=== PATIENT | female | born 1955 | race Caucasian/White ===

== ENCOUNTER → 2019-09-22 15:39 | Outpatient (BNVA) | payer BC, SELFPAY | PROVIDERS: Family Provider Family Medicine; PCP Family Medicine; Visit Provider Nurse Practitioner | DX: R50.9 Fever, unspecified (principal); R05 Cough | CPT/HCPCS: 71046; 81003; 85025; 87804 ==

== ENCOUNTER 2020-01-01 23:24 | Inpatient (IN) | payer BC, SELFPAY ==
--- NOTE | 2020-01-01 23:37 | XRR_ITS ---
PROCEDURE INFORMATION: Exam: XR Chest, 1 View Exam date and time: 01/02/2020 12:07 AM Age: 64 years old Clinical indication: Dyspnea; Prior surgery; Surgery date: 6+ months; Surgery type: Stents, gb; Additional info: Weakness TECHNIQUE: Imaging protocol: XR of the chest Views: 1 view. COMPARISON: CR XR chest 2V* [id number] 09/22/2019 3:39 PM FINDINGS: Lungs: Patchy bilateral airspace opacities may reflect evolving bronchopneumonia. Pleural space: Unremarkable. No pleural effusion. No pneumothorax. Heart/Mediastinum: Irregularity to the right heart border and mediastinum somewhat concerning for underlying adenopathy, consider further evaluation with CT scan. Bones/joints: Unremarkable. XR/XR chest 1V portable [id number] IMPRESSION: 1. Patchy bilateral airspace opacities may reflect evolving bronchopneumonia. 2. Irregularity to the right heart border and mediastinum somewhat concerning for underlying adenopathy, consider further evaluation with CT scan.
--- NOTE | 2020-01-01 23:38 | ECG_ITS ---
Measurements Intervals Mcdonald Rate: 67 P: 58 MN: 200 QRS: 64 QRSD: 99 T: 7 QT: 451 QTc: 479 SINUS RHYTHM NONSPECIFIC T-WAVE ABNORMALITY Compared to ECG 11/19/2018 16:22:41 First degree AV block no longer present Possible ischemia no longer present T-wave abnormality still present Electronically Signed On 01-02-2020 7:47:58 CDT by Herb Gaitan M.D. [email or web address]
[2020-01-01 23:44] VITALS: BP 68/35; PULSE 70; RESP 10; TEMP 36.7; O2SAT 75; BMI 19.3
[2020-01-02] VITALS (36 sets, daily range): BP systolic 72–158; BP diastolic 38–76; PULSE 62–72; RESP 9–22; TEMP 35.8–36.7; O2SAT 5–97
[2020-01-02 00:10] LABS: Basophils # 0.1 10^3/uL (0.0-0.1); Basophils % 0.3 %; Eosinophils # 0.2 10^3/uL (0.0-0.8); Eosinophils % 1.1 %; Hematocrit 35.7 % (37.0-47.0); Hemoglobin 11.9 g/dL (11.5-15.3); Lymphocytes # 1.2 10^3/uL (0.8-4.8); Lymphocytes % 8.2 %; Mean Corpuscular HGB Conc 33.3 g/dL (30.0-36.0); Mean Corpuscular Hemoglobin 31.3 pg (28.0-34.0); Mean Corpuscular Volume 93.9 fL (81-99); Monocytes # 0.3 10^3/uL (0.2-0.9); Monocytes % 2.4 %; Neutrophils # 12.5 10^3/uL (1.8-7.7); Neutrophils % 87.1 %; Nucleated Red Blood Cells % 0 %; Platelet Count 225 10^3/cmm (130-400); Red Cell Distribution Width 13.4 % (12.1-15.1); White Blood Count 14.4 10^3/uL (4.0-10.0)
[2020-01-02] MEDS: lactated ringers 1,000 ML 999 ML IV ×2 (00:15→01:05)
--- NOTE | 2020-01-02 00:18 | ED_ITS ---
HPI - Altered Mental Status General: Chief Complaint: Psychiatric Symptoms Stated Complaint: weakness/confused Time Seen by Provider: 01/01/20 23:37 History of Present Illness: HPI narrative: History is somewhat limited to the patient's lethargy and slurred speech. Family is with her to does provide additional history. Apparently the patient has been at home in bed primarily secondary to a lupus flareup. They state at times she will get fatigued and in so much pain she just lays in bed for several days. This is what had been going on but then over the past 24 to 48 hours the patient is developed a fever, cough, she is been talking out of her head and was too weak to get up out of bed. Because of this she was brought here. Family states that she has had frequent UTIs in the past as well. Here the patient complains of primarily low back pain which she states is chronic. Other than that she says she does not feel sick, short of breath nor does she have any complaints other than weakness. Review of Systems General: Reports: ROS unobtainable due to medical condition (Pertinent positive review of systems that could be obtained were noted in HPI) PFSH ED PFSH: Medical History Anxiety disorder Arteriosclerotic cardiovascular disease Essential (primary) hypertension GERD (gastroesophageal reflux disease) Hypothyroidism Intervertebral disc disorder with radiculopathy of lumbosacral region Lumbar stenosis with neurogenic claudication Mixed hyperlipidemia Systemic lupus erythematosus, unspecified Vitamin D deficiency Surgical History H/O: hysterectomy with BSO History of cholecystectomy History of heart artery stent 5 stents Family History Sister Cancer Brain Hypertension Family/Other Hypertension Several members Social History Smoking and tobacco status: current every day smoker Second hand smoke exposure: No Smoking risk assessment/counseling performed?: No Alcohol intake: never Desire information about alcohol rehabilitation?: No Counseling given: No Desire information about substance/drug rehabilitation?: No Counseling given: No Caregiver/support person: No Lives independently: Yes Household members: spouse Current occupational status: unemployed History of recent travel: No Current gender identity: Female Physical Exam Const: GENERAL APPEARANCE: cooperative, lethargic and frail appearing NUTRITIONAL APPEARANCE: thin ORIENTATION/CONSCIOUSNESS: Yes awake and Yes lethargic HENMT: COMMON NORMALS: normocephalic, atraumatic, hearing grossly normal bilaterally, external ears normal, EAC's normal, Normal external nose present and moist oral mucous membranes HEAD & SCALP: normocephalic and atraumatic NOSE: Normal external nose present and Normal nares present EXTERNAL EAR: Yes external ears normal EXTERNAL AUDITORY CANAL: EAC's normal MOUTH: Normal oral and palatal mucosa present, lip normal, tongue normal and moist mucous membranes abnormal Details: parched Eye: COMMON NORMALS: Equal, round and reactive pupils present, EOMs intact bilaterally, conjunctivae normal and no scleral icterus GENERAL EYE: appearance normal, both eyes and all related structures ALIGNMENT: Yes alignment normal PERIORBITAL: periorbital findings normal EYELID: eyelids normal CONJUNCTIVA: Yes conjunctivae normal SCLERA: sclerae normal PUPIL: Yes Equal, round and reactive pupils present Neck/C-Spine: COMMON NORMALS: full ROM, no lymphadenopathy, supple, no meningeal signs and no JVD GENERAL: Yes normal visual inspection and Yes trachea midline Chest: COMMONS NORMALS: normal inspection of the chest and normal palpation of entire chest wall Resp: COMMON NORMALS: normal respiratory effort, No retractions and No use of accessory muscles EFFORT & INSPECTION: Yes able to speak in complete sentences and Yes symmetric chest movement AUSCULTATION: rhonchi and diminished lung sounds Cardio: COMMON NORMALS: no JVD, regular rate, regular rhythm, S1 normal heart sound present, S2 normal heart sound present, No gallops present (Cardio), No clicks present (Cardio), No murmurs present (Cardio) and No rub (Cardio) RATE: regular rate RHYTHM: regular rhythm HEART SOUNDS: S1 normal heart sound present and S2 normal heart sound present GI: COMMON NORMALS: Soft to palpation and No hepatosplenomegaly present PALPATION: Yes Soft to palpation, No Tenderness to palpation present (GI), No Guarding due to palpation present (GI), No Rigid due to palpation, Yes No hepatosplenomegaly present, No Hernia present, No Palpable mass present and No Pulsatile mass present : COMMON NORMALS: Yes no CVA tenderness BLADDER/KIDNEY EXAM: Yes no CVA tenderness EXTERNAL FEMALE EXAM: No Hernia present Back/Pelvis: COMMON NORMALS: no CVA tenderness, thoracic and lumbar spine normal to inspection, no thoracic nor lumbar tenderness and thoraco-lumbar ROM normal Extremity: COMMON NORMALS: normal to inspection, full ROM, capillary refill normal, no joint enlargement, no clubbing, cyanosis or edema and no calf tenderness Neuro: COMMON NORMALS: CN's II-XII intact bilaterally, moves all extremities, no focal motor deficits and no sensory deficits noted SENSORIUM/ORIENTATION: Yes lethargic MENINGEAL SIGNS: Yes no meningeal signs Skin: COMMON NORMALS: no rashes or lesions noted, turgor normal, no jaundice, no petechiae and no mottling GENERAL SKIN EXAM: no rashes or lesions noted and turgor normal Course ED course: 0124 -Case turned over to Dr. Lara for ICU admission. He understands the patient's urinalysis is pending at this time. 0305 -patient was admitted to the ICU with a diagnosis of septic shock. She has UTI but she also has a concern for covert exposure and a chest x-ray with significant hypoxia. Vital Signs: Vital signs: Vital Signs Temperature 98.0 F 01/01/20 23:44 Pulse Rate 72 01/02/20 02:53 Respiratory Rate 20 H 01/02/20 02:53 Blood Pressure 112/72 01/02/20 02:53 Pulse Oximetry 91 01/02/20 02:53 MDM - Altered Mental Status Lab Data: Labs: Lab Results 01/01/20 01/01/20 01/01/20 Range/Units 00:00 23:59 23:59 WBC 14.4 H (4.0-10.0) 10^3/ uL RBC 3.80 L (4.1-5.3) 10^6/u L Hgb 11.9 (11.5-15.3) g/dL Hct 35.7 L (37.0-47.0) % MCV 93.9 (81-99) fL MCH 31.3 (28.0-34.0) pg MCHC 33.3 (30.0-36.0) g/dL RDW 13.4 (12.1-15.1) % Plt Count 225 (130-400) 10^3/c mm MPV 11.0 H (7.4-10.4) fL Neut % (Auto) 87.1 % Lymph % (Auto) 8.2 % Crosby % (Auto) 2.4 % Eos % (Auto) 1.1 % Baso % (Auto) 0.3 % Neut # (Auto) 12.5 H (1.8-7.7) 10^3/u L Lymph # (Auto) 1.2 (0.8-4.8) 10^3/u L Crosby # (Auto) 0.3 (0.2-0.9) 10^3/u L Eos # (Auto) 0.2 (0.0-0.8) 10^3/u L Baso # (Auto) 0.1 (0.0-0.1) 10^3/u L Nucleated RBC % (a uto) 0 % Nucleated RBCs # 0.0 /100WBC D-Dimer (0-0.59) ug/mIFE U Specimen Type Arterial Sample Site Brachial, right ABG pH 7.26 L (7.35-7.45) ABG pCO2 39.5 (35-45) mmHg ABG pO2 49.4 L (80.0-100.0) mmH g ABG HCO3 17.5 L (22-26) mmol/L ABG O2 Saturation 83.0 ABG Base Excess -9.0 L (-2.0-2.0) mmol/ L Amrit Test Pos A-a O2 Gradient 51.5 H (5-10) mmHg Hematocrit 36.5 L (37-47) % Hgb O2 Saturation 78.4 L (95-100) % Carboxyhemoglobin 4.4 (0.4-20.1) %THgb Methemoglobin 1.2 (0.4-1.5) % Total Hemoglobin 11.9 L (12-16) g/dL Sodium 126.0 L 126 L (131-143) mmol/L Potassium 4.9 5.5 H (3.5-5.0) mmol/L Glucose 72.0 76 (70-115) mg/dL Ionized Calcium 1.2 (1.1-1.4) mmol/L O2 Delivery Device Nc O2 Liters/Min 5.0 % Recruitment Coordinator ID [email or web address] Chloride 88 L (98-107) mmol/L Carbon Dioxide 18 L (22-29) mmol/L Anion Gap 25.5 H (5-19) BUN 29 H (8-23) mg/dL Creatinine 4.3 H (0.5-0.9) mg/dL GFR Calculation 10.4 L (90-130) mL/min Calculated Osmolal ity 258 L (285-295) mOsm/k g Lactic Acid (0.5-2.2) mmol/L Calcium 9.3 (8.5-10.5) mg/dL Magnesium 1.9 (1.7-2.3) mg/dL Ferritin (15-150) ng/mL Total Bilirubin 0.5 (0.15-1.2) mg/dL AST 80 H (0-32) U/L ALT 14 (0-33) U/L Alkaline Phosphata se 70 (35-105) IU/L Ammonia (11-51) umol/L Creatine Kinase 642 H* (26-192) U/L Troponin T Baselin e (0-10) ng/mL Total Protein 7.3 (6.6-8.7) g/dL Albumin 3.6 (3.5-5.2) g/dL Globulin 3.7 (1.3-4.6) g/dL Lipase 16 (13-60) U/L TSH 1.03 (0.27-4.20) uIU/ mL Urine Color (Yellow) Urine Appearance (CLEAR) Urine pH (5-7) Ur Specific Gravit y (1.005-1.030) Urine Protein (Negative) Urine Glucose (UA) (Normal) Urine Ketones (Negative) Urine Blood (Negative) Urine Nitrate (Negative) Urine Bilirubin (NEGATIVE) Urine Urobilinogen (Negative) mg/dL Ur Leukocyte Sabrina ase (Negative) Urine RBC (0-2) /hpf Urine WBC (0-5) /hpf Ur Squamous Epith Cells (0-5) Ur Transition Epit h Cell /hpf Urine Bacteria (NONE) Urine Opiates Scre en (Negative) ng/mL Ur Barbiturates Sc reen (Negative) ng/mL Ur Phencyclidine S crn (Negative) ng/mL Ur Amphetamines Sc reen (Negative) ng/mL U Benzodiazepines Scrn (Negative) ng/mL Urine Cocaine Scre en (Negative) ng/mL U Marijuana (THC) Screen (Negative) ng/mL Ethyl Alcohol < 10 (0-10) mg/dL 01/01/20 01/01/2020 Range/Units 23:59 23:59 23:59 WBC (4.0-10.0) 10^3/ uL RBC (4.1-5.3) 10^6/u L Hgb (11.5-15.3) g/dL Hct (37.0-47.0) % MCV (81-99) fL MCH (28.0-34.0) pg MCHC (30.0-36.0) g/dL RDW (12.1-15.1) % Plt Count (130-400) 10^3/c mm MPV (7.4-10.4) fL Neut % (Auto) % Lymph % (Auto) % Crosby % (Auto) % Eos % (Auto) % Baso % (Auto) % Neut # (Auto) (1.8-7.7) 10^3/u L Lymph # (Auto) (0.8-4.8) 10^3/u L Crosby # (Auto) (0.2-0.9) 10^3/u L Eos # (Auto) (0.0-0.8) 10^3/u L Baso # (Auto) (0.0-0.1) 10^3/u L Nucleated RBC % (a uto) % Nucleated RBCs # /100WBC D-Dimer 1.49 H (0-0.59) ug/mIFE U Specimen Type Sample Site ABG pH (7.35-7.45) ABG pCO2 (35-45) mmHg ABG pO2 (80.0-100.0) mmH g ABG HCO3 (22-26) mmol/L ABG O2 Saturation ABG Base Excess (-2.0-2.0) mmol/ L Amrit Test A-a O2 Gradient (5-10) mmHg Hematocrit (37-47) % Hgb O2 Saturation (95-100) % Carboxyhemoglobin (0.4-20.1) %THgb Methemoglobin (0.4-1.5) % Total Hemoglobin (12-16) g/dL Sodium (131-143) mmol/L Potassium (3.5-5.0) mmol/L Glucose (70-115) mg/dL Ionized Calcium (1.1-1.4) mmol/L O2 Delivery Device O2 Liters/Min % Recruitment Coordinator ID Chloride (98-107) mmol/L Carbon Dioxide (22-29) mmol/L Anion Gap (5-19) BUN (8-23) mg/dL Creatinine (0.5-0.9) mg/dL GFR Calculation (90-130) mL/min Calculated Osmolal ity (285-295) mOsm/k g Lactic Acid 2.8 H (0.5-2.2) mmol/L Calcium (8.5-10.5) mg/dL Magnesium (1.7-2.3) mg/dL Ferritin (15-150) ng/mL Total Bilirubin (0.15-1.2) mg/dL AST (0-32) U/L ALT (0-33) U/L Alkaline Phosphata se (35-105) IU/L Ammonia (11-51) umol/L Creatine Kinase (26-192) U/L Troponin T Baselin e 16 H (0-10) ng/mL Total Protein (6.6-8.7) g/dL Albumin (3.5-5.2) g/dL Globulin (1.3-4.6) g/dL Lipase (13-60) U/L TSH (0.27-4.20) uIU/ mL Urine Color (Yellow) Urine Appearance (CLEAR) Urine pH (5-7) Ur Specific Gravit y (1.005-1.030) Urine Protein (Negative) Urine Glucose (UA) (Normal) Urine Ketones (Negative) Urine Blood (Negative) Urine Nitrate (Negative) Urine Bilirubin (NEGATIVE) Urine Urobilinogen (Negative) mg/dL Ur Leukocyte Sabrina ase (Negative) Urine RBC (0-2) /hpf Urine WBC (0-5) /hpf Ur Squamous Epith Cells (0-5) Ur Transition Epit h Cell /hpf Urine Bacteria (NONE) Urine Opiates Scre en (Negative) ng/mL Ur Barbiturates Sc reen (Negative) ng/mL Ur Phencyclidine S crn (Negative) ng/mL Ur Amphetamines Sc reen (Negative) ng/mL U Benzodiazepines Scrn (Negative) ng/mL Urine Cocaine Scre en (Negative) ng/mL U Marijuana (THC) Screen (Negative) ng/mL Ethyl Alcohol (0-10) mg/dL 01/01/20 01/02/20 01/02/20 Range/Units 23:59 00:40 00:40 WBC (4.0-10.0) 10^3/ uL RBC (4.1-5.3) 10^6/u L Hgb (11.5-15.3) g/dL Hct (37.0-47.0) % MCV (81-99) fL MCH (28.0-34.0) pg MCHC (30.0-36.0) g/dL RDW (12.1-15.1) % Plt Count (130-400) 10^3/c mm MPV (7.4-10.4) fL Neut % (Auto) % Lymph % (Auto) % Crosby % (Auto) % Eos % (Auto) % Baso % (Auto) % Neut # (Auto) (1.8-7.7) 10^3/u L Lymph # (Auto) (0.8-4.8) 10^3/u L Crosby # (Auto) (0.2-0.9) 10^3/u L Eos # (Auto) (0.0-0.8) 10^3/u L Baso # (Auto) (0.0-0.1) 10^3/u L Nucleated RBC % (a uto) % Nucleated RBCs # /100WBC D-Dimer (0-0.59) ug/mIFE U Specimen Type Sample Site ABG pH (7.35-7.45) ABG pCO2 (35-45) mmHg ABG pO2 (80.0-100.0) mmH g ABG HCO3 (22-26) mmol/L ABG O2 Saturation ABG Base Excess (-2.0-2.0) mmol/ L Amrit Test A-a O2 Gradient (5-10) mmHg Hematocrit (37-47) % Hgb O2 Saturation (95-100) % Carboxyhemoglobin (0.4-20.1) %THgb Methemoglobin (0.4-1.5) % Total Hemoglobin (12-16) g/dL Sodium (131-143) mmol/L Potassium (3.5-5.0) mmol/L Glucose (70-115) mg/dL Ionized Calcium (1.1-1.4) mmol/L O2 Delivery Device O2 Liters/Min % Recruitment Coordinator ID Chloride (98-107) mmol/L Carbon Dioxide (22-29) mmol/L Anion Gap (5-19) BUN (8-23) mg/dL Creatinine (0.5-0.9) mg/dL GFR Calculation (90-130) mL/min Calculated Osmolal ity (285-295) mOsm/k g Lactic Acid (0.5-2.2) mmol/L Calcium (8.5-10.5) mg/dL Magnesium (1.7-2.3) mg/dL Ferritin 478 H (15-150) ng/mL Total Bilirubin (0.15-1.2) mg/dL AST (0-32) U/L ALT (0-33) U/L Alkaline Phosphata se (35-105) IU/L Ammonia 28 (11-51) umol/L Creatine Kinase (26-192) U/L Troponin T Baselin e (0-10) ng/mL Total Protein (6.6-8.7) g/dL Albumin (3.5-5.2) g/dL Globulin (1.3-4.6) g/dL Lipase (13-60) U/L TSH (0.27-4.20) uIU/ mL Urine Color Dark yellow (Yellow) Urine Appearance Hazy A (CLEAR) Urine pH 5 (5-7) Ur Specific Gravit y 1.015 (1.005-1.030) Urine Protein Trace (Negative) Urine Glucose (UA) Norm (Normal) Urine Ketones 1+ H (Negative) Urine Blood 2+ H (Negative) Urine Nitrate Positive H (Negative) Urine Bilirubin 1+ H (NEGATIVE) Urine Urobilinogen 1 H (Negative) mg/dL Ur Leukocyte Sabrina ase 1+ H (Negative) Urine RBC 0-4 H (0-2) /hpf Urine WBC 80-100 H (0-5) /hpf Ur Squamous Epith Cells 0-4 H (0-5) Ur Transition Epit h Cell 0-4 /hpf Urine Bacteria 1+ H (NONE) Urine Opiates Scre en (Negative) ng/mL Ur Barbiturates Sc reen (Negative) ng/mL Ur Phencyclidine S crn (Negative) ng/mL Ur Amphetamines Sc reen (Negative) ng/mL U Benzodiazepines Scrn (Negative) ng/mL Urine Cocaine Scre en (Negative) ng/mL U Marijuana (THC) Screen (Negative) ng/mL Ethyl Alcohol (0-10) mg/dL 01/02/20 Range/Units 00:40 WBC (4.0-10.0) 10^3/ uL RBC (4.1-5.3) 10^6/u L Hgb (11.5-15.3) g/dL Hct (37.0-47.0) % MCV (81-99) fL MCH (28.0-34.0) pg MCHC (30.0-36.0) g/dL RDW (12.1-15.1) % Plt Count (130-400) 10^3/c mm MPV (7.4-10.4) fL Neut % (Auto) % Lymph % (Auto) % Crosby % (Auto) % Eos % (Auto) % Baso % (Auto) % Neut # (Auto) (1.8-7.7) 10^3/u L Lymph # (Auto) (0.8-4.8) 10^3/u L Crosby # (Auto) (0.2-0.9) 10^3/u L Eos # (Auto) (0.0-0.8) 10^3/u L Baso # (Auto) (0.0-0.1) 10^3/u L Nucleated RBC % (a uto) % Nucleated RBCs # /100WBC D-Dimer (0-0.59) ug/mIFE U Specimen Type Sample Site ABG pH (7.35-7.45) ABG pCO2 (35-45) mmHg ABG pO2 (80.0-100.0) mmH g ABG HCO3 (22-26) mmol/L ABG O2 Saturation ABG Base Excess (-2.0-2.0) mmol/ L Amrit Test A-a O2 Gradient (5-10) mmHg Hematocrit (37-47) % Hgb O2 Saturation (95-100) % Carboxyhemoglobin (0.4-20.1) %THgb Methemoglobin (0.4-1.5) % Total Hemoglobin (12-16) g/dL Sodium (131-143) mmol/L Potassium (3.5-5.0) mmol/L Glucose (70-115) mg/dL Ionized Calcium (1.1-1.4) mmol/L O2 Delivery Device O2 Liters/Min % Recruitment Coordinator ID Chloride (98-107) mmol/L Carbon Dioxide (22-29) mmol/L Anion Gap (5-19) BUN (8-23) mg/dL Creatinine (0.5-0.9) mg/dL GFR Calculation (90-130) mL/min Calculated Osmolal ity (285-295) mOsm/k g Lactic Acid (0.5-2.2) mmol/L Calcium (8.5-10.5) mg/dL Magnesium (1.7-2.3) mg/dL Ferritin (15-150) ng/mL Total Bilirubin (0.15-1.2) mg/dL AST (0-32) U/L ALT (0-33) U/L Alkaline Phosphata se (35-105) IU/L Ammonia (11-51) umol/L Creatine Kinase (26-192) U/L Troponin T Baselin e (0-10) ng/mL Total Protein (6.6-8.7) g/dL Albumin (3.5-5.2) g/dL Globulin (1.3-4.6) g/dL Lipase (13-60) U/L TSH (0.27-4.20) uIU/ mL Urine Color (Yellow) Urine Appearance (CLEAR) Urine pH (5-7) Ur Specific Gravit y (1.005-1.030) Urine Protein (Negative) Urine Glucose (UA) (Normal) Urine Ketones (Negative) Urine Blood (Negative) Urine Nitrate (Negative) Urine Bilirubin (NEGATIVE) Urine Urobilinogen (Negative) mg/dL Ur Leukocyte Sabrina ase (Negative) Urine RBC (0-2) /hpf Urine WBC (0-5) /hpf Ur Squamous Epith Cells (0-5) Ur Transition Epit h Cell /hpf Urine Bacteria (NONE) Urine Opiates Scre en Positive H (Negative) ng/mL Ur Barbiturates Sc reen Negative (Negative) ng/mL Ur Phencyclidine S crn Positive H (Negative) ng/mL Ur Amphetamines Sc reen Negative (Negative) ng/mL U Benzodiazepines Scrn Positive H (Negative) ng/mL Urine Cocaine Scre en Negative (Negative) ng/mL U Marijuana (THC) Screen Positive H (Negative) ng/mL Ethyl Alcohol (0-10) mg/dL Critical Care Time Critical Care Time: Critical Care Time: Yes Total Critical Care Time: 30 Attestation: Patient presented very ill and demanded my undivided attention. Critical care time consisted of evaluating patient's perfusion, physical exam, managing her hypoxia as well as reviewing labs and radiological films. Critical care time consisted of antibiotic management and IV vasopressors. Discharge Plan Discharge Patient Disposition: Admitted As Inpatient Admit Provider: Adelaide Lara Clinical Impression: Septic shock, Acute UTI Pneumonia Qualifiers: Pneumonia type: due to unspecified organism Laterality: bilateral Lung location: unspecified part of lung Qualified Code(s): J18.9 - Pneumonia, unspecified organism Condition: Stable Interventions: ED Discharge Assessment Last Done: 01/02/20 02:53 ED Charges Last Done: 01/02/20 02:53 Discharge Date/Time: 01/02/20 02:55 Coding Level of Care Code ED Airport Operations Coordinator for Chg Fwd Exam Comprehensive
[2020-01-02 00:23] LABS: Lactic Sepsis W/Reflex 2.8 mmol/L (0.5-2.2)
[2020-01-02 00:25] LABS: ABG PCO2 39.5 mmHg (35-45); ABG PH Result 7.26 (7.35-7.45); Alveolar-Arterial Oxygen Gradi 51.5 mmHg (5-10); Arterial Blood Gas Hematocrit 36.5 % (37-47); Blood Gas Allen Test Pos; Blood Gas Sample Site Brachial, right; Blood Gas Sample Type Arterial; Carboxyhemoglobin 4.4 %THgb (0.4-20.1); HCO3 ABG 17.5 mmol/L (22-26); HGB O2 Sat 78.4 % (95-100); Ionized Calcium Level - ABG 1.2 mmol/L (1.1-1.4); Methemoglobin 1.2 % (0.4-1.5); Oxygen Device NC; PO2 ABG 49.4 mmHg (80.0-100.0); Potassium Level - ABG 4.9 mmol/L (3.5-5.0); Total Hemoglobin 11.9 g/dL (12-16)
[2020-01-02 00:25] LABS: Troponin(5th) Baseline 16 ng/mL (0-10)
[2020-01-02 00:35] LABS: Alanine Aminotransferase 14 U/L (0-33); Albumin Level 3.6 g/dL (3.5-5.2); Alkaline Phosphatase 70 IU/L (35-105); Anion Gap 25.5 (5-19); Aspartate Amino Transferase 80 U/L (0-32); Blood Urea Nitrogen 29 mg/dL (8-23); Calcium 9.3 mg/dL (8.5-10.5); Carbon Dioxide 18 mmol/L (22-29); Chloride 88 mmol/L (98-107); Globulin 3.7 g/dL (1.3-4.6); Glomerular Filtration Rate 10.4 mL/min (90-130); Glucose 76 mg/dL (65-115); Lipase 16 U/L (13-60); Magnesium 1.9 mg/dL (1.7-2.3); Osmolality Calculated 258 mOsm/kg (285-295); Potassium 5.5 mmol/L (3.5-5.1); Sodium 126 mmol/L (136-145); Thyroid Stimulating Hormone 1.03 uIU/mL (0.27-4.20); Total Bilirubin 0.5 mg/dL (0.15-1.2); Total Protein 7.3 g/dL (6.6-8.7)
[2020-01-02 00:40] LABS: Alcohol Level < 10 mg/dL (0-10); Creatine Phosphokinase 642 U/L (26-192)
[2020-01-02] MEDS: sodium chloride 0.9% 1,000 ML 100 ML IV (01:08)
[2020-01-02] MEDS: hydrocortisone 100 mg/2 mL SDV IVP (01:08)
[2020-01-02] MEDS: piperacillin-tazobactam 3.375 GM in sodium chloride 0.9% (plus) 50 ML IV ×3 (01:21→17:38)
--- NOTE | 2020-01-02 01:23 | PM.HP ---
Providers/Chief Complaint Primary Care Provider: Raheem Baron Chief Complaint: weakness/confused History of Present Illness Edyta Camp is a 64 year old female who has history of lupus, chronic steroid user, coming in with chief complaint of shortness of breath and myalgias. Patient is stating that she has been getting worse, in September she was treated with antibiotics for pneumonia, her appetite is poor, recently she has been exposed to her son who works at [employer] where some of the coworkers are COVID suspects. Patient has been experiencing fever, T-max 101 last night, she has been having shortness of breath on exertion, myalgias, she is endorsing pain in her legs, shoulders and back. She is denying orthopnea, PND or chest pain. Lately she has been experiencing dysuria with dark-colored urine. Her last bowel movement was today. When asked about the steroid dose she said she is using the lowest dose. Diagnostics in the ER revealed bilateral infiltrates, UTI, she was hypotensive, she was treated for septic shock with normal saline, vancomycin, Zosyn, Levophed was started which improved her blood pressure. Patient seems to keep following back to her sleep, I had to repeat my questions 2 or 3 times to get the answer. Review of Systems Const: Reports: fever(s), chills, body aches, fatigue and change in sleep pattern Eyes: Denies: change in vision ENMT: Denies: throat pain Card: Denies: chest pain Resp: Reports: dyspnea and non-productive cough GI: Reports: nausea; Denies: abdominal pain, vomiting, bloating, GI cramping or belching : Reports: difficulty voiding, dysuria and urinary urgency Musc: Reports: back pain and muscle weakness; Denies: neck pain or joint pain Skin/Breast: Denies: rash Neuro: Reports: headache(s) Psych: Reports: anxiety, depression and sleeping more Endo: Denies: polyuria Brett/Lymph: Denies: easy bruising All/Imm: Denies: urticaria Medications/Allergies Home Medications Medication Instructions Recorded Confirmed Last Taken Type albuterol sulfate 90 mcg/actuation 2 puff INHALATION QID 09/22/19 11/21/19 Unknown History aerosol inhaler alprazolam 0.5 mg tablet 0.5 mg PO TID 09/22/19 11/21/19 Unknown History aspirin 81 mg tablet,delayed 81 mg PO DAILY 09/22/19 11/21/19 Unknown History release atenolol 25 mg tablet 25 mg PO DAILY 09/22/19 11/21/19 Unknown History chlordiazepoxide-clidinium 5 1 cap PO BID PRN 09/22/19 11/21/19 Unknown History mg-2.5 mg capsule clobetasol 0.05 % topical ointment 1 applic TOPICAL DAILY PRN 09/22/19 11/21/19 Unknown History clopidogrel 75 mg tablet 75 mg PO DAILY 09/22/19 11/21/19 Unknown History cyanocobalamin (vitamin B-12) 1,000 mcg PO DAILY 09/22/19 11/21/19 Unknown History 1,000 mcg capsule doxycycline hyclate 100 mg capsule 100 mg PO BID #20 cap 09/22/19 09/22/19 Unknown Rx fenofibrate nanocrystallized 48 mg 48 mg PO DAILY 09/22/19 11/21/19 Unknown History tablet fluoxetine 40 mg capsule 40 mg PO DAILY 09/22/19 11/21/19 Unknown History hydroxyzine pamoate 25 mg capsule 25 mg PO Q6H PRN cap 09/22/19 11/21/19 Unknown History levothyroxine 112 mcg capsule 112 mcg PO DAILY 09/22/19 11/21/19 Unknown History lisinopril 10 mg tablet 10 mg PO DAILY 09/22/19 11/21/19 Unknown History magnesium oxide 400 mg PO DAILY 09/22/19 11/21/19 Unknown History nitroglycerin 0.4 mg sublingual 0.4 mg SUBLINGUAL Q5M PRN 09/22/19 11/21/19 Unknown History tablet pantoprazole 40 mg tablet,delayed 40 mg PO BID tab 09/22/19 11/21/19 Unknown History release potassium chloride 10 mEq 10 meq PO BID tab 09/22/19 11/21/19 Unknown History tablet,extended release(part/cryst) tramadol 50 mg tablet 50 mg PO TID PRN 09/22/19 11/21/19 Unknown History trazodone 100 mg tablet 100 mg PO BID 09/22/19 11/21/19 Unknown History triamcinolone acetonide 0.1 % 1 applic TOPICAL DAILY PRN 09/22/19 11/21/19 Unknown History topical cream Allergies Allergy/AdvReac Type Severity Reaction Status Date / Time codeine Allergy Unknown Verified 01/02/20 00:46 [id number]-Wox-Zdk Reductase AdvReac Severe Leg Verified 11/21/19 12:11 Inhibitor cramping PFSH Acute PFSH: Medical History Anxiety disorder Arteriosclerotic cardiovascular disease Essential (primary) hypertension GERD (gastroesophageal reflux disease) Hypothyroidism Intervertebral disc disorder with radiculopathy of lumbosacral region Lumbar stenosis with neurogenic claudication Mixed hyperlipidemia Systemic lupus erythematosus, unspecified Vitamin D deficiency Surgical History H/O: hysterectomy with BSO History of cholecystectomy History of heart artery stent 5 stents Family History Sister Cancer Brain Hypertension Family/Other Hypertension Several members Social History Smoking and tobacco status: current every day smoker Second hand smoke exposure: No Smoking risk assessment/counseling performed?: No Alcohol intake: never Desire information about alcohol rehabilitation?: No Counseling given: No Desire information about substance/drug rehabilitation?: No Counseling given: No Caregiver/support person: No Lives independently: Yes Household members: spouse Current occupational status: unemployed History of recent travel: No Current gender identity: Female Vitals/I&O/Wt Last Vital Signs Temp 98.0 F 01/01/20 23:44 Pulse 68 01/02/20 00:50 Resp 18 01/02/20 00:50 BP 118/42 01/02/20 00:50 Pulse Ox 92 01/02/20 00:50 01/01/20 01/01/20 01/02/20 14:59 22:59 06:59 Intake Total 1999 Balance 1999 Weight last 48 hrs Weight 72.575 kg Weight 54.431 kg Physical Exam Narrative: EXAM NARRATIVE: Head to toe examination Patient lying comfortable in her bed, seems drowsy, current systolic blood pressure 130 mmHg, currently on 6 L facemask saturating 93% Levophed at the bedside Vancomycin and Zosyn given No sign of heart failure, S1, S2 Abdomen soft nontender bowel sounds present Lungs have bilateral breath sounds with rhonchi at the bases no active respiratory distress She is verbally redirectable, drowsy, able to protect her airways, alert oriented x3 GCS 15 Skin does not show any skin ischemia or gangrene also EOMI, PERRLA Urinary Catheter Management^: Ball: Cath Placed During This Visit: yes Reason for Continuing Indwelling Catheter: Accurate Measurement of Urinary Output in Critically Ill Patients Urinary Catheter Date of Insertion: 01/02/20 Urinary Catheter Time of Insertion: 00:47 Data : 01/01/20 23:59 01/01/20 23:59 Micro: Microbiology 01/02/20 00:00 Blood Culture - Preliminary Blood SPECIMEN COLLECTED 01/02/20 00:00 Blood Culture - Preliminary Blood SPECIMEN COLLECTED A&P Assessment and plan (1) Septic shock: Status: Acute (2) UTI (urinary tract infection): Status: Acute (3) Hyponatremia: Status: Acute (4) ALICJA (acute kidney injury): Status: Acute (5) Respiratory failure with hypoxia: Status: Acute (6) Metabolic acidosis: Status: Acute (7) High serum lactic acid: Status: Acute (8) Hyperkalemia: Status: Acute Additional A&P Information Septic shock, with underlying immunocompromise state Likely source is urine tract infection and bilateral lung infiltrate with high suspicion for COVID COVID to be ruled out Vancomycin and Zosyn renally dose, if creatinine is worsening antibiotic need to be changed Normal saline with Levophed at this point currently her systolic blood pressure is under 30 mmHg, high risk for septic encephalopathy Urine analysis reveals positive nitrites, esterase Blood culture, urine culture, sputum culture Urine antigen sent Acute hyponatremia Previously her sodium level was within normal range, This seems to be secondary to dehydration High risk for septic encephalopathy Will monitor in ICU for now Clinically looks dehydrated, I will use normal saline, repeat BMP at 4 AM Check urine studies Metabolic acidosis due to sepsis Blood gases revealing metabolic acidosis with high anion gap, lactic acid is high Good respiratory compensation no active respiratory distress Acute on chronic kidney injury due to urinary tract infection We will place Ball catheter for accurate output, Because we are suspecting COVID I would be reluctant to send her to CT scan at this point Monitor BMP with fluid resuscitation Baseline creatinine seems to be around 1-1.2, Hyperkalemia due to ALICJA and supplementation Hold potassium supplementation, We will give her 1 dose of Kayexalate No EKG changes Chronic steroid user due to lupus Currently blood pressure responded well to fluids and steroids, I would give her dose of stress dose steroids Full code DVT prophylaxis: Heparin Cardiac diet Attestations Medical Necessity Statement*: Continued ICU because of septic shock, anticipating her stay to cross more than 2 midnights Time Spent in Patient Care: 60 Coding Level of Care Code 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
[2020-01-02 01:25] LABS: Amphetamines Screen Urine Negative (Negative); Barbiturates Screen Urine Negative (Negative); Benzodiazepines Screen Urine Positive (Negative); Cocaine Screen Urine Negative (Negative); Opiate Screen Urine Positive (Negative); PCP Screen Urine Positive (Negative); THC Screen Urine Positive (Negative)
[2020-01-02 01:29] LABS: Ammonia 28 umol/L (11-51)
[2020-01-02 01:35] LABS: Bilirubin Urine 1+ (NEGATIVE); Blood Urine 2+ (Negative); Glucose Urine UA Norm (Normal); Ketones Urine 1+ (Negative); Nitrate Urine Positive (Negative); Protein Urine Trace (Negative); Specific Gravity, Urine 1.015 (1.005-1.030); Urine Appearance Hazy (CLEAR); Urine Color Dark Yellow (Yellow); Urobilinogen Urine 1 mg/dL (Negative); pH Urine 5 (5-7)
[2020-01-02 01:36] LABS: Leukocyte Esterase Urine 1+ (Negative)
[2020-01-02 01:37] LABS: Bacteria Urine 1+; RBC Urine 0-4 /hpf (0-2); Squamous Epithelial Cell Urine 0-4 (0-5); Transitional Epi Cells Urine 0-4 /hpf; WBC Urine 80-100 /hpf (0-5)
[2020-01-02 01:38] LABS: Add Urine Culture? No
--- NOTE | 2020-01-02 01:38 | ECG_ITS ---
Measurements Intervals [place] Rate: 65 P: 41 MA: 198 QRS: 29 QRSD: 113 T: -15 QT: 441 QTc: 459 SINUS RHYTHM WITH SINUS ARRHYTHMIA MODERATE INTRAVENTRICULAR CONDUCTION DELAY [110+ ms QRS DURATION] NONSPECIFIC ST & T-WAVE ABNORMALITY INTERPRETATION BASED ON A DEFAULT AGE OF 40 YEARS Compared to ECG 11/19/2018 16:22:41 Intraventricular conduction delay now present First degree AV block no longer present Possible ischemia no longer present T-wave abnormality still present Electronically Signed On 01-02-2020 7:50:42 CDT by Herb Gaitan M.D. [email or web address]
[2020-01-02 01:52] LABS: Reflex Lactate Order REFLEX LACTIC ORDERD
[2020-01-02 01:55] LABS: D Dimer 1.49 ug/mIFEU (0-0.59)
[2020-01-02 02:49] LABS: Ferritin 478 ng/mL (15-150)
[2020-01-02 03:11] LABS: C Reactive Protein 366.4 mg/L (0.0-4.9); Lactate Dehydrogenase 1082 U/L (135-214)
[2020-01-02 03:54] LABS: D Dimer 1.41 ug/mIFEU (0-0.59)
[2020-01-02 03:58] LABS: Basophils % 0.3 %; Eosinophils # 0.1 10^3/uL (0.0-0.8); Eosinophils % 0.5 %; Hematocrit 27.4 % (37.0-47.0); Hemoglobin 8.9 g/dL (11.5-15.3); Lymphocytes # 0.8 10^3/uL (0.8-4.8); Lymphocytes % 6.1 %; Mean Corpuscular HGB Conc 32.5 g/dL (30.0-36.0); Mean Corpuscular Hemoglobin 30.6 pg (28.0-34.0); Mean Corpuscular Volume 94.2 fL (81-99); Mean Platelet Volume 11.2 fL (7.4-10.4); Monocytes # 0.2 10^3/uL (0.2-0.9); Monocytes % 1.9 %; Neutrophils # 11.4 10^3/uL (1.8-7.7); Neutrophils % 89.8 %; Nucleated Red Blood Cells % 0 %; Platelet Count 203 10^3/cmm (130-400); Red Blood Count 2.91 10^6/uL (4.1-5.3); Red Cell Distribution Width 13.2 % (12.1-15.1); White Blood Count 12.7 10^3/uL (4.0-10.0)
--- NOTE | 2020-01-02 03:58 | PC.PHAR ---
Creatinine clearance is 11.3. Vancomycin is dosed at 500mg IVPB every 48 hours to produce a predicted trough level of 13.35 (population based pharmacokinetic analysis). A trough level has been ordered fro the lab to be obtained before the third dose to confirm and adjust if needed. Zosyn is dosed at 3.375gm IVPB every 12 hours, each dose to be infused over 4 hours per extended infusion protocol.
[2020-01-02 04:06] LABS: Alanine Aminotransferase 11 U/L (0-33); Albumin Level 2.8 g/dL (3.5-5.2); Alkaline Phosphatase 63 IU/L (35-105); Anion Gap 21.9 (5-19); Aspartate Amino Transferase 74 U/L (0-32); Blood Urea Nitrogen 30 mg/dL (8-23); C Reactive Protein 317.7 mg/L (0.0-4.9); Calcium 9.1 mg/dL (8.5-10.5); Carbon Dioxide 20 mmol/L (22-29); Chloride 91 mmol/L (98-107); Globulin 3.7 g/dL (1.3-4.6); Glomerular Filtration Rate 9.8 mL/min (90-130); Glucose 91 mg/dL (65-115); Osmolality Calculated 263 mOsm/kg (285-295); Potassium 4.9 mmol/L (3.5-5.1); Sodium 128 mmol/L (136-145); Total Bilirubin 0.4 mg/dL (0.15-1.2); Total Protein 6.5 g/dL (6.6-8.7)
[2020-01-02 04:11] LABS: NT Pro B Type Natriuretic Pept 5564 pg/mL (0-125); Procalcitonin 3.39 ng/mL (0-0.5)
[2020-01-02] MEDS: vancomycin 500 MG in sodium chloride 0.9% (plus) 100 ML 100 MG IV (04:35)
[2020-01-02] MEDS: heparin 5,000 unit/mL INJ 1 mL 5000 UNIT SUBCUT ×3 (04:35→19:23)
--- NOTE | 2020-01-02 04:45 | PC.NURSE ---
Notified Dr. Lara that potassium is now WNL and he said not to give Kayexalate.
[2020-01-02] MEDS: FUROsemide 10 mg/mL SDV 2mL 20 MG IVP (04:56)
[2020-01-02] MEDS: linezolid premix 600 MG/300 ML PREMIX 300 MG IV ×2 (04:56→16:14)
[2020-01-02 05:50] LABS: Potassium, Radom Urine 49 mmol/L; Urine Random Chloride 22 mmol/L; Urine Random Sodium 38 mmol/L
[2020-01-02 05:55] LABS: Creatinine Urine, Random 181 mg/dL (28-217); Microalbumin Random Urine 14 ug/dL (0-20)
[2020-01-02] MEDS: hydrocortisone 100 mg/2 mL SDV 50 MG IVP ×3 (06:02→19:23)
[2020-01-02 06:12] LABS: Microalbum Creatinine Ratio Ur 77 mg/dL (0-20)
[2020-01-02 07:42] LABS: Lactic Acid level (Lactate) 1.6 mmol/L (0.5-2.2)
--- NOTE | 2020-01-02 08:12 | USR_ITS ---
PROCEDURE INFORMATION: Exam: US Retroperitoneal Limited, Kidneys Exam date and time: 01/02/2020 1:47 PM Age: 64 years old Clinical indication: Abnormal findings; Abnormal lab test; Abnormal kidney function lab tests; Additional info: Renal failure TECHNIQUE: Imaging protocol: Real-time ultrasound of the retroperitoneum with image documentation. Examination was focused on the kidneys. COMPARISON: US Renal Kidney Structu* [id number] 11/19/2018 12:28 PM FINDINGS: Right kidney: 10.5 cm in length. No stones. No hydronephrosis. Left kidney: 10.9 cm in length. No stones. No hydronephrosis. US/US renal BI* [id number] IMPRESSION: No acute sonographic findings.
--- NOTE | 2020-01-02 08:30 | USR_ITS ---
PROCEDURE INFORMATION: Exam: US Duplex Lower Extremity Veins, Bilateral Exam date and time: 01/02/2020 1:47 PM Age: 64 years old Clinical indication: Abnormal findings; Abnormal lab test; Elevated d-dimer; Additional info: Positive ddimer TECHNIQUE: Imaging protocol: Real-time duplex ultrasound of the extremities with 2-D calvo scale, color Doppler flow and spectral waveform analysis with image documentation. Complete exam focused on the bilateral lower extremity veins. COMPARISON: No relevant prior studies available. FINDINGS: Right deep veins: Unremarkable. The common femoral, femoral, proximal profunda femoral, popliteal and peroneal veins are patent without thrombus. Normal Doppler waveforms. Normal compressibility and/or augmentation response. Right superficial veins: Saphenofemoral junction is patent without thrombus. Left deep veins: Unremarkable. The common femoral, femoral, proximal profunda femoral, popliteal and peroneal veins are patent without thrombus. Normal Doppler waveforms. Normal compressibility and/or augmentation response. Left superficial veins: Saphenofemoral junction is patent without thrombus. Soft tissues: Unremarkable. US/CV venous duplex [facility] [id number] IMPRESSION: No sonographic evidence of deep vein thrombosis.
[2020-01-02] MEDS: albuterol 8 gm MDI 2 PUFF INHALATION ×4 (08:54→20:40)
[2020-01-02] MEDS: aspirin 81 mg EC Tablet PO (09:27)
[2020-01-02] MEDS: levothyroxine 112 mcg Tablet PO (09:27)
[2020-01-02] MEDS: pantoprazole DR 40 mg Tablet PO (09:27)
[2020-01-02] MEDS: ALPRAZolam 0.5 mg Tablet PO ×3 (09:27→21:01)
[2020-01-02] MEDS: clopidogrel 75 mg Tablet PO (09:27)
--- NOTE | 2020-01-02 12:47 | P.PN_ITS ---
Subjective Subjective: Interval history: History and physical reviewed. Patient reports she feels better than on admission. She admits to taking anti-inflammatory drugs, for her chronic pain. She states she is typically on about 1 mg of prednisone daily. She states lupus has affected her kidneys in the past. Medications: Reviewed: Yes Vitals/I&O/Wt Last Vital Signs Temp 96.5 F L 01/02/20 08:00 Pulse 65 01/02/20 08:59 Resp 22 H 01/02/20 08:51 BP 139/69 01/02/20 08:00 Pulse Ox 94 01/02/20 08:51 01/01/20 01/02/20 01/02/20 22:59 06:59 14:59 Intake Total 3368.436 / 3368.436 50 / 50 Output Total 100 / 100 600 / 600 Balance 3268.436 / 3268.436 -550 / -550 Weight last 48 hrs Weight 54.431 kg Physical Exam Narrative: EXAM NARRATIVE: General exam is no apparent distress Cardiovascular regular rate and rhythm without murmur Lungs coarse breath sounds at the bases Abdomen is soft, positive bowel sounds. No obvious organomegaly. Extremities no cyanosis clubbing or edema Urinary Catheter Management^: Ball: Cath Placed During This Visit: yes Reason for Continuing Indwelling Catheter: Accurate Measurement of Urinary Output in Critically Ill Patients Urinary Catheter Date of Insertion: 01/02/20 Urinary Catheter Time of Insertion: 00:47 Data : 01/02/20 03:25 01/02/20 03:25 Micro: Microbiology 01/02/20 04:35 Bacterial Antigens - Final Urine,Clean Catch 01/02/20 04:35 Legionella Urinary Antigen - Final Urine Catheterized 01/02/20 00:00 Blood Culture - Preliminary Blood SPECIMEN COLLECTED 01/02/20 00:00 Blood Culture - Preliminary Blood SPECIMEN COLLECTED A&P Assessment and plan (1) Septic shock: Currently on norepinephrine, On Zosyn, linezolid Etiology likely UTI Await urine and blood culture Fluids were placed on hold secondary to concern of fluid overload Placed on stress dose steroids as she uses prednisone daily for SLE Status: Acute (2) UTI (urinary tract infection): See above Status: Acute (3) Hyponatremia: Likely secondary to renal failure. Status: Acute (4) ALICJA (acute kidney injury): Likely ATN. Anti-inflammatory use may have contributed, along with sepsis/hypotension and UTI. Check renal ultrasound to rule out obstruction It appears fluids were held yesterday for concern of fluid overload with elevated BNP. On exam she has no evidence of heart failure. I will initiate 50 cc an hour of normal saline and monitor closely. Doubt acute lupus nephritis with only trace protein and 0-4 red blood cells Mild rhabdomyolysis was present. Status: Acute (5) Respiratory failure with hypoxia: Currently on 6 L per facemask. Continue to monitor closely. Covid [address] chest, was suggested for irregularity at right heart border. This would have to be considered after COVID testing has come back. Status: Acute (6) Metabolic acidosis: Secondary to renal failure. Status: Acute (7) High serum lactic acid: Status: Acute (8) Hyperkalemia: Corrected after dose of Kayexalate Status: Acute Additional A&P Information Leukocytosis, secondary to sepsis Elevated d-dimer. Check venous duplex lower extremities Elevated BNP. Check echocardiogram Chronic steroid use with history of SLE. She reports she uses 1 mg of prednisone daily. Secondary to hypotension placed on stress dose steroids Hypothyroidism History of coronary disease Hypertension GERD Full code DVT prophylaxis with heparin Attestations Medical Necessity Statement*: Needs continued hospital stay secondary to septic shock requiring pressors Critical Care Time: 31 minutes of critical care time spent secondary to sepsis requiring pressors which was reviewed and as well as multiorgan dysfunction with hypotension, renal failure, formulation of treatment plan, discussion with nurse and ancillary staff. 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
[2020-01-02] MEDS: sodium chloride 0.9% 1,000 ML 50 ML IV (13:40)
[2020-01-02 14:58] LABS: Anion Gap 21.9 (5-19); Blood Urea Nitrogen 35 mg/dL (8-23); Calcium 9.1 mg/dL (8.5-10.5); Carbon Dioxide 21 mmol/L (22-29); Chloride 91 mmol/L (98-107); Glomerular Filtration Rate 12.3 mL/min (90-130); Glucose 107 mg/dL (65-115); Osmolality Calculated 266 mOsm/kg (285-295); Potassium 4.9 mmol/L (3.5-5.1); Sodium 129 mmol/L (136-145)
[2020-01-03] VITALS (31 sets, daily range): BP systolic 109–164; BP diastolic 51–93; PULSE 66–93; RESP 16–36; TEMP 36.7–37.2; O2SAT 89–97
[2020-01-03] MEDS: hydrocortisone 100 mg/2 mL SDV 50 MG IVP ×2 (00:26→06:22)
[2020-01-03 01:30] LABS: Coronavirus Lab Test PTC SEE COMMENTS
--- NOTE | 2020-01-03 02:44 | PC.NURSE ---
Lab called to notify that the patient's Covid screen is negative. Dr. Lara notified and he discontinued isolation orders at this time.
[2020-01-03] MEDS: heparin 5,000 unit/mL INJ 1 mL 5000 UNIT SUBCUT ×3 (03:12→19:32)
[2020-01-03] MEDS: piperacillin-tazobactam 3.375 GM in sodium chloride 0.9% (plus) 50 ML IV ×2 (04:43→17:33)
[2020-01-03] MEDS: linezolid premix 600 MG/300 ML PREMIX 300 MG IV ×2 (04:43→16:47)
[2020-01-03 04:54] LABS: Basophils % 0.1 %; Hematocrit 29.3 % (37.0-47.0); Hemoglobin 9.8 g/dL (11.5-15.3); Lymphocytes # 0.4 10^3/uL (0.8-4.8); Lymphocytes % 3.6 %; Mean Corpuscular HGB Conc 33.4 g/dL (30.0-36.0); Mean Corpuscular Hemoglobin 30.5 pg (28.0-34.0); Mean Corpuscular Volume 91.3 fL (81-99); Mean Platelet Volume 11.2 fL (7.4-10.4); Monocytes # 0.2 10^3/uL (0.2-0.9); Monocytes % 1.7 %; Neutrophils % 93.4 %; Nucleated Red Blood Cells % 0 %; Platelet Count 182 10^3/cmm (130-400); Red Blood Count 3.21 10^6/uL (4.1-5.3); Red Cell Distribution Width 13.2 % (12.1-15.1); White Blood Count 9.6 10^3/uL (4.0-10.0)
--- NOTE | 2020-01-03 05:11 | PC.NURSE ---
0415 Patient is beginning to desat with movement. Respiratory has increased oxygen from 6L to 12L. Dr. Lara notified and he requested IV fluids be stopped and ordered Bipap. Will continue to monitor.
[2020-01-03 05:12] LABS: Creatine Phosphokinase 223 U/L (26-192)
[2020-01-03 05:16] LABS: Alanine Aminotransferase 11 U/L (0-33); Albumin Level 2.9 g/dL (3.5-5.2); Alkaline Phosphatase 65 IU/L (35-105); Anion Gap 19.8 (5-19); Aspartate Amino Transferase 64 U/L (0-32); Blood Urea Nitrogen 31 mg/dL (8-23); Calcium 8.9 mg/dL (8.5-10.5); Carbon Dioxide 20 mmol/L (22-29); Chloride 99 mmol/L (98-107); Glomerular Filtration Rate 20.3 mL/min (90-130); Glucose 108 mg/dL (65-115); Osmolality Calculated 276 mOsm/kg (285-295); Potassium 4.8 mmol/L (3.5-5.1); Sodium 134 mmol/L (136-145); Total Bilirubin 0.3 mg/dL (0.15-1.2); Total Protein 5.9 g/dL (6.6-8.7)
--- NOTE | 2020-01-03 08:12 | USCV_ITS ---
Edyta Camp Age: 64 Gender: F : 1955 Exam Date: 01/03/2020 06:36 Ordering Phys: Brant Wan MD Technologist: Licha Gardner Exam Location: [facility] [place] Indication: HYPOTENSION BP: 129 / 58 HR: 70 Rhythm: Sinus Technical Quality: Adequate MEASUREMENTS (Male / Female) Normal Values 2D ECHO LV Diastolic Diameter PLAX 5.3 cm 4.2 - 5.9 / 3.9 - 5.3 cm LV Systolic Diameter PLAX 3.8 cm LV Chamber Size 4.2 cm IVS Diastolic Thickness 1.2 cm 0.6 - 1.0 / 0.6 - 0.9 cm IVS Systolic Thickness 1.3 cm LVPW Diastolic Thickness 1.5 cm 0.6 - 1.0 / 0.6 - 0.9 cm LVPW Systolic Thickness 1.6 cm RV Chamber Size 2.8 cm LVOT Diameter 2.0 cm LV Ejection Fraction 2D Teich 53.7 % LV Ejection Fraction MOD 2C 59.4 % LV Ejection Fraction 2C AL 58.0 % LA Diameter 4.0 cm LA Width 4.2 cm LA Height 4.9 cm RA Width 2.4 cm RA Height 4.3 cm Aorta at Sinotubular Diameter 2.4 cm M-MODE LV Diastolic Diameter MM 4.1 cm 4.2 - 5.9 / 3.9 - 5.3 cm LV Systolic Diameter MM 2.6 cm LV Ejection Fraction MM Teich 67.2 % IVS Diastolic Thickness MM 0.8 cm 0.6 - 1.0 / 0.6 - 0.9 cm IVS Systolic Thickness MM 1.5 cm LVPW Diastolic Thickness MM 1.8 cm 0.6 - 1.0 / 0.6 - 0.9 cm LVPW Systolic Thickness MM 1.3 cm Aortic Annulus Diameter 2.8 cm LA Ao Ratio MM 1.4 MV E Point Septal Separation 1.7 cm DOPPLER AV Peak Velocity 188.0 cm/s LVOT Peak Velocity 136.0 cm/s AV Area Cont Eq vti 2.7 cm squared AV Area Cont Eq pk 2.3 cm squared MV Area PHT 4.3 cm squared Mitral E to A Ratio 1.0 MV E' Velocity 10.0 cm/s Mitral E to MV E' Ratio 9.0 Mitral E to LV E' Lateral Ratio 9.1 Mitral E to LV E' Septal Ratio 9.0 TR Peak Velocity 390.0 cm/s TR Peak Gradient 60.8 mmHg TR Mean Velocity 218.8 cm/s TR Mean Gradient 22.2 mmHg TR Velocity Time Integral 105.8 cm TV Peak E Velocity 145.0 cm/s Right Atrial Pressure 3.0 mmHg Pulmonary Artery Systolic Pressu 63.8 mmHg PV Peak Velocity 58.0 cm/s RV Acceleration Time 0.1 s RV Ejection Time 0.3 s RV AcT/ET 0.3 FINDINGS Left Ventricle Normal left ventricular cavity size. Normal left ventricular systolic function. No regional wall motion abnormalities. Left ventricular ejection fraction is estimated at 60 %. Grade I/IV diastolic dysfunction (abnormal relaxation filling pattern), normal to mildly elevated filling pressures. Right Ventricle The right ventricle is normal in size and function. Right Atrium The right atrium is normal in size. Left Atrium Moderately increased left atrial size. Mitral Valve Moderately thickened mitral valve. No mitral valve stenosis. Moderate-severe mitral valve regurgitation. Aortic Valve Moderate aortic valve calcification. No aortic valve stenosis. Mild aortic valve regurgitation. Tricuspid Valve Structurally normal tricuspid valve without significant stenosis or regurgitation. Pulmonary artery systolic pressure is normal. Pulmonic Valve Structurally normal pulmonic valve without significant stenosis. There is no pulmonic regurgitation. Pericardium Normal pericardium without effusion. Aorta Normal ascending aorta dimension. CONCLUSIONS 1-Normal left ventricular cavity size. Normal left ventricular systolic function. No regional wall motion abnormalities. Left ventricular ejection fraction is estimated at 60 %. Grade I/IV diastolic dysfunction (abnormal relaxation filling pattern), normal to mildly elevated filling pressures. 2-Moderate aortic valve calcification. No aortic valve stenosis. Mild aortic valve regurgitation. 3-Moderately thickened mitral valve. No mitral valve stenosis. Moderate-severe mitral valve regurgitation. 4-Moderately increased left atrial size. 5-There is no pericardial effusion. 6-Right atrial pressure is around 5 mm of mercury. 7-No significant change since the prior echocardiogram study of 08/24/2017. Adelaide Fernandes MD (Electronically Signed) Final Date: 03 January 2020 17:36 S
[2020-01-03] MEDS: albuterol 8 gm MDI 2 PUFF INHALATION (08:51)
--- NOTE | 2020-01-03 09:58 | P.PN_ITS ---
Subjective Subjective: Interval history: Overall she is feeling somewhat better subjectively. Does get intermittently short of breath. Intermittently with nonproductive cough. Vitals/I&O/Wt Last Vital Signs Temp 98.0 F 01/03/20 07:00 Pulse 76 01/03/20 08:53 Resp 18 01/03/20 08:53 BP 150/81 01/03/20 08:00 Pulse Ox 92 01/03/20 08:53 01/02/20 01/03/20 01/03/20 22:59 06:59 14:59 Intake Total 425.033 / 588.526 300 / 888.526 240 / 240 Output Total 1575 / 2175 Balance 425.033 / -11.474 -1275 / -1286.474 240 / 240 Weight last 48 hrs Weight 54.431 kg Physical Exam Const: COMMON NORMALS: no acute distress and patient oriented x3 HENMT: COMMON NORMALS: oropharynx normal Neck/C-Spine: COMMON NORMALS: no JVD Resp: COMMON NORMALS: normal respiratory effort EFFORT & INSPECTION: Yes able to speak in complete sentences AUSCULTATION: wheezes and bronchial breath sounds Cardio: COMMON NORMALS: no JVD, regular rhythm, S1 normal heart sound present, S2 normal heart sound present and No murmurs present (Cardio) RHYTHM: regular rhythm HEART SOUNDS: S1 normal heart sound present and S2 normal heart sound present GI: COMMON NORMALS: Normal to inspection, nondistended, normoactive bowel sounds present, Soft to palpation and non-tender PALPATION: Yes Soft to palpation Extremity: COMMON NORMALS: no joint enlargement and no pedal edema Neuro: COMMON NORMALS: patient oriented x3 and moves all extremities Skin: COMMON NORMALS: no rashes or lesions noted GENERAL SKIN EXAM: no rashes or lesions noted Urinary Catheter Management^: Ball: Cath Placed During This Visit: yes Reason for Continuing Indwelling Catheter: Accurate Measurement of Urinary Output in Critically Ill Patients Urinary Catheter Date of Insertion: 01/02/20 Urinary Catheter Time of Insertion: 00:47 Data : 01/03/20 04:16 01/03/20 04:16 Micro: Microbiology 01/02/20 00:00 Blood Culture - Preliminary Blood NEGATIVE TO DATE 01/02/20 00:00 Blood Culture - Preliminary Blood NEGATIVE TO DATE 01/02/20 04:35 Bacterial Antigens - Final Urine,Clean Catch 01/02/20 04:35 Legionella Urinary Antigen - Final Urine Catheterized A&P Assessment and plan (1) Pneumonia: Persistently requiring oxygen. Overnight had to be placed on BiPAP temporarily. Currently on 9 L oxygen mask. At rest she is doing all right, but does get short of breath with exertion. She states normally at home has not needed oxygen for a a while, although years ago did require it, and also needed CPAP for ROSETTE. Did subsequently lose weight, and appears to weaned off both. Currently some wheezing, coarse lung sounds. Patchy infiltrates on chest x-ray. COVID-19 results was negative. At this time continue antibiotics. We will add breathing treatments. Collect sputum culture. Hold off additional IV hydration. Wean oxygen as tolerating. BiPAP support as needed. For now given tenuous respiratory status continue monitoring in ICU. Status: Acute Qualifiers: Laterality: bilateral Lung location: unspecified part of lung Pneumon ia type: due to unspecified organism Qualified Code(s): J18.9 - Pneumonia, unspecified organism (2) Septic shock: This appears to be showing some improvement. She has been weaned off pressor. Will decrease hydrocortisone dosing. As above. UTI, PNA Uses prednisone daily for SLE Status: Acute (3) UTI (urinary tract infection): Cont antibiotic. No culture results yet. Status: Acute (4) Hyponatremia: Improving. Status: Acute (5) ALICJA (acute kidney injury): Improving. For now DC IVF. Likely ATN. Anti-inflammatory use, sepsis/hypotension. Renal ultrasound wo obstruction. Status: Acute (6) Respiratory failure with hypoxia: As above. CT chest, was suggested for irregularity at right heart border. This would have to be considered after COVID testing has come back. Status: Acute (7) Metabolic acidosis: Secondary to renal failure. Status: Acute (8) High serum lactic acid: Status: Acute (9) Hyperkalemia: Corrected after dose of Kayexalate Status: Acute Additional A&P Information Leukocytosis, secondary to sepsis: Resolved Elevated d-dimer. Venous duplex lower extremities negative Elevated BNP. Check echocardiogram Chronic steroid use with history of SLE. She reports she uses 1 mg of prednisone daily. Secondary to hypotension placed on stress dose steroids. Taper down his blood pressures have improved. Hypothyroidism History of coronary disease Hypertension GERD Attestations Medical Necessity Statement*: Continue admission for assessment and management of pneumonia, UTI, resolving sepsis, respiratory failure with hypoxia, in the setting of acute kidney injury. Coding Level of Care Code Acute Picker Tender Helper for Chg Fwd Exam Comprehensive Diagnoses Pneumonia J18.9 Laterality: bilateral Lung location: unspecified part of lung Pneumonia type: due to unspecified organism Septic shock A41.9; R65.21 UTI (urinary tract infection) N39.0 Hyponatremia E87.1 ALICJA (acute kidney injury) N17.9 Respiratory failure with hypoxia J96.91 Metabolic acidosis E87.2 High serum lactic acid R79.89 Hyperkalemia E87.5
[2020-01-03] MEDS: aspirin 81 mg EC Tablet PO (10:03)
[2020-01-03] MEDS: levothyroxine 112 mcg Tablet PO (10:03)
[2020-01-03] MEDS: ALPRAZolam 0.5 mg Tablet PO ×3 (10:04→19:31)
[2020-01-03] MEDS: pantoprazole DR 40 mg Tablet PO (10:04)
[2020-01-03] MEDS: clopidogrel 75 mg Tablet PO (10:04)
[2020-01-03] MEDS: hydrocortisone 100 mg/2 mL SDV 25 MG IVP ×2 (10:49→19:32)
[2020-01-03] MEDS: TRAMadol 50 mg Tablet PO (10:49)
[2020-01-03 13:41] LABS: Osmolality Urine 273 mOsm/kg (50-1200)
[2020-01-03] MEDS: ipratropium-albuterol 3 mL Neb INHALATION ×2 (14:09→20:16)
[2020-01-03] MEDS: lidocaine 5% Patch 1 PATCH TOPICAL (17:34)
[2020-01-03] MEDS: ondansetron 2 mg/ML SDV 2 mL 4 MG IVP (18:11)
[2020-01-03] MEDS: methocarbamol 750 mg Tablet PO (19:31)
[2020-01-04] VITALS (40 sets, daily range): BP systolic 125–178; BP diastolic 67–118; PULSE 77–115; RESP 16–42; TEMP 36.8–37.7; O2SAT 60–97
[2020-01-04] MEDS: TRAMadol 50 mg Tablet PO ×3 (00:48→20:32)
[2020-01-04] MEDS: ALPRAZolam 0.5 mg Tablet PO ×4 (00:48→19:31)
[2020-01-04] MEDS: ondansetron 2 mg/ML SDV 2 mL 4 MG IVP ×2 (01:37→08:54)
[2020-01-04] MEDS: morphine 4 mg/mL SDV 1 mL 2 MG IVP (01:37)
[2020-01-04] MEDS: ipratropium-albuterol 3 mL Neb INHALATION ×3 (03:13→20:53)
[2020-01-04] MEDS: hydrocortisone 100 mg/2 mL SDV 25 MG IVP (05:04)
[2020-01-04] MEDS: linezolid premix 600 MG/300 ML PREMIX 300 MG IV ×2 (05:04→15:10)
[2020-01-04] MEDS: piperacillin-tazobactam 3.375 GM in sodium chloride 0.9% (plus) 50 ML IV ×2 (05:05→12:16)
[2020-01-04] MEDS: heparin 5,000 unit/mL INJ 1 mL 5000 UNIT SUBCUT ×3 (05:05→19:31)
[2020-01-04 05:31] LABS: Basophils % 0.1 %; Eosinophils % 0.1 %; Hematocrit 28.6 % (37.0-47.0); Hemoglobin 9.6 g/dL (11.5-15.3); Lymphocytes # 0.5 10^3/uL (0.8-4.8); Lymphocytes % 5.3 %; Mean Corpuscular HGB Conc 33.6 g/dL (30.0-36.0); Mean Corpuscular Hemoglobin 30.5 pg (28.0-34.0); Mean Corpuscular Volume 90.8 fL (81-99); Mean Platelet Volume 10.6 fL (7.4-10.4); Monocytes # 0.2 10^3/uL (0.2-0.9); Monocytes % 1.9 %; Neutrophils # 7.9 10^3/uL (1.8-7.7); Neutrophils % 92.1 %; Nucleated Red Blood Cells % 0 %; Platelet Count 170 10^3/cmm (130-400); Red Blood Count 3.15 10^6/uL (4.1-5.3); Red Cell Distribution Width 13.2 % (12.1-15.1); White Blood Count 8.6 10^3/uL (4.0-10.0)
[2020-01-04 05:45] LABS: Alanine Aminotransferase 11 U/L (0-33); Alkaline Phosphatase 65 IU/L (35-105); Anion Gap 14.8 (5-19); Aspartate Amino Transferase 55 U/L (0-32); Blood Urea Nitrogen 18 mg/dL (8-23); Calcium 9.4 mg/dL (8.5-10.5); Carbon Dioxide 24 mmol/L (22-29); Chloride 101 mmol/L (98-107); Globulin 3.2 g/dL (1.3-4.6); Glucose 97 mg/dL (65-115); Osmolality Calculated 278 mOsm/kg (285-295); Potassium 3.8 mmol/L (3.5-5.1); Sodium 136 mmol/L (136-145); Total Bilirubin 0.3 mg/dL (0.15-1.2); Total Protein 6.2 g/dL (6.6-8.7)
[2020-01-04 05:49] LABS: Creatine Phosphokinase 153 U/L (26-192)
--- NOTE | 2020-01-04 06:00 | XR_ITS ---
WS: [id number] XR chest 1V portable [id number] REASON FOR EXAM: Hypoxia FINDINGS: Comparisons were made from January 01, 2020. Today's exam shows interstitial pulmonary edema in creased since that previous exam. The heart is enlarged. The hilum and apices normal. XR/XR chest 1V portable [id number] IMPRESSION: Mild cardiac decompensation. Better positioning of the chest shows no definite irregularity along the heart border and mediastinal border to suggest adenopathy.
[2020-01-04] MEDS: LORazepam 2 mg/mL INJ 1 mL IVP ×3 (06:20→16:54)
--- NOTE | 2020-01-04 08:30 | PM.PN ---
Subjective Subjective: Interval history: BiPAP on. She is somnolent. Not in distress. Says breathing is comfortable with BiPAP on. Denies any requests or questions. Vitals/I&O/Wt Last Vital Signs Temp 99.8 F H 01/04/20 05:00 Pulse 79 01/04/20 07:53 Resp 20 H 01/04/20 07:53 BP 156/91 01/04/20 05:00 Pulse Ox 91 01/04/20 07:53 01/03/20 01/04/20 01/04/20 22:59 06:59 14:59 Intake Total 350 / 880 Output Total 950 / 950 750 / 1700 Balance -950 / -420 -400 / -820 Physical Exam Const: COMMON NORMALS: no acute distress HENMT: COMMON NORMALS: oropharynx normal Neck/C-Spine: COMMON NORMALS: no JVD Resp: COMMON NORMALS: normal respiratory effort EFFORT & INSPECTION: Yes able to speak in complete sentences AUSCULTATION: wheezes (Better) and bronchial breath sounds (With improvement ) Cardio: COMMON NORMALS: no JVD, regular rhythm, S1 normal heart sound present, S2 normal heart sound present and No murmurs present (Cardio) RHYTHM: regular rhythm HEART SOUNDS: S1 normal heart sound present and S2 normal heart sound present GI: COMMON NORMALS: Normal to inspection, nondistended, normoactive bowel sounds present, Soft to palpation and non-tender PALPATION: Yes Soft to palpation Extremity: COMMON NORMALS: no joint enlargement and no pedal edema Neuro: COMMON NORMALS: moves all extremities Skin: COMMON NORMALS: no rashes or lesions noted GENERAL SKIN EXAM: no rashes or lesions noted Urinary Catheter Management^: Ball: Cath Placed During This Visit: yes Reason for Continuing Indwelling Catheter: Accurate Measurement of Urinary Output in Critically Ill Patients Urinary Catheter Date of Insertion: 01/02/20 Urinary Catheter Time of Insertion: 00:47 Data : 01/04/20 05:00 01/04/20 05:00 Micro: Microbiology 01/03/20 09:10 C.difficile Toxin B Gene (PCR) - Final Stool 01/02/20 00:40 Urine Culture - Preliminary Urine Catheterized Gram Negative Rods A&P Assessment and plan (1) Pneumonia: Acute hypoxic respiratory failure. Requiring on and off BiPAP overnight. This morning she reports breathing is comfortable. On lung exam she does sound somewhat better compared to yesterday morning. Definitely less wheezing, bronchial sounds. Has few scattered crackles. At this time will attempt to switch over to flow heated cannula. Assess with noncontrast CT chest to persistent hypoxia. She states normally at home has not needed oxygen for a a while, although years ago did require it, and also needed CPAP for ROSETTE. Did subsequently lose weight, and appears to weaned off both. COVID-19 results was negative. At this time continue antibiotics. We will add breathing treatments. Collect sputum culture. Wean oxygen as tolerating. BiPAP support as needed. For now given tenuous respiratory status continue monitoring in ICU. Status: Acute Qualifiers: Laterality: bilateral Lung location: unspecified part of lung Pneumonia type: due to unspecified organism Qualified Code(s): J18.9 - Pneumonia, unspecified organism (2) Septic shock: This appears to be showing some improvement. She has been weaned off pressor. Leukocytosis resolved. Wean down hydrocortisone dosing. As above. UTI, PNA Uses prednisone daily for SLE Status: Acute (3) UTI (urinary tract infection): Cont antibiotic. Gram-negative rods growing in urine. Follow-up final culture. Status: Acute (4) Hyponatremia: Improving. Status: Acute (5) ALICJA (acute kidney injury): Improving. Likely ATN. Anti-inflammatory use, sepsis/hypotension. Renal ultrasound wo obstruction. Status: Acute (6) Respiratory failure with hypoxia: As above. CT chest, was suggested for irregularity at right heart border. This would have to be considered after COVID testing has come back. Status: Acute (7) Metabolic acidosis: Improving. Secondary to renal failure. Status: Acute (8) High serum lactic acid: Status: Acute (9) Hyperkalemia: Corrected after dose of Kayexalate Status: Acute Additional A&P Information Leukocytosis, secondary to sepsis: Resolved Elevated d-dimer. Venous duplex lower extremities negative Elevated BNP. Check echocardiogram Chronic steroid use with history of SLE. She reports she uses 1 mg of prednisone daily. Secondary to hypotension placed on stress dose steroids. Taper down his blood pressures have improved. Hypothyroidism History of coronary disease Hypertension GERD Attestations Medical Necessity Statement*: Continue admission for assessment of management of respiratory failure with hypoxia, pneumonia, UTI, improving sepsis, improving adrenal insufficiency. Acute kidney injury. Coding Level of Care Code Acute Sap Senior Developer for Chg Fwd Diagnoses Pneumonia J18.9 Laterality: bilateral Lung location: unspecified part of lung Pneumonia type: due to unspecified organism Septic shock A41.9; R65.21 UTI (urinary tract infection) N39.0 Hyponatremia E87.1 ALICJA (acute kidney injury) N17.9 Respiratory failure with hypoxia J96.91 Metabolic acidosis E87.2 High serum lactic acid R79.89 Hyperkalemia E87.5
--- NOTE | 2020-01-04 08:33 | CT_ITS ---
WS: [id number] CT chest wo con [id number] REASON FOR EXAM: hypoxia IV CONTRAST ADMINISTERED: None. TOTAL EXAM DLP: 480.[address] scans at [facility] use at least one of these dose optimization techniques: automat ed exposure control; mA and/or kV adjustment per patient size (includes targeted exams where dose is matched to clinical indication); or iterative reconstruction. FINDINGS: Heavy arteriosclerotic changes of the coronary arteries are seen. Cardiomegaly is noted. No pericardial effusion is seen. Smooth interlobular septal are seen with septal thickening and groundglass attenuation changes throug hout both lungs. This is consistent with both pulmonary edema and interstitial pulmonary edema. Bilateral small amounts of pleural effusion are noted. The liver shows normal attenuation changes. The adrenal glands were normal. Both kidneys spleen stomach were normal. CT/CT chest wo con [id number] IMPRESSION: Fusion changes throughout both lung wallace consistent with combination of alveo lar and interstitial pulmonary edema. Heavy arteriosclerotic changes of the coronary arteries.
[2020-01-04] MEDS: pantoprazole DR 40 mg Tablet PO (08:54)
[2020-01-04] MEDS: levothyroxine 112 mcg Tablet PO (08:54)
[2020-01-04] MEDS: aspirin 81 mg EC Tablet PO (08:55)
[2020-01-04] MEDS: lidocaine 5% Patch 1 PATCH TOPICAL (08:55)
[2020-01-04] MEDS: clopidogrel 75 mg Tablet PO (08:55)
[2020-01-04] MEDS: methocarbamol 750 mg Tablet PO ×2 (08:56→15:10)
--- NOTE | 2020-01-04 10:11 | PC.RESP ---
SMOKING CESSATION INFORMATION SENT TO PATIENT.
--- NOTE | 2020-01-04 11:19 | PC.NURSE ---
O2 sats on Monitor 58%. Upon entering room noted pt had removed the hi-flow nasal cannula. Re-administered it and encouraged big deep breaths. It took several minutes to get O2 sats back above 90%.
[2020-01-04] MEDS: hydrocortisone 100 mg/2 mL SDV 12.5 MG IVP (11:30)
[2020-01-04] MEDS: folic acid 1 mg Tablet PO (12:14)
[2020-01-04] MEDS: FUROsemide 10 mg/mL SDV 4mL 40 MG IVP (12:14)
[2020-01-04] MEDS: multivitamin therapeutic Tablet 1 TAB PO (12:15)
[2020-01-04] MEDS: thiamine 100 mg Tablet PO (12:15)
[2020-01-04 14:09] LABS: ABG PCO2 35.4 mmHg (35-45); ABG PH Result 7.47 (7.35-7.45); Alveolar-Arterial Oxygen Gradi 251.2 mmHg (5-10); Arterial Blood Gas Hematocrit 30.3 % (37-47); Blood Gas Allen Test Pos; Blood Gas Sample Site Radial, left; Blood Gas Sample Type Arterial; Carboxyhemoglobin 0.8 %THgb (0.4-20.1); HCO3 ABG 25.7 mmol/L (22-26); HGB O2 Sat 96.6 % (95-100); Ionized Calcium Level - ABG 1.2 mmol/L (1.1-1.4); Methemoglobin 0.9 % (0.4-1.5); Oxygen Device BIPAP; Oxygen Saturation ABG 98.2; PO2 ABG 90.1 mmHg (80.0-100.0); Potassium Level - ABG 3.5 mmol/L (3.5-5.0); Total Hemoglobin 9.9 g/dL (12-16)
[2020-01-04] MEDS: levofloxacin-dextrose 5 % 750 MG/150 ML PREMIX 100 MG IV (14:12)
[2020-01-04] MEDS: LORazepam 2 mg/mL INJ 1 mL IM (14:13)
--- NOTE | 2020-01-04 17:37 | PC.NURSE ---
ON FIRST ASSESSMENT FOUNG PATIENT WITH BIPAP OFF AND SATS OF 62. UNABLE TO KEEP THE OXYGEN DELIVERY DEVICES ON HER WHETHER THEY ARE AN OXIMIZER OR HIGH FLOW OR THE NIV. MADE AWARE THAT FLAQUITA VALLADARES LAST NIGHT HEARD FROM THE PATIENT THAT SHE HAS TAKEN UP TO 2MG OF XANAX AT A TIME FOR HER ANXIETY. CIWA STARTED. AND A SITTER ORDERED. SHE HAS SINCE MAINTAINED A SAT OF 93 TO 98, BUT IF MASK OFF FOR MORE THAN 10 SECONDS SHE WILL DESAT QUICKLY TO 60 %. ABG DONE ON BIPAP AT 55% AND IN PLACE FOR 30 MIN. SHE HAD NOT BEEN ABLE TO CONSISTENTLY MAINTAIN SATS ABOVE 89 ON THE OXYMIZER. ABG SHOWED ALKALOSIS, HER RR WAS HIGH 52 , since having 6mg of ativan she is sating 97 consistently, her rate is 25 to 33.
--- NOTE | 2020-01-04 17:48 | PC.NURSE ---
HAS BEEN UPDATED X4. SON WELL ONCE. NOTED THAT SHE MAY HAVE GOTTEN LACED MARIJUANA ON THE DAY BEFORE ADMIT. HER IRITABLE BOWEL MEDS HAD NOT BEEN RENEWED SINCE 2018 AND THUS SHE COULD NOT HAVE OVER INDULGED IN THAT MED TO GET IN HER STATE OF [place] AT HOME. PATIENT HAS HAD 5 STOOLS ON DAY SHIFT TODAY.
[2020-01-04] MEDS: haloperidol inj 5 mg/mL INJ 1 mL IM (18:15)
--- NOTE | 2020-01-04 18:30 | PC.NURSE ---
PATIENT REMAINS RESTLESS AND TACHYPNEIC AFTER [address] POE ORDERED HALDOL AND THIS WAS GIVEN. URINE IS NOW LIGHT YELLOW. IV IS AT 15 OR KVO FOR PUSHES . SHE IS NEARLY UNABLE TO SIP A STRAW, JUST SIPS FROM A CUP AND ONLY IF YOU COAX HER THROUGH IT. GOOD ORAL CARE, DENTURES CLEANED, LIPS MOISTURIZED. SITTER AT BEDSIDE, FREQUENTY KEEPING PATIENT FROM REMOVING HER MASK. OR ANY OXYGEN DELIVERY DEVICE
--- NOTE | 2020-01-04 22:43 | PM.CONSULT ---
Providers/Reason For Consult Consulting Physican/Specialty*: Pulmonary and critical care medicine Reason for Consult*: Acute hypoxic respiratory failure requiring noninvasive positive pressure ventilation Attending Physician: Terrell Cho Primary Care Provider: Raheem Baron History of Present Illness History of Present Illness Edyta Camp is a 64 year old female with history of lupus chronic steroid therapy who presented to the hospital with altered mental status, cough and was found to be septic shock likely secondary to UTI or pneumonia. The patient also had acute kidney injury with hyponatremia and metabolic acidosis which has gotten better since she presented to the hospital. The patient is still altered and requiring noninvasive positive pressure ventilation to maintain adequate oxygen saturation.The history was obtained from her over the telephone today. It appears that in end of December the patient had suffered from kidney stone. She spontaneously passed the stone however developed back pain right after that. According to the , while she was suffering from back pain around the end of December she started developing altered mental status. At that time the patient did not eat or drink properly however the tried to feed him and on occasions the patient was coughing. Upon presentation to the hospital the patient was found to have bilateral infiltrate on the chest x-ray she was ruled out for COVID and treated with broad-spectrum antibiotics. Subsequently, her urine culture came back positive for Pseudomonas which is resistant to cefepime however appears to be sensitive to ciprofloxacin and levofloxacin. The patient was seen and examined in ICU today. She was arousable however not following commands. She has been receiving lorazepam for her episodes of agitation. The patient was on BiPAP with an IPAP of 16 and EPAP of 6 with FiO2 of 55%. Her saturation was 94%.Her urine tox screen on admission was positive for THC, feels like reading and benzodiazepine. The patient has anxiety disorder and takes Xanax the quantity of which is unclear. The told me that the patient was smoking THC since she was having difficulty with sleeping. The last time that the patient had smoked was 1 day before her hospital admission. When I asked him whether this was possible that she had been exposed to some other drugs he stated that there was always a possibility. The patient had an echocardiogram performed which showed normal ejection fraction of 60% with grade 1 diastolic dysfunction and mitral regurgitation. There is left atrial enlargement.CT scan of her chest revealed bilateral diffuse groundglass opacities with interlobular septal thickening consistent with a diagnosis of crazy paving.I had performed a bedside ultrasound which revealed bilateral B-lines. Good cardiac contractility normal-sized IVC with inspiratory collapse. There is no evidence of pleural effusion. Review of Systems Narrative: Unable to obtain because of the patient's clinical condition Meds/Allergies Home Medications and Allergies Home Medications Medication Instructions Recorded Confirmed Last Taken Type alprazolam 0.5 mg tablet 0.5 mg PO TID 09/22/19 01/02/20 Unknown History aspirin 81 mg tablet,delayed 81 mg PO DAILY 09/22/19 01/02/20 Unknown History release atenolol 25 mg tablet 25 mg PO DAILY 09/22/19 01/02/20 Unknown History chlordiazepoxide-clidinium 5 1 cap PO TID PRN 09/22/19 01/02/20 Unknown History mg-2.5 mg capsule clobetasol 0.05 % topical ointment 1 applic TOPICAL DAILY PRN 09/22/19 01/02/20 Unknown History clopidogrel 75 mg tablet 75 mg PO DAILY 09/22/19 01/02/20 Unknown History cyanocobalamin (vitamin B-12) 1,000 mcg PO DAILY 09/22/19 01/02/20 Unknown History 1,000 mcg capsule fenofibrate nanocrystallized 48 mg 48 mg PO DAILY 09/22/19 01/02/20 Unknown History tablet fluoxetine 40 mg capsule 40 mg PO DAILY 09/22/19 01/02/20 Unknown History hydroxyzine pamoate 25 mg capsule 25 mg PO Q6H PRN cap 09/22/19 01/02/20 Unknown History lisinopril 10 mg tablet 10 mg PO DAILY 09/22/19 01/02/20 Unknown History magnesium oxide 400 mg PO BID 09/22/19 01/02/20 Unknown History nitroglycerin 0.4 mg sublingual 0.4 mg SUBLINGUAL Q5M PRN 09/22/19 01/02/20 Unknown History tablet pantoprazole 40 mg tablet,delayed 40 mg PO BID tab 09/22/19 01/02/20 Unknown History release potassium chloride 10 mEq 10 meq PO BID tab 09/22/19 01/02/20 Unknown History tablet,extended release(part/cryst) tramadol 50 mg tablet 50 mg PO TID PRN 09/22/19 01/02/20 Unknown History triamcinolone acetonide 0.1 % 1 applic TOPICAL DAILY PRN 09/22/19 01/02/20 Unknown History topical cream cholecalciferol (vitamin D3) 125 mcg PO DAILY 01/02/20 01/02/20 Unknown History [Vitamin D3] cyclosporine [Restasis] 1 drp OPHTHALMIC (EYE) Q12H 01/02/20 01/02/20 Unknown History levothyroxine 100 mcg PO DAILY 01/02/20 01/02/20 Unknown History lidocaine [Lidoderm] 1 patch TOPICAL DAILY 01/02/20 01/02/20 Unknown History methocarbamol 750 mg PO TID 01/02/20 01/02/20 Unknown History nystatin 1 applic TOPICAL DAILY PRN 01/02/20 01/02/20 Unknown History prednisone 1 mg PO DAILY PRN 01/02/20 01/02/20 Unknown History Allergies Allergy/AdvReac Type Severity Reaction Status Date / Time codeine Allergy Unknown Verified 01/02/20 00:46 [id number]-[id number] Reductase AdvReac Severe Leg Verified 11/21/19 12:11 Inhibitor cramping Current Medications Current Medications Generic Name Dose Route Start Last Admin Trade Name Freq PRN Reason Stop Dose Admin Albuterol Sulfate 2 puff 01/02/20 09:00 01/04/20 20:52 Ventolin INHALATION Not Given QID.RESPIRATORY SARIKA Albuterol/Ipratropium 3 ml 01/03/20 15:00 01/04/20 20:53 Duoneb INHALATION 3 ml Q6H.RESPIRATORY SARIKA Administration Alprazolam 0.5 mg 01/03/20 20:00 01/04/20 19:31 Xanax PO 0.5 mg Q6H SARIKA Administration Aspirin 81 mg 01/02/20 09:00 01/04/20 08:55 Aspirin Ec PO 81 mg DAILY SARIKA Administration Clopidogrel Bisulfate 75 mg 01/02/20 09:00 01/04/20 08:55 Plavix PO 75 mg DAILY SARIKA Administration Folic Acid 1 mg 01/04/20 12:00 01/04/20 12:14 Folic Acid PO 1 mg DAILY SARIKA Administration Furosemide 40 mg 01/04/20 11:55 01/04/20 12:14 Lasix IVP 40 mg DAILY SARIKA Administration Haloperidol Lactate 5 mg 01/04/20 18:00 01/04/20 18:15 Haldol Inj IM 5 mg Q6H PRN Administration AGITATION Heparin Sodium (Beef Lung) 5,000 unit 01/02/20 03:03 01/04/20 19:31 Heparin SUBCUT 5,000 unit Q8H SARIKA Administration Levofloxacin/Dextrose 750 mg in 150 mls @ 100 mls/hr 01/04/20 14:00 01/04/20 16:54 Levaquin-D5w IV Infused Q24H SARIKA Infusion Protocol Levothyroxine Sodium 112 mcg 01/02/20 09:00 01/04/20 08:54 Synthroid PO 112 mcg DAILY SARIKA Administration Lidocaine 1 patch 01/03/20 17:20 01/04/20 21:22 Lidoderm 5% Patch TOPICAL Not Given [id number] SARIKA Lorazepam 2 mg 01/04/20 11:51 01/04/20 14:13 Ativan IM 2 mg Q4H PRN Administration ALCOWD Protocol Lorazepam 2 mg 01/04/20 11:51 01/04/20 16:54 Ativan IVP 2 mg PRN PRN Administration WITHDRAWAL Protocol Methocarbamol 750 mg 01/03/20 19:15 01/04/20 15:10 Robaxin PO 750 mg BID SARIKA Administration Methylprednisolone Sodium Succinate 40 mg 01/04/20 18:15 01/04/20 18:11 Solu-Medrol IVP 40 mg Q24H SARIKA Administration Multivitamins Therapeutic 1 tab 01/04/20 12:00 01/04/20 12:15 Multivitamin Tab PO 1 tab DAILY SARIKA Administration Ondansetron HCl 4 mg 01/03/20 17:58 01/04/20 08:54 Zofran IVP 4 mg Q6H PRN Administration NAUSEA AND VOMITING Pantoprazole Sodium 40 mg 01/02/20 09:00 01/04/20 08:54 Protonix PO 40 mg DAILY SARIKA Administration Thiamine Mononitrate 100 mg 01/04/20 12:00 01/04/20 12:15 Vitamin B-1 PO 100 mg DAILY SARIKA Administration Tramadol HCl 50 mg 01/02/20 03:03 01/04/20 20:32 Ultram PO 50 mg TID PRN Administration pain PFSH Acute PFSH: Medical History Anxiety disorder Arteriosclerotic cardiovascular disease Essential (primary) hypertension GERD (gastroesophageal reflux disease) Hypothyroidism Intervertebral disc disorder with radiculopathy of lumbosacral region Lumbar stenosis with neurogenic claudication Mixed hyperlipidemia Systemic lupus erythematosus, unspecified Vitamin D deficiency Surgical History H/O: hysterectomy with BSO History of cholecystectomy History of heart artery stent 5 stents Family History Sister Cancer Brain Hypertension Family/Other Hypertension Several members Social History Smoking and tobacco status: current every day smoker Second hand smoke exposure: No Smoking risk assessment/counseling performed?: No Alcohol intake: never Desire information about alcohol rehabilitation?: No Counseling given: No Desire information about substance/drug rehabilitation?: No Counseling given: No Caregiver/support person: No Lives independently: Yes Household members: spouse Current occupational status: unemployed History of recent travel: No Current gender identity: Female Vitals/I&O/Wt Last Vital Signs Temp 98.2 F 01/04/20 19:00 Pulse 92 01/04/20 22:00 Resp 20 H 01/04/20 22:00 BP 149/95 01/04/20 22:00 Pulse Ox 95 01/04/20 22:00 01/04/20 01/04/20 01/04/20 06:59 14:59 22:59 Intake Total 350 / 880 450 / 450 500 / 950 Output Total 750 / 1700 2100 / 2100 Balance -400 / -820 450 / 450 -1600 / -1150 Physical Exam Narrative: EXAM NARRATIVE: General: Patient is arousable, somewhat combative Neck: No JVD Respiratory: Auscultation: Minimal crackles at bilateral bases posteriorly, no wheezing or rhonchi Cardiovascular: Regular rate and rhythm, S1-S2 present, Pansystolic murmur at the cardiac apex, no right ventricular heave, no peripheral edema. Abdomen: Soft, nondistended, positive bowel sound Musculoskeletal: No obvious joint deformity Skin: No rash Neuro: Spontaneously moves all extremities, unable to follow any command Urinary Catheter Management^: Ball: Cath Placed During This Visit: yes Reason for Continuing Indwelling Catheter: Accurate Measurement of Urinary Output in Critically Ill Patients Urinary Catheter Date of Insertion: 01/02/20 Urinary Catheter Time of Insertion: 00:47 Data Micro: Micro: Microbiology 01/02/20 00:40 Urine Culture - Fi nal Urine Catheterize d Pseudomonas aer uginosa Other Data: Other data: Please see the HPI for detail description A&P Assessment and plan (1) Respiratory failure with hypoxia: I believe the following to be the course of events that are taken place before the patient presenting to the hospital. Patient developed a pseudomonal UTI in the setting of kidney stone. The patient developed sepsis at home which likely led to her altered mental status. The patient at the same time was also getting treated for her back pain and whether she received any opioid medication is unclear. The patient also takes multiple benzodiazepine for anxiety. With the patient not eating or drinking well she developed acute kidney injury which increased the half-life of benzodiazepines, other psychoactive medications as well as likely opioid leading to the patient's worsening mental status.At this point, the patient likely aspirated and developed chemical pneumonitis or had an episode of pneumonitis secondary to chemical present in the THC that She had inhaled. It is also possible that the patient had community-acquired pneumonia. Pulmonary hemorrhage can also not be ruled out. A contribution from cardiogenic pulmonary edema in the setting of mitral regurgitation or alveolar proteinosis given the crazy paving pattern although unlikely.Currently, the patient is well diuresed with no evidence of volume overload. She is requiring noninvasive positive pressure ventilation to maintain adequate oxygen saturation.Whether this represents PCP pneumonia is also unclear however the patient does not seem to have been on more than 20 mg of prednisone.The patient has received therapy with linezolid and Zosyn. Her urine culture is positive for Pseudomonas which is sensitive to levofloxacin. At this point I will only continue with the levofloxacin. I am starting the patient on 40 mg of IV Solu-Medrol. I am hoping that this will help with the pneumonitis. We can continue with the oral Xanax as the patient is still able to swallow. I would discontinue the Ativan as this is more likely to contribute to altered mental status. Instead, we can use the haloperidol. I am expecting for the patient to get better rapidly. The patient is likely to act as rapidly improving ARDS. The patient should be started on high flow nasal cannula instead of noninvasive positive pressure ventilation.If she does not experience expected improvement she might require a bronchoscopy evaluation. Status: Acute (2) ARDS (adult respiratory distress syndrome): The patient has ARDS likely secondary to aspiration pneumonia. The other differentials are diagnosed in the initial . Her PF ratio is less than 200. The patient is diuresed well. We will continue with the supportive therapy with antibiotic and low-dose Solu-Medrol. I do not believe the heart failure is responsible for the radiologic appearance. There is no pleural effusion, the mitral E/E prime ratio is less than 15. Status: Acute (3) UTI (urinary tract infection): We will continue with Levaquin. The septic shock is resolved. Status: Acute (4) Septic shock: Resolved. It will be wonderful to get more data about this kidney stone as well as back pain and the home medication list. Status: Acute Coding Level of Care Code [facility] Diagnoses Respiratory failure with hypoxia J96.91 ARDS (adult respiratory distress syndrome) J80 UTI (urinary tract infection) N39.0 Septic shock A41.9; R65.21
[2020-01-05] VITALS (32 sets, daily range): BP systolic 130–175; BP diastolic 75–121; PULSE 77–107; RESP 19–38; TEMP 35.5–36.5; O2SAT 92–98
[2020-01-05] MEDS: ALPRAZolam 0.5 mg Tablet PO ×5 (01:59→22:49)
[2020-01-05] MEDS: ondansetron 2 mg/ML SDV 2 mL 4 MG IVP ×2 (03:25→07:19)
[2020-01-05] MEDS: haloperidol inj 5 mg/mL INJ 1 mL IM ×4 (03:25→20:34)
[2020-01-05] MEDS: heparin 5,000 unit/mL INJ 1 mL 5000 UNIT SUBCUT ×3 (03:26→20:33)
[2020-01-05] MEDS: ipratropium-albuterol 3 mL Neb INHALATION ×4 (03:44→20:13)
[2020-01-05 05:34] LABS: Eosinophils % 0.2 %; Hemoglobin 9.5 g/dL (11.5-15.3); Lymphocytes # 0.7 10^3/uL (0.8-4.8); Mean Corpuscular HGB Conc 33.9 g/dL (30.0-36.0); Mean Corpuscular Hemoglobin 30.7 pg (28.0-34.0); Mean Corpuscular Volume 90.6 fL (81-99); Mean Platelet Volume 10.7 fL (7.4-10.4); Monocytes # 0.2 10^3/uL (0.2-0.9); Monocytes % 2.5 %; Neutrophils # 5.3 10^3/uL (1.8-7.7); Neutrophils % 84.9 %; Nucleated Red Blood Cells % 0 %; Platelet Count 164 10^3/cmm (130-400); Red Blood Count 3.09 10^6/uL (4.1-5.3); White Blood Count 6.3 10^3/uL (4.0-10.0)
[2020-01-05 05:55] LABS: Alanine Aminotransferase 13 U/L (0-33); Alkaline Phosphatase 76 IU/L (35-105); Anion Gap 19.1 (5-19); Aspartate Amino Transferase 52 U/L (0-32); Blood Urea Nitrogen 18 mg/dL (8-23); Calcium 9.5 mg/dL (8.5-10.5); Carbon Dioxide 27 mmol/L (22-29); Chloride 97 mmol/L (98-107); Globulin 3.7 g/dL (1.3-4.6); Glomerular Filtration Rate 55.8 mL/min (90-130); Glucose 86 mg/dL (65-115); Osmolality Calculated 286 mOsm/kg (285-295); Potassium 3.1 mmol/L (3.5-5.1); Sodium 140 mmol/L (136-145); Total Bilirubin 0.4 mg/dL (0.15-1.2); Total Protein 6.7 g/dL (6.6-8.7)
--- NOTE | 2020-01-05 06:00 | XR_ITS ---
WS: [id number] XR chest 1V portable [id number] REASON FOR EXAM: Hypoxia FINDINGS: There is now evidence of an alveolar infiltrate in the right lung base. There is cardiomegaly again seen. There is mild pulmonary edema persisting. There is no masses seen on the heart borders. The hilum and apices normal. XR/XR chest 1V portable [id number] IMPRESSION: Persistent low-grade congestive heart failure Alveolar infiltrate right lung base.
[2020-01-05] MEDS: lidocaine 5% Patch 1 PATCH TOPICAL ×2 (07:17→20:34)
[2020-01-05] MEDS: FUROsemide 10 mg/mL SDV 4mL 40 MG IVP (07:17)
[2020-01-05] MEDS: clopidogrel 75 mg Tablet PO (07:18)
[2020-01-05] MEDS: methocarbamol 750 mg Tablet PO ×2 (07:18→18:49)
[2020-01-05] MEDS: pantoprazole DR 40 mg Tablet PO (07:19)
[2020-01-05] MEDS: folic acid 1 mg Tablet PO (07:19)
[2020-01-05] MEDS: TRAMadol 50 mg Tablet PO ×2 (07:19→13:26)
[2020-01-05] MEDS: thiamine 100 mg Tablet PO (07:19)
[2020-01-05] MEDS: levothyroxine 112 mcg Tablet PO (07:19)
[2020-01-05] MEDS: multivitamin therapeutic Tablet 1 TAB PO (07:20)
[2020-01-05] MEDS: aspirin 81 mg EC Tablet PO (07:20)
--- NOTE | 2020-01-05 08:56 | PM.PN ---
Subjective Subjective: Interval history: She is feeling anxious. Asking for something for anxiety. Asking what we are giving her and states feels that Xarobertx is not working. Vitals/I&O/Wt Last Vital Signs Temp 98.2 F 01/04/20 19:00 Pulse 91 01/05/20 05:25 Resp 32 H 01/05/20 05:00 BP 167/98 01/05/20 05:00 Pulse Ox 94 01/05/20 05:25 01/04/20 01/05/20 01/05/20 22:59 06:59 14:59 Intake Total 500 / 950 Output Total 2099 / 2099 900 / 3000 Balance -1600 / -1150 -900 / -2049 Physical Exam Const: COMMON NORMALS: no acute distress HENMT: COMMON NORMALS: oropharynx normal Neck/C-Spine: COMMON NORMALS: no JVD Resp: COMMON NORMALS: normal respiratory effort EFFORT & INSPECTION: Yes able to speak in complete sentences AUSCULTATION: wheezes (Better) and bronchial breath sounds (With improvement ) Cardio: COMMON NORMALS: no JVD, regular rhythm, S1 normal heart sound present, S2 normal heart sound present and No murmurs present (Cardio) RHYTHM: regular rhythm HEART SOUNDS: S1 normal heart sound present and S2 normal heart sound present GI: COMMON NORMALS: Normal to inspection, nondistended, normoactive bowel sounds present, Soft to palpation and non-tender PALPATION: Yes Soft to palpation Extremity: COMMON NORMALS: no joint enlargement and no pedal edema Neuro: COMMON NORMALS: moves all extremities Skin: COMMON NORMALS: no rashes or lesions noted GENERAL SKIN EXAM: no rashes or lesions noted Urinary Catheter Management^: Ball: Cath Placed During This Visit: yes Reason for Continuing Indwelling Catheter: Accurate Measurement of Urinary Output in Critically Ill Patients Urinary Catheter Date of Insertion: 01/02/20 Urinary Catheter Time of Insertion: 00:47 Data : 01/05/20 04:55 01/05/20 04:55 Micro: Microbiology 01/02/20 00:40 Urine Culture - Final Urine Catheterized Pseudomonas aeruginosa A&P Assessment and plan (1) Pneumonia: Acute hypoxic respiratory failure. Possibly aspiration with chemical pneumonitis. Appreciate pulmonology assessment. Steroids are switched to PO. Continue Levaquin only at this time for UTI. Continue supportive care for pneumonitis. High flow cannula. She does get quite a bit of anxiety, and sometimes was pulling off oxygen, continue one-to-one sitter, Xanax as needed. She states normally at home has not needed oxygen for a a while, although years ago did require it, and also needed CPAP for ROSETTE. Did subsequently lose weight, and appears to weaned off both. COVID-19 results was negative. For now given tenuous respiratory status continue monitoring in ICU, 1:1 sitter. If respiratory status improving, if improving may be able to move out of ICU. PT assessment. OOB. Status: Acute Qualifiers: Laterality: bilateral Lung location: unspecified part of lung Pneumonia type: due to unspecified organism Qualified Code(s): J18.9 - Pneumonia, unspecified organism (2) Septic shock: Resolved. Taper steroids. As above. UTI, PNA Uses prednisone daily for SLE Status: Acute (3) UTI (urinary tract infection): Pseudomonas. Cont Levaquin. Status: Acute (4) Hyponatremia: Improving. Status: Acute (5) ALICJA (acute kidney injury): Improving. Likely ATN. Anti-inflammatory use, sepsis/hypotension. Renal ultrasound wo obstruction. Status: Acute (6) Respiratory failure with hypoxia: As above. Some pulmonary edema poss from mitral regurgitation as well. Status: Acute (7) Metabolic acidosis: Improving. Secondary to renal failure. Status: Acute (8) High serum lactic acid: Status: Acute (9) Hyperkalemia: Corrected after dose of Kayexalate Status: Acute (10) Mitral regurgitation: Moderate to severe. Received diuresis. Continue wean off O2. Follow up w cardiology in office. Status: Acute Additional A&P Information Leukocytosis, secondary to sepsis: Resolved Elevated d-dimer. Venous duplex lower extremities negative Elevated BNP. Due to MR Chronic steroid use with history of SLE. She reports she uses 1 mg of prednisone daily. Secondary to hypotension placed on stress dose steroids. Taper down his blood pressures have improved. Hypothyroidism History of coronary disease Hypertension GERD Attestations Medical Necessity Statement*: Continue admission for assessment and management of respiratory failure. 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
[2020-01-05] MEDS: potassium chloride oral liq 20 mEq/15 mL UDC PO (09:13)
--- NOTE | 2020-01-05 11:29 | PC.NURSE ---
PATIENT MORE VERBAL TODAY, REMAINS CONFUSED BUT ALERT. WHEN TOLD WE WERE GOING TO TRY AND LET HER EAT AND NOT REALIZING HER MASK WAS OFF SHE ASKED HOW CAN I EAT? I HAVE THIS MASK ON? VERY ANXIOUS, CONSTANTLY ASKING WHY SHE IS SHORT OF BREATH AND TOLD THAT SHE IS SATING 97 OR BETTER IF SHE JUST WOULD RELAX AND STOP MOANING. SHE COULD NOT TELL ME IF SHE WAS MOANING FROM PAIN OR WORRY .
--- NOTE | 2020-01-05 13:05 | P.PN_ITS ---
Subjective Subjective: Interval history: The patient seems to be doing significantly better. Currently the patient is on nasal cannula and maintaining good saturation. The patient is awake alert and oriented today and able to have a conversation. Vital signs are stable. Medications: Reviewed: Yes Vitals/I&O/Wt Last Vital Signs Temp 96 F L 01/05/20 08:00 Pulse 81 01/05/20 12:00 Resp 38 H 01/05/20 12:00 BP 130/75 01/05/20 12:00 Pulse Ox 93 01/05/20 12:00 01/04/20 01/05/20 01/05/20 22:59 06:59 14:59 Intake Total 500 / 950 200 / 200 Output Total 2100 / 2100 900 / 3000 1100 / 1100 Balance -1600 / -1150 -900 / -2050 -900 / -900 Physical Exam Narrative: EXAM NARRATIVE: General: Patient is awake alert and oriented today Neck: No JVD Respiratory: Auscultation: Minimal crackles at bilateral bases posteriorly, no wheezing or rhonchi Cardiovascular: Regular rate and rhythm, S1-S2 present, Pansystolic murmur at the cardiac apex, no right ventricular heave, no peripheral edema. Abdomen: Soft, nondistended, positive bowel sound Musculoskeletal: No obvious joint deformity Skin: No rash Neuro: No apparent neurologic deficit Urinary Catheter Management^: Ball: Cath Placed During This Visit: yes Reason for Continuing Indwelling Catheter: Accurate Measurement of Urinary Output in Critically Ill Patients Urinary Catheter Date of Insertion: 01/02/20 Urinary Catheter Time of Insertion: 00:47 Data : 01/05/20 04:55 01/05/20 04:55 Micro: Microbiology 01/02/20 00:40 Urine Culture - Final Urine Catheterized Pseudomonas aeruginosa Other data: I have reviewed the patient's laboratory, radiologic and microbiologic data. Her chest x-ray today continues to show bilateral infiltrate. It will likely take few weeks before it will resolve. A&P Assessment and plan (1) Respiratory failure with hypoxia: The patient seems to be significantly better. Currently she is on nasal cannula saturating well. We will continue with the Levaquin for the time being. I am switching the Solu- Medrol to prednisone 40 mg daily for the next 4 days. The patient has history of anxiety disorder and is on her home dose Xanax. The patient might require some oxygen to be discharged from the hospital I can follow-up with her in the office and titrate off the oxygen. The patient will benefit significantly getting out of bed sitting in a chair and with physical therapy. Status: Acute (2) ARDS (adult respiratory distress syndrome): As expected the patient is showing evidence of rapidly resolving ARDS. Status: Acute (3) UTI (urinary tract infection): The patient has pseudomonal urinary tract infection which was likely etiology of the septic shock. Patient is on Levaquin. Status: Acute (4) Septic shock: Resolved. 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
--- NOTE | 2020-01-05 13:13 | PC.NURSE ---
PATIENT WAS DRY MOUTHED, UNCOMFORTABLE AND AGGITATED WITH THE NIV IN PLACE. ORAL CARE AND HF NC PLACED. SHE CONTINUED TO MOAN AND MOVE AROUND BUT MAINTAINED HER SATS. SHE ASKED FOR ANXIETY MEDS AND XANAX ORDER WAS INCREASED AND GIVEN AND HALDOL WELL. SHE SLEPT MAYBE 45 MIN AROUND 11 AM . SHE AWOKE AND SAID I CANT DO THIS I CANT BREATH!! BUT SHE WAS BREATHING WELL AT 22 TO 25 RPM AND TAKING IN ICE CHIPS. SHE WONT EAT, SHE WANTS DR DIALLO. TEXT SENT TO AND SISTER . PATIENT TOLD THAT MOANING USES UP AIR. SHE HAS POOR ACTIVITY TOLERANCE.
[2020-01-05] MEDS: diphenoxylate/atropine Tablet 1 TAB PO (13:26)
[2020-01-05] MEDS: levofloxacin-dextrose 5 % 750 MG/150 ML PREMIX 150 MG IV (13:27)
[2020-01-05] MEDS: chlordiazePOXIDE 10 mg Capsule PO (17:59)
[2020-01-05] MEDS: predniSONE 20 mg Tablet 40 MG PO (18:00)
[2020-01-05] MEDS: magnesium oxide 400 mg tablet PO (18:01)
[2020-01-05] MEDS: metoprolol tartrate 25 mg Tablet PO (18:01)
[2020-01-05] MEDS: hyDROXYzine 25 mg Capsule PO (18:02)
[2020-01-05] MEDS: lanolin oint 7 gm 1 APPLIC TOPICAL (22:17)
--- NOTE | 2020-01-05 22:20 | PC.NURSE ---
patient is still very confused. patient placed on BIPAP by RT. patient did not tolerate BIPAP well. patient complained of teeth hurting, teeth were taken out and placed in container by bedside. patient still complained of mask bugging patient and stating i cant breath . patient saturation 99%. informed patient that best O2 is 100%. patient placed back on oxymask for comfort. patient able to keep saturation of 98% on oxymask. will continue to monitor.
[2020-01-06] VITALS (33 sets, daily range): BP systolic 124–181; BP diastolic 56–102; PULSE 72–103; RESP 14–36; TEMP 36.1–36.5; O2SAT 90–100
[2020-01-06] MEDS: hyDROXYzine 25 mg Capsule PO ×3 (00:53→15:50)
--- NOTE | 2020-01-06 02:15 | PC.NURSE ---
patient stating that there is phlegm in the back of her throat and that she could not cough it up. nurse got a yanker and hooked to suction so patient could suck up sputum. patient complaining of back pain at this time. nurse has repositioned patient throughout shift with no success at getting patient comfortable. nurse informed patient that pillows were under the sides of her back and bottom to get pressure off her butt. patient immediately rolls off of pillows and sits on her butt once patient is repositioned. patient is still confused and trying to pull oxymask off.
[2020-01-06] MEDS: ipratropium-albuterol 3 mL Neb INHALATION ×4 (02:51→20:04)
[2020-01-06] MEDS: ALPRAZolam 0.5 mg Tablet PO ×6 (02:55→22:25)
[2020-01-06] MEDS: haloperidol inj 5 mg/mL INJ 1 mL IM ×2 (04:22→16:20)
[2020-01-06] MEDS: heparin 5,000 unit/mL INJ 1 mL 5000 UNIT SUBCUT ×3 (04:22→20:45)
[2020-01-06 05:09] LABS: Hematocrit 33.2 % (37.0-47.0); Hemoglobin 10.9 g/dL (11.5-15.3); Lymphocytes # 0.7 10^3/uL (0.8-4.8); Lymphocytes % 13.7 %; Mean Corpuscular HGB Conc 32.8 g/dL (30.0-36.0); Mean Corpuscular Hemoglobin 30.7 pg (28.0-34.0); Mean Corpuscular Volume 93.5 fL (81-99); Mean Platelet Volume 10.7 fL (7.4-10.4); Monocytes # 0.1 10^3/uL (0.2-0.9); Monocytes % 2.3 %; Neutrophils % 83.4 %; Nucleated Red Blood Cells % 0 %; Platelet Count 176 10^3/cmm (130-400); Red Blood Count 3.55 10^6/uL (4.1-5.3); White Blood Count 4.7 10^3/uL (4.0-10.0)
[2020-01-06 06:34] LABS: Alanine Aminotransferase 14 U/L (0-33); Albumin Level 3.4 g/dL (3.5-5.2); Alkaline Phosphatase 86 IU/L (35-105); Anion Gap 18.5 (5-19); Aspartate Amino Transferase 44 U/L (0-32); Blood Urea Nitrogen 27 mg/dL (8-23); Calcium 9.7 mg/dL (8.5-10.5); Carbon Dioxide 29 mmol/L (22-29); Chloride 94 mmol/L (98-107); Globulin 3.4 g/dL (1.3-4.6); Glomerular Filtration Rate 55.8 mL/min (90-130); Glucose 72 mg/dL (65-115); Osmolality Calculated 282 mOsm/kg (285-295); Potassium 3.5 mmol/L (3.5-5.1); Sodium 138 mmol/L (136-145); Total Bilirubin 0.5 mg/dL (0.15-1.2); Total Protein 6.8 g/dL (6.6-8.7)
[2020-01-06] MEDS: TRAMadol 50 mg Tablet PO ×3 (08:07→20:45)
[2020-01-06] MEDS: magnesium oxide 400 mg tablet PO ×2 (08:33→17:24)
[2020-01-06] MEDS: thiamine 100 mg Tablet PO (08:33)
[2020-01-06] MEDS: predniSONE 20 mg Tablet 40 MG PO (08:34)
[2020-01-06] MEDS: clopidogrel 75 mg Tablet PO (08:34)
[2020-01-06] MEDS: folic acid 1 mg Tablet PO (08:34)
[2020-01-06] MEDS: metoprolol tartrate 25 mg Tablet PO ×2 (08:34→17:25)
[2020-01-06] MEDS: multivitamin therapeutic Tablet 1 TAB PO (08:34)
[2020-01-06] MEDS: levothyroxine 112 mcg Tablet PO (08:34)
[2020-01-06] MEDS: lisinopril 10 mg Tablet PO (08:34)
[2020-01-06] MEDS: FUROsemide 10 mg/mL SDV 4mL 40 MG IVP (08:35)
[2020-01-06] MEDS: pantoprazole DR 40 mg Tablet PO (08:48)
[2020-01-06] MEDS: fenofibrate 48 mg Tablet PO (08:48)
[2020-01-06] MEDS: methocarbamol 750 mg Tablet PO ×2 (08:48→18:38)
[2020-01-06] MEDS: aspirin 81 mg EC Tablet PO (08:48)
--- NOTE | 2020-01-06 10:01 | PC.NURSE ---
Patient complaining of sore mouth, has raised areas to roof of mouth.
--- NOTE | 2020-01-06 11:19 | PM.PN ---
Subjective Subjective: Interval history: She reports is still feeling very anxious. Otherwise states breathing is fairly comfortable on current nasal cannula. Vitals/I&O/Wt Last Vital Signs Temp 97.1 F L 01/06/20 08:55 Pulse 97 01/06/20 08:55 Resp 21 H 01/06/20 08:55 BP 147/82 01/06/20 08:55 Pulse Ox 99 01/06/20 08:55 01/05/20 01/06/20 01/06/20 22:59 06:59 14:59 Intake Total 350 / 550 200 / 750 Output Total 1150 / 2250 150 / 2400 Balance -800 / -1700 50 / -1650 Physical Exam Const: COMMON NORMALS: no acute distress and patient oriented x3 HENMT: COMMON NORMALS: oropharynx normal Neck/C-Spine: COMMON NORMALS: no JVD Resp: COMMON NORMALS: normal respiratory effort AUSCULTATION: diminished lung sounds (Slightly diminished entry but today sounds better) Cardio: COMMON NORMALS: no JVD, regular rhythm, S1 normal heart sound present, S2 normal heart sound present and No murmurs present (Cardio) RHYTHM: regular rhythm HEART SOUNDS: S1 normal heart sound present and S2 normal heart sound present GI: COMMON NORMALS: Normal to inspection, nondistended, normoactive bowel sounds present, Soft to palpation and non-tender PALPATION: Yes Soft to palpation Extremity: COMMON NORMALS: no joint enlargement and no pedal edema Neuro: COMMON NORMALS: patient oriented x3 and moves all extremities Skin: COMMON NORMALS: no rashes or lesions noted GENERAL SKIN EXAM: no rashes or lesions noted Urinary Catheter Management^: Ball: Cath Placed During This Visit: yes Reason for Continuing Indwelling Catheter: Accurate Measurement of Urinary Output in Critically Ill Patients Urinary Catheter Date of Insertion: 01/02/20 Urinary Catheter Time of Insertion: 00:47 Data : 01/06/20 04:50 01/06/20 06:03 A&P Assessment and plan (1) Pneumonia: Gradually improving, but still requiring oxygenation at 10 L high flow. She still feeling very anxious, but gradually is improving. Lungs are sounding better to me today. Librium added for anxiety. If continues to do well may do better on medical floor. Acute hypoxic respiratory failure. Possibly aspiration with chemical pneumonitis. Appreciate pulmonology input. Steroids are switched to PO. Continue Levaquin only at this time for UTI. Continue supportive care for pneumonitis. High flow cannula. She does get quite a bit of anxiety, and sometimes was pulling off oxygen, continue one-to-one sitter, Xanax as needed. She states normally at home has not needed oxygen for a a while, although years ago did require it, and also needed CPAP for ROSETTE. Did subsequently lose weight, and appears to weaned off both. COVID-19 results was negative. PT. OOB. Status: Acute Qualifiers: Laterality: bilateral Lung location: unspecified part of lung Pneumonia type: due to unspecified organism Qualified Code(s): J18.9 - Pneumonia, unspecified organism (2) UTI (urinary tract infection): Pseudomonas. Cont Levaquin. Status: Acute (3) Hyponatremia: Improving. Status: Acute (4) Respiratory failure with hypoxia: As above. Some pulmonary edema poss from mitral regurgitation as well. Status: Acute (5) Mitral regurgitation: Moderate to severe. Received diuresis. Continue wean off O2. Follow up w cardiology in office. Status: Acute (6) Metabolic acidosis: Improving. Secondary to renal failure. Status: Acute (7) High serum lactic acid: Status: Acute (8) Hyperkalemia: Corrected after dose of Kayexalate Status: Acute (9) ALICJA (acute kidney injury): Improving. Likely ATN. Anti-inflammatory use, sepsis/hypotension. Renal ultrasound wo obstruction. Status: Acute (10) Septic shock: Resolved. Taper steroids. As above. UTI, PNA Uses prednisone daily for SLE Status: Acute Additional A&P Information Leukocytosis, secondary to sepsis: Resolved Elevated d-dimer. Venous duplex lower extremities negative Elevated BNP. Due to MR Chronic steroid use with history of SLE. She reports she uses 1 mg of prednisone daily. Taper steroids as toelrating. Hypothyroidism History of coronary disease Hypertension GERD Attestations Medical Necessity Statement*: Continue admission for assessment and management of respiratory failure. Coding Level of Care Code Acute Flap Maker for Chg Fwd Diagnoses Pneumonia J18.9 Laterality: bilateral Lung location: unspecified part of lung Pneumonia type: due to unspecified organism UTI (urinary tract infection) N39.0 Hyponatremia E87.1 Respiratory failure with hypoxia J96.91 Mitral regurgitation I34.0 Metabolic acidosis E87.2 High serum lactic acid R79.89 Hyperkalemia E87.5 ALICJA (acute kidney injury) N17.9 Septic shock A41.9; R65.21
[2020-01-06] MEDS: levofloxacin-dextrose 5 % 750 MG/150 ML PREMIX 100 MG IV (14:48)
--- NOTE | 2020-01-06 17:25 | PC.NURSE ---
Patient refused to eat her lunch and dinner. Poor appetite. Drinking some water and Dr. Cedillo. Patient complained of not being able to breath and not being able to get air. Patient was reassured her O2 was on, her O2 sat was between 99-100%. Patient was restless most of the day, taking a few naps. Haldol was given and patient was able to relax and sleep 17-1800 today. Patient dangled feet off side of bed, set up in chair and rec partial bath and linen change. Patient's called twice to speak to patient, she declined the calls. Patient has some redness to bilateral elbows, placed elbows on pillows to decrease pressure. No slip socks applied to patients feet. Patient states her pain has been to back, and under her right shoulder blade, patient received massage and lotion to that area, repositioning, and pillows.
[2020-01-06] MEDS: nystatin 100,000 unit/mL UDC 5 mL 400000 UNIT PO (20:45)
[2020-01-06] MEDS: lidocaine 5% Patch 1 PATCH TOPICAL (20:55)
[2020-01-07] VITALS (22 sets, daily range): BP systolic 100–170; BP diastolic 72–100; PULSE 74–107; RESP 16–35; TEMP 36.4–36.9; O2SAT 91–100
[2020-01-07] MEDS: hyDROXYzine 25 mg Capsule PO ×3 (02:35→16:05)
[2020-01-07] MEDS: ALPRAZolam 0.5 mg Tablet PO ×6 (02:35→23:08)
[2020-01-07] MEDS: ipratropium-albuterol 3 mL Neb INHALATION ×3 (02:55→14:43)
[2020-01-07] MEDS: heparin 5,000 unit/mL INJ 1 mL 5000 UNIT SUBCUT ×3 (03:36→21:17)
[2020-01-07] MEDS: LORazepam 0.5 mg Tablet PO (03:50)
[2020-01-07 05:16] LABS: Eosinophils # 0.2 10^3/uL (0.0-0.8); Eosinophils % 2.6 %; Hematocrit 32.7 % (37.0-47.0); Hemoglobin 11.1 g/dL (11.5-15.3); Lymphocytes # 0.9 10^3/uL (0.8-4.8); Lymphocytes % 10.9 %; Mean Corpuscular HGB Conc 33.9 g/dL (30.0-36.0); Mean Corpuscular Hemoglobin 30.5 pg (28.0-34.0); Mean Corpuscular Volume 89.8 fL (81-99); Mean Platelet Volume 10.4 fL (7.4-10.4); Monocytes # 0.1 10^3/uL (0.2-0.9); Monocytes % 1.6 %; Neutrophils # 6.7 10^3/uL (1.8-7.7); Neutrophils % 84.4 %; Nucleated Red Blood Cells % 0 %; Platelet Count 181 10^3/cmm (130-400); Red Blood Count 3.64 10^6/uL (4.1-5.3); Red Cell Distribution Width 12.9 % (12.1-15.1)
[2020-01-07 05:31] LABS: Alanine Aminotransferase 20 U/L (0-33); Albumin Level 3.2 g/dL (3.5-5.2); Alkaline Phosphatase 94 IU/L (35-105); Anion Gap 19.9 (5-19); Aspartate Amino Transferase 52 U/L (0-32); Blood Urea Nitrogen 28 mg/dL (8-23); Calcium 9.3 mg/dL (8.5-10.5); Carbon Dioxide 26 mmol/L (22-29); Chloride 93 mmol/L (98-107); Globulin 3.3 g/dL (1.3-4.6); Glomerular Filtration Rate 55.8 mL/min (90-130); Glucose 70 mg/dL (65-115); Osmolality Calculated 277 mOsm/kg (285-295); Sodium 136 mmol/L (136-145); Total Bilirubin 0.5 mg/dL (0.15-1.2); Total Protein 6.5 g/dL (6.6-8.7)
[2020-01-07 05:53] LABS: Potassium 2.9 mmol/L (3.5-5.1)
[2020-01-07] MEDS: nystatin 100,000 unit/mL UDC 5 mL 400000 UNIT PO ×4 (08:30→21:14)
[2020-01-07] MEDS: lisinopril 10 mg Tablet PO (08:31)
[2020-01-07] MEDS: metoprolol tartrate 25 mg Tablet PO ×2 (08:31→18:30)
[2020-01-07] MEDS: pantoprazole DR 40 mg Tablet PO (08:31)
[2020-01-07] MEDS: aspirin 81 mg EC Tablet PO (08:31)
[2020-01-07] MEDS: magnesium oxide 400 mg tablet PO ×2 (08:31→18:30)
[2020-01-07] MEDS: clopidogrel 75 mg Tablet PO (08:31)
[2020-01-07] MEDS: predniSONE 20 mg Tablet 40 MG PO (08:32)
[2020-01-07] MEDS: fenofibrate 48 mg Tablet PO (08:32)
[2020-01-07] MEDS: FUROsemide 10 mg/mL SDV 4mL 40 MG IVP (08:32)
[2020-01-07] MEDS: folic acid 1 mg Tablet PO (08:32)
[2020-01-07] MEDS: multivitamin therapeutic Tablet 1 TAB PO (08:32)
[2020-01-07] MEDS: thiamine 100 mg Tablet PO (08:32)
[2020-01-07] MEDS: levothyroxine 112 mcg Tablet PO (08:32)
[2020-01-07] MEDS: methocarbamol 750 mg Tablet PO ×2 (10:43→18:32)
[2020-01-07] MEDS: TRAMadol 50 mg Tablet PO (13:52)
[2020-01-07] MEDS: levofloxacin-dextrose 5 % 750 MG/150 ML PREMIX 100 MG IV (13:52)
--- NOTE | 2020-01-07 16:10 | XRR_ITS ---
PROCEDURE INFORMATION: Exam: XR Chest, 1 View Exam date and time: 01/07/2020 5:10 PM Age: 64 years old Clinical indication: Shortness of breath; Prior surgery; Surgery type: Stents TECHNIQUE: Imaging protocol: XR of the chest Views: 1 view. COMPARISON: CR XR chest 1V portable [id number] 01/05/2020 5:16 AM FINDINGS: Lungs: Interstitial opacities in the central and lower lung zones are slightly improved from the prior study but not completely resolved. No focal consolidation. Pleural space: Unremarkable. No pleural effusion. No pneumothorax. Heart/Mediastinum: Stable mild cardiomegaly. Bones/joints: Unremarkable. XR/XR chest 1V portable [id number] IMPRESSION: Mild interstitial pulmonary edema, improved slightly from the prior study.
--- NOTE | 2020-01-07 19:44 | P.PN_ITS ---
Subjective Subjective: Interval history: Anxious. Feels still difficulty breathing, although saturation is in mid-90s on 3.5L Vitals/I&O/Wt Last Vital Signs Temp 97.6 F 01/07/20 19:00 Pulse 96 01/07/20 19:00 Resp 16 01/07/20 19:00 BP 100/72 01/07/20 19:00 Pulse Ox 94 01/07/20 19:00 01/07/20 01/07/20 01/07/20 06:59 14:59 22:59 Intake Total 100 / 500 450 / 450 300 / 750 Output Total 450 / 2450 1000 / 1000 520 / 1520 Balance -350 / -1950 -550 / -550 -220 / -770 Physical Exam Const: COMMON NORMALS: no acute distress and patient oriented x3 HENMT: COMMON NORMALS: oropharynx normal Neck/C-Spine: COMMON NORMALS: no JVD Resp: COMMON NORMALS: normal respiratory effort EFFORT & INSPECTION: Yes able to speak in complete sentences AUSCULTATION: rales (Few at bases) and wheezes (resolved) Cardio: COMMON NORMALS: no JVD, regular rhythm, S1 normal heart sound present, S2 normal heart sound present and No murmurs present (Cardio) RHYTHM: regular rhythm HEART SOUNDS: S1 normal heart sound present and S2 normal heart sound present GI: COMMON NORMALS: Normal to inspection, nondistended, normoactive bowel sounds present, Soft to palpation and non-tender PALPATION: Yes Soft to palpation Extremity: COMMON NORMALS: no joint enlargement and no pedal edema Neuro: COMMON NORMALS: patient oriented x3 and moves all extremities Psych: ATTITUDE: Yes Other attitude/behavior findings present (Psych) (Anxious) Skin: COMMON NORMALS: no rashes or lesions noted GENERAL SKIN EXAM: no rashes or lesions noted Urinary Catheter Management^: Ball: Cath Placed During This Visit: yes Reason for Continuing Indwelling Catheter: Accurate Measurement of Urinary Output in Critically Ill Patients Urinary Catheter Date of Insertion: 01/02/20 Urinary Catheter Time of Insertion: 00:47 Data : 01/07/20 04:28 01/07/20 04:28 Micro: Microbiology 01/07/20 10:05 Enteric Pathogens (PCR) - Final Stool - Stool Aspirate 01/02/20 00:00 Blood Culture - Final Blood NO GROWTH AFTER 5 DAYS 01/02/20 00:00 Blood Culture - Final Blood NO GROWTH AFTER 5 DAYS A&P Assessment and plan (1) Pneumonia: Things continue to slowly improve. She is currently still on high flow oxygen, but down to about 4 L. She gets extremely anxious, and complains of dyspnea of worsening Richar appears to play a large role with her air hunger as her saturations are steady in mid 90s with decreasing need for oxygen. We had a long discussion about that with her as well. She may be approaching time where she can have the oxygen that she is required set up at home, although we have discussed in case of demetria/prolonged improvement, consideration may be given to LTAC. Her anxiety definitely may be a barrier, although at this time discussed we will are going to transfer to the medical floor as ICU likely is contributing to them diarrhea, and overall the goal would be to try to get her back into a more usual routine. To new one-to-one if possible for tonight given intermittent panic, and may try to discontinue tomorrow. Continue Librium. Continue as needed Xanax. For now continue Lasix for mitral regurgitation. He is in negative balance. Continue Levaquin only at this time for UTI. Continue supportive care for pneumonitis. High flow cannula. She states normally at home has not needed oxygen for a a while, although years ago did require it, and also needed CPAP for ROSETTE. Did subsequently lose weight, and appears to weaned off both. COVID-19 results was negative. PT. OOB. Status: Acute Qualifiers: Laterality: bilateral Lung location: unspecified part of lung Pneumonia type: due to unspecified organism Qualified Code(s): J18.9 - Pneumonia, unspecified organism (2) UTI (urinary tract infection): Pseudomonas. Cont Levaquin. Status: Acute (3) Hyponatremia: Improving. Status: Acute (4) Respiratory failure with hypoxia: As above. Some pulmonary edema poss from mitral regurgitation as well. Status: Acute (5) Mitral regurgitation: Moderate to severe. Received diuresis. Continue wean off O2. Follow up w cardiology in office. Status: Acute (6) Metabolic acidosis: Improving. Secondary to renal failure. Status: Acute (7) High serum lactic acid: Status: Acute (8) Hyperkalemia: Corrected after dose of Kayexalate Status: Acute (9) ALICJA (acute kidney injury): Improving. Likely ATN. Anti-inflammatory use, sepsis/hypotension. Renal ultrasound wo obstruction. Status: Acute (10) Septic shock: Resolved. Taper steroids. As above. UTI, PNA Uses prednisone daily for SLE Status: Acute Additional A&P Information Hypokalemia: Replace. Vulvovaginal candidiasis: She gets recurrent yeast infections anytime she gets antibiotics, and is at risk also from steroids. One-time Diflucan dose. She also appears to have oral thrush, again similarly as above. Also ordered nystatin swish and swallow. Leukocytosis, secondary to sepsis: Resolved Elevated d-dimer. Venous duplex lower extremities negative Elevated BNP. Due to MR Chronic steroid use with history of SLE. She reports she uses 1 mg of prednisone daily. Taper steroids as toelrating. Hypothyroidism History of coronary disease Hypertension GERD Attestations Medical Necessity Statement*: Continue admission for assessment of management of respiratory failure, pneumonitis, complicated UTI, as well as severe anxiety, panic disorder. Coding Level of Care Code Acute Cook Seafood for [facility] Diagnoses Pneumonia J18.9 Laterality: bilateral Lung location: unspecified part of lung Pneumonia type: due to unspecified organism UTI (urinary tract infection) N39.0 Hyponatremia E87.1 Respiratory failure with hypoxia J96.91 Mitral regurgitation I34.0 Metabolic acidosis E87.2 High serum lactic acid R79.89 Hyperkalemia E87.5 ALICJA (acute kidney injury) N17.9 Septic shock A41.9; R65.21
[2020-01-07] MEDS: fluconazole 100 mg Tablet 150 MG PO (21:12)
[2020-01-07] MEDS: lidocaine 5% Patch 1 PATCH TOPICAL (21:21)
[2020-01-08] VITALS (10 sets, daily range): BP systolic 109–146; BP diastolic 70–93; PULSE 79–102; RESP 17–22; TEMP 36.1–36.9; O2SAT 74–100
[2020-01-08] MEDS: TRAMadol 50 mg Tablet PO (01:52)
[2020-01-08] MEDS: ipratropium-albuterol 3 mL Neb INHALATION ×4 (02:34→16:02)
[2020-01-08] MEDS: heparin 5,000 unit/mL INJ 1 mL 5000 UNIT SUBCUT ×2 (03:26→13:13)
[2020-01-08] MEDS: ALPRAZolam 0.5 mg Tablet PO ×5 (03:26→18:02)
[2020-01-08 05:45] LABS: Basophils % 0.1 %; Eosinophils # 0.2 10^3/uL (0.0-0.8); Eosinophils % 2.6 %; Hematocrit 35.5 % (37.0-47.0); Lymphocytes # 1.3 10^3/uL (0.8-4.8); Lymphocytes % 15.5 %; Mean Corpuscular HGB Conc 33.8 g/dL (30.0-36.0); Mean Corpuscular Hemoglobin 30.3 pg (28.0-34.0); Mean Corpuscular Volume 89.6 fL (81-99); Mean Platelet Volume 10.4 fL (7.4-10.4); Monocytes # 0.1 10^3/uL (0.2-0.9); Monocytes % 1.5 %; Neutrophils # 6.8 10^3/uL (1.8-7.7); Neutrophils % 79.8 %; Nucleated Red Blood Cells % 0 %; Platelet Count 193 10^3/cmm (130-400); Red Blood Count 3.96 10^6/uL (4.1-5.3); Red Cell Distribution Width 12.8 % (12.1-15.1); White Blood Count 8.5 10^3/uL (4.0-10.0)
[2020-01-08 06:04] LABS: Alanine Aminotransferase 20 U/L (0-33); Albumin Level 3.4 g/dL (3.5-5.2); Alkaline Phosphatase 86 IU/L (35-105); Anion Gap 19.2 (5-19); Aspartate Amino Transferase 41 U/L (0-32); Blood Urea Nitrogen 28 mg/dL (8-23); Calcium 9.1 mg/dL (8.5-10.5); Carbon Dioxide 26 mmol/L (22-29); Chloride 94 mmol/L (98-107); Globulin 3.4 g/dL (1.3-4.6); Glucose 84 mg/dL (65-115); Osmolality Calculated 278 mOsm/kg (285-295); Potassium 3.2 mmol/L (3.5-5.1); Sodium 136 mmol/L (136-145); Total Bilirubin 0.5 mg/dL (0.15-1.2); Total Protein 6.8 g/dL (6.6-8.7)
--- NOTE | 2020-01-08 06:47 | PC.NURSE ---
Shift Summary Pt was anxious tonight but did not become agitated. Pt c/o of a headache and backache and was given oral medication. Pt did well about not pulling on nasal canula or IV. Pt took oral medications with no problems.
[2020-01-08] MEDS: FUROsemide 10 mg/mL SDV 4mL 40 MG IVP (08:43)
[2020-01-08 08:55] LABS: Magnesium 1.8 mg/dL (1.7-2.3)
[2020-01-08] MEDS: clopidogrel 75 mg Tablet PO (09:27)
[2020-01-08] MEDS: pantoprazole DR 40 mg Tablet PO (09:27)
[2020-01-08] MEDS: multivitamin therapeutic Tablet 1 TAB PO (09:27)
[2020-01-08] MEDS: aspirin 81 mg EC Tablet PO (09:27)
[2020-01-08] MEDS: metoprolol tartrate 25 mg Tablet PO ×2 (09:27→18:02)
[2020-01-08] MEDS: levothyroxine 112 mcg Tablet PO (09:27)
[2020-01-08] MEDS: folic acid 1 mg Tablet PO (09:27)
[2020-01-08] MEDS: nystatin 100,000 unit/mL UDC 5 mL 400000 UNIT PO (09:28)
[2020-01-08] MEDS: thiamine 100 mg Tablet PO (09:28)
[2020-01-08] MEDS: fluoxetine 20 mg Capsule 40 MG PO (09:28)
[2020-01-08] MEDS: magnesium oxide 400 mg tablet PO (09:28)
[2020-01-08] MEDS: lisinopril 10 mg Tablet PO (09:28)
[2020-01-08] MEDS: predniSONE 20 mg Tablet 40 MG PO (09:28)
[2020-01-08] MEDS: lidocaine 5% Patch 1 PATCH TOPICAL (09:29)
[2020-01-08] MEDS: methocarbamol 750 mg Tablet PO ×2 (09:29→18:01)
[2020-01-08] MEDS: fenofibrate 48 mg Tablet PO (09:30)
[2020-01-08] MEDS: levofloxacin-dextrose 5 % 750 MG/150 ML PREMIX 100 MG IV (14:31)
--- NOTE | 2020-01-08 20:33 | PM.DCS ---
Discharge Providers Date of Admission: 01/02/20 01:35 Date of Discharge: January 08, 2020 Attending Provider at Admission: Adelaide Lara MD Attending Provider at Discharge: Terrell Cho Primary Care Provider: Raheem Baron Diagnoses at Discharge Discharge Diagnosis (1) Pneumonia: Status: Acute Qualifiers: Laterality: bilateral Lung location: unspecified part of lung Pneumonia type: due to unspecified organism Qualified Code(s): J18.9 - Pneumonia, unspecified organism (2) UTI (urinary tract infection): Status: Acute (3) Hyponatremia: Status: Acute (4) Respiratory failure with hypoxia: Status: Acute (5) Mitral regurgitation: Status: Acute (6) Metabolic acidosis: Status: Acute (7) High serum lactic acid: Status: Acute (8) Hyperkalemia: Status: Acute (9) ALICJA (acute kidney injury): Status: Acute (10) Septic shock: Status: Acute Reason for Visit Reason for Visit: weakness/confused Hospital Course Hospital Course: Pleasant 64-year-old lady with severe anxiety and panic disorder, SLE, on chronic steroid, prednisone 1 mg recently, other medical problems, was admitted for cyst management after presenting with fever, dyspnea, myalgias, dysuria, with finding of septic shock, urinary tract infection on presentation, pneumonia, acute hyponatremia, acute kidney injury, hyperkalemia. She was admitted to intensive care unit, treated with IV antibiotics with Zosyn and vancomycin, switched to linezolid due to worsening renal function. Received stress dose steroids due to concern for adrenal insufficiency with chronic steroid use. Acute kidney injury thought perhaps secondary to NSAID use in addition to hypotension, sepsis. CT chest with interstitial changes. Lower extremity venous duplex negative for DVT. Underwent COVID-19 testing which was negative. Hyperkalemia resolved with Kayexalate. Acute kidney injury gradually resolved with holding NSAIDs, blood pressure stabilization, treatment of sepsis. No obstruction noted on renal ultrasound. Her oxygenation was progressively worsening, and she did require temporary BiPAP support, subsequently switched over to high flow cannula. Urine antigens, MRSA all negative. Due to persistent hypoxia was assessed by pulmonology, with concern for aspiration pneumonitis. Urine culture returned growth with Pseudomonas sensitive to quinolones. Antibiotic was switched to Levaquin. Throughout the hospitalization she suffered from severe anxiety, episodes of panic and air hunger. At home she takes about 4 tablets of Xanax per day, although says in rare instances takes a little bit more. Consideration was given to withdrawal as appears she also has Librium listed which she used to take for IBS, although appears she has not taken that in a while. As her oxygenation has been improving, oxygen requirement trended down to needing 4 L by high flow cannula, her anxiety also has been improving. This is also responded to Librium, which will be continued for several more days, with also Xanax continued as needed. Of note mitral regurgitation moderate to severe noted on echocardiogram may also be contributing to hypoxia, due to which should follow-up with cardiology in office. She is continue follow-up with rheumatology. Shake Feeder will see her in office next week. Today she reports she wants to return home. She does not want to stay any longer as she is feeling better. She has been gradually improving, and understands to seek medical attention in case of worsening at home. Oxygen had to be arranged for her as she used to have oxygen in the past, but does not any longer. Due to deconditioning she would benefit from continued physical therapy, and she and her family have been agreeable to home health. Physical Exam Const: COMMON NORMALS: no acute distress and patient oriented x3 OTHER: Today she is much calmer. She is generally weak. HENMT: COMMON NORMALS: oropharynx normal Neck/C-Spine: COMMON NORMALS: no JVD Resp: COMMON NORMALS: normal respiratory effort EFFORT & INSPECTION: Yes able to speak in complete sentences AUSCULTATION: no rales and no wheezes Cardio: COMMON NORMALS: no JVD, regular rhythm, S1 normal heart sound present, S2 normal heart sound present and No murmurs present (Cardio) RHYTHM: regular rhythm HEART SOUNDS: S1 normal heart sound present and S2 normal heart sound present GI: COMMON NORMALS: Normal to inspection, nondistended, normoactive bowel sounds present, Soft to palpation and non-tender PALPATION: Yes Soft to palpation Extremity: COMMON NORMALS: no joint enlargement and no pedal edema Neuro: COMMON NORMALS: patient oriented x3 and moves all extremities Psych: ATTITUDE: Yes Other attitude/behavior findings present (Psych) (Anxious) Skin: COMMON NORMALS: no rashes or lesions noted GENERAL SKIN EXAM: no rashes or lesions noted Urinary Catheter Management^: Ball: Cath Placed During This Visit: yes Reason for Continuing Indwelling Catheter: Other Urinary Catheter Date of Insertion: 01/02/20 Urinary Catheter Time of Insertion: 00:47 Discharge Data Data Completed and Pending: Completed Studies During Hospitalization Category Date Time Status CT chest wo con 7 1250 Routine Cat Scan 01/04/20 08:33 Completed XR chest 1V olga ble [id number] Routine Exams 01/04/20 06:00 Completed XR chest 1V olga ble [id number] Routine Exams 01/05/20 06:00 Completed XR chest 1V olga ble [id number] Stat Exams 01/01/20 23:37 Completed XR chest 1V olga ble [id number] Stat Exams 01/07/20 16:10 Completed CV echo complete* [id number] Routine Ultrasound 01/03/20 08:12 [place] [id number] Routin e Ultrasound 01/02/20 08:30 Completed US renal BI* [id number] Routine Ultrasound 01/02/20 08:12 Completed Pending at discharge Category Date Time Status Complete Blood Co unt w/Auto AM LABS Lab 01/09/20 04:00 Ordered Comprehensive Met abolic Panel AM LA BS Lab 01/09/20 04:00 Ordered Sputum Culture an d Gram Stain Stat Lab 01/02/20 02:21 Uncollected Labs from last 24 hours 01/08/20 01/08/20 01/08/20 05:00 05:00 05:00 WBC 8.5 RBC 3.96 L Hgb 12.0 Hct 35.5 L MCV 89.6 MCH 30.3 MCHC 33.8 RDW 12.8 Plt Count 193 MPV 10.4 Neut % (Auto) 79.8 Lymph % (Auto) 15.5 [place] % (Auto) 1.5 Eos % (Auto) 2.6 Baso % (Auto) 0.1 Neut # (Auto) 6.8 Lymph # (Auto) 1.3 [place] # (Auto) 0.1 L Eos # (Auto) 0.2 Baso # (Auto) 0.0 Nucleated RBC % (a uto) 0 Nucleated RBCs # 0.0 Sodium 136 Potassium 3.2 L Chloride 94 L Carbon Dioxide 26 Anion Gap 19.2 H BUN 28 H Creatinine 1.1 H GFR Calculation 50.0 L Glucose 84 Calculated Osmolal ity 278 L Calcium 9.1 Magnesium 1.8 Total Bilirubin 0.5 AST 41 H ALT 20 Alkaline Phosphata se 86 Total Protein 6.8 Albumin 3.4 L Globulin 3.4 Vitals: Last Vital Signs Temp 98.5 F 01/08/20 15:46 Pulse 98 01/08/20 16:09 Resp 18 01/08/20 16:03 BP 115/80 01/08/20 15:46 Pulse Ox 95 01/08/20 16:03 Discharge Plan Discharge Patient Disposition: Home Health Service Condition: Stable Prescriptions: New prednisone 20 mg Tablet 40 mg PO DAILY Qty: 21 RF: 0 metoprolol tartrate 25 mg Tablet 25 mg PO BID Qty: 60 RF: 0 Levaquin 750 mg tablet 750 mg PO DAILY 5 Days Qty: 5 RF: 0 chlordiazepoxide HCl 10 mg capsule 10 mg PO Q12H 4 Days Qty: 8 RF: 0 Continued alprazolam 0.5 mg tablet 0.5 mg PO TID RF: 0 aspirin [Aspir-81] 81 mg tablet,delayed release (DR/EC) 81 mg PO DAILY RF: 0 chlordiazepoxide-clidinium 5-2.5 mg capsule 1 cap PO TID PRN (Reason: Anxiety) RF: 0 clobetasol 0.05 % ointment 1 applic TOPICAL DAILY PRN (Reason: Itching) RF: 0 cyanocobalamin (vitamin B-12) 1,000 mcg capsule 1,000 mcg PO DAILY RF: 0 fenofibrate nanocrystallized 48 mg tablet 48 mg PO DAILY RF: 0 fluoxetine 40 mg capsule 40 mg PO DAILY RF: 0 hydroxyzine pamoate 25 mg capsule 25 mg PO Q6H PRN (Reason: Anxiety) RF: 0 lisinopril 10 mg tablet 10 mg PO DAILY RF: 0 magnesium oxide 400 mg magnesium tablet 400 mg PO BID RF: 0 nitroglycerin [Nitrostat] 0.4 mg tablet, sublingual 0.4 mg SUBLINGUAL Q5M PRN (Reason: Chest Pain) RF: 0 pantoprazole 40 mg tablet,delayed release (DR/EC) 40 mg PO BID RF: 0 clopidogrel [Plavix] 75 mg tablet 75 mg PO DAILY RF: 0 potassium chloride 10 mEq tablet,ER particles/crystals 10 meq PO BID RF: 0 tramadol 50 mg tablet 50 mg PO TID PRN (Reason: Pain) RF: 0 triamcinolone acetonide 0.1 % cream 1 applic TOPICAL DAILY PRN (Reason: itching) RF: 0 levothyroxine 100 mcg Tablet 100 mcg PO DAILY RF: 0 methocarbamol 750 mg Tablet 750 mg PO TID RF: 0 nystatin 100,000 unit/gram Cream 1 applic TOPICAL DAILY PRN (Reason: redness) RF: 0 Lidoderm 5 % Adhesive Patch,Medicated 1 patch TOPICAL DAILY RF: 0 Restasis 0.05 % Dropperette 1 drp OPHTHALMIC (EYE) Q12H RF: 0 Vitamin D3 125 mcg (5,000 unit) Tablet 125 mcg PO DAILY RF: 0 Discontinued atenolol 25 mg tablet 25 mg PO DAILY RF: 0 prednisone 1 mg Tablet 1 mg PO DAILY PRN (Reason: lupus) RF: 0 Discharge Orders: Discharge Order (Routine); Ordered 01/08/20 Ordered By: Terrell Cho Other Ambulatory Orders: DME: Oxygen (Order) Location: None Selected Ordered By: Terrell Cho Ref[place]: [facility]) [Outside] Jeremías Rosado MD [Physician] - 1 month (Please call Friday to schedule an appointment. Mitral regurgitation) Chandra Viramontes MD [Physician] - 2 weeks (Please call Friday to schedule an appointment. lupus) Raheem Baron [Primary Care Provider] - 4-7 days (Please call Friday to schedule an appointment) Griselda Flores MD [Physician] - 4-7 days (Please call Friday to schedule an appointment.) Discharge Activity: Increase activity as tolerated, As per PT/OT instructions and Oxygen as instructed Patient Instructions: Metoprolol (By mouth), Chlordiazepoxide (By mouth), Prednisone (By mouth), Levofloxacin (By mouth), Urinary Tract Infection in Women (GEN), Pneumonia (DC), Pneumonia Stoplight, Using Oxygen at Home Activity Restrictions/Additional Instructions: Continue oxygen. Target saturation 92%. Decrease as tolerating. If you are feeling short of breath, but oxygen is at 92% or above, consider that anxiety may be the cause, consider taking an anxiety medication, however, if oxygenation is below 88%, persistently despite increasing oxygen, you are having severe shortness of breath, blue discoloration, chest pain, fainting, or other abnormal symptoms, seek medical attention. Mobilize, up to chair, activity as tolerating. 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
--- NOTE | 2020-01-10 10:07 | PC.SOCIAL ---
called to ask questions about medications Main question was about Metoprolol since she was on Atenolol. Explained to patient that the Atenolol was stopped at DC and started on Metoprolol since they are both Beta Blockers wanted verification as to why it was changed. Sent info to Dr Cho and he responded that the Atenolol is more long acting and 25mg of it is equivalent to 50mg of Metoprolol. Recommend changing to Metoprolol BID and if BP run low which has been concerned about hold dose. notified with the information from provider and is in agreement. We discussed to keep a log so the results can be reviewed with PCP and Mechanical Operator to seem it further adjustments are needed. NO further questions.
== END 2020-01-08 19:00 | disposition home health service (06) | DRG 871 ==
LOC: ER 23:54 → ICU 01-02 01:54 → MEDSURG 01-07 18:53
PROVIDERS: Internal Medicine; Admitting Provider Internal Medicine; Emergency Provider Emergency Medicine; PCP Family Medicine; Visit Provider Internal Medicine
DX: A41.9 Sepsis, unspecified organism (principal); R65.21 Severe sepsis with septic shock; J96.91 Respiratory failure, unspecified with hypoxia; J18.9 Pneumonia, unspecified organism; N17.0 Acute kidney failure with tubular necrosis; N39.0 Urinary tract infection, site not specified; E87.1 Hypo-osmolality and hyponatremia; E87.2 Acidosis; I34.0 Nonrheumatic mitral (valve) insufficiency; E87.5 Hyperkalemia; T39.395A Adverse effect of other nonsteroidal anti-inflammatory drugs [NSAID], initial encounter; Y92.230 Patient room in hospital as the place of occurrence of the external cause; Z79.82 Long term (current) use of aspirin; Z20.828 Contact with and (suspected) exposure to other viral communicable diseases; G47.33 Obstructive sleep apnea (adult) (pediatric); B96.5 Pseudomonas (aeruginosa) (mallei) (pseudomallei) as the cause of diseases classified elsewhere; B37.3 Candidiasis of vulva and vagina; M32.9 Systemic lupus erythematosus, unspecified; Z79.52 Long term (current) use of systemic steroids; E03.9 Hypothyroidism, unspecified; K21.9 Gastro-esophageal reflux disease without esophagitis; I25.10 Atherosclerotic heart disease of native coronary artery without angina pectoris; F41.9 Anxiety disorder, unspecified; F41.0 Panic disorder [episodic paroxysmal anxiety]; E78.2 Mixed hyperlipidemia; F17.210 Nicotine dependence, cigarettes, uncomplicated; N18.9 Chronic kidney disease, unspecified; I12.9 Hypertensive chronic kidney disease with stage 1 through stage 4 chronic kidney disease, or unspecified chronic kidney disease
CPT/HCPCS: 12345; 36415; 36600; 51702; 71045; 71250; 76770; 80048; 80051; 80053; 80306; 80307; 81001; 82044; 82140; 82436; 82550; 82728; 82810; 83605; 83615; 83690; 83735; 83880; 83935; 83986; 84133; 84145; 84300; 84443; 84484; 85025; 85378; 86140; 86403; 87040; 87077; 87086; 87186; 87449; 87493; 87506; 87635; 93005; 93306; 93970; 94640; 94660; 96372; 96375; 97110; 97116; 97161; 97530; 99285; J1630; J1644; J1720; J1940; J1956; J2020; J2060; J2270; J2405; J2543; J2920; J3411; J7030; J7050; J7512

== ENCOUNTER 2020-01-29 23:33 | Inpatient (IN) | payer BC, SELFPAY ==
[2020-01-29 23:40] VITALS: BP 78/51; PULSE 113; RESP 16; TEMP 36.7; O2SAT 94; BMI 21.9
[2020-01-30] VITALS (77 sets, daily range): BP systolic 82–147; BP diastolic 54–78; PULSE 55–90; RESP 10–21; TEMP 36.1–36.8; O2SAT 90–100
--- NOTE | 2020-01-30 00:18 | XRR_ITS ---
PROCEDURE INFORMATION: Exam: XR Chest, 1 View Exam date and time: 01/30/2020 12:20 AM Age: 64 years old Clinical indication: Fever; Prior surgery; Surgery date: 6+ months; Surgery type: Stents TECHNIQUE: Imaging protocol: XR of the chest Views: 1 view. COMPARISON: CR XR chest 1V portable [id number] 01/07/2020 5:17 PM FINDINGS: Lungs: No definite CHF/pulmonary edema. Worsening right mid and lower lung opacities, suspicious for pneumonia and/or atelectasis. There may be some similar mild left lower lung base opacities. Pleural space: No visible pneumothorax. No definite pleural fluid. Heart/Mediastinum: Mild cardiomegaly, essentially stable. Bones/joints: No significant acute finding. XR/XR chest 1V portable [id number] IMPRESSION: 1. Worsening right mid and lower lung opacities, suspicious for pneumonia and/or atelectasis. 2. Other findings discussed above.
[2020-01-30 00:29] LABS: Basophils % 0.2 %; Eosinophils # 0.1 10^3/uL (0.0-0.8); Hematocrit 33.8 % (37.0-47.0); Hemoglobin 11.2 g/dL (11.5-15.3); Lymphocytes # 1.7 10^3/uL (0.8-4.8); Mean Corpuscular HGB Conc 33.1 g/dL (30.0-36.0); Mean Corpuscular Hemoglobin 31.3 pg (28.0-34.0); Mean Corpuscular Volume 94.4 fL (81-99); Monocytes # 0.2 10^3/uL (0.2-0.9); Monocytes % 4.5 %; Neutrophils # 3.3 10^3/uL (1.8-7.7); Neutrophils % 60.7 %; Nucleated Red Blood Cells % 0 %; Platelet Count 140 10^3/cmm (130-400); Red Blood Count 3.58 10^6/uL (4.1-5.3); Red Cell Distribution Width 13.3 % (12.1-15.1); White Blood Count 5.4 10^3/uL (4.0-10.0)
[2020-01-30 00:43] LABS: Alanine Aminotransferase 11 U/L (0-33); Albumin Level 3.5 g/dL (3.5-5.2); Alkaline Phosphatase 51 IU/L (35-105); Anion Gap 15.8 (5-19); Aspartate Amino Transferase 22 U/L (0-32); Blood Urea Nitrogen 11 mg/dL (8-23); Calcium 9.5 mg/dL (8.5-10.5); Carbon Dioxide 25 mmol/L (22-29); Chloride 95 mmol/L (98-107); Globulin 2.8 g/dL (1.3-4.6); Glucose 93 mg/dL (65-115); Osmolality Calculated 270 mOsm/kg (285-295); Potassium 3.8 mmol/L (3.5-5.1); Sodium 132 mmol/L (136-145); Total Bilirubin 0.3 mg/dL (0.15-1.2); Total Protein 6.3 g/dL (6.6-8.7)
[2020-01-30 01:32] LABS: Procalcitonin 0.09 ng/mL (0-0.5)
[2020-01-30 01:43] LABS: C Reactive Protein 74.5 mg/L (0.0-4.9)
[2020-01-30] MEDS: piperacillin-tazobactam 4.5 GM in sodium chloride 0.9% (plus) 50 ML IV (03:16)
[2020-01-30] MEDS: sodium chloride 0.9% 500 ML 999 ML IV (03:16)
[2020-01-30 03:21] LABS: Add Urine Microscopic? NO
[2020-01-30] MEDS: ondansetron 2 mg/ML SDV 2 mL 4 MG IVP (03:27)
[2020-01-30 03:30] LABS: Bilirubin Urine Neg (NEGATIVE); Blood Urine Neg (Negative); Glucose Urine UA Norm (Normal); Ketones Urine Negative (Negative); Leukocyte Esterase Urine Negative (Negative); Nitrate Urine Negative (Negative); Protein Urine Neg (Negative); Urine Appearance Clear (CLEAR); Urine Color Yellow (Yellow); Urobilinogen Urine Norm (Negative); pH Urine 6 (5-7)
--- NOTE | 2020-01-30 03:59 | P.HP_ITS ---
Providers/Chief Complaint Primary Care Provider: Raheem Baron Chief Complaint: fever History of Present Illness Edyta Camp is a 64 year old female who is immunocompromised with chronic steroid use for lupus was recently discharged from the hospital on 01/07, (during hospitalization she had negative coded, ALICJA improved after holding NSAIDs, urine culture grew Pseudomonas, she was treated for anxiety and panic attacks during hospitalization, was evaluated by Dr. Flores with concern for aspiration pneumonitis, was discharged on Levaquin and 5 L of oxygen) coming in today for worsening shortness of breath and fever. Patient is stating that since her previous hospitalization she has not been able to sleep well, she is suffering f rom nightmares, she has an appointment with Dr. Flores next few days. At home she has been getting home health services. She is currently smoking 1 pack/day, she has not noticed any change in her cough frequency or sputum production but last night she was extremely lethargic and tired was not able to get up on her legs, her temperature was 102, she was experiencing more shortness of breath on exer tion. She also noticed some pleuritic chest pain on the right side which gets worse on taking deep breaths. Diagnosis in the ER revealed persistent pneumonia in the right side with mild worsening She has been afebrile, no leukocytosis, high has high CRP, I have requested CT chest for persistent pneumonia evaluation He has been given Zosyn in the ER At the time of my evaluation she is able to give me above-mentioned detail, no active neurological deficit Currently she is on 3 L of oxygen at home Review of Systems Const: Reports: fever(s), chills, body aches, change in appetite, fatigue and malaise Eyes: Denies: change in vision ENMT: Denies: throat pain Card: Reports: chest pain, lightheadedness and dyspnea on exertion; Denies: palpitations, irregular heart rhythm, swelling of feet/ankles or ort hopnea Resp: Reports: dyspnea, non-productive cough and pain on inspiration GI: Denies: abdominal pain, nausea or vomiting : Denies: flank pain or difficulty voiding Musc: Denies: neck pain Skin/Breast: Denies: rash Neuro: Reports: headache(s) Psych: Reports: anxiety Endo: Denies: polyuria Brett/Lymph: Denies: easy bruising All/Imm: Denies: urticaria Medications/Allergies Home Medications Medication Instructions Recorded Confirmed Last Taken Type alprazolam 0.5 mg tablet 0.5 mg PO TID 09/22/19 01/18/20 Unknown History aspirin 81 mg tablet,delayed 81 mg PO DAILY 09/22/19 01/18/20 Unknown History release chlordiazepoxide-clidinium 5 1 cap PO TID PRN 09/22/19 01/18/20 Unknown History mg-2.5 mg capsule clobetasol 0.05 % topical ointment 1 applic TOPICAL DAILY PRN 09/22/19 01/18/20 Unknown History clopidogrel 75 mg tablet 75 mg PO DAILY 09/22/19 01/18/20 Unknown History cyanocobalamin (vitamin B-12) 1,000 mcg PO DAILY 09/22/19 01/18/20 Unknown History 1,000 mcg capsule fenofibrate nanocrystallized 48 mg 48 mg PO DAILY 09/22/19 01/18/20 Unknown History tablet fluoxetine 40 mg capsule 40 mg PO DAILY 09/22/19 01/18/20 Unknown History hydroxyzine pamoate 25 mg capsule 25 mg PO Q6H PRN cap 09/22/19 01/18/20 Unknown History lisinopril 10 mg tablet 10 mg PO DAILY 09/22/19 01/18/20 Unknown History magnesium oxide 400 mg PO BID 09/22/19 01/18/20 Unknown History nitroglycerin 0.4 mg sublingual 0.4 mg SUBLINGUAL Q5M PRN 09/22/19 01/18/20 Unknown History tablet pantoprazole 40 mg tablet,delayed 40 mg PO BID tab 09/22/19 01/18/20 Unknown History release potassium chloride 10 mEq 10 meq PO BID tab 09/22/19 01/18/20 Unknown History tablet,extended release(part/cryst) tramadol 50 mg tablet 50 mg PO TID PRN 09/22/19 01/18/20 Unknown History triamcinolone acetonide 0.1 % 1 applic TOPICAL DAILY PRN 09/22/19 01/18/20 Unknown History topical cream Lidoderm 1 patch TOPICAL DAILY 01/02/20 01/18/20 Unknown History Restasis 1 drp OPHTHALMIC (EYE) Q12H 01/02/20 01/18/20 Unknown History Vitamin D3 125 mcg PO DAILY 01/02/20 01/18/20 Unknown History levothyroxine 100 mcg PO DAILY 01/02/20 01/18/20 Unknown History methocarbamol 750 mg PO TID 01/02/20 01/18/20 Unknown History nystatin 1 applic TOPICAL DAILY PRN 01/02/20 01/18/20 Unknown History metoprolol tartrate 25 mg PO BID #60 tab 01/08/20 01/18/20 Unknown Rx prednisone 40 mg PO DAILY #21 tab 01/08/20 01/18/20 Unknown Rx Allergies Allergy/AdvReac Type Severity Reaction Status Date / Time No Known Allergies Allergy Verified 01/18/20 14:23 PFSH Acute PFSH: Medical History Anxiety disorder Arteriosclerotic cardiovascular disease Atherosclerosis of coronary artery of [place] heart without angina pectoris Essential (primary) hypertension GERD (gastroesophageal reflux disease) Hypothyroidism Intervertebral disc disorder with radiculopathy of lumbosacral region Lumbar stenosis with neurogenic claudication Mitral regurgitation Mixed hyperlipidemia Systemic lupus erythematosus, unspecified Vitamin D deficiency Surgical History H/O: hysterectomy with BSO History of cholecystectomy History of heart artery stent 5 stents Family History Sister Cancer Brain Hypertension Family/Other Hypertension Several members Social History (Updated 01/30/20 @ 05:14 by Adelaide Lara MD) Smoking and tobacco status: heavy tobacco smoker cigarettes [ Other cigarette details: [id number] smoking history, currently 1 pack/day ] Second hand smoke exposure: No Smoking risk assessment/counseling performed?: No Alcohol intake: never Desire information about alcohol rehabilitation?: No Counseling given: No Desire information about substance/drug rehabilitation?: No Counseling given: No Caregiver/support person: No Lives independently: Yes Household members: spouse Marital status: Current occupational status: unemployed History of recent travel: No Current gender identity: Female Vitals/I&O/Wt Last Vital Signs Temp 98.0 F 01/29/20 23:40 Pulse 68 01/30/20 03:25 Resp 18 01/30/20 03:25 BP 104/67 01/30/20 03:25 Pulse Ox 95 01/30/20 03:25 Weight last 48 hrs Weight 59.874 kg Physical Exam Narrative: EXAM NARRATIVE: Patient is laying supine without any active discomfort currently saturating well on 3 L nasal cannula She is hypotensive mean arterial pressure is 60-64 Awake alert oriented x3 GCS 15 EOMI, PERRLA Loss of eyebrows bilaterally No active respiratory distress She has inspiratory squeaking breath sounds, diminished airway entry without wheezing S1, S2 no signs of heart failure clinically Lower extremity does not show any sign ischemia gangrene ulcer or edema Anxious mood Data : 01/30/20 00:10 01/30/20 00:10 Micro: Microbiology 01/30/20 00:33 Blood Culture - Preliminary Blood SPECIMEN COLLECTED 01/30/20 00:10 Blood Culture - Preliminary Blood SPECIMEN COLLECTED A&P Assessment and plan (1) Persistent pneumonia: Status: Acute (2) Mitral regurgitation: Status: Acute (3) Nicotine addiction: Status: Acute (4) Immunocompromised: Status: Acute (5) Chronic steroid use: Status: Acute Additional A&P Information Right-sided persistent pneumonia Consolidation looks denser as compared to previous x-ray, I would obtain CT chest for right-sided previous pneumonia, patient is denying night sweats, weight loss, hemoptysis, currently smoking 1 pack/day She might need bronchoscopy for diagnostic purposes Patient spiked fever at home, she has been afebrile here, no leukocytosis, I would use vancomycin Levaquin and Zosyn to cover hospital-acquired pneumonia Blood culture, sputum culture and urine antigens sent DuoNeb every 6 hours as needed Immunocompromised due to prolonged use of steroids for lupus Currently she is hypotensive and hypokalemic I would use stress dose steroids for at least 24-hour Anxiety/panic attack I would keep her on anxiolytics which she takes at home Chronic disease without active exacerbation Full code DVT prophylaxis low Cardiac diet Attestations Medical Necessity Statement*: Anticipating stay in the hospital to cross more than 2 midnights currently need hospital-acquired pneumonia management, waiting for CT chest for persistent pneumonia Time Spent in Patient Care: (>than 50% of time spent in counselling and/or direct pt care on unit) . 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
--- NOTE | 2020-01-30 05:00 | CTR_ITS ---
PROCEDURE INFORMATION: Exam: CT Chest Without Contrast Exam date and time: 01/30/2020 5:01 AM Age: 64 years old Clinical indication: Fever and shortness of breath; Prior surgery; Surgery type: Stents, gb and hysto; Additional info: Persistent pneumonia right-sided TECHNIQUE: Imaging protocol: Computed tomography of the chest without contrast. Radiation optimization: All CT scans at this facility use at least one of these dose optimization techniques: automated exposure control; mA and/or kV adjustment per patient size (includes targeted exams where dose is matched to clinical indication); or iterative reconstruction. COMPARISON: CT chest con [id number] 01/04/2020 9:32 AM RADIATION DOSE METRICS: Total DLP (mGy-cm): 365.25 FINDINGS: Lungs: COPD, interstitial disease, mild bronchial dilatation, and chronic granulomatous disease. Marked interval improvement in bilateral airspace disease, with residual asymmetric right-sided airspace disease. Pleural space: No significant pleural effusion. Heart: Borderline cardiomegaly and coronary artery calcification. Aorta: Ectasia of the thoracic aorta. Lymph nodes: 1.9 x 1.4 by 1.9 cm right paratracheal lymph node. Note evaluation of the alex is somewhat limited in the absence of intravenous contrast. Upper abdomen: Enlarged spleen measuring 12.6 cm in length. Status post cholecystectomy. Bones/joints: Degenerative change. Mild depression of the T5 superior vertebral endplate CT/CT chest con [id number] IMPRESSION: 1. COPD, interstitial disease, mild bronchial dilatation, and chronic granulomatous disease. 2. Marked interval improvement in bilateral airspace disease, with residual asymmetric right-sided airspace disease. 3. Additional findings as described above. Radiation Dose CTDIVOL = (mGy): DLP = 365.25 (mGy-cm)
--- NOTE | 2020-01-30 06:39 | ED_ITS ---
HPI - Fever General: Chief Complaint: Fever Stated Complaint: fever Time Seen by Provider: 01/30/20 01:05 History of Present Illness: MD elicited complaint: fever and malaise Onset (ago): hour(s) (24) Context: recent hospitalization Exacerbating factors: nothing Relieving factors: nothing Associated symptoms: Reports chills, confusion, dysuria, myalgias, nausea and short of breath; Deny chest pain, cough, headache(s) or sinus pain Review of Systems Const: Reports: fever(s) and chills Eyes: Denies: change in vision ENMT: Denies: swelling of lips/tongue, bleeding gums, dental pain, change in hearing, epistaxis, post nasal drip or sinus pain Card: Denies: chest pain, palpitations, irregular heart rhythm, edema, swelling of feet/ankles, dyspnea on exertion or orthopnea Resp: Denies: dyspnea, productive cough, non-productive cough or wheezing GI: Reports: nausea : Reports: dysuria; Denies: urinary frequency, urinary urgency or hematuria Musc: Reports: back pain; Denies: neck pain Skin/Breast: Denies: rash, pruritus or erythema Neuro: Reports: confusion; Denies: headache(s), dizziness, vertigo or seizure-like activity Psych: Denies: anxiety PFSH ED PFSH: Medical History (Updated 01/30/20 @ 06:47 by Fabrice Vail DO) Anxiety disorder Arteriosclerotic cardiovascular disease Atherosclerosis of coronary artery of [place] heart without angina pectoris Chronic kidney disease Essential (primary) hypertension GERD (gastroesophageal reflux disease) Hypothyroidism Intervertebral disc disorder with radiculopathy of lumbosacral region Lumbar stenosis with neurogenic claudication Mitral regurgitation Mixed hyperlipidemia Systemic lupus erythematosus, unspecified Vitamin D deficiency Surgical History H/O: hysterectomy with BSO History of cholecystectomy History of heart artery stent 5 stents Family History Sister Cancer Brain Hypertension Family/Other Hypertension Several members Social History (Updated 01/30/20 @ 05:14 by Adelaide Lara MD) Smoking and tobacco status: heavy tobacco smoker cigarettes [ Other cigarette details: [id number] smoking history, currently 1 pack/day ] Second hand smoke exposure: No Smoking risk assessment/counseling performed?: No Alcohol intake: never Desire information about alcohol rehabilitation?: No Counseling given: No Desire information about substance/drug rehabilitation?: No Counseling given: No Caregiver/support person: No Lives independently: Yes Household members: spouse Marital status: Current occupational status: unemployed History of recent travel: No Current gender identity: Female Physical Exam Const: GENERAL APPEARANCE: well developed ORIENTATION/CONSCIOUSNESS: Yes oriented to person, Yes oriented to place and Yes oriented to time HENMT: COMMON NORMALS: normocephalic, external ears normal and Normal external nose present HEAD & SCALP: normocephalic; no scalp tenderness FACE & SINUS: normal facial exam NOSE: Normal external nose present and No nasal discharge present EXTERNAL EAR: Yes external ears normal MOUTH: tongue normal THROAT: posterior oropharynx normal; no peritonsillar mass Eye: COMMON NORMALS: Equal, round and reactive pupils present, EOMs intact bilaterally and conjunctivae normal EYELID: eyelids normal CONJUNCTIVA: Yes conjunctivae normal PUPIL: Yes Equal, round and reactive pupils present Neck/C-Spine: GENERAL: No tracheal deviation CERVICAL SPINE: Yes normal cervical lordosis and No Cervical spine tenderness Chest: COMMONS NORMALS: normal inspection of the chest CHEST: No tenderness Resp: EFFORT & INSPECTION: Yes tachypneic, No respiratory distress, No retractions, No uses accessory muscles and No tracheal deviation AUSCU LTATION: no rhonchi, no wheezes and diminished lung sounds Cardio: COMMON NORMALS: regular rate and regular rhythm RATE: regular rate RHYTHM: regular rhythm HEART SOUNDS: no murmurs PERIPHERAL PULSES: radial pulses present GI: INSPECTION: No abdominal distension AUSCULTATION: No Hyperactive bowel sounds present and No Hypoactive bowel sounds present PALPATION: No Guarding due to palpation present (GI) and No Rigid due to palpation PERCUSSION: no dullness to percussion and no tympanic to percussion Neuro: SENSORIUM/ORIENTATION: Yes oriented to person, Yes oriented to place and Yes oriented to time Psych: COMMON NORMALS: mental status grossly normal Skin: COMMON NORMALS: no rashes or lesions noted GENERAL SKIN EXAM: no rashes or lesions noted Course Vital Signs: Vital signs: Vital Signs Temperature 98.2 F 01/30/20 06:24 Pulse Rate 69 01/30/20 06:24 Respiratory Rate 18 01/30/20 06:24 Blood Pressure 112/71 01/30/20 06:24 Pulse Oximetry 98 01/30/20 05:58 MDM - Fever MDM Narrative: Medical decision making narrative: 64-year-old female with a history of recent hospitalization. She presents with fever that is significant, 104 at home. Chest x-ray shows worsening of a right lower lobe infiltrate that is significant and dense. Her white blood cell count is only 5.4, her lactic acid is negative. Her other indices appear benign. She will be admitted for IV antibiotics given the healthcare associated nature of the pneumonia. Lab Data: Labs: Lab Results 01/30/20 01/30/20 01/30/20 Range/Units 00:10 00:10 00:10 WBC 5.4 (4.0-10.0) 10^3/ uL RBC 3.58 L (4.1-5.3) 10^6/u L Hgb 11.2 L (11.5-15.3) g/dL Hct 33.8 L (37.0-47.0) % MCV 94.4 (81-99) fL MCH 31.3 (28.0-34.0) pg MCHC 33.1 (30.0-36.0) g/dL RDW 13.3 (12.1-15.1) % Plt Count 140 (130-400) 10^3/c mm MPV 11.0 H (7.4-10.4) fL Neut % (Auto) 60.7 % Lymph % (Auto) 32.0 % Foard % (Auto) 4.5 % Eos % (Auto) 2.0 % Baso % (Auto) 0.2 % Neut # (Auto) 3.3 (1.8-7.7) 10^3/u L Lymph # (Auto) 1.7 (0.8-4.8) 10^3/u L Foard # (Auto) 0.2 (0.2-0.9) 10^3/u L Eos # (Auto) 0.1 (0.0-0.8) 10^3/u L Baso # (Auto) 0.0 (0.0-0.1) 10^3/u L Nucleated RBC % (a uto) 0 % Nucleated RBCs # 0.0 /100WBC Sodium 132 L (136-145) mmol/L Potassium 3.8 (3.5-5.1) mmol/L Chloride 95 L (98-107) mmol/L Carbon Dioxide 25 (22-29) mmol/L Anion Gap 15.8 (5-19) BUN 11 (8-23) mg/dL Creatinine 1.1 H (0.5-0.9) mg/dL GFR Calculation 50.0 L (90-130) mL/min Glucose 93 (65-115) mg/dL Calculated Osmolal ity 270 L (285-295) mOsm/k g Lactate 1.0 (0.5-2.2) mmol/L Calcium 9.5 (8.5-10.5) mg/dL Total Bilirubin 0.3 (0.15-1.2) mg/dL AST 22 (0-32) U/L ALT 11 (0-33) U/L Alkaline Phosphata se 51 (35-105) IU/L C-Reactive Protein 74.5 H (0.0-4.9) mg/L Total Protein 6.3 L (6.6-8.7) g/dL Albumin 3.5 (3.5-5.2) g/dL Globulin 2.8 (1.3-4.6) g/dL Procalcitonin 0.09 (0-0.5) ng/mL Urine Color (Yellow) Urine Appearance (CLEAR) Urine pH (5-7) Ur Specific Gravit y (1.005-1.030) Urine Protein (Negative) Urine Glucose (UA) (Normal) Urine Ketones (Negative) Urine Blood (Negative) Urine Nitrate (Negative) Urine Bilirubin (NEGATIVE) Urine Urobilinogen (Negative) mg/dL Ur Leukocyte Sabrina ase (Negative) 01/30/20 Range/Units 02:53 WBC (4.0-10.0) 10^3/ uL RBC (4.1-5.3) 10^6/u L Hgb (11.5-15.3) g/dL Hct (37.0-47.0) % MCV (81-99) fL MCH (28.0-34.0) pg MCHC (30.0-36.0) g/dL RDW (12.1-15.1) % Plt Count (130-400) 10^3/c mm MPV (7.4-10.4) fL Neut % (Auto) % Lymph % (Auto) % Foard % (Auto) % Eos % (Auto) % Baso % (Auto) % Neut # (Auto) (1.8-7.7) 10^3/u L Lymph # (Auto) (0.8-4.8) 10^3/u L Foard # (Auto) (0.2-0.9) 10^3/u L Eos # (Auto) (0.0-0.8) 10^3/u L Baso # (Auto) (0.0-0.1) 10^3/u L Nucleated RBC % (a uto) % Nucleated RBCs # /100WBC Sodium (136-145) mmol/L Potassium (3.5-5.1) mmol/L Chloride (98-107) mmol/L Carbon Dioxide (22-29) mmol/L Anion Gap (5-19) BUN (8-23) mg/dL Creatinine (0.5-0.9) mg/dL GFR Calculation (90-130) mL/min Glucose (65-115) mg/dL Calculated Osmolal ity (285-295) mOsm/k g Lactate (0.5-2.2) mmol/L Calcium (8.5-10.5) mg/dL Total Bilirubin (0.15-1.2) mg/dL AST (0-32) U/L ALT (0-33) U/L Alkaline Phosphata se (35-105) IU/L C-Reactive Protein (0.0-4.9) mg/L Total Protein (6.6-8.7) g/dL Albumin (3.5-5.2) g/dL Globulin (1.3-4.6) g/dL Procalcitonin (0-0.5) ng/mL Urine Color Yellow (Yellow) Urine Appearance Clear (CLEAR) Urine pH 6 (5-7) Ur Specific Gravit y 1.010 (1.005-1.030) Urine Protein Neg (Negative) Urine Glucose (UA) Norm (Normal) Urine Ketones Negative (Negative) Urine Blood Neg (Negative) Urine Nitrate Negative (Negative) Urine Bilirubin Neg (NEGATIVE) Urine Urobilinogen Norm (Negative) mg/dL Ur Leukocyte Sabrina ase Negative (Negative) Discharge Plan Discharge Patient Disposition: Admitted As Inpatient Admit Provider: Adelaide Lara Clinical Impression: Respiratory failure with hypoxia Qualifiers: Chronicity: acute Qualified Code(s): J96.01 - Acute respiratory failure with hypoxia Pneumonia Qualifiers: Pneumonia type: due to unspecified organism Laterality: right Lung location: lower lobe of lung Qualified Code(s): J18.9 - Pneumonia, unspecified organism Condition: Stable Discharge Date/Time: 01/30/20 06:01 Coding Level of Care Code ED Broadcast Systems Engineer for g Fwd Exam Comprehensive
[2020-01-30] MEDS: hydrocortisone 100 mg/2 mL SDV IVP (06:42)
[2020-01-30] MEDS: potassium chloride ER 10 mEq Tablet 40 MEQ PO (06:43)
[2020-01-30 07:10] LABS: NT Pro B Type Natriuretic Pept 1132 pg/mL (0-125)
[2020-01-30] MEDS: vancomycin 1,000 MG in sodium chloride 0.9% 250 ML 250 MG IV ×2 (08:32→21:32)
[2020-01-30] MEDS: enoxaparin 40 mg/0.4 mL Syringe SUBCUT (08:35)
[2020-01-30] MEDS: levoFLOXacin 750 mg Tablet PO (10:10)
[2020-01-30] MEDS: fluoxetine 20 mg Capsule 40 MG PO (10:11)
[2020-01-30] MEDS: fenofibrate 48 mg Tablet PO (10:11)
[2020-01-30] MEDS: clopidogrel 75 mg Tablet PO (10:11)
[2020-01-30] MEDS: aspirin 81 mg EC Tablet PO (10:11)
[2020-01-30] MEDS: pantoprazole DR 40 mg Tablet PO (10:12)
[2020-01-30] MEDS: lisinopril 10 mg Tablet PO (10:12)
[2020-01-30] MEDS: levothyroxine 100 mcg Tablet PO (10:12)
[2020-01-30] MEDS: piperacillin-tazobactam 3.375 GM in sodium chloride 0.9% (plus) 50 ML IV ×2 (10:13→17:55)
[2020-01-30] MEDS: ALPRAZolam 0.5 mg Tablet PO ×2 (11:35→21:32)
--- NOTE | 2020-01-30 12:28 | PM.PN ---
Subjective Subjective: Interval history: Chart reviewed, no leukocytosis, afebrile, normotensive, heart rate in the 60s, remains on triple antibiotic therapy with vancomycin, Levaquin, Zosyn. Imaging reviewed. She is alert, oriented x 3, able to state that she feels better today, on 3 L nasal cannula. Medications: Reviewed: Yes Medication Review Details: Active Medications Generic Name Dose Route Start Last Admin Trade Name Freq PRN Reason Stop Dose Admin Albuterol/Ipratrop ium 3 ml 01/30/20 06:19 Duoneb INHALATION Q6H PRN SHORTNESS OF MARINA TH Alprazolam 0.5 mg 01/30/20 09:00 01/30/20 11:35 Xanax PO 0.5 mg TID SARIKA Administration Aspirin 81 mg 01/30/20 09:00 01/30/20 10:11 Aspirin Ec PO 81 mg DAILY SARIKA Administration Clopidogrel Bisulf ate 75 mg 01/30/20 09:00 01/30/20 10:11 Plavix PO 75 mg DAILY SARIKA Administration Enoxaparin Sodium 40 mg 01/30/20 08:00 01/30/20 10:10 Lovenox SUBCUT Not Given Q24H SARIKA Fenofibrate 48 mg 01/30/20 09:00 01/30/20 10:11 Tricor PO 48 mg DAILY SARIKA Administration Fluoxetine HCl 40 mg 01/30/20 09:00 01/30/20 10:11 Prozac PO 40 mg DAILY SARIKA Administration Hydrocortisone Sod ium Succinate 50 mg 01/30/20 13:00 Solu-Cortef Inj IVP 01/31/20 12:59 Q6H SARIKA Vancomycin HCl 1,0 00 mg/ 250 mls @ 250 mls /hr 01/30/20 07:30 01/30/20 09:32 Sodium Chloride IV Infused Q12H SARIKA Infusion Protocol Piperacillin Sod/T azobactam 50 mls @ 12.5 mls /hr 01/30/20 10:00 01/30/20 10:13 Sod 3.375 gm/ So dium Chloride IV 12.5 mls/hr Q8H SARIKA Administration Protocol Levofloxacin 750 mg 01/30/20 09:00 01/30/20 10:10 Levaquin PO 750 mg DAILY SARIKA Administration Protocol Levothyroxine Sodi um 100 mcg 01/30/20 09:00 01/30/20 10:12 Synthroid PO 100 mcg DAILY SARIKA Administration Lisinopril 10 mg 01/30/20 09:00 01/30/20 10:12 Prinivil PO 10 mg DAILY SARIKA Administration Non-Formulary Medi cation 1 cap 01/30/20 06:19 Chlordiazepoxide -Clidinium PO TID PRN Anxiety Pantoprazole Sodiu m 40 mg 01/30/20 09:00 01/30/20 10:12 Protonix PO 40 mg DAILY SARIKA Administration No Known Allergies Allergy (Verified 01/18/20 14:23) Vitals/I&O/Wt Last Vital Signs Temp 97.8 F 01/30/20 11:57 Pulse 60 01/30/20 11:57 Resp 19 H 01/30/20 11:57 BP 101/55 01/30/20 11:57 Pulse Ox 94 01/30/20 11:57 01/29/20 01/30/20 01/30/20 22:59 06:59 14:59 Intake Total 550 / 550 250 / 250 Balance 550 / 550 250 / 250 Weight last 48 hrs Weight 59.874 kg Physical Exam Const: COMMON NORMALS: no acute distress and patient oriented x3 GENERAL APPEARANCE: cooperative and comfortable ORIENTATION/CONSCIOUSNESS: Yes awake HENMT: COMMON NORMALS: normocephalic, atraumatic, hearing grossly normal bilaterally and moist oral mucous membranes HEAD & SCALP: normocephalic and atraumatic Eye: COMMON NORMALS: Equal, round and reactive pupils present, EOMs intact bilaterally and conjunctivae normal CONJUNCTIVA: Yes conjunctivae normal PUPIL: Yes Equal, round and reactive pupils present Neck/C-Spine: COMMON NORMALS: full ROM GENERAL: Yes normal visual inspection and Yes trachea midline Resp: COMMON NORMALS: normal respiratory effort, No retractions and No use of accessory muscles EFFORT & INSPECTION: Yes able to speak in complete sentences, Yes symmetric chest movement and No tachypneic AUSCULTATION: diminished lung sounds OTHER: -on 3 L NC Cardio: COMMON NORMALS: regular rate, regular rhythm, S1 normal heart sound present and S2 normal heart sound present RATE: regular rate RHYTHM: regular rhythm HEART SOUNDS: S1 normal heart sound present, S2 normal heart sound present and Murmur heart sound present GI: COMMON NORMALS: Normal to inspection, nondistended, normoactive bowel sounds present, Soft to palpation and non-tender PALPATION: Yes Soft to palpation Extremity: COMMON NORMALS: normal to inspection, full ROM and no clubbing, cyanosis or edema; negative for no pedal edema Neuro: COMMON NORMALS: patient oriented x3, moves all extremities, no focal motor deficits, no sensory deficits noted and gait normal Psych: COMMON NORMALS: mental status grossly normal, Normal thought process present, cooperative, normal affect and speech normal SPEECH: Yes normal speech THOUGHT PROCESS: Normal thought process present Skin: COMMON NORMALS: no rashes or lesions noted, no jaundice, no petechiae and no mottling GENERAL SKIN EXAM: no rashes or lesions noted Data : 01/30/20 00:10 01/30/20 00:10 Micro: Microbiology 01/30/20 00:33 Blood Culture - Preliminary Blood SPECIMEN COLLECTED 01/30/20 00:10 Blood Culture - Preliminary Blood SPECIMEN COLLECTED A&P Assessment and plan (1) Pneumonia: -Noted persistence of right mid and lower lung opacities on chest x-ray, noted improvement in bibasilar airspace disease on CT chest -No leukocytosis, noted CRP elevation at 74.5, lactic acid of 1.0, procalcitonin of 0.09 -Continue to monitor respiratory status, supplemental oxygen as needed, baseline has been 3 L nasal cannula -Continue IV antibiotic coverage with vancomycin, Levaquin, Zosyn -Close monitoring of vital signs -Had previously been treated for aspiration pneumonia during previous admission, treated with a course of Levaquin -Has been following up with Dr. Flores -pending Legionella, bacterial antigens, sputum culture -f/u blood cx Status: Acute Qualifiers: Laterality: right Lung location: lower lobe of lung Pneumonia type: due to unspecified organism Qualified Code(s): J18.9 - Pneumonia, unspecified organism (2) Atherosclerosis of coronary artery of [place] heart without angina pectoris: -Continue aspirin, Plavix, fenofibrate -f/u with Dr. Rosado Status: Chronic Qualifiers: Coronary Disease-Associated Artery/Lesion type: [place] artery Qualified Code(s): I25.10 - Atherosclerotic heart disease of [place] coronary artery without angina pectoris (3) Essential (primary) hypertension: -Continue to monitor vital signs -Continue oral antihypertensives Status: Chronic (4) Systemic lupus erythematosus, unspecified: -On chronic steroids; on stress dose steroids currently given acute illness Status: Chronic Qualifiers: Systemic lupus erythematosus organ involvement: unspecified Systemic lupus erythematosus type: unspecified Qualified Code(s): M32.9 - Systemic lupus erythematosus, unspecified (5) GERD (gastroesophageal reflux disease): -On PPI Status: Chronic Qualifiers: Esophagitis presence: esophagitis presence not specified Qualified Code(s): K21.9 - Gastro-esophageal reflux disease without esophagitis (6) Hypothyroidism: -On levothyroxine Status: Chronic Qualifiers: Hypothyroidism type: unspecified Qualified Code(s): E03.9 - Hypothyroidism, unspecified (7) Anxiety disorder: -Continue anxiolytics, antidepressants Status: Chronic Qualifiers: Anxiety disorder type: generalized anxiety disorder Qualified Code(s): F41.1 - Generalized anxiety disorder Additional A&P Information -GI ppx with PPI -DVT ppx with Lovenox -Dispo: home -Code status: FULL code -fall precautions Attestations Medical Necessity Statement*: Patient requires hospitalization for continued IV antibiotic treatment secondary to persistent pneumonia. Time Spent in Patient Care: Greater than 35 minutes (>than 50% of time spent in counselling and/or direct pt care on unit). Coding Level of Care Code Acute Patient Registration Manager for [facility] Fwd Exam Comprehensive Diagnoses Pneumonia J18.9 Laterality: right Lung location: lower lobe of lung Pneumonia type: due to unspecified organism Atherosclerosis of coronary artery of [place] heart without angina pectoris I25.10 Coronary Disease-Associated Artery/Lesion type: [place] artery Essential (primary) hypertension I10 Systemic lupus erythematosus, unspecified M32.9 Systemic lupus erythematosus organ involvement: unspecified Systemic lupus erythematosus type: unspecified GERD (gastroesophageal reflux disease) K21.9 Esophagitis presence: esophagitis presence not specified Hypothyroidism E03.9 Hypothyroidism type: unspecified Anxiety disorder F41.1 Anxiety disorder type: generalized anxiety disorder
[2020-01-30] MEDS: hydrocortisone 100 mg/2 mL SDV 50 MG IVP ×2 (13:02→18:23)
[2020-01-31] VITALS (7 sets, daily range): BP systolic 113–139; BP diastolic 59–82; PULSE 60–94; RESP 16–18; TEMP 36.4–36.9; O2SAT 96–99
[2020-01-31] MEDS: hydrocortisone 100 mg/2 mL SDV 50 MG IVP ×2 (00:53→07:00)
[2020-01-31] MEDS: piperacillin-tazobactam 3.375 GM in sodium chloride 0.9% (plus) 50 ML IV ×2 (00:54→09:56)
[2020-01-31] MEDS: TRAMadol 50 mg Tablet PO ×2 (01:49→08:01)
[2020-01-31 04:53] LABS: Hematocrit 28.5 % (37.0-47.0); Hemoglobin 9.5 g/dL (11.5-15.3); Lymphocytes # 0.5 10^3/uL (0.8-4.8); Lymphocytes % 20.7 %; Mean Corpuscular HGB Conc 33.3 g/dL (30.0-36.0); Mean Corpuscular Hemoglobin 30.7 pg (28.0-34.0); Mean Corpuscular Volume 92.2 fL (81-99); Mean Platelet Volume 11.1 fL (7.4-10.4); Monocytes # 0.1 10^3/uL (0.2-0.9); Monocytes % 3.3 %; Neutrophils # 1.9 10^3/uL (1.8-7.7); Neutrophils % 75.2 %; Nucleated Red Blood Cells % 0 %; Platelet Count 141 10^3/cmm (130-400); Red Blood Count 3.09 10^6/uL (4.1-5.3); Red Cell Distribution Width 12.7 % (12.1-15.1); White Blood Count 2.5 10^3/uL (4.0-10.0)
[2020-01-31 05:08] LABS: Anion Gap 14.9 (5-19); Blood Urea Nitrogen 12 mg/dL (8-23); Calcium 8.9 mg/dL (8.5-10.5); Carbon Dioxide 23 mmol/L (22-29); Chloride 100 mmol/L (98-107); Glomerular Filtration Rate 72.2 mL/min (90-130); Glucose 122 mg/dL (65-115); Osmolality Calculated 275 mOsm/kg (285-295); Potassium 3.9 mmol/L (3.5-5.1); Sodium 134 mmol/L (136-145)
[2020-01-31 07:59] LABS: Vancomycin Trough 13.4 ug/mL (10-15)
[2020-01-31] MEDS: clopidogrel 75 mg Tablet PO (08:02)
[2020-01-31] MEDS: levothyroxine 100 mcg Tablet PO (08:02)
[2020-01-31] MEDS: fluoxetine 20 mg Capsule 40 MG PO (08:02)
[2020-01-31] MEDS: levoFLOXacin 750 mg Tablet PO (08:02)
[2020-01-31] MEDS: fenofibrate 48 mg Tablet PO (08:02)
[2020-01-31] MEDS: ALPRAZolam 0.5 mg Tablet PO ×3 (08:02→20:39)
[2020-01-31] MEDS: aspirin 81 mg EC Tablet PO (08:02)
[2020-01-31] MEDS: pantoprazole DR 40 mg Tablet PO (08:02)
[2020-01-31] MEDS: lisinopril 10 mg Tablet PO (08:03)
[2020-01-31] MEDS: vancomycin 1,000 MG in sodium chloride 0.9% 250 ML 250 MG IV (08:47)
[2020-01-31] MEDS: enoxaparin 40 mg/0.4 mL Syringe SUBCUT (08:47)
--- NOTE | 2020-01-31 10:22 | PC.CHAP ---
Pastoral Care Encounter/Spiritual Assessment Type of Contact [] Declined payroll representative visit [] Patient/Family/Request visit [] Outpatient visit [] Follow-up visit [] Physician referral [] Code/Alert [x] Routine visit [] Staff referral [] Actively dying [] Patient sleeping [] Family support [] [] Out of room [] Palliative care [] [] Receiving care in room [] Pre-surgical visit [] Trauma [] Long length of stay [] ICU visit [] Other: Relational/Emotional Strength [] Patient feels connected with others/family/visitors/staff [] Distress [] Loneliness/isolation [] Abandonment Spirituality of Patient [] Person of Tiffany [] Attends Yazdanism of their Tiffany [] Believes in Prayer [] Reads Bible or Roman Catholic materials [] There are Spiritual issues to be addressed Sales Consultant Insurance Interventions [x] Prayer [x Active listening [x] Non-anxious presence [x] Spiritual/emotional support [] Crisis/trauma care [] Spiritual counseling [] Bereavement support [] Provided bereavement packet [] Provided Bible/devotional materials [] Provided toy/stuffed animal, coloring book to patient or family member [] Provided Communion [] Anointing/[place] [] Salvation [x] Completed spiritual assessment [] Other: Impact on Illness or Injury [] Angry [] Fearful [] Anxious [] Often cries [] Exhaustion [] Unable to work [] Unable to attend faith [] Unable to walk/stand [] Unable to read [] Unable to drive [] Unable to eat/drink [] Unable to sleep [] Unable to be with family [] Patient intubated [] Other: Summary Patient feeling stronger, ready to return home. Time spent with patient 10 min
--- NOTE | 2020-01-31 13:39 | PM.PN ---
Subjective Subjective: Interval history: She says is feeling much better and wants to leave the hospital. She has been coughing up some phlegm now. She says she does not normally cough with food or drink, however, does say that she has been lounging around in bed frequently recently, and does sometimes eat or drink food when she is reclined back in front of the TV. States that her encourages her to use the table tray, but she has not been feeling like doing so. She does agree to stay in the hospital for additional night to transition under monitoring to oral antibiotics, but otherwise wants to leave home. She does states she understands to maintain strict aspiration precautions, and do not eat or drink while reclined. Vitals/I&O/Wt Last Vital Signs Temp 98.4 F 01/31/20 11:26 Pulse 65 01/31/20 13:26 Resp 18 01/31/20 11:26 BP 134/74 01/31/20 11:26 Pulse Ox 99 01/31/20 13:26 01/30/20 01/31/20 01/31/20 22:59 06:59 14:59 Intake Total 1220 / 1520 240 / 1760 1510 / 1510 Output Total 1800 / 1800 400 / 400 Balance -580 / -280 240 / -40 1110 / 1110 Weight last 48 hrs Weight 59.874 kg Physical Exam Const: COMMON NORMALS: no acute distress and patient oriented x3 HENMT: COMMON NORMALS: oropharynx normal Neck/C-Spine: COMMON NORMALS: no JVD Resp: COMMON NORMALS: normal respiratory effort OTHER: Mild wheeze on R Cardio: COMMON NORMALS: no JVD, regular rhythm, S1 normal heart sound present, S2 normal heart sound present and No murmurs present (Cardio) RHYTHM: regular rhythm HEART SOUNDS: S1 normal heart sound present and S2 normal heart sound present GI: COMMON NORMALS: Normal to inspection, nondistended, normoactive bowel sounds present, Soft to palpation and non-tender PALPATION: Yes Soft to palpation Extremity: COMMON NORMALS: no joint enlargement and no pedal edema Neuro: COMMON NORMALS: patient oriented x3 and moves all extremities Skin: COMMON NORMALS: no rashes or lesions noted GENERAL SKIN EXAM: no rashes or lesions noted Data : 01/31/20 04:30 01/31/20 04:30 Micro: Microbiology 01/30/20 23:50 Legionella Urinary Antigen - Final Urine,Clean Catch Bacterial Antigens - Final 01/30/20 00:33 Blood Culture - Preliminary Blood NEGATIVE TO DATE 01/30/20 00:10 Blood Culture - Preliminary Blood NEGATIVE TO DATE A&P Assessment and plan (1) Pneumonia: Persistence or recurrence of pneumonia on the right side. Other changes previously seen are improved compared to previous imaging. She reports she is feeling significantly better. She is actually requesting to go home today, but given she is readmitted is agreeable to at least let us transition her to oral antibiotic here and monitor overnight. She does state that she eats and drinks food sometimes reclined in front of the TV, and her does have to encourage her to try to use the table. We had a discussion about that, she realizes importance of strict aspiration precautions, especially given concern for possible recurrence of aspiration currently. She overall is improving pretty well. We will add sputum culture, as well as request sputum for PCP, fungal culture given she is on chronic immunosuppression with steroids, and history of lupus. Will request galactomannan, BD glucan. Will request histoplasma antibodies. Check MRSA PCR. Given concern for aspiration will transition to Augmentin. Her wireless manager is out of town currently. But she should follow-up with him in office after discharge. Will ask ST to see. PT (she has PT coming w [facility]). Status: Acute Qualifiers: Laterality: right Lung location: lower lobe of lung Pneumonia type: due to unspecified organism Qualified Code(s): J18.9 - Pneumonia, unspecified organism (2) Atherosclerosis of coronary artery of [place] heart without angina pectoris: -Continue aspirin, Plavix, fenofibrate -f/u with Dr. Rosado Status: Chronic Qualifiers: Coronary Disease-Associated Artery/Lesion type: [place] artery Qualified Code(s): I25.10 - Atherosclerotic heart disease of [place] coronary artery without angina pectoris (3) Essential (primary) hypertension: -Continue to monitor vital signs -Continue oral antihypertensives Status: Chronic (4) Systemic lupus erythematosus, unspecified: -On chronic steroids; on stress dose steroids currently given acute illness Status: Chronic Qualifiers: Systemic lupus erythematosus type: unspecified Systemic lupus erythematosus organ involvement: unspecified Qualified Code(s): M32.9 - Systemic lupus erythematosus, unspecified (5) GERD (gastroesophageal reflux disease): -On PPI Status: Chronic Qualifiers: Esophagitis presence: esophagitis presence not specified Qualified Code(s): K21.9 - Gastro-esophageal reflux disease without esophagitis (6) Hypothyroidism: -On levothyroxine Status: Chronic Qualifiers: Hypothyroidism type: unspecified Qualified Code(s): E03.9 - Hypothyroidism, unspecified (7) Anxiety disorder: -Continue anxiolytics, antidepressants Status: Chronic Qualifiers: Anxiety disorder type: generalized anxiety disorder Qualified Code(s): F41.1 - Generalized anxiety disorder Attestations Medical Necessity Statement*: Continue admission for assessment of management of recurrent or persistent pneumonia, suspected recurrence of aspiration but also in the setting of abdomen condition, chronic steroids. Coding Level of Care Code Acute Title Checker for [facility] Fwd Diagnoses Pneumonia J18.9 Laterality: right Lung location: lower lobe of lung Pneumonia type: due to unspecified organism Atherosclerosis of coronary artery of [place] heart without angina pectoris I25.10 Coronary Disease-Associated Artery/Lesion type: [place] artery Essential (primary) hypertension I10 Systemic lupus erythematosus, unspecified M32.9 Systemic lupus erythematosus type: unspecified Systemic lupus erythematosus organ involvement: unspecified GERD (gastroesophageal reflux disease) K21.9 Esophagitis presence: esophagitis presence not specified Hypothyroidism E03.9 Hypothyroidism type: unspecified Anxiety disorder F41.1 Anxiety disorder type: generalized anxiety disorder
[2020-01-31] MEDS: amoxicillin-clav 875-125 mg Tablet 1 TAB PO ×2 (14:08→20:39)
--- NOTE | 2020-01-31 17:08 | PC.PT ---
PT note; patient very confused and refused out of bed activities 1530, speech therapist attempting to get evaluation at same time patient very confused, reattempted visit 1700 patient sleeping; will reattempt tomorrow
[2020-02-01 00:19] VITALS: PULSE 66; O2SAT 98
[2020-02-01 04:00] VITALS: BP 148/70; PULSE 63; RESP 18; TEMP 36.7; O2SAT 100
[2020-02-01 04:51] LABS: Eosinophils % 0.8 %; Hematocrit 27.6 % (37.0-47.0); Hemoglobin 9.2 g/dL (11.5-15.3); Lymphocytes # 1.5 10^3/uL (0.8-4.8); Lymphocytes % 36.8 %; Mean Corpuscular HGB Conc 33.3 g/dL (30.0-36.0); Mean Corpuscular Hemoglobin 30.4 pg (28.0-34.0); Mean Corpuscular Volume 91.1 fL (81-99); Mean Platelet Volume 11.1 fL (7.4-10.4); Monocytes # 0.2 10^3/uL (0.2-0.9); Neutrophils # 2.3 10^3/uL (1.8-7.7); Neutrophils % 56.1 %; Nucleated Red Blood Cells % 0 %; Platelet Count 142 10^3/cmm (130-400); Red Blood Count 3.03 10^6/uL (4.1-5.3)
[2020-02-01 05:12] LABS: Alanine Aminotransferase 8 U/L (0-33); Albumin Level 2.9 g/dL (3.5-5.2); Alkaline Phosphatase 38 IU/L (35-105); Anion Gap 15.1 (5-19); Aspartate Amino Transferase 19 U/L (0-32); Blood Urea Nitrogen 10 mg/dL (8-23); Calcium 8.6 mg/dL (8.5-10.5); Carbon Dioxide 24 mmol/L (22-29); Chloride 105 mmol/L (98-107); Globulin 2.5 g/dL (1.3-4.6); Glomerular Filtration Rate 72.2 mL/min (90-130); Glucose 86 mg/dL (65-115); Osmolality Calculated 287 mOsm/kg (285-295); Potassium 3.1 mmol/L (3.5-5.1); Sodium 141 mmol/L (136-145); Total Bilirubin 0.2 mg/dL (0.15-1.2); Total Protein 5.4 g/dL (6.6-8.7)
[2020-02-01 07:27] VITALS: BP 122/74; PULSE 70; RESP 16; TEMP 36.9; O2SAT 98
[2020-02-01] MEDS: fluoxetine 20 mg Capsule 40 MG PO (08:44)
[2020-02-01] MEDS: lisinopril 10 mg Tablet PO (08:44)
[2020-02-01] MEDS: pantoprazole DR 40 mg Tablet PO (08:44)
[2020-02-01] MEDS: ALPRAZolam 0.5 mg Tablet PO (08:44)
[2020-02-01] MEDS: predniSONE 1 mg Tablet PO (08:44)
[2020-02-01] MEDS: fenofibrate 48 mg Tablet PO (08:44)
[2020-02-01] MEDS: levoFLOXacin 750 mg Tablet PO (08:44)
[2020-02-01] MEDS: levothyroxine 100 mcg Tablet PO (08:44)
[2020-02-01] MEDS: aspirin 81 mg EC Tablet PO (08:44)
[2020-02-01] MEDS: enoxaparin 40 mg/0.4 mL Syringe SUBCUT (08:45)
[2020-02-01] MEDS: clopidogrel 75 mg Tablet PO (08:45)
[2020-02-01] MEDS: amoxicillin-clav 875-125 mg Tablet 1 TAB PO (10:09)
[2020-02-01 10:56] VITALS: BP 125/78; PULSE 78; RESP 16; TEMP 36.6; O2SAT 100
--- NOTE | 2020-02-01 12:21 | P.DS_ITS ---
Discharge Providers Date of Admission: 01/30/20 05:04 Date of Discharge: February 01, 2020 Attending Provider at Admission: Adelaide Lara MD Attending Provider at Discharge: Terrell Cho Primary Care Provider: Raheem Baron Diagnoses at Discharge Discharge Diagnosis (1) Pneumonia: Status: Acute Problem details: Recurrent. Possible episodes of aspiration. But also is immunocompromised. Qualifiers: Laterality: right Lung location: lower lobe of lung Pneumonia type: due to unspecified organism Qualified Code(s): J18.9 - Pneumonia, unspecified organism (2) Atherosclerosis of coronary artery of [place] heart without angina pectoris: Status: Chronic Qualifiers: Coronary Disease-Associated Artery/Lesion type: [place] artery Qualified Code(s): I25.10 - Atherosclerotic heart disease of [place] coronary artery without angina pectoris (3) Essential (primary) hypertension: Status: Chronic (4) Systemic lupus erythematosus, unspecified: Status: Chronic Qualifiers: Systemic lupus erythematosus organ involvement: unspecified Systemic l upus erythematosus type: unspecified Qualified Code(s): M32.9 - Systemic lupus erythematosus, unspecified (5) GERD (gastroesophageal reflux disease): Status: Chronic Qualifiers: Esophagitis presence: esophagitis presence not specified Qualified Code(s): K21.9 - Gastro-esophageal reflux disease without esophagitis (6) Hypothyroidism: Status: Chronic Qualifiers: Hypothyroidism type: unspecified Qualified Code(s): E03.9 - Hypothyroidism, unspecified (7) Anxiety disorder: Status: Chronic Qualifiers: Anxiety disorder type: generalized anxiety disorder Qualified Code(s): F41.1 - Generalized anxiety disorder Reason for Visit Reason for Visit: fever Hospital Course Hospital Course: Pleasant 64-year-old lady with SLE, on chronic steroids cu rrently 1 mg at home, current smoker, with recent admission for pneumonia from which she was improving on subsequent reassessment by pulmonology, was readmitted to the hospital after experiencing fever, and new shortness of breath. Imaging revealed resolution of prior findings of pneumonia, but persistent or recurrent right lung infiltrates. She was atreated with Zosyn, levaquin and vancomycin. She improved rapidly and by today weaned down to 2L NC. She requested to return home on 01/30, but agreed to stay for additional monitoring and switch to PO antibiotics given immunocompromised state. Ad ditional evaluation was considered with collection of sputum for PCP and fungal studies and those were ordered but not collected. Galactomannan and B-D glucan were requested. Will need to be followed up. She is adamant about returning home today, however, and is in fact doing much better. Oxygenation is down to 2 L by nasal cannula which is better than her previous baseline. She is afebrile, without any other signs of sepsis. On discussion with her it does appear that she eats frequently reclining backwards, is also on a number of medications that sometimes can affect judgment. Had a long discussion with her and her . She was assessed by speech therapy yesterday. Of note speech therapist stated that she was confusing him with someone else, discussing with her today, she sta bassem that he looked very much like 1 of her relatives. Per discussion with her her mental status today is very much normal. Speech therapist conducted education with her with regards to strict aspiration precautions. I spoke both with her and her , and her states that he will make sure that she is sitting up and pay attention while she is eating or drinking. Due to autoim mune condition, as well as chronic immunocompromise, chronic steroid use, discussed with as well that she is at high risk of developing opportunistic infections, and he states will maintain a low threshold in case of any concerning symptoms to bring her in for reevaluation. He is agreeable with reassessment by pulmonology in office, as well as following up with rheumatology and states that the have an appointment sometime in about a week. Encouraged to discuss at that time possibilities of weaning off chronic prednisone and/or steroid sparing alternatives. Please continue to encourage her to also quit smoking. Physical Exam Const: COMMON NORMALS: no acute distress and patient oriented x3 OTHER: She is feeling great, and says she is ready to go home . She is adamant she will return today one way or the other. HENMT: COMMON NORMALS: oropharynx normal Neck/C-Spine: COMMON NORMALS: no JVD Resp: COMMON NORMALS: normal respiratory effort and clear to auscultation bilaterally AUSCULTATION: clear to auscultation bilaterally Cardio: COMMON NORMALS: no JVD, regular rhythm, S1 normal heart sound present, S2 normal heart sound present and No murmurs present (Cardio) RHYTHM: regular rhythm HEART SOUNDS: S1 normal heart sound present and S2 normal heart sound present GI: COMMON NORMALS: Normal to inspection, nondistended, normoactive bowel sounds present, Soft to palpation and non-tender PALPATION: Yes Soft to palpation Extremity: COMMON NORMALS: no joint enlargement and no pedal edema Neuro: COMMON NORMALS: patient oriented x3 and moves all extremities Skin: COMMON NORMALS: no rashes or lesions noted GENERAL SKIN EXAM: no rashes or lesions noted Discharge Data Data Completed and Pending: Completed Studies During Hospitalization Category Date Time Status CT chest wo con 7 1250 Stat Cat Scan 01/30/20 05:00 Completed XR chest 1V olga ble [id number] Urgent Exams 01/30/20 00:18 Completed Pending at discharge Category Date Time Status Blood Culture Sta t Lab 01/30/20 00:33 Results Complete Blood Co unt w/Auto AM LABS Lab 02/02/20 04:00 Ordered Complete Blood Co unt w/Auto AM LABS Lab 02/03/20 04:00 Ordered Comprehensive Met abolic Panel AM LA BS Lab 02/02/20 04:00 Ordered Comprehensive Met abolic Panel AM LA BS Lab 02/03/20 04:00 Ordered Fungal Culture no t HR/SK/BL Routine Lab 01/31/20 13:43 Uncollected Histoplasma Antib hoang Routine Lab 01/31/20 16:00 Received Miscellaneous Bassem t Routine Lab 01/31/20 16:00 Received Miscellaneous Bassem t Routine Lab 01/31/20 16:00 Received Pneumocystis jiro vecii, QT PCR Rout ine Lab 01/31/20 13:43 Uncollected Sputum Culture an d Gram Stain Routi ne Lab 01/31/20 13:43 Uncollected Sputum Culture an d Gram Stain Stat Lab 01/30/20 06:19 Uncollected Labs from last 24 hours 02/01/20 02/01/20 03:50 03:50 WBC 4.0 RBC 3.03 L Hgb 9.2 L Hct 27.6 L MCV 91.1 MCH 30.4 MCHC 33.3 RDW 13.0 Plt Count 142 MPV 11.1 H Neut % (Auto) 56.1 Lymph % (Auto) 36.8 [place] % (Auto) 6.0 Eos % (Auto) 0.8 Baso % (Auto) 0.0 Neut # (Auto) 2.3 Lymph # (Auto) 1.5 [place] # (Auto) 0.2 Eos # (Auto) 0.0 Baso # (Auto) 0.0 Nucleated RBC % (a uto) 0 Nucleated RBCs # 0.0 Sodium 141 Potassium 3.1 L Chloride 105 Carbon Dioxide 24 Anion Gap 15.1 BUN 10 Creatinine 0.8 GFR Calculation 72.2 L Glucose 86 Calculated Osmolal ity 287 Calcium 8.6 Total Bilirubin 0.2 AST 19 ALT 8 Alkaline Phosphata se 38 Total Protein 5.4 L Albumin 2.9 L Globulin 2.5 Vitals: Last Vital Signs Temp 97.8 F 02/01/20 10:56 Pulse 78 02/01/20 10:56 Resp 16 02/01/20 10:56 BP 125/78 02/01/20 10:56 Pulse Ox 100 02/01/20 10:56 Discharge Plan Discharge Patient Disposition: Home Health Service Condition: Stable Prescriptions: New prednisone 1 mg Tablet 1 mg PO DAILY Qty: 7 RF: 0 levofloxacin 750 mg Tablet 750 mg PO DAILY Qty: 10 RF: 0 amoxicillin-pot clavulanate 875-125 mg Tablet 1 tab PO BID@1000,2200 Qty: 20 RF: 0 Continued alprazolam 0.5 mg tablet 0.5 mg PO TID RF: 0 aspirin [Aspir-81] 81 mg tablet,delayed release (DR/EC) 81 mg PO DAILY RF: 0 chlordiazepoxide-clidinium 5-2.5 mg capsule 1 - 2 cap PO TID PRN (Reason: Anxiety) RF: 0 clobetasol 0.05 % ointment 1 applic TOPICAL DAILY PRN (Reason: Itching) RF: 0 cyanocobalamin (vitamin B-12) 1,000 mcg capsule 1,000 mcg PO DAILY RF: 0 fenofibrate nanocrystallized 48 mg tablet 48 mg PO DAILY RF: 0 fluoxetine 40 mg capsule 40 mg PO DAILY RF: 0 magnesium oxide 400 mg magnesium tablet 400 mg PO BID RF: 0 nitroglycerin [Nitrostat] 0.4 mg tablet, sublingual 0.4 mg SUBLINGUAL Q5M PRN (Reason: Chest Pain) RF: 0 pantoprazole 40 mg tablet,delayed release (DR/EC) 40 mg PO BID RF: 0 clopidogrel [Plavix] 75 mg tablet 75 mg PO DAILY RF: 0 potassium chloride 10 mEq tablet,ER particles/crystals 10 meq PO BID RF: 0 tramadol 50 mg tablet 60 mg PO TID PRN (Reason: Pain) RF: 0 levothyroxine 100 mcg Tablet 100 mcg PO DAILY RF: 0 methocarbamol 750 mg Tablet 750 mg PO TID RF: 0 lidocaine [Lidoderm] 5 % Adhesive Patch,Medicated 1 patch TOPICAL DAILY PRN (Reason: pain) RF: 0 cholecalciferol (vitamin D3) [Vitamin D3] 125 mcg (5,000 unit) Tablet 125 mcg PO DAILY RF: 0 Discontinued prednisone 20 mg Tablet 40 mg PO DAILY Qty: 21 RF: 0 Discharge Orders: Discharge Order (Routine); Ordered 02/01/20 Ordered By: Terrell Cho Referrals: [facility] [Outside] [facility] ([facility]) [Outside] Chandra Viramontes MD [Physician] - (Per prior arrangements) Raheem Baron [Primary Care Provider] - 4-7 days (Recurrent PNA) Griselda Flores MD [Physician] - 02/08/20 9:00 am (PNA recurrence. Immunocompromise.) Discharge Diet: Cardiac Discharge Activity: Oxygen as instructed Patient Instructions: Prednisone (By mouth), Amoxicillin/Clavulanate Potassium (By mouth), Levofloxacin (By mouth), Hypothyroidism (DC), Gastroesophageal Reflux Disease (DC), Anxiety (DC) Activity Restrictions/Additional Instructions: Please maintain the strictest aspiration precautions. Eat only while sitting upright, take your chin. Pay attention to swallowing. Be mindful that certain medications including muscle relaxers, pain medicines can make you pay less attention, and make you more likely to aspiration. Due to chronic immunosuppression, please be mindful and have low threshold for evaluation in the hospital in case there is any suspicion of infection going on, any fever, worsening shortness of breath, progressive cough, or other abnormal symptoms. Continue oxygen. Measure saturations at home, maintain goal saturation 88-92%. Please stop smoking as this will lead to worsening lung function in addition to other problems associated with smoking. Please never smoke anywhere near oxygen due to severe fire hazard. Discharge Attestations Time Spent in Discharge Care*: greater than 30 min Quality Metrics Clinical Quality Measures During this hospital stay, did patient experience: None Coding Level of Care Code Acute [employer] Diagnoses Pneumonia J18.9 Laterality: right Lung location: lower lobe of lung Pneumonia type: due to unspecified organism Atherosclerosis of coronary artery of [place] heart without angina pectoris I25.10 Coronary Disease-Associated Artery/Lesion type: [place] artery Essential (primary) hypertension I10 Systemic lupus erythematosus, unspecified M32.9 Systemic lupus erythematosus organ involvement: unspecified Systemic lupus erythematosus type: unspecified GERD (gastroesophageal reflux disease) K21.9 Esophagitis presence: esophagitis presence not specified Hypothyroidism E03.9 Hypothyroidism type: unspecified Anxiety disorder F41.1 Anxiety disorder type: generalized anxiety disorder
[2020-02-01 12:26] VITALS: BP 125/78; PULSE 78; RESP 16; TEMP 36.6; O2SAT 100
[2020-02-01 13:31] VITALS: O2SAT 87; O2SAT 93; O2SAT 95
[2020-02-01] MEDS: potassium chloride ER 10 mEq Tablet 40 MEQ PO (13:53)
== END 2020-02-01 14:26 | disposition home health service (06) | DRG 195 ==
LOC: ER 01-30 02:34 → MEDSURG 01-30 05:29
PROVIDERS: Family Medicine; Admitting Provider Internal Medicine; PCP Family Medicine; Visit Provider Internal Medicine
DX: J18.9 Pneumonia, unspecified organism (principal); I25.10 Atherosclerotic heart disease of native coronary artery without angina pectoris; K21.9 Gastro-esophageal reflux disease without esophagitis; F41.1 Generalized anxiety disorder; E03.9 Hypothyroidism, unspecified; M32.9 Systemic lupus erythematosus, unspecified; I10 Essential (primary) hypertension; Z79.52 Long term (current) use of systemic steroids; F17.210 Nicotine dependence, cigarettes, uncomplicated; Z79.82 Long term (current) use of aspirin; Z79.02 Long term (current) use of antithrombotics/antiplatelets; E78.2 Mixed hyperlipidemia; I34.0 Nonrheumatic mitral (valve) insufficiency; E55.9 Vitamin D deficiency, unspecified; M48.062 Spinal stenosis, lumbar region with neurogenic claudication; M51.17 Intervertebral disc disorders with radiculopathy, lumbosacral region; Z95.5 Presence of coronary angioplasty implant and graft
CPT/HCPCS: 12345; 36415; 71045; 71250; 80048; 80053; 80202; 81003; 83605; 83880; 84145; 85025; 86140; 86403; 86698; 87040; 87305; 87449; 92610; 96372; 96375; 97161; 99284; J1650; J1720; J2405; J2543; J3370; J7040; J7050; J7512

== ENCOUNTER 2020-02-10 16:17 | Outpatient (CLI) | payer BC, SELFPAY ==
[2020-02-10 16:48] LABS: Basophils % 0.2 %; Eosinophils # 0.1 10^3/uL (0.0-0.8); Eosinophils % 3.5 %; Hematocrit 28.7 % (37.0-47.0); Hemoglobin 9.2 g/dL (11.5-15.3); Lymphocytes % 23.8 %; Mean Corpuscular HGB Conc 32.1 g/dL (30.0-36.0); Mean Corpuscular Hemoglobin 29.9 pg (28.0-34.0); Mean Corpuscular Volume 93.2 fL (81-99); Mean Platelet Volume 11.4 fL (7.4-10.4); Monocytes # 0.3 10^3/uL (0.2-0.9); Monocytes % 6.7 %; Neutrophils # 2.63 10^3/uL (1.8-7.7); Neutrophils % 65.1 %; Nucleated Red Blood Cells % 0 %; Platelet Count 148 10^3/cmm (130-400); Red Blood Count 3.08 10^6/uL (4.1-5.3); Red Cell Distribution Width 13.9 % (12.1-15.1)
[2020-02-10 17:14] LABS: Alanine Aminotransferase 7 U/L (0-33); Alkaline Phosphatase 41 IU/L (35-105); Anion Gap 15.1 (5-19); Aspartate Amino Transferase 22 U/L (0-32); Blood Urea Nitrogen 7 mg/dL (8-23); Carbon Dioxide 24 mmol/L (22-29); Chloride 100 mmol/L (98-107); Globulin 3.4 g/dL (1.3-4.6); Glucose 72 mg/dL (65-115); Osmolality Calculated 274 mOsm/kg (285-295); Potassium 4.1 mmol/L (3.5-5.1); Sodium 135 mmol/L (136-145); Thyroid Stimulating Hormone 4.67 uIU/mL (0.27-4.20); Total Bilirubin 0.2 mg/dL (0.15-1.2); Total Protein 6.4 g/dL (6.6-8.7)
== END 2020-02-10 16:18 | disposition home or self-care (01) ==
LOC: LAB 16:20
PROVIDERS: PCP Family Medicine; Visit Provider Family Medicine
DX: J18.9 Pneumonia, unspecified organism (principal); N39.0 Urinary tract infection, site not specified; A08.8 Other specified intestinal infections
CPT/HCPCS: 80053; 84443; 85025; 87493; 87506

== ENCOUNTER → 2020-02-14 15:55 | Outpatient (BNVA) | payer BC, SELFPAY | PROVIDERS: PCP Family Medicine; Visit Provider Internal Medicine Cardiovascular Disease | DX: J44.1 Chronic obstructive pulmonary disease with (acute) exacerbation (principal); R00.2 Palpitations; R06.02 Shortness of breath; J96.01 Acute respiratory failure with hypoxia; I25.118 Atherosclerotic heart disease of native coronary artery with other forms of angina pectoris; I50.31 Acute diastolic (congestive) heart failure; I38 Endocarditis, valve unspecified; Z09 Encounter for follow-up examination after completed treatment for conditions other than malignant neoplasm; I34.0 Nonrheumatic mitral (valve) insufficiency; F17.213 Nicotine dependence, cigarettes, with withdrawal | CPT/HCPCS: 80048; 83880 ==

== ENCOUNTER 2020-02-16 08:00 | Outpatient (CLI) | payer BC, SELFPAY | END 2020-02-16 09:00 | disposition home or self-care (01) | LOC: RADSHAW 03-21 16:45 | PROVIDERS: PCP Family Medicine; Visit Provider Family Medicine | DX: J96.01 Acute respiratory failure with hypoxia (principal) | CPT/HCPCS: 71046 ==

== ENCOUNTER 2020-02-23 19:59 | Outpatient (CLI) | payer BC, SELFPAY ==
[2020-02-23 20:17] LABS: Hemoglobin 9.3 g/dL (11.5-15.3); Mean Corpuscular HGB Conc 32.1 g/dL (30.0-36.0); Mean Corpuscular Volume 93.5 fL (81-99); Platelet Count 172 10^3/cmm (130-400); Red Cell Distribution Width 13.7 % (12.1-15.1); White Blood Count 3.9 10^3/uL (4.0-10.0)
[2020-02-23 20:37] LABS: Alanine Aminotransferase 9 U/L (0-33); Albumin Level 3.9 g/dL (3.5-5.2); Alkaline Phosphatase 40 IU/L (35-105); Anion Gap 14.8 (5-19); Aspartate Amino Transferase 25 U/L (0-32); Blood Urea Nitrogen 13 mg/dL (8-23); Calcium 9.3 mg/dL (8.5-10.5); Carbon Dioxide 27 mmol/L (22-29); Chloride 98 mmol/L (98-107); Glomerular Filtration Rate 55.8 mL/min (90-130); Glucose 88 mg/dL (65-115); Osmolality Calculated 278 mOsm/kg (285-295); Potassium 3.8 mmol/L (3.5-5.1); Sodium 136 mmol/L (136-145); Thyroid Stimulating Hormone 0.39 uIU/mL (0.27-4.20); Total Bilirubin 0.2 mg/dL (0.15-1.2); Total Protein 6.9 g/dL (6.6-8.7)
[2020-02-23 20:52] LABS: Iron 72 ug/dL (37-145); Percent Saturation 31.4 % (20-50); Total Iron Binding Capacity 229 mcg/dl; Unsaturated Iron Binding 157 ug/dL (112-347)
[2020-02-23 20:54] LABS: Absolute Segmented Neutrophil 2.5 10/cmm (1.6-7.1); Eosinophils 1 %; Lymphocytes 31 %; Monocytes Absolute 0.1 10^3/cmm (0.1-0.6); Platelet Estimate Normal (Normal); Segmented Neutrophils 65 %; Total Cells Counted 100 (0-100)
[2020-02-23 21:09] LABS: Vitamin B12 1120 pg/mL (232-1245)
[2020-02-25 11:41] LABS: T4 Total 10.3 mcg/dL (5.1-11.9)
== END 2020-02-23 20:00 | disposition home or self-care (01) ==
PROVIDERS: PCP Family Medicine; Visit Provider Family Medicine
DX: N39.0 Urinary tract infection, site not specified (principal)
CPT/HCPCS: 80053; 82607; 82746; 83540; 83550; 84436; 84443; 85007; 85027

== ENCOUNTER 2020-02-24 15:20 | Outpatient (CLI) | payer BC, SELFPAY | END 2020-02-24 15:21 | disposition home or self-care (01) | LOC: LAB 15:22 | PROVIDERS: PCP Family Medicine; Visit Provider Family Medicine | DX: B96.5 Pseudomonas (aeruginosa) (mallei) (pseudomallei) as the cause of diseases classified elsewhere (principal) | CPT/HCPCS: 87493; 87506 ==

== ENCOUNTER 2020-02-28 17:06 | Emergency (ER) | payer BC, SELFPAY ==
[2020-02-28 17:13] VITALS: BP 137/53; PULSE 81; RESP 18; TEMP 36.6; O2SAT 100; BMI 20.7
--- NOTE | 2020-02-28 17:21 | XRR_ITS ---
PROCEDURE INFORMATION: Exam: XR Chest, 1 View Exam date and time: 02/28/2020 5:37 PM Age: 64 years old Clinical indication: Right-sided chest pain; Prior surgery; Surgery date: 6+ months; Surgery type: Pacemaker; Patient HX: Chest pain; Shortness of breath; Additional info: Dyspnea TECHNIQUE: Imaging protocol: XR of the chest Views: Frontal portable upright view of the chest. COMPARISON: CR XR chest 2V* [id number] 02/16/2020 3:42 PM FINDINGS: Lungs: Mild bibasilar subsegmental atelectasis. The lungs are otherwise peripherally clear bilaterally. The pulmonary vasculature is normal. Pleural space: No pleural effusion. No pneumothorax. Heart/Mediastinum: The heart is normal in size and contour. Mediastinum: Stable. Bones/joints: Stable. XR/XR chest 1V portable [id number] IMPRESSION: Mild bibasilar subsegmental atelectasis.
--- NOTE | 2020-02-28 17:22 | ED_ITS ---
Documented by User: Jj Moreland DO 02/29/20 09:02 HPI - SOB/Dyspnea General: Chief Complaint: Shortness of Breath/Dyspnea Stated Complaint: SOB, CHEST PAIN Time Seen by Provider: 02/28/20 17:18 History of Present Illness: HPI Narrative: 64-year-old female presents emergency room via EMS complaining of shortness of breath. She describes the chest pain and fullness been going on since last time she was discharged from the hospital was previous on the right side now is moved over the left side shoulder radiation to her shoulder as well she denies fever sweats or chills she really has not had much of a productive cough she is on 4-1/2 L by nasal cannula at home she has been on that since she was discharged from the hospital last time no nausea vomiting or diarrhea she still on chronic steroid she was scheduled to go to the [facility] for repeat PTCA in 2 days. She currently has a Holter monitor on she has been having some palpitations and racing heart rate she is not had any the last couple of days. Is not been exposed anyone that she knows of that has COVID or been around anyone. MD elicited complaint: shortness of breath and cough Pertinent past history: COPD Onset (ago): week(s) Context: recent illness (Suddenly hospitalized for pneumonia) Timing: constant Severity: mild Exacerbating factors: nothing Relieving factors: oxygen and rest Known history of: COPD Associated symptoms: Reports chest congestion, chest pain and cough; Deny diaphoresis, fever(s), hemoptysis, nausea, orthopnea, syncope or vomiting Treatment prior to arrival: oxygen Review of Systems Const: Denies: fever(s) or diaphoresis ENMT: Denies: throat pain, ear or mastoid pain, nasal discharge or nasal congestion Card: Reports: chest pain; Denies: syncope or orthopnea Resp: Reports: chest congestion; Denies: hemoptysis GI: Denies: nausea or vomiting : Denies: flank pain, difficulty voiding, dysuria, urinary frequency or urinary urgency Skin/Breast: Denies: rash or pruritus [facility] ED PFSH: Medical History Acute diastolic heart failure due to valvular disease Anxiety disorder Arteriosclerotic cardiovascular disease Atherosclerosis of coronary artery of [place] heart without angina pectoris Atherosclerotic heart disease of [place] coronary artery with other forms of angina pectoris Chronic kidney disease COPD exacerbation Essential (primary) hypertension GERD (gastroesophageal reflux disease) Hypothyroidism Intervertebral disc disorder with radiculopathy of lumbosacral region Lumbar stenosis with neurogenic claudication Mitral regurgitation Mixed hyperlipidemia Palpitations Systemic lupus erythematosus, unspecified Vitamin D deficiency Surgical History H/O: hysterectomy with BSO History of cholecystectomy History of heart artery stent 5 stents Family History Sister Cancer Brain Hypertension Family/Other Hypertension Several members Social History Smoking and tobacco status: heavy tobacco smoker cigarettes [ Other cigarette details: [id number] smoking history, currently 1 pack/day ] Second hand smoke exposure: No Smoking risk assessment/counseling performed?: No Alcohol intake: never Desire information about alcohol rehabilitation?: No Counseling given: No Desire information about substance/drug rehabilitation?: No Counseling given: No Caregiver/support person: No Lives independently: Yes Household members: spouse Marital status: Current occupational status: unemployed History of recent travel: No Current gender identity: Female Physical Exam Const: COMMON NORMALS: no acute distress GENERAL APPEARANCE: cooperative a nd comfortable ORIENTATION/CONSCIOUSNESS: Yes awake, Yes oriented to person, Yes oriented to place and Yes oriented to time HENMT: COMMON NORMALS: normocephalic, atraumatic, hearing grossly normal bilaterally, external ears normal, EAC's normal, TM's normal bilaterally, Normal nasal mucous membranes and turbinates present, moist oral mucous membranes and oropharynx normal HEAD & SCALP: normocephalic and atraumatic NOSE: Normal nasal mucous membranes and turbinates present EXTERNAL EAR: Yes external ears normal EXTERNAL AUDITORY CANAL: EAC's normal TYMPANIC MEMBRANE: TM's normal bilaterally Eye: COMMON NORMALS: Equal, round and reactive pupils present, EOMs intact bilaterally, conjunctivae normal and no scleral icterus CONJUNCTIVA: Yes conjunctivae normal PUPIL: Yes Equal, round and reactive pupils present Neck/C-Spine: COMMON NORMALS: full ROM, no lymphadenopathy, supple and no JVD Lymph: LYMPHATIC: no lymphadenopathy noted and no lymphedema noted Resp: COMMON NORMALS: normal respiratory effort, No retractions, No use of accessory muscles and clear to auscultation bilaterally AUSCULTATION: clear to auscultation bilaterally Cardio: COMMON NORMALS: no JVD, regular rate, regular rhythm and No murmurs present (Cardio) RATE: regular rate RHYTHM: regular rhythm GI: COMMON NORMALS: Soft to palpation and No hepatosplenomegaly present AUSCULTATION: Yes normoactive bowel sounds PALPATION: Yes Soft to palpation, No Tenderness to palpation present (GI), No Guarding due to palpation present (GI) and Yes No hepatosplenomegaly present Extremity: COMMON NORMALS: normal to inspection, capillary refill normal, no clubbing, cyanosis or edema, no calf tenderness and no pedal edema Neuro: SENSORIUM/ORIENTATION: Yes oriented to person, Yes oriented to place and Yes oriented to time Skin: COMMON NORMALS: no rashes or lesions noted GENERAL SKIN EXAM: no rashes or lesions noted Course Vital Signs: Vital signs: Vital Signs Temperature 97.9 F 02/28/20 17:13 Pulse Rate 98 02/28/20 21:59 Respiratory Rate 18 02/28/20 21:59 Blood Pressure 132/74 02/28/20 21:59 Pulse Oximetry 98 02/28/20 21:59 MDM - SOB/Dyspnea MDM Narrative: Medical decision making narrative: Care turned over to Dr. You at change of shift Lab Data: Labs: Lab Results 02/28/20 02/28/20 02/28/20 Range/Units 17:25 17:25 17:28 WBC 3.0 L (4.0-10.0) 10^3/ uL RBC 3.14 L (4.1-5.3) 10^6/u L Hgb 9.2 L (11.5-15.3) g/dL Hct 29.4 L (37.0-47.0) % MCV 93.6 (81-99) fL MCH 29.3 (28.0-34.0) pg MCHC 31.3 (30.0-36.0) g/dL RDW 13.5 (12.1-15.1) % Plt Count 124 L (130-400) 10^3/c mm MPV 11.3 H (7.4-10.4) fL Neut % (Auto) 52.4 % Lymph % (Auto) 36.8 % Union % (Auto) 7.8 % Eos % (Auto) 2.4 % Baso % (Auto) 0.3 % Neut # (Auto) 1.55 L (1.8-7.7) 10^3/u L Lymph # (Auto) 1.1 (0.8-4.8) 10^3/u L Union # (Auto) 0.2 (0.2-0.9) 10^3/u L Eos # (Auto) 0.1 (0.0-0.8) 10^3/u L Baso # (Auto) 0.0 (0.0-0.1) 10^3/u L Nucleated RBC % (a uto) 0 % Nucleated RBCs # 0.0 /100WBC Sodium 133 L (136-145) mmol/L Potassium 3.9 (3.5-5.1) mmol/L Chloride 97 L (98-107) mmol/L Carbon Dioxide 25 (22-29) mmol/L Anion Gap 14.9 (5-19) BUN 10 (8-23) mg/dL Creatinine 1.0 H (0.5-0.9) mg/dL GFR Calculation 55.8 L (90-130) mL/min Glucose 84 (65-115) mg/dL Calculated Osmolal ity 271 L (285-295) mOsm/k g Calcium 9.4 (8.5-10.5) mg/dL Total Bilirubin 0.2 (0.15-1.2) mg/dL AST 28 (0-32) U/L ALT 14 (0-33) U/L Alkaline Phosphata se 43 (35-105) IU/L Troponin T Baselin e 8 (0-10) ng/L Troponin T 120 Min hughes (0-10) ng/L Delta Troponin T (0-10) ABS# NT-Pro-B Natriuret Pep (0-125) pg/mL Total Protein 6.7 (6.6-8.7) g/dL Albumin 3.8 (3.5-5.2) g/dL Globulin 2.9 (1.3-4.6) g/dL 02/28/20 02/28/20 Range/Units 17:28 19:36 WBC (4.0-10.0) 10^3/ uL RBC (4.1-5.3) 10^6/u L Hgb (11.5-15.3) g/dL Hct (37.0-47.0) % MCV (81-99) fL MCH (28.0-34.0) pg MCHC (30.0-36.0) g/dL RDW (12.1-15.1) % Plt Count (130-400) 10^3/c mm MPV (7.4-10.4) fL Neut % (Auto) % Lymph % (Auto) % Union % (Auto) % Eos % (Auto) % Baso % (Auto) % Neut # (Auto) (1.8-7.7) 10^3/u L Lymph # (Auto) (0.8-4.8) 10^3/u L Union # (Auto) (0.2-0.9) 10^3/u L Eos # (Auto) (0.0-0.8) 10^3/u L Baso # (Auto) (0.0-0.1) 10^3/u L Nucleated RBC % (a uto) % Nucleated RBCs # /100WBC Sodium (136-145) mmol/L Potassium (3.5-5.1) mmol/L Chloride (98-107) mmol/L Carbon Dioxide (22-29) mmol/L Anion Gap (5-19) BUN (8-23) mg/dL Creatinine (0.5-0.9) mg/dL GFR Calculation (90-130) mL/min Glucose (65-115) mg/dL Calculated Osmolal ity (285-295) mOsm/k g Calcium (8.5-10.5) mg/dL Total Bilirubin (0.15-1.2) mg/dL AST (0-32) U/L ALT (0-33) U/L Alkaline Phosphata se (35-105) IU/L Troponin T Baselin e (0-10) ng/L Troponin T 120 Min hughes 9.17 (0-10) ng/L Delta Troponin T 1.17 (0-10) ABS# NT-Pro-B Natriuret Pep 229 H (0-125) pg/mL Total Protein (6.6-8.7) g/dL Albumin (3.5-5.2) g/dL Globulin (1.3-4.6) g/dL Discharge Plan Discharge Patient Disposition: Home Clinical Impression: Chest pain Qualifiers: Chest pain type: unspecified Qualified Code(s): R07.9 - Chest pain, unspecified Condition: Stable Prescriptions: No Action fluticasone propionate 50 mcg/actuation spray,suspension 1 spray INTRANASAL DAILY RF: 0 alprazolam 0.5 mg tablet 0.5 mg PO TID RF: 0 aspirin [Aspir-81] 81 mg tablet,delayed release (DR/EC) 81 mg PO DAILY RF: 0 chlordiazepoxide-clidinium 5-2.5 mg capsule 1 - 2 cap PO TID PRN (Reason: Anxiety) RF: 0 clobetasol 0.05 % ointment 1 applic TOPICAL DAILY PRN (Reason: Itching) RF: 0 cyanocobalamin (vitamin B-12) 1,000 mcg capsule 1,000 mcg PO DAILY RF: 0 fenofibrate nanocrystallized 48 mg tablet 48 mg PO DAILY RF: 0 fluoxetine 40 mg capsule 40 mg PO DAILY RF: 0 magnesium oxide 400 mg magnesium tablet 400 mg PO BID RF: 0 nitroglycerin [Nitrostat] 0.4 mg tablet, sublingual 0.4 mg SUBLINGUAL Q5M PRN (Reason: Chest Pain) RF: 0 pantoprazole 40 mg tablet,delayed release (DR/EC) 40 mg PO BID RF: 0 clopidogrel [Plavix] 75 mg tablet 75 mg PO DAILY RF: 0 potassium chloride 10 mEq tablet,ER particles/crystals 20 meq PO QAM RF: 0 tramadol 50 mg tablet 60 mg PO TID PRN (Reason: Pain) RF: 0 furosemide [Lasix] 20 mg tablet 20 mg PO DAILY Qty: 30 RF: 5 levothyroxine 100 mcg Tablet 100 mcg PO DAILY RF: 0 methocarbamol 750 mg Tablet 750 mg PO TID PRN (Reason: muscle spasms) RF: 0 lidocaine [Lidoderm] 5 % Adhesive Patch,Medicated 1 patch TOPICAL DAILY PRN (Reason: pain) RF: 0 cholecalciferol (vitamin D3) [Vitamin D3] 125 mcg (5,000 unit) Tablet 125 mcg PO DAILY RF: 0 prednisone 1 mg Tablet 1 mg PO DAILY Qty: 7 RF: 0 triamcinolone acetonide 0.1 % Cream 1 applic TOPICAL DAILY PRN (Reason: unknown) RF: 0 trazodone 150 mg tablet 300 mg PO BEDTIME RF: 0 nystatin 100,000 unit/gram cream See Rx Instructions .ROUTE .COMPLEX RF: 0 hydroxyzine HCl 25 mg Tablet 25 mg PO QID PRN (Reason: Itching) RF: 0 Restasis 0.05 % Dropperette 1 drp OPHTHALMIC (EYE) Q12H RF: 0 potassium chloride 10 mEq capsule, extended release 10 meq PO QPM RF: 0 Discharge Orders: Discharge Order (Routine); Ordered 02/28/20 Ordered By: Collin You Referrals: Raheem Baron [Primary Care Provider] - Discharge Diet: Advance as tolerated Discharge Activity: Resume usual activity Discharge Date/Time: 02/28/20 22:20 Coding Level of Care Code ED Calker for Chg Fwd Exam Comprehensive Documented by User: Collin You MD 02/28/20 22:23 HPI - SOB/Dyspnea General: Chief Complaint: Shortness of Breath/Dyspnea Stated Complaint: SOB, CHEST PAIN Time Seen by Provider: 02/28/20 17:18 PFSH ED PFSH: Medical History Acute diastolic heart failure due to valvular disease Anxiety disorder Arteriosclerotic cardiovascular disease Atherosclerosis of coronary artery of [place] heart without angina pectoris Atherosclerotic heart disease of [place] coronary artery with other forms of angina pectoris Chronic kidney disease COPD exacerbation Essential (primary) hypertension GERD (gastroesophageal reflux disease) Hypothyroidism Intervertebral disc disorder with radiculopathy of lumbosacral region Lumbar stenosis with neurogenic claudication Mitral regurgitation Mixed hyperlipidemia Palpitations Systemic lupus erythematosus, unspecified Vitamin D deficiency Surgical History H/O: hysterectomy with BSO History of cholecystectomy History of heart artery stent 5 stents Family History Sister Cancer Brain Hypertension Family/Other Hypertension Several members Social History Smoking and tobacco status: heavy tobacco smoker cigarettes [ Other cigarette details: [id number] smoking history, currently 1 pack/day ] Second hand smoke exposure: No Smoking risk assessment/counseling performed?: No Alcohol intake: never Desire information about alcohol rehabilitation?: No Counseling given: No Desire information about substance/drug rehabilitation?: No Counseling given: No Caregiver/support person: No Lives independently: Yes Household members: spouse Marital status: Current occupational status: unemployed History of recent travel: No Current gender identity: Female Course Vital Signs: Vital signs: Vital Signs Temperature 97.9 F 02/28/20 17:13 Pulse Rate 98 02/28/20 21:59 Respiratory Rate 18 02/28/20 21:59 Blood Pressure 132/74 02/28/20 21:59 Pulse Oximetry 98 02/28/20 21:59 MDM - SOB/Dyspnea MDM Narrative: Medical decision making narrative: Patient presents with chest pain is been ongoing for weeks. She is scheduled for a heart cath in 2 days. Patient's troponins here are negative and EKG and x-ray are normal as well. She has no signs of acute coronary event I feel she is stable for discharge as she has a cardiac cath scheduled in 2 days. Her pain is improved here. She is to return if worsening. She understands and agrees to the plan. Lab Data: Labs: Lab Results 02/28/20 02/28/20 02/28/20 Range/Units 17:25 17:25 17:28 WBC 3.0 L (4.0-10.0) 10^3/ uL RBC 3.14 L (4.1-5.3) 10^6/u L Hgb 9.2 L (11.5-15.3) g/dL Hct 29.4 L (37.0-47.0) % MCV 93.6 (81-99) fL MCH 29.3 (28.0-34.0) pg MCHC 31.3 (30.0-36.0) g/dL RDW 13.5 (12.1-15.1) % Plt Count 124 L (130-400) 10^3/c mm MPV 11.3 H (7.4-10.4) fL Neut % (Auto) 52.4 % Lymph % (Auto) 36.8 % Union % (Auto) 7.8 % Eos % (Auto) 2.4 % Baso % (Auto) 0.3 % Neut # (Auto) 1.55 L (1.8-7.7) 10^3/u L Lymph # (Auto) 1.1 (0.8-4.8) 10^3/u L Union # (Auto) 0.2 (0.2-0.9) 10^3/u L Eos # (Auto) 0.1 (0.0-0.8) 10^3/u L Baso # (Auto) 0.0 (0.0-0.1) 10^3/u L Nucleated RBC % (a uto) 0 % Nucleated RBCs # 0.0 /100WBC Sodium 133 L (136-145) mmol/L Potassium 3.9 (3.5-5.1) mmol/L Chloride 97 L (98-107) mmol/L Carbon Dioxide 25 (22-29) mmol/L Anion Gap 14.9 (5-19) BUN 10 (8-23) mg/dL Creatinine 1.0 H (0.5-0.9) mg/dL GFR Calculation 55.8 L (90-130) mL/min Glucose 84 (65-115) mg/dL Calculated Osmolal ity 271 L (285-295) mOsm/k g Calcium 9.4 (8.5-10.5) mg/dL Total Bilirubin 0.2 (0.15-1.2) mg/dL AST 28 (0-32) U/L ALT 14 (0-33) U/L Alkaline Phosphata se 43 (35-105) IU/L Troponin T Baselin e 8 (0-10) ng/L Troponin T 120 Min hughes (0-10) ng/L Delta Troponin T (0-10) ABS# NT-Pro-B Natriuret Pep (0-125) pg/mL Total Protein 6.7 (6.6-8.7) g/dL Albumin 3.8 (3.5-5.2) g/dL Globulin 2.9 (1.3-4.6) g/dL 02/28/20 02/28/20 Range/Units 17:28 19:36 WBC (4.0-10.0) 10^3/ uL RBC (4.1-5.3) 10^6/u L Hgb (11.5-15.3) g/dL Hct (37.0-47.0) % MCV (81-99) fL MCH (28.0-34.0) pg MCHC (30.0-36.0) g/dL RDW (12.1-15.1) % Plt Count (130-400) 10^3/c mm MPV (7.4-10.4) fL Neut % (Auto) % Lymph % (Auto) % Union % (Auto) % Eos % (Auto) % Baso % (Auto) % Neut # (Auto) (1.8-7.7) 10^3/u L Lymph # (Auto) (0.8-4.8) 10^3/u L Union # (Auto) (0.2-0.9) 10^3/u L Eos # (Auto) (0.0-0.8) 10^3/u L Baso # (Auto) (0.0-0.1) 10^3/u L Nucleated RBC % (a uto) % Nucleated RBCs # /100WBC Sodium (136-145) mmol/L Potassium (3.5-5.1) mmol/L Chloride (98-107) mmol/L Carbon Dioxide (22-29) mmol/L Anion Gap (5-19) BUN (8-23) mg/dL Creatinine (0.5-0.9) mg/dL GFR Calculation (90-130) mL/min Glucose (65-115) mg/dL Calculated Osmolal ity (285-295) mOsm/k g Calcium (8.5-10.5) mg/dL Total Bilirubin (0.15-1.2) mg/dL AST (0-32) U/L ALT (0-33) U/L Alkaline Phosphata se (35-105) IU/L Troponin T Baselin e (0-10) ng/L Troponin T 120 Min hughes 9.17 (0-10) ng/L Delta Troponin T 1.17 (0-10) ABS# NT-Pro-B Natriuret Pep 229 H (0-125) pg/mL Total Protein (6.6-8.7) g/dL Albumin (3.5-5.2) g/dL Globulin (1.3-4.6) g/dL Imaging Data^: CXR: Attestation: I personally reviewed and interpreted this imaging study as follows: My impression: No acute abnormality EKG Data^: EKG 1: Attestation: I personally reviewed and interpreted this EKG as follows: EKG Interpretation Date: 02/28/20 EKG interpretation time: 17:32 Interpretation: nsr hr [address] or t wave abnormalities qrs 99 qtc 427 EKG 2: Attestation: I personally reviewed and interpreted this EKG as follows: EKG Interpretation Date: 02/28/20 EKG interpretation time: 18:56 Interpretation: nsr hr [address] or t wave abnormalities qrs 101 qtc 428 Discharge Plan Discharge Patient Disposition: Home Clinical Impression: Chest pain Qualifiers: Chest pain type: unspecified Qualified Code(s): R07.9 - Chest pain, unspecified Condition: Stable Prescriptions: No Action fluticasone propionate 50 mcg/actuation spray,suspension 1 spray INTRANASAL DAILY RF: 0 alprazolam 0.5 mg tablet 0.5 mg PO TID RF: 0 aspirin [Aspir-81] 81 mg tablet,delayed release (DR/EC) 81 mg PO DAILY RF: 0 chlordiazepoxide-clidinium 5-2.5 mg capsule 1 - 2 cap PO TID PRN (Reason: Anxiety) RF: 0 clobetasol 0.05 % ointment 1 applic TOPICAL DAILY PRN (Reason: Itching) RF: 0 cyanocobalamin (vitamin B-12) 1,000 mcg capsule 1,000 mcg PO DAILY RF: 0 fenofibrate nanocrystallized 48 mg tablet 48 mg PO DAILY RF: 0 fluoxetine 40 mg capsule 40 mg PO DAILY RF: 0 magnesium oxide 400 mg magnesium tablet 400 mg PO BID RF: 0 nitroglycerin [Nitrostat] 0.4 mg tablet, sublingual 0.4 mg SUBLINGUAL Q5M PRN (Reason: Chest Pain) RF: 0 pantoprazole 40 mg tablet,delayed release (DR/EC) 40 mg PO BID RF: 0 clopidogrel [Plavix] 75 mg tablet 75 mg PO DAILY RF: 0 potassium chloride 10 mEq tablet,ER particles/crystals 20 meq PO QAM RF: 0 tramadol 50 mg tablet 60 mg PO TID PRN (Reason: Pain) RF: 0 furosemide [Lasix] 20 mg tablet 20 mg PO DAILY Qty: 30 RF: 5 levothyroxine 100 mcg Tablet 100 mcg PO DAILY RF: 0 methocarbamol 750 mg Tablet 750 mg PO TID PRN (Reason: muscle spasms) RF: 0 lidocaine [Lidoderm] 5 % Adhesive Patch,Medicated 1 patch TOPICAL DAILY PRN (Reason: pain) RF: 0 cholecalciferol (vitamin D3) [Vitamin D3] 125 mcg (5,000 unit) Tablet 125 mcg PO DAILY RF: 0 prednisone 1 mg Tablet 1 mg PO DAILY Qty: 7 RF: 0 triamcinolone acetonide 0.1 % Cream 1 applic TOPICAL DAILY PRN (Reason: unknown) RF: 0 trazodone 150 mg tablet 300 mg PO BEDTIME RF: 0 nystatin 100,000 unit/gram cream See Rx Instructions .ROUTE .COMPLEX RF: 0 hydroxyzine HCl 25 mg Tablet 25 mg PO QID PRN (Reason: Itching) RF: 0 Restasis 0.05 % Dropperette 1 drp OPHTHALMIC (EYE) Q12H RF: 0 potassium chloride 10 mEq capsule, extended release 10 meq PO QPM RF: 0 Discharge Orders: Discharge Order (Routine); Ordered 02/28/20 Ordered By: Collin You Referrals: Raheem Baron [Primary Care Provider] - Discharge Diet: Advance as tolerated Discharge Activity: Resume usual activity Discharge Date/Time: 02/28/20 22:20 Coding Level of Care Code ED Calker for Chg Fwd Exam Comprehensive
[2020-02-28 17:33] VITALS: BP 114/73; PULSE 82; RESP 16; O2SAT 100
[2020-02-28 17:40] LABS: Basophils % 0.3 %; Eosinophils # 0.1 10^3/uL (0.0-0.8); Eosinophils % 2.4 %; Hematocrit 29.4 % (37.0-47.0); Hemoglobin 9.2 g/dL (11.5-15.3); Lymphocytes # 1.1 10^3/uL (0.8-4.8); Lymphocytes % 36.8 %; Mean Corpuscular HGB Conc 31.3 g/dL (30.0-36.0); Mean Corpuscular Hemoglobin 29.3 pg (28.0-34.0); Mean Corpuscular Volume 93.6 fL (81-99); Mean Platelet Volume 11.3 fL (7.4-10.4); Monocytes # 0.2 10^3/uL (0.2-0.9); Monocytes % 7.8 %; Neutrophils # 1.55 10^3/uL (1.8-7.7); Neutrophils % 52.4 %; Nucleated Red Blood Cells % 0 %; Platelet Count 124 10^3/cmm (130-400); Red Blood Count 3.14 10^6/uL (4.1-5.3); Red Cell Distribution Width 13.5 % (12.1-15.1)
[2020-02-28 17:51] VITALS: BP 125/69; PULSE 78; RESP 20; O2SAT 100
[2020-02-28 18:01] LABS: Alanine Aminotransferase 14 U/L (0-33); Albumin Level 3.8 g/dL (3.5-5.2); Alkaline Phosphatase 43 IU/L (35-105); Anion Gap 14.9 (5-19); Aspartate Amino Transferase 28 U/L (0-32); Blood Urea Nitrogen 10 mg/dL (8-23); Calcium 9.4 mg/dL (8.5-10.5); Carbon Dioxide 25 mmol/L (22-29); Chloride 97 mmol/L (98-107); Globulin 2.9 g/dL (1.3-4.6); Glomerular Filtration Rate 55.8 mL/min (90-130); Glucose 84 mg/dL (65-115); Osmolality Calculated 271 mOsm/kg (285-295); Potassium 3.9 mmol/L (3.5-5.1); Sodium 133 mmol/L (136-145); Total Bilirubin 0.2 mg/dL (0.15-1.2); Total Protein 6.7 g/dL (6.6-8.7)
--- NOTE | 2020-02-28 18:11 | ECG_ITS ---
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 Measurements Intervals [place] Rate: 76 P: 46 MN: 171 QRS: 38 QRSD: 101 T: 46 QT: 398 QTc: 448 Interpretive Statements SINUS RHYTHM Compared to ECG 01/02/2020 03:11:42 Sinus arrhythmia no longer present Intraventricular conduction delay no longer present T-wave abnormality no longer present Electronically Signed On 02-28-2020 20:34:49 CDT by Skye Vanegas M.D. [id number]
[2020-02-28 18:52] LABS: Troponin(5th) Baseline 8 ng/L (0-10)
[2020-02-28 18:58] LABS: NT Pro B Type Natriuretic Pept 229 pg/mL (0-125)
[2020-02-28 19:06] VITALS: BP 126/70; PULSE 75; RESP 16; O2SAT 100
--- NOTE | 2020-02-28 20:11 | ECG_ITS ---
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 Measurements Intervals [place] Rate: 78 P: 45 AK: 163 QRS: 26 QRSD: 99 T: 37 QT: 393 QTc: 450 Interpretive Statements SINUS RHYTHM Compared to ECG 01/02/2020 03:11:42 Sinus arrhythmia no longer present Intraventricular conduction delay no longer present T-wave abnormality no longer present Electronically Signed On 02-28-2020 21:36:24 CDT by Skye Vanegas M.D. [id number]
[2020-02-28 20:30] LABS: Troponin 5 2HR 9.17 ng/L (0-10); Troponin 5 2HR Delta 1.17 ABS# (0-10)
[2020-02-28 21:32] VITALS: RESP 18; O2SAT 99
[2020-02-28] MEDS: morphine 4 mg/mL SDV 1 mL IVP (21:32)
[2020-02-28 21:59] VITALS: BP 132/74; PULSE 98; RESP 18; O2SAT 98
== END 2020-02-28 22:20 | disposition home or self-care (01) ==
PROVIDERS: Family Medicine; Emergency Provider Emergency Medicine; PCP Family Medicine
DX: R07.9 Chest pain, unspecified (principal); Z79.82 Long term (current) use of aspirin; F17.210 Nicotine dependence, cigarettes, uncomplicated; I11.0 Hypertensive heart disease with heart failure; I50.31 Acute diastolic (congestive) heart failure; J44.9 Chronic obstructive pulmonary disease, unspecified; E78.2 Mixed hyperlipidemia
CPT/HCPCS: 12345; 36415; 71045; 80053; 83880; 84484; 85025; 93005; 96374; 96375; 99283; 99284; J2270

== ENCOUNTER 2020-03-01 08:20 | Observation (INO) | payer BC, SELFPAY ==
[2020-02-29 11:53] VITALS: BMI 21.2
[2020-03-01] VITALS (38 sets, daily range): BP systolic 83–152; BP diastolic 53–80; PULSE 62–90; RESP 12–29; TEMP 36–37; O2SAT 96–100
[2020-03-01] MEDS: diphenhydrAMINE 50 mg Capsule PO (06:44)
--- NOTE | 2020-03-01 07:00 | XACV_ITS ---
Ht: 165 cm Wt: 58 kg BSA: 1.63 m2 Gender: Female : 1955 Any Known Allergies: Other Exam Priority: Routine Procedure(s): Procedure Description: Diagnostic procedure Procedure Description: PCI procedure Procedure Description: Left ventriculography Procedure Description: PTCA Procedure Description: Coronary Angiography Diagnostic Cath Status: Elective Diagnostic Findings First Obtuse Marginal Branch Segment: Severe 90% stenosis, ostial lesion, 9.00 mm in length, minimally calcified, eccentric plaque, minimal proximal segment tortuosity, moderately angulated segment, TA: 3 flow, high/c lesion. Coronary angiography shows right dominance. The left main is a medium caliber vessel with no significant stenotic lesions. The left anterior descending artery is a medium caliber vessel which was found to extensive stenting of the proximal mid and distal segments. There was 20 to 30% diffuse in-stent narrowing in the stented segments. The diagonal branches are relatively small caliber vessels. The first diagonal branch appeared to be jailed with the ostial 70% narrowing. It is a small caliber vessel. The distal LAD was found to have around 60% tubular narrowing around the apex. No other significant stenotic lesions were noted. The left circumflex artery is a medium caliber vessel which also was found to have extensive stenting in the proximal and mid segment. The first obtuse marginal artery appeared to have an ostial around 70% stenosis. The circumflex artery appears to be stented at the takeoff of the first obtuse marginal branch. The stented segment of the proximal obtuse marginal artery appears to be widely patent. The right coronary artery is a medium caliber vessel which appears to have a proximal stented segment which was patent. The mid segment of the artery was found to have 20 to 30% diffuse irregular narrowing. The distal artery was found to have minimal intimal irregularities. No other significant stenotic lesions were noted. PCI Status: Elective PCI LVEF Assessed: Yes PCI Indication: CAD (without Ischemic Sx) Interventional Findings The first obtuse marginal branch, which contains an existing stent in the proximal portion has a 90% ostial stenosis. The circumflex also is stented and the marginal branch is jailed. A wire was used to pass through the tines of the circumflex stent and into the marginal branch. Plain old balloon angioplasty of the ostial obtuse marginal branch was performed. A stent was not attempted due to the ostial nature of the marginal lesion and the existing stent in the circumflex. Decision for PCI with Surgical Consult: No PCI for Multi-vessel Disease: No Conclusions This 64-year-old white female with a history of coronary artery disease, multiple PCI's in the past, presenting with increasing chest pains. She refused to undergo a stress test because of some bad reactions with the pharmacological agent in the past. She underwent left heart catheterization with left and right coronary angiogram and LV angiogram today. The findings are as follows. The extensive stented segments of the LAD, circumflex, right coronary artery and the first obtuse marginal artery were found to be patent. There was mild diffuse in-stent narrowing in the left anterior descending artery stents. The first obtuse marginal artery was found to have an ostial around 70% lesion which has a takeoff from the stented area of the circumflex artery. Mild diffuse disease was noted the other vessels. LV ejection fraction around 50%. Mild hypokinesia of the anteroapical region was noted. LVEDP was 12 mmHg. I discussed and reviewed the cardiac catheterization data with Dr. Gaitan. In view of the patient's ongoing symptoms, it was thought to be appropriate to consider PCI of the obtuse marginal lesion. Dr. Gaitan took over further management of this patient at this point. Recommendations Continue current medical management and risk factor modification. Diagnostic RX Recommendation: PCI w/o planned CABG Ejection Fraction: 50.0 % LV EDP: 12 mmHg Left Ventriculography Findings: LV gram was performed in the WALDRON position. There was mild hypokinesia of the anteroapical region. Overall ejection fraction was around 50%. No filling defects were noted. No significant mitral valve prolapse. Pressures Phase:Rest AO : 129 mmHg / 80 mmHg ( 94 mmHg ) @ 2:29:00 AM 89 mmHg / 37 mmHg ( 58 mmHg ) @ 2:39:00 AM 88 mmHg / 35 mmHg ( 58 mmHg ) @ 2:39:00 AM LV : 104 mmHg / -5 mmHg / @ 2:38:00 AM 96 mmHg / -29 mmHg / @ 2:39:00 AM Valves Phase:DefaultPhase AV : 0.0 mmHg @ 8:17:42 AM AV Mean Gradient: 0.0 mmHg @ 8:17:42 AM Clinical Evaluation EBL: 5mL-10mL Procedural Details Procedure Consent Obtained. Pre-Procedure Time Out. Identified patient by full name and date of as verbalized by the patient/guarantor. Does the consent match the physician's order: No. Accurate & Complete Informed Consent: Yes. Inpatient/Outpatient History & Physical on Chart: Yes. If H&P is completed, is and addenduem needed: No; If yes, is the addendum complete: N/A. Visualize and Verify Site with Patient/Guarantor: N/A. Relevant Radiology Images available: Yes. Pre-op teaching completed and patient verbalized understanding. The risks, benefits, and alternatives of sedation and/or procedure were discussed by physician. The patient agrees to continue. Procedure started. Correct patient, site and procedure confirmed by cath team. Current diagnosis: Chest Pain. PERRLA. Strong, equal hand script developer bilaterally. Lungs clear x 5 lobes. IV Site on Arrival: 20 gauge in the left anticubital. IV Fluids: 0.9% NaCl at KVO. 0 mL infused prior to lab coordinator. Pre Procedural Pulses: bilateral dorsalis pedis was 3+. Pre Procedural Pulses: bilateral posterior tibial was 3+. Pre Procedural Pulses: bilateral radial was 1+. Oxygen started at 2liters/min via nasal canula. bilateral groins was prepped with chloroprep then draped in the usual sterile fashion. right radial was prepped with chloroprep then draped in the usual sterile fashion. Physician notified. Baseline sample Acquired. HR: 93 BPM. Equipment: 6F - Radial. ACIST Manifold Kit Model BT 2000. Cardiac Cath Pack. Heparinized Saline (2 units/mL), 1000 mL bag. Physician arrived. Immediate Pre-Procedure Time Out. Correct Patient: Yes; Correct Procedure: Yes; Correct Site: Yes; Correct Patient Position: Yes; Correct Supplies: Yes; Dried Flammable Prep: Yes; Blood Products Available: No;. Physician scrubbed in. Lidocaine 1% infiltrated to the right groin. Arterial access obtained with micropuncture set. A 5 togolese JL4 catheter in over wire. Multiple views taken of left coronary artery. Catheter out. A 5 togolese JR4 catheter in over wire. Multiple views taken of right coronary artery. Catheter out. A 5 togolese Angled Pig catheter in over wire. EDP Sample taken: LV 104/-6,12; HR: 85 BPM; SpO2: 99%. LV gram performed in WALDRON @ 10 mL/second for a total of 30 mL. EDP Sample taken: LV 96/-30,-5; HR: 87 BPM; SpO2: 99%. Pullback taken: LV Off; AO 89/37(58); Mean: 0mmHg, Peak to Peak: 0mmHg, SEP: 8sec/min; HR: 83 BPM; SpO2: 100%. Dr. Gaitan contacted. Dr. Gaitan arrived to review films. Flushing sheath periodically to maintain patency. contacted for update. Dr. Gaitan scrubbed in to perform intervention. 5FR sheath exchanged for 6FR sheath. Inflation number : 1 A AB TREK 2.50X12 RX BALLOON was prepped and advanced across the 1st Ob Sharon , then inflated to 8 CHRISTINE for 0:09 seconds. Inflation number: 2 The AB TREK 2.50X12 RX BALLOON was reinflated across the 1st Ob Sharon, to 10 CHRISTINE for 0:49 seconds. Inflation number: 3 The AB TREK 2.50X12 RX BALLOON was reinflated across the 1st Ob Sharon, to 14 CHRISTINE for 0:48 seconds. Balloon out. Wire out. Guide catheter out. Sheath(s) sutured into position with 2-0 silk and sterile 4x4's and Op-site applied over the site. No oozing or signs and symptoms of hematoma noted. Arterial sheath flushed and connected to tranducer and pressure bag with heparinized saline. Post Procedure: Pulses reassessed and unchanged. PERRLA. Strong, equal hand script developer bilaterally. No VTE prophylaxis required. Contrast type used: Visipaque 320 mgI/mL, 500 mL bottle. Medication's Wasted: Lidocaine 1% = 6 mL. Medication's Wasted: Heparin = 2500 units. Medication's Wasted: Other = Versed 1 mg. Medication's Wasted: Other = Fentanyl 50mcg. Total IV fluids: 338 mL. Post-op diagnosis: CAD. PCI Indication: Stable Angina. [facility] Clinical Fraility Score: 4: Vulnerable. Clinique Counter Manager Indications: Worsening Angina. Chest Pain Symptom Assessment: Atypical Angina. Cardiovascular Instability: No, if yes. Complications: None. Estimated blood loss: 5mL-10mL. Procedure completed. Patient transferred by bed to 1st floor. Vital chart was stopped. Site: Right Femoral artery Sheath Size: 5 Fr Hemostasis Success: Unsuccessful Complication Findings: No complications occurred during the procedure. Intra/Post-Procedure Events Stroke - Undetermined: No Cardiac Arrest: No Procedure Medications Start: 7:08 AM Stop: 7:08 AM Medication: Versed Amount: 1 mg Route: I.V. Start: 7:08 AM Stop: 7:08 AM Medication: Fentanyl Amount: 50 mcg Route: I.V. Start: 7:12 AM Stop: 7:12 AM Medication: Versed 1 mg and Fentanyl 25 mcg Route: I.V. Start: 7:30 AM Stop: 7:30 AM Medication: 0.9% Saline Amount: 250 ml Route: I.V. bolus Start: 7:33 AM Stop: 7:33 AM Medication: Heparin Amount: 1500 units Route: I.V. Start: 7:37 AM Stop: 7:37 AM Medication: Versed Amount: 1 mg Route: I.V. Start: 7:51 AM Stop: 7:51 AM Medication: Versed Amount: 1 mg Route: I.V. Start: 7:52 AM Stop: 7:52 AM Medication: Versed Amount: 1 mg Route: I.V. I, the attending physician, have reviewed and verified all procedure medications. Yes, all medications given per verbal order History/Risk Factors Hypertension: Yes Dyslipidemia: Yes Peripheral Arterial Disease (PAD): No Myocardial Infarction (WA): No Obesity: No Renal Disease: Yes Tobacco Use: Current/Recent(w/in 1 year) Prior Interventions PCI: Yes CABG: No Valve Surgery: No Report Signatures Diagnostic Workflow - Finalized by:Dr Jeremías Rosado MD [facility] on 03/01/2020 8:36:56 PM Interventional Workflow - Finalized by: Dr. Herb Gaitan MD on 03/01/2020 8:23:56 AM
--- NOTE | 2020-03-01 07:12 | W.PM.OPSUD ---
Surgery/Procedure H&P Update DATE OF PROCEDURE: March 01, 2020 DATE H&P PERFORMED: 02/14/20 H&P UPDATE INFORMATION: I have reviewed H&P completed within last 30 days, I have examined patient prior to procedure and No changes to prior documentation PLANNED PROCEDURE: Operation Date: 03/01/20 07:00 Proposed Procedures p Cardiac Catheterization(Not Applicable) - Jeremías Rosado MD PATIENT REASSESSED PRIOR TO SEDATION, WITH NO CHANGE NOTED: Yes PHYSICAL EXAM: alert, oriented x 3, clear to auscultation bilaterally and regular rate & rhythm AIRWAY EVAL/ANESTHESIA PLAN: normal airway, see other exam findings, ASA III, Risks, benefits & alternatives of sedation and/or procedure discussed and Patient agrees to continue as planned
--- NOTE | 2020-03-01 08:29 | PC.NURSE ---
Patient arrived to floor from lab rep. VS WNL. 2 nurse verification of insertion site. Patient resting in bed with eyes closed, even non labored breathing. Neurovascular assessment WNL.
[2020-03-01] MEDS: sodium chloride 0.9% 1,000 ML 100 ML IV (08:40)
--- NOTE | 2020-03-01 10:45 | PC.NURSE ---
Sheath pull Sheath pulled per protocol at 1026. Direct pressure held for 20 minutes until hemostasis was achieved. Patient tolerated well. Dressing applied, CDI. Neurovascular assessment WNL. Nurse to continue to monitor.
[2020-03-01] MEDS: magnesium oxide 400 mg tablet PO (17:28)
[2020-03-01] MEDS: pantoprazole DR 40 mg Tablet PO (17:28)
--- NOTE | 2020-03-01 17:52 | PC.NURSE ---
Dr. Rosado at bedside. Continue to monitor patient overnight. Possible d/c in the morning.
[2020-03-02 00:14] VITALS: BP 98/63; PULSE 73; RESP 18; TEMP 37.2; O2SAT 100
[2020-03-02 02:16] VITALS: PULSE 69; O2SAT 97
[2020-03-02 04:23] VITALS: BP 120/67; PULSE 68; RESP 12; TEMP 37; O2SAT 100
[2020-03-02 04:29] LABS: Basophils % 0.3 %; Eosinophils # 0.1 10^3/uL (0.0-0.8); Eosinophils % 3.9 %; Hematocrit 25.4 % (37.0-47.0); Hemoglobin 8.1 g/dL (11.5-15.3); Lymphocytes # 1.3 10^3/uL (0.8-4.8); Lymphocytes % 42.7 %; Mean Corpuscular HGB Conc 31.9 g/dL (30.0-36.0); Mean Corpuscular Volume 94.1 fL (81-99); Mean Platelet Volume 11.5 fL (7.4-10.4); Monocytes # 0.3 10^3/uL (0.2-0.9); Monocytes % 8.1 %; Neutrophils # 1.37 10^3/uL (1.8-7.7); Neutrophils % 44.4 %; Nucleated Red Blood Cells % 0 %; Platelet Count 110 10^3/cmm (130-400); Red Cell Distribution Width 13.9 % (12.1-15.1); White Blood Count 3.1 10^3/uL (4.0-10.0)
[2020-03-02] MEDS: potassium chloride ER 10 mEq Tablet 20 MEQ PO (04:40)
[2020-03-02 04:43] LABS: Anion Gap 11.8 (5-19); Blood Urea Nitrogen 6 mg/dL (8-23); Calcium 8.3 mg/dL (8.5-10.5); Carbon Dioxide 26 mmol/L (22-29); Chloride 103 mmol/L (98-107); Glomerular Filtration Rate 72.2 mL/min (90-130); Glucose 101 mg/dL (65-115); Osmolality Calculated 280 mOsm/kg (285-295); Potassium 3.8 mmol/L (3.5-5.1); Sodium 137 mmol/L (136-145)
[2020-03-02 08:03] VITALS: BP 120/67; PULSE 68; RESP 12; TEMP 37; O2SAT 100
[2020-03-02] MEDS: pantoprazole DR 40 mg Tablet PO (08:48)
[2020-03-02] MEDS: cyanocobalamin 1,000 mcg Tablet 1000 MCG PO (08:48)
[2020-03-02] MEDS: aspirin 81 mg EC Tablet PO (08:48)
[2020-03-02] MEDS: fluoxetine 20 mg Capsule 40 MG PO (08:48)
[2020-03-02] MEDS: ALPRAZolam 0.5 mg Tablet PO (08:48)
[2020-03-02] MEDS: FUROsemide 20 mg Tablet PO (08:48)
[2020-03-02] MEDS: clopidogrel 75 mg Tablet PO (08:48)
[2020-03-02] MEDS: magnesium oxide 400 mg tablet PO (08:48)
[2020-03-02] MEDS: fenofibrate 48 mg Tablet PO (08:49)
[2020-03-02] MEDS: predniSONE 1 mg Tablet PO (08:49)
[2020-03-02] MEDS: cholecalciferol (vitamin D3) 5,000 unit Tablet 5000 UNIT PO (08:49)
[2020-03-02] MEDS: levothyroxine 100 mcg Tablet PO (08:49)
--- NOTE | 2020-03-02 10:55 | PC.NURSE ---
1004 patient discharged home. Patient provided and explained discharge instructions. patient verbalizes understanding of all instructions and restrictions. IV removed cath intact min bleeding noted bandage applied. Patient educated on s/s of infection. patient verbalized understanding. Patient assisted to wheel chair with home o2 in place and accompanied by staff to private vehicle. patient alert, oriented and in stable condition.
--- NOTE | 2020-03-02 10:55 | PC.CHAP ---
Pastoral Care Encounter/Spiritual Assessment Type of Contact [] Declined topographic computator visit [] Patient/Family/Request visit [] Outpatient visit [] Follow-up visit [] Physician referral [] Code/Alert [x] Routine visit [] Staff referral [] Actively dying [] Patient sleeping [] Family support [] [] Out of room [] Palliative care [] [] Receiving care in room [] Pre-surgical visit [] Trauma [] Long length of stay [] ICU visit [] Other: Relational/Emotional Strength [x] Patient feels connected with others/family/visitors/staff [] Distress [] Loneliness/isolation [] Abandonment Spirituality of Patient [x] Person of Tiffany [x] Attends Buddhist of their Tiffany [x] Believes in Prayer [x] Reads Bible or Taoism materials [] There are Spiritual issues to be addressed Help Desk Manager Interventions [x] Prayer [x] Active listening [x] Non-anxious presence x[] Spiritual/emotional support [] Crisis/trauma care [] Spiritual counseling [] Bereavement support [] Provided bereavement packet [] Provided Bible/devotional materials [] Provided toy/stuffed animal, coloring book to patient or family member [] Provided Communion [] Anointing/[place] [] Salvation [x] Completed spiritual assessment [] Other: Impact on Illness or Injury [] Angry [] Fearful [] Anxious [] Often cries [] Exhaustion [] Unable to work [] Unable to attend shinto [] Unable to walk/stand [] Unable to read [] Unable to drive [] Unable to eat/drink [] Unable to sleep [] Unable to be with family [] Patient intubated [x] Other: Summary Patient is a professed believer in [employer] and attends [employer] in [place]. Time spent with patient 10 minutes
--- NOTE | 2020-03-03 14:35 | PC.RESP ---
Smoking Cessation and Pulmonary Rehab information sent to patient.
== END 2020-03-02 10:04 | disposition home or self-care (01) ==
LOC: CSU 03-02 06:51
PROVIDERS: Internal Medicine Cardiovascular Disease; Admitting Provider Internal Medicine Cardiovascular Disease; PCP Family Medicine; Visit Provider Internal Medicine Cardiovascular Disease
DX: I25.118 Atherosclerotic heart disease of native coronary artery with other forms of angina pectoris (principal); I11.0 Hypertensive heart disease with heart failure; I50.31 Acute diastolic (congestive) heart failure; R00.2 Palpitations; I34.0 Nonrheumatic mitral (valve) insufficiency; F17.213 Nicotine dependence, cigarettes, with withdrawal; E78.2 Mixed hyperlipidemia; J44.1 Chronic obstructive pulmonary disease with (acute) exacerbation; J96.01 Acute respiratory failure with hypoxia; Z79.82 Long term (current) use of aspirin; Z79.52 Long term (current) use of systemic steroids; Z79.02 Long term (current) use of antithrombotics/antiplatelets; F41.9 Anxiety disorder, unspecified; E03.9 Hypothyroidism, unspecified
CPT/HCPCS: 12345; 36415; 80048; 85025; 92920; 93452; 96360; 96361; C1725; C1769; C1887; C1894; G0378; J1644; J2250; J3010; J3490; J7030; J7512; Q0163; Q9967

== ENCOUNTER 2020-03-09 18:03 | Outpatient (CLI) | payer BC, SELFPAY ==
[2020-03-09 18:36] LABS: Add Urine Microscopic? NO
[2020-03-09 19:45] LABS: Urine Appearance Clear (CLEAR); Urine Color Yellow (Yellow); pH Urine 5 (5-7)
[2020-03-09 19:46] LABS: Bilirubin Urine Neg (NEGATIVE); Blood Urine Neg (Negative); Glucose Urine UA Norm (Normal); Ketones Urine Negative (Negative); Leukocyte Esterase Urine Negative (Negative); Nitrate Urine Negative (Negative); Protein Urine Neg (Negative); Specific Gravity, Urine 1.005 (1.005-1.030); Urobilinogen Urine Neg (Negative)
[2020-03-09 20:07] LABS: Anion Gap 12.9 (5-19); Blood Urea Nitrogen 6 mg/dL (8-23); Calcium 9.4 mg/dL (8.5-10.5); Carbon Dioxide 26 mmol/L (22-29); Chloride 99 mmol/L (98-107); Glucose 85 mg/dL (65-115); Osmolality Calculated 273 mOsm/kg (285-295); Potassium 3.9 mmol/L (3.5-5.1); Sodium 134 mmol/L (136-145)
== END 2020-03-09 18:04 | disposition home or self-care (01) ==
LOC: LAB 18:08
PROVIDERS: PCP Family Medicine; Visit Provider Family Medicine
DX: D64.9 Anemia, unspecified (principal); I10 Essential (primary) hypertension
CPT/HCPCS: 80048; 81003; 87493

== ENCOUNTER 2020-03-21 14:18 | Outpatient (CLI) | payer BC, SELFPAY ==
[2020-03-21 14:46] LABS: Basophils % 0.3 %; Eosinophils # 0.2 10^3/uL (0.0-0.8); Eosinophils % 2.5 %; Hematocrit 27.4 % (37.0-47.0); Hemoglobin 8.4 g/dL (11.5-15.3); Lymphocytes # 2.1 10^3/uL (0.8-4.8); Lymphocytes % 36.1 %; Mean Corpuscular HGB Conc 30.7 g/dL (30.0-36.0); Mean Corpuscular Hemoglobin 29.6 pg (28.0-34.0); Mean Corpuscular Volume 96.5 fL (81-99); Mean Platelet Volume 11.9 fL (7.4-10.4); Monocytes # 0.3 10^3/uL (0.2-0.9); Monocytes % 4.2 %; Neutrophils # 3.34 10^3/uL (1.8-7.7); Neutrophils % 56.7 %; Nucleated Red Blood Cells % 0 %; Platelet Count 168 10^3/cmm (130-400); Red Blood Count 2.84 10^6/uL (4.1-5.3); Red Cell Distribution Width 14.4 % (12.1-15.1); White Blood Count 5.9 10^3/uL (4.0-10.0)
[2020-03-21 15:08] LABS: Thyroid Stimulating Hormone 3.23 uIU/mL (0.27-4.20)
== END 2020-03-21 14:19 | disposition home or self-care (01) ==
LOC: LAB 14:20
PROVIDERS: PCP Family Medicine; Visit Provider Family Medicine
DX: D64.9 Anemia, unspecified (principal)
CPT/HCPCS: 84439; 84443; 85025

== ENCOUNTER 2020-03-21 22:27 | Emergency (ER) | payer BC, SELFPAY ==
[2020-03-21 22:27] VITALS: TEMP 37.1
[2020-03-21 22:33] VITALS: BP 118/77; PULSE 92; RESP 18; TEMP 37.6; O2SAT 98; BMI 20.7
--- NOTE | 2020-03-21 22:46 | XR_ITS ---
WS: [id number] EXAM: AP CHEST: PORTABLE UPRIGHT DATE OF EXAM: 03/21/2020, 2247 hours COMPARISON: Chest x-rays from 02/28/2020, 01/30/2020 and 01/04/2020 HISTORY: Patient is 64 years old with fever. Follow-up pulmonary infiltrates.. FINDINGS: The cardiac silhouette is stable. Considered upper limits of normal. The mediastinal contours are similar. The pulmonary vascularity is congested. No definite interstitial edema. Chronic lung kitchen ges again demonstrated. Coarse interstitial markings are seen bilaterally. There has been regression in pulmonary infiltrates since prior imaging. There is still some residual versus recurrent infiltrat e within the medial right lung base. Suggesting a residual or acute pneumonitis. There is no effusion or pneumothorax. No acute bony abnormality is seen. XR/XR chest 1V portable [id number] IMPRESSION: Chronic lung changes demonstrated. Infiltrate in the medial right lung base. Qu estion residual chronic change versus recurrent acute pneumonitis.
--- NOTE | 2020-03-21 22:47 | W.ED.FEVER ---
HPI - Fever General: Chief Complaint: Fever Stated Complaint: fever Time Seen by Provider: 03/21/20 22:38 Source: patient Mode of arrival: ambulatory Limitations: no limitations History of Present Illness: HPI Narrative: 64-year-old female who states she has had a fever along with some flank pain and difficulty urinating over the last day. States she has had urinary tract infections in the past. She states she is been admitted for sepsis for urinary tract infections as well. Patient denies any vomiting. Patient denies any cough. Denies any worsening improving factors. MD elicited complaint: fever Associated symptoms: Reports flank pain and dysuria; Deny abdominal pain, chest pain, diarrhea, headache(s), nausea or vomiting Review of Systems Const: Reports: fever(s) Eyes: Denies: blurry vision or eye discomfort ENMT: Denies: throat pain or dental pain Card: Denies: chest pain Resp: Denies: dyspnea GI: Denies: abdominal pain, nausea, vomiting or diarrhea : Reports: flank pain, difficulty voiding and dysuria Musc: Denies: neck pain or back pain Skin/Breast: Denies: rash Neuro: Denies: headache(s) Psych: Denies: depression Brett/Lymph: Denies: easy bruising All/Imm: Denies: urticaria PFSH ED PFSH: Medical History Acute diastolic heart failure due to valvular disease Anxiety disorder Arteriosclerotic cardiovascular disease Atherosclerosis of coronary artery of [place] heart without angina pectoris Atherosclerotic heart disease of [place] coronary artery with other forms of angina pectoris Chronic kidney disease COPD exacerbation Essential (primary) hypertension GERD (gastroesophageal reflux disease) Hypothyroidism Intervertebral disc disorder with radiculopathy of lumbosacral region Lumbar stenosis with neurogenic claudication Mitral regurgitation Mixed hyperlipidemia Palpitations Systemic lupus erythematosus, unspecified Vitamin D deficiency Surgical History H/O: hysterectomy with BSO History of cholecystectomy History of heart artery stent 5 stents Family History Sister Cancer Brain Hypertension Family/Other Hypertension Several members Social History Smoking and tobacco status: current every day smoker cigarettes Packs smoked per day: 1 Years cigarettes smoked: 40 Alcohol intake: never Desire information about alcohol rehabilitation?: No Counseling given: No Desire information about substance/drug rehabilitation?: No Counseling given: No Caregiver/support person: No Lives independently: Yes Household members: spouse Marital status: Current occupational status: unemployed History of recent travel: No Current gender identity: Female Physical Exam Const: COMMON NORMALS: no acute distress, patient oriented x3 and healthy appearing HENMT: COMMON NORMALS: normocephalic and atraumatic HEAD & SCALP: normocephalic and atraumatic Eye: COMMON NORMALS: Equal, round and reactive pupils present and EOMs intact bilaterally PUPIL: Yes Equal, round and reactive pupils present Neck/C-Spine: COMMON NORMALS: full ROM and supple Chest: COMMONS NORMALS: normal inspection of the chest and normal palpation of entire chest wall Resp: COMMON NORMALS: normal respiratory effort, No retractions, No use of accessory muscles and clear to auscultation bilaterally AUSCULTATION: clear to auscultation bilaterally Cardio: COMMON NORMALS: regular rate, regular rhythm and No murmurs present (Cardio) RATE: regular rate RHYTHM: regular rhythm GI: COMMON NORMALS: Normal to inspection, nondistended, normoactive bowel sounds present, Soft to palpation, non-tender and no masses PALPATION: Yes Soft to palpation Extremity: COMMON NORMALS: normal to inspection and full ROM Neuro: COMMON NORMALS: patient oriented x3, moves all extremities and no focal motor deficits Psych: COMMON NORMALS: mental status grossly normal, Normal thought process present and cooperative THOUGHT PROCESS: Normal thought process present Skin: COMMON NORMALS: no rashes or lesions noted and no wounds GENERAL SKIN EXAM: no rashes or lesions noted Course Vital Signs: Vital signs: Vital Signs Temperature 99.7 F H 03/21/20 22:33 Pulse Rate 92 03/21/20 22:33 Respiratory Rate 18 03/21/20 22:33 Blood Pressure 118/77 03/21/20 22:33 Pulse Oximetry 98 03/21/20 22:33 MDM - Fever MDM Narrative: Medical decision making narrative: Patient presents here with acute cystitis. Abdominal exam is benign and has no signs of acute intra-abdominal abnormality. Patient's lab work here is normal including a normal white count and lactate. Will place patient on Keflex and she is to follow-up with PCP and return if worsening. Lab Data: Labs: Lab Results 03/21/20 03/21/20 03/21/20 Range/Units 23:04 23:04 23:04 WBC 5.4 (4.0-10.0) 10^3/ uL RBC 3.31 L (4.1-5.3) 10^6/u L Hgb 9.9 L (11.5-15.3) g/dL Hct 30.3 L (37.0-47.0) % MCV 91.5 D (81-99) fL MCH 29.9 (28.0-34.0) pg MCHC 32.7 D (30.0-36.0) g/dL RDW 14.1 (12.1-15.1) % Plt Count 150 (130-400) 10^3/c mm MPV 11.4 H (7.4-10.4) fL Neut % (Auto) 74.3 % Lymph % (Auto) 17.7 % [place] % (Auto) 6.1 % Eos % (Auto) 1.3 % Baso % (Auto) 0.4 % Neut # (Auto) 4.03 (1.8-7.7) 10^3/u L Lymph # (Auto) 1.0 (0.8-4.8) 10^3/u L [place] # (Auto) 0.3 (0.2-0.9) 10^3/u L Eos # (Auto) 0.1 (0.0-0.8) 10^3/u L Baso # (Auto) 0.0 (0.0-0.1) 10^3/u L Nucleated RBC % (a uto) 0 % Nucleated RBCs # 0.0 /100WBC Sodium 129 L (136-145) mmol/L Potassium 4.4 (3.5-5.1) mmol/L Chloride 95 L (98-107) mmol/L Carbon Dioxide 24 (22-29) mmol/L Anion Gap 14.4 (5-19) BUN 7 L (8-23) mg/dL Creatinine 1.1 H (0.5-0.9) mg/dL GFR Calculation 50.0 L (90-130) mL/min Glucose 103 (65-115) mg/dL Calculated Osmolal ity 264 L (285-295) mOsm/k g Lactate 1.1 (0.5-2.2) mmol/L Calcium 9.2 (8.5-10.5) mg/dL Total Bilirubin 0.3 (0.15-1.2) mg/dL AST 21 (0-32) U/L ALT 7 (0-33) U/L Alkaline Phosphata se 52 (35-105) IU/L Total Protein 7.3 (6.6-8.7) g/dL Albumin 4.0 (3.5-5.2) g/dL Globulin 3.3 (1.3-4.6) g/dL Lipase 20 (13-60) U/L Urine Color (Yellow) Urine Appearance (CLEAR) Urine pH (5-7) Ur Specific Gravit y (1.005-1.030) Urine Protein (Negative) Urine Glucose (UA) (Normal) Urine Ketones (Negative) Urine Blood (Negative) Urine Nitrate (Negative) Urine Bilirubin (NEGATIVE) Urine Urobilinogen (Negative) mg/dL Ur Leukocyte Sabrina ase (Negative) Urine RBC (0-2) /hpf Urine WBC (0-5) /hpf Ur Squamous Epith Cells (0-5) Amorphous Sediment Urine Bacteria (NONE) 03/21/20 Range/Units 23:05 WBC (4.0-10.0) 10^3/ uL RBC (4.1-5.3) 10^6/u L Hgb (11.5-15.3) g/dL Hct (37.0-47.0) % MCV (81-99) fL MCH (28.0-34.0) pg MCHC (30.0-36.0) g/dL RDW (12.1-15.1) % Plt Count (130-400) 10^3/c mm MPV (7.4-10.4) fL Neut % (Auto) % Lymph % (Auto) % [place] % (Auto) % Eos % (Auto) % Baso % (Auto) % Neut # (Auto) (1.8-7.7) 10^3/u L Lymph # (Auto) (0.8-4.8) 10^3/u L [place] # (Auto) (0.2-0.9) 10^3/u L Eos # (Auto) (0.0-0.8) 10^3/u L Baso # (Auto) (0.0-0.1) 10^3/u L Nucleated RBC % (a uto) % Nucleated RBCs # /100WBC Sodium (136-145) mmol/L Potassium (3.5-5.1) mmol/L Chloride (98-107) mmol/L Carbon Dioxide (22-29) mmol/L Anion Gap (5-19) BUN (8-23) mg/dL Creatinine (0.5-0.9) mg/dL GFR Calculation (90-130) mL/min Glucose (65-115) mg/dL Calculated Osmolal ity (285-295) mOsm/k g Lactate (0.5-2.2) mmol/L Calcium (8.5-10.5) mg/dL Total Bilirubin (0.15-1.2) mg/dL AST (0-32) U/L ALT (0-33) U/L Alkaline Phosphata se (35-105) IU/L Total Protein (6.6-8.7) g/dL Albumin (3.5-5.2) g/dL Globulin (1.3-4.6) g/dL Lipase (13-60) U/L Urine Color Yellow (Yellow) Urine Appearance Cloudy (CLEAR) Urine pH 5 (5-7) Ur Specific Gravit y 1.015 (1.005-1.030) Urine Protein Neg (Negative) Urine Glucose (UA) Norm (Normal) Urine Ketones Negative (Negative) Urine Blood Neg (Negative) Urine Nitrate Positive H (Negative) Urine Bilirubin Neg (NEGATIVE) Urine Urobilinogen Norm (Negative) mg/dL Ur Leukocyte Sabrina ase 2+ H (Negative) Urine RBC 10-15 H (0-2) /hpf Urine WBC >100 H (0-5) /hpf Ur Squamous Epith Cells 0-4 H (0-5) Amorphous Sediment Not Reportable Urine Bacteria 3+ H (NONE) Discharge Plan Discharge Patient Disposition: Home Clinical Impression: Acute cystitis Qualifiers: Hematuria presence: without hematuria Qualified Code(s): N30.00 - Acute cystitis without hematuria Condition: Stable Prescriptions: New Keflex 500 mg capsule 500 mg PO Q6H 7 Days Qty: 28 RF: 0 No Action fluticasone propionate 50 mcg/actuation spray,suspension 1 spray INTRANASAL DAILY RF: 0 alprazolam 0.5 mg tablet 0.5 mg PO TID RF: 0 aspirin [Aspir-81] 81 mg tablet,delayed release (DR/EC) 81 mg PO DAILY RF: 0 chlordiazepoxide-clidinium 5-2.5 mg capsule 1 - 2 cap PO TID PRN (Reason: Anxiety) RF: 0 clobetasol 0.05 % ointment 1 applic TOPICAL DAILY PRN (Reason: Itching) RF: 0 cyanocobalamin (vitamin B-12) 1,000 mcg capsule 1,000 mcg PO DAILY RF: 0 fenofibrate nanocrystallized 48 mg tablet 48 mg PO DAILY RF: 0 fluoxetine 40 mg capsule 40 mg PO DAILY RF: 0 magnesium oxide 400 mg magnesium tablet 400 mg PO BID RF: 0 nitroglycerin [Nitrostat] 0.4 mg tablet, sublingual 0.4 mg SUBLINGUAL Q5M PRN (Reason: Chest Pain) RF: 0 pantoprazole 40 mg tablet,delayed release (DR/EC) 40 mg PO BID RF: 0 clopidogrel [Plavix] 75 mg tablet 75 mg PO DAILY RF: 0 potassium chloride 10 mEq tablet,ER particles/crystals 20 meq PO QAM RF: 0 tramadol 50 mg tablet 50 mg PO TID PRN (Reason: Pain) RF: 0 levothyroxine 112 mcg tablet 112 mcg PO DAILY RF: 0 gabapentin 300 mg capsule 300 mg PO TID PRN (Reason: nerve pain) RF: 0 levothyroxine 100 mcg Tablet 100 mcg PO DAILY RF: 0 methocarbamol 750 mg Tablet 750 mg PO TID PRN (Reason: muscle spasms) RF: 0 lidocaine [Lidoderm] 5 % Adhesive Patch,Medicated 1 patch TOPICAL DAILY PRN (Reason: pain) RF: 0 cholecalciferol (vitamin D3) [Vitamin D3] 125 mcg (5,000 unit) Tablet 125 mcg PO DAILY RF: 0 prednisone 1 mg Tablet 1 mg PO DAILY Qty: 7 RF: 0 triamcinolone acetonide 0.1 % Cream 1 applic TOPICAL DAILY PRN (Reason: unknown) RF: 0 trazodone 150 mg tablet 300 mg PO BEDTIME RF: 0 nystatin 100,000 unit/gram cream See Rx Instructions .ROUTE .COMPLEX RF: 0 hydroxyzine HCl 25 mg Tablet 25 mg PO QID PRN (Reason: Itching) RF: 0 Restasis 0.05 % Dropperette 1 drp OPHTHALMIC (EYE) Q12H RF: 0 Discharge Orders: Discharge Order (Routine); Ordered 03/22/20 Ordered By: Collin You Referrals: Raheem Baron [Primary Care Provider] - 1-3 days Discharge Diet: Advance as tolerated Discharge Activity: Resume usual activity Patient Instructions: Urinary Tract Infection in Women (ED) Coding Level of Care Code ED User Experience Architect for Chg Fwd Exam Comprehensive
[2020-03-21 23:20] LABS: Basophils % 0.4 %; Eosinophils # 0.1 10^3/uL (0.0-0.8); Eosinophils % 1.3 %; Hematocrit 30.3 % (37.0-47.0); Hemoglobin 9.9 g/dL (11.5-15.3); Lymphocytes % 17.7 %; Mean Corpuscular HGB Conc 32.7 g/dL (30.0-36.0); Mean Corpuscular Hemoglobin 29.9 pg (28.0-34.0); Mean Corpuscular Volume 91.5 fL (81-99); Mean Platelet Volume 11.4 fL (7.4-10.4); Monocytes # 0.3 10^3/uL (0.2-0.9); Monocytes % 6.1 %; Neutrophils # 4.03 10^3/uL (1.8-7.7); Neutrophils % 74.3 %; Nucleated Red Blood Cells % 0 %; Platelet Count 150 10^3/cmm (130-400); Red Blood Count 3.31 10^6/uL (4.1-5.3); Red Cell Distribution Width 14.1 % (12.1-15.1); White Blood Count 5.4 10^3/uL (4.0-10.0)
[2020-03-21] MEDS: sodium chloride 0.9% 1,000 ML 999 ML IV (23:21)
[2020-03-21 23:30] LABS: Alanine Aminotransferase 7 U/L (0-33); Alkaline Phosphatase 52 IU/L (35-105); Anion Gap 14.4 (5-19); Aspartate Amino Transferase 21 U/L (0-32); Blood Urea Nitrogen 7 mg/dL (8-23); Calcium 9.2 mg/dL (8.5-10.5); Carbon Dioxide 24 mmol/L (22-29); Chloride 95 mmol/L (98-107); Globulin 3.3 g/dL (1.3-4.6); Glucose 103 mg/dL (65-115); Lactate (Lactic Acid level) 1.1 mmol/L (0.5-2.2); Lipase 20 U/L (13-60); Osmolality Calculated 264 mOsm/kg (285-295); Potassium 4.4 mmol/L (3.5-5.1); Sodium 129 mmol/L (136-145); Total Bilirubin 0.3 mg/dL (0.15-1.2); Total Protein 7.3 g/dL (6.6-8.7)
[2020-03-22] LABS: Add Urine Microscopic? YES; Bilirubin Urine Neg (NEGATIVE); Blood Urine Neg (Negative); Glucose Urine UA Norm (Normal); Ketones Urine Negative (Negative); Leukocyte Esterase Urine 2+ (Negative); Nitrate Urine Positive (Negative); Protein Urine Neg (Negative); Specific Gravity, Urine 1.015 (1.005-1.030); Urine Appearance Cloudy (CLEAR); Urine Color Yellow (Yellow); Urobilinogen Urine Norm (Negative); pH Urine 5 (5-7)
[2020-03-22 00:01] LABS: Add Urine Culture? No; Bacteria Urine 3+; Squamous Epithelial Cell Urine 0-4 (0-5); WBC Urine >100 /hpf (0-5)
[2020-03-22] MEDS: cefTRIAXone 1,000 MG in sodium chloride 0.9% (plus) 50 ML 100 MG IV (00:26)
[2020-03-22 01:12] VITALS: BP 128/82; PULSE 77; RESP 14; TEMP 37.2; O2SAT 100
== END 2020-03-22 01:14 | disposition home or self-care (01) ==
PROVIDERS: Emergency Provider Emergency Medicine; PCP Family Medicine
DX: N30.00 Acute cystitis without hematuria (principal); Z79.82 Long term (current) use of aspirin; Z79.02 Long term (current) use of antithrombotics/antiplatelets; I11.0 Hypertensive heart disease with heart failure; I50.30 Unspecified diastolic (congestive) heart failure; J44.9 Chronic obstructive pulmonary disease, unspecified; E78.2 Mixed hyperlipidemia; F17.210 Nicotine dependence, cigarettes, uncomplicated
CPT/HCPCS: 12345; 36415; 71045; 80053; 81001; 81003; 83605; 83690; 85025; 87040; 87077; 87086; 87186; 96365; 99282; 99284; J0696; J7030

== ENCOUNTER 2020-03-29 16:35 | Outpatient (CLI) | payer BC, SELFPAY ==
[2020-03-29 19:24] LABS: Bilirubin Urine Neg (NEGATIVE); Blood Urine Neg (Negative); Glucose Urine UA Norm (Normal); Ketones Urine Negative (Negative); Leukocyte Esterase Urine Negative (Negative); Nitrate Urine Negative (Negative); Protein Urine Neg (Negative); Urine Appearance Clear (CLEAR); Urine Color Yellow (Yellow); Urobilinogen Urine Norm (Negative); pH Urine 7 (5-7)
[2020-03-29 19:25] LABS: Add Urine Culture? No; Squamous Epithelial Cell Urine 0-4 (0-5); Transitional Epi Cells Urine 0-4 /hpf
== END 2020-03-29 16:36 | disposition home or self-care (01) ==
LOC: LAB 16:36
PROVIDERS: PCP Family Medicine; Visit Provider Family Medicine
DX: N30.00 Acute cystitis without hematuria (principal)
CPT/HCPCS: 81001

== ENCOUNTER 2020-03-30 06:59 | Day surgery (SDC) | payer BC, SELFPAY ==
[2020-03-28 12:47] VITALS: BMI 20.7
--- NOTE | 2020-03-30 07:17 | ANES.PREANE2 ---
Pre-Anesthetic Assessment Pre-Anesthetic Assessment: Height/Weight: Height 1.65 m Weight 56.699 kg Preop Diagnosis: anemia, gerd, history of polyps Proposed Procedure: Operation Date: 03/30/20 08:00 Proposed Procedures p EGD(Not Applicable) - Michoacano Moses MD s Colonoscopy(Not Applicable) - Michoacano Moses MD Familial anesthetic complications: none Was Beta Yue taken within 24 hours: N/A Social: Social History: Tobacco and No alcohol Packs per day: 1.5 Pack years: 50 Exam: Pre-Anes Outpt Exam: alert, oriented x 3, clear to auscultation bilaterally and regular rate & rhythm Airway: Submandibular: WNL Cervical ROM: WNL MP: 1 Dentition: False Pulmonary: Pulmonary: COPD, PINK, Sleep apnea and SOB Comments: has oxygen at home for PRN and at night recent pneumonia with sepsis wheezes noted CV/HEM: CV/HEM: CAD and CHF Comments: 6 stents in heart, last one several years ago : : UTI Hepatic: Hepatic: None reported GI: GI: GERD (controlled) Metabolic: Metabolic: Hyperlipidemia and Thyroid Comments: LUPUS Musc/skel: Musc/skel: Lower Back Pain and OA/DJD Neuropsych: Neuropsych: Anxiety and GARCIA Anesthetic Plan: ASA status: 3 Anesthesia: MAC Risk of > 500 ml blood loss (7ml/kg in children): No PFSH Anesthesia PFSH: Medical History (Updated 03/30/20 @ 00:00 by ) Acute diastolic heart failure due to valvular disease Anxiety disorder Arteriosclerotic cardiovascular disease Atherosclerosis of coronary artery of [place] heart without angina pectoris Atherosclerotic heart disease of [place] coronary artery with other forms of angina pectoris Chronic kidney disease COPD exacerbation Essential (primary) hypertension GERD (gastroesophageal reflux disease) Hypothyroidism Intervertebral disc disorder with radiculopathy of lumbosacral region Lumbar stenosis with neurogenic claudication Mitral regurgitation Mixed hyperlipidemia Palpitations Systemic lupus erythematosus, unspecified Vitamin D deficiency Surgical History H/O: hysterectomy with BSO History of cholecystectomy History of heart artery stent 5 stents Family History Sister Cancer Brain Hypertension Family/Other Hypertension Several members Social History Smoking and tobacco status: current every day smoker cigarettes Packs smoked per day: 1 Years cigarettes smoked: 40 Alcohol intake: never Desire information about alcohol rehabilitation?: No Counseling given: No Desire information about substance/drug rehabilitation?: No Counseling given: No Caregiver/support person: No Lives independently: Yes Household members: spouse Marital status: Current occupational status: unemployed History of recent travel: No Current gender identity: Female Data Anesthesia Cardiac Studies: Holter Monitor 03/23/20
[2020-03-30 07:24] VITALS: BP 142/64; PULSE 75; RESP 20; TEMP 35.9; O2SAT 100
[2020-03-30] MEDS: sodium chloride 0.9% 1,000 ML 30 ML IV (07:37)
--- NOTE | 2020-03-30 07:52 | W.PM.OPSUD ---
Surgery/Procedure H&P Update DATE OF PROCEDURE: March 30, 2020 DATE H&P PERFORMED: 03/21/20 H&P UPDATE INFORMATION: No changes to prior documentation PREOP DIAGNOSIS: anemia, gerd, history of polyps PLANNED PROCEDURE: Operation Date: 03/30/20 08:00 Proposed Procedures p EGD(Not Applicable) - Michoacano Moses MD s Colonoscopy(Not Applicable) - Michoacano Moses MD
[2020-03-30 08:19] VITALS: BP 95/56; PULSE 70; RESP 18; TEMP 36.5; O2SAT 100
--- NOTE | 2020-03-30 08:20 | ANE.PACU2 ---
Inpatient post-anesthesia follow up: Airway intact: Yes Vital signs: Temperature 96.7 F Pulse Rate 75 Respiratory Rate 20 Blood Pressure 142/64 Pulse Oximetry 100 Oxygen Delivery Me thod Nasal Cannula Oxygen Flow Rate 4.0 Fraction of Inspir ed Oxygen Hydration adequate: Yes Nausea and vomiting: No Pain level: 1 Mental status: Baseline
[2020-03-30 08:29] VITALS: BP 111/71; PULSE 71; RESP 18; O2SAT 100
== END 2020-03-30 08:49 | disposition home or self-care (01) ==
PROVIDERS: PCP Family Medicine; Visit Provider Surgery
PROC: 0DJ08ZZ Inspection of Upper Intestinal Tract, Via Natural or Artificial Opening Endoscopic (ICD-10-PCS; CPT 43235; principal; 2020-03-30 08:00)
PROC: 0DJD8ZZ Inspection of Lower Intestinal Tract, Via Natural or Artificial Opening Endoscopic (ICD-10-PCS; CPT 45378; 2020-03-30 08:00)
DX: K57.30 Diverticulosis of large intestine without perforation or abscess without bleeding (principal); K64.8 Other hemorrhoids; D64.9 Anemia, unspecified; R63.4 Abnormal weight loss; K21.9 Gastro-esophageal reflux disease without esophagitis; J44.9 Chronic obstructive pulmonary disease, unspecified; G47.30 Sleep apnea, unspecified; F17.210 Nicotine dependence, cigarettes, uncomplicated; Z99.81 Dependence on supplemental oxygen; I25.10 Atherosclerotic heart disease of native coronary artery without angina pectoris; Z95.5 Presence of coronary angioplasty implant and graft; E78.5 Hyperlipidemia, unspecified; I50.31 Acute diastolic (congestive) heart failure; N18.9 Chronic kidney disease, unspecified; I13.0 Hypertensive heart and chronic kidney disease with heart failure and stage 1 through stage 4 chronic kidney disease, or unspecified chronic kidney disease; E03.9 Hypothyroidism, unspecified; E78.2 Mixed hyperlipidemia; Z79.02 Long term (current) use of antithrombotics/antiplatelets; Z86.010 Personal history of colon polyps; Z79.82 Long term (current) use of aspirin
CPT/HCPCS: 12345; 43235; 45378; J2704

== ENCOUNTER → 2020-04-17 08:50 | Outpatient (BNVA) | payer BC, SELFPAY | PROVIDERS: PCP Family Medicine; Visit Provider Internal Medicine | DX: Z11.59 Encounter for screening for other viral diseases (principal) | CPT/HCPCS: 87635 ==

== ENCOUNTER → 2020-05-09 15:30 | Outpatient (BNVA) | payer BC, SELFPAY | PROVIDERS: PCP Family Medicine; Visit Provider Family Medicine | DX: D64.9 Anemia, unspecified (principal); N30.00 Acute cystitis without hematuria | CPT/HCPCS: 81000; 85025 ==

== ENCOUNTER → 2020-05-26 10:53 | Outpatient (BNVA) | payer BC, SELFPAY | PROVIDERS: PCP Family Medicine; Visit Provider Internal Medicine Critical Care Medicine | DX: Z11.59 Encounter for screening for other viral diseases (principal); Z20.828 Contact with and (suspected) exposure to other viral communicable diseases; J43.9 Emphysema, unspecified | CPT/HCPCS: 87635 ==

== ENCOUNTER 2020-05-30 13:18 | Outpatient (CLI) | payer BC, SELFPAY ==
--- NOTE | 2020-05-30 13:37 | CT_ITS ---
WS: [id number] CT CHEST high-resolution CT HISTORY: Interstitial lung disease TECHNIQUE: High-resolution imaging submitted in prone and supine positioning. All CT scans at [facility] use at least one of these dose optimization techniques: automated exposure control; mA and/or kV adjustment per patient size (includes targeted exams where dose is matched to clinical ind ication); or iterative reconstruction. CONTRAST: None DLP: 278.56 mGy.cm COMPARISON: 01/30/2020 Lungs are slightly hyperexpanded. Mild reticular nodular pattern of interstitial lung disease. Reticu lar nodular interstitial and septal thickening is more pronounced in the periphery of the lung bases but also extends into the upper lung wallace. Overall since the prior study of 01/30/2020 and there has been an interval improvement in the groundglass attenuation. No significant air trapping. Interstiti al thickening persists in prone position and there is some very mild honeycombing at the lung bases. There is additional very mild bronchiectasis in the upper and lower lobes bilaterally. No pleural effusion or pneumonia. Heart size is enlarged. Extensive coronary artery stents. No pericardial effusion. No definite adenop athy on this high resolution scan. CT/CT chest wo con [id number] IMPRESSION: 1. Since the prior examination of 01/30/2020 there has been an improvement in t he groundglass attenuation. 2. Majority of the changes suggest nonspecific interstitial pneumonia. There is only very minimal honeycombing at this time but the interstitial thickening in the upper lower lung wallace. There is additional traction bronchiectasis which is mild also.
--- NOTE | 2020-05-30 14:57 | PFTS_ITS ---
Date of Study:05/30/20 Date of Dictation: MECHANICS: Forced vital capacity (FVC) is normal. Forced expiratory volume in one second (FEV1) is normal. FEV1/FVC is normal. FLOW VOLUME LOOP: There is no peak expiratory flow on the flow volume loop. LUNG VOLUMES: Total lung capacity (TLC) is normal. Residual volume (RV) is reduced. DIFFUSING CAPACITY FOR CARBON MONOXIDE: Moderately reduced. INTERPRETATION: The spirometry is normal. The lung volumes showed reduction in residual volume which can be seen in the setting of early interstitial lung disease. Gas exchange (DLCO) is moderately reduced. This has not been corrected for the patient's hemoglobin. This reduction appears disproportionate to the spirometry. MTDD
== END 2020-05-30 13:19 | disposition home or self-care (01) ==
PROVIDERS: PCP Family Medicine; Visit Provider Internal Medicine Critical Care Medicine
DX: J84.9 Interstitial pulmonary disease, unspecified (principal)
CPT/HCPCS: 71250; 94010; 94726; 94729

== ENCOUNTER 2020-06-06 22:20 | Emergency (ER) | payer BC, SELFPAY ==
[2020-06-06 22:24] VITALS: BP 92/62; PULSE 97; RESP 20; TEMP 37.2; O2SAT 93; BMI 20.7
--- NOTE | 2020-06-06 22:33 | XR_ITS ---
WS: [id number] Portable AP upright chest, 06/06/2020 Clinical Data: Cough/fever Comparison: Portable chest, 03/21/2020. Findings: The interstitial thickening in both lungs remains unchanged. No nodules, masses or effusion s are seen. There is shift of the heart and mediastinum from left to right unchanged. The heart is sl ightly enlarged. No pneumothorax seen. There are clips in the right upper quadrant from a cholecystec nora. XR/XR chest 1V portable [id number] Impression: 1. No change in cardiomegaly and shift of heart and mediastinum from left to ri ght. 2. No change in interstitial thickening pattern throughout both lungs.
--- NOTE | 2020-06-06 22:34 | ECG_ITS ---
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 Measurements Intervals [place] Rate: 83 P: 24 IA: 145 QRS: 36 QRSD: 99 T: 44 QT: 389 QTc: 460 Interpretive Statements SINUS RHYTHM MINIMAL ST DEPRESSION [0.025+ mV ST DEPRESSION] Compared to ECG 02/28/2020 18:56:28 ST (T wave) deviation now present Electronically Signed On 06-07-2020 19:20:06 REEL FILM INSPECTOR by Skye Vanegas M.D. [id number]
--- NOTE | 2020-06-06 22:36 | ED_ITS ---
HPI - Weakness General: Chief complaint: Weakness Stated complaint: general weakness/ has lupus/sob Time Seen by Provider: 06/06/20 22:29 Source: patient and family Mode of arrival: wheelchair Limitations: no limitations History of Present Illness: HPI Narrative: Edyta is a 65-year-old female who comes in complaining of generalized weakness, cough, sore throat and fever. States that symptoms been present for 1 to 2 days. She has been exposed to someone who has similar symptoms such as her. She claims her cough is dry and nonproductive. Her throat is sore. Her fever tonight got up to 104.7. Patient states that she has not had any nausea or vomiting or diarrhea or constipation. She has had some dysuria and urinary frequency/urgency. Patient has a history of lupus and takes 1/2 tablet of a 2.5 mg prednisone daily. Patient denies any other complaints or concerns. Associated symptoms: Reports chills, dysuria and fever(s); Denies chest pain, confusion, melena, easy bruising, headache(s), nausea, syncope or vomiting Review of Systems Const: Reports: fever(s), chills, body aches, fatigue and malaise Eyes: Denies: change in vision, blurry vision, photophobia, eye discomfort, eye discharge, eye redness or yellow eyes ENMT: Reports: throat pain; Denies: odynophagia, hoarseness, swelling of lips/tongue, ear or mastoid pain, ear discharge, change in hearing or nasal discharge Card: Denies: chest pain, palpitations, irregular heart rhythm, edema, lightheadedness, syncope, pre-syncope, dyspnea on exertion or orthopnea Resp: Reports: non-productive cough; Denies: dyspnea, productive cough, wheezing, hemoptysis or chest congestion GI: Denies: abdominal pain, nausea, vomiting, hematemesis, coffee ground emesis, heartburn, diarrhea, constipation, GI cramping, hematochezia or melena : Reports: dysuria, urinary urgency and urinary hesitancy; Denies: flank pain Musc: Denies: neck pain, back pain, extremity pain, extremity swelling, joint pain, joint swelling, joint redness, joint warmth or joint stiffness Skin/Breast: Denies: rash, pruritus, erythema, skin pain or skin tenderness Neuro: Denies: headache(s), numbness in extremities, weakness in extremities, sensory changes, lack of coordination, difficulty walking, dizziness, vertigo, confusion, Slurred speech present or seizure-like activity Brett/Lymph: Denies: easy bruising, easy bleeding, petechiae, purpura or enlarged lymph nodes All/Imm: Denies: urticaria, throat swelling, tongue swelling, facial swelling or acute wheezing PFSH ED PFSH: Medical History Acute diastolic heart failure due to valvular disease Anxiety disorder Arteriosclerotic cardiovascular disease Atherosclerosis of coronary artery of [place] heart without angina pectoris Atherosclerotic heart disease of [place] coronary artery with other forms of angina pectoris Chronic kidney disease COPD exacerbation Essential (primary) hypertension GERD (gastroesophageal reflux disease) Hypothyroidism Intervertebral disc disorder with radiculopathy of lumbosacral region Lumbar stenosis with neurogenic claudication Mitral regurgitation Mixed hyperlipidemia Palpitations Systemic lupus erythematosus, unspecified Ventricular arrhythmia Vitamin D deficiency Surgical History H/O: hysterectomy with BSO History of cholecystectomy History of heart artery stent 5 stents Family History Sister Cancer Brain Hypertension Family/Other Hypertension Several members Social History Smoking and tobacco status: current every day smoker cigarettes Packs smoked per day: 1 Years cigarettes smoked: 40 Alcohol intake: never Desire information about alcohol rehabilitation?: No Counseling given: No Desire information about substance/drug rehabilitation?: No Counseling given: No Caregiver/support person: No Lives independently: Yes Household members: spouse Marital status: Current occupational status: unemployed History of recent travel: No Current gender identity: Female Physical Exam Const: COMMON NORMALS: no acute distress, patient oriented x3, no limitations and alert GENERAL APPEARANCE: cooperative HENMT: COMMON NORMALS: normocephalic, atraumatic, external ears normal, EAC's normal and Normal external nose present HEAD & SCALP: normal to inspection, normocephalic and atraumatic FACE & SINUS: normal facial exam and face symmetric NOSE: Normal external nose present and Normal nares present EXTERNAL EAR: Yes external ears normal EXTERNAL AUDITORY CANAL: EAC's normal MOUTH: Normal oral and palatal mucosa present, lip normal and tongue normal Eye: COMMON NORMALS: Equal, round and reactive pupils present and conjunctivae normal GENERAL EYE: appearance normal, both eyes and all related structures ALIGNMENT: Yes alignment normal PERIORBITAL: periorbital findings normal EYELID: eyelids normal CONJUNCTIVA: Yes conjunctivae normal SCLERA: sclerae normal PUPIL: Yes Equal, round and reactive pupils present Neck/C-Spine: COMMON NORMALS: full ROM, no lymphadenopathy, supple, no meningeal signs and no JVD GENERAL: Yes normal visual inspection and Yes trachea midline Chest: COMMONS NORMALS: normal inspection of the chest and normal palpation of entire chest wall Resp: COMMON NORMALS: normal respiratory effort, No retractions, No use of accessory muscles and clear to auscultation bilaterally EFFORT & INSPECTION: Yes able to speak in complete sentences and Yes symmetric chest movement AUSCULTATION: clear to auscultation bilaterally, no crackles, no rales, no rhonchi and no wheezes Cardio: COMMON NORMALS: no JVD, regular rate, regular rhythm, S1 normal heart sound present and S2 normal heart sound present RATE: regular rate RHYTHM: regular rhythm HEART SOUNDS: S1 normal heart sound present, S2 normal heart sound present, no click, no gallops, no murmurs and no rubs GI: COMMON NORMALS: Soft to palpation and No hepatosplenomegaly present PALPATION: Yes Soft to palpation, No Tenderness to palpation present (GI), No Guarding due to palpation present (GI), No Rigid due to palpation, Yes No hepatosplenomegaly present, No Hernia present, No Palpable mass present and No Pulsatile mass present : COMMON NORMALS: Yes no CVA tenderness BLADDER/KIDNEY EXAM: Yes no CVA tenderness EXTERNAL FEMALE EXAM: No Hernia present Back/Pelvis: COMMON NORMALS: no CVA tenderness, thoracic and lumbar spine normal to inspection, no thoracic nor lumbar tenderness and thoraco-lumbar ROM normal Extremity: COMMON NORMALS: normal to inspection, full ROM, capillary refill normal, no joint enlargement, no clubbing, cyanosis or edema and no calf tenderness Neuro: COMMON NORMALS: patient oriented x3, CN's II-XII intact bilaterally, moves all extremities, no focal motor deficits and no sensory deficits noted SENSORIUM/ORIENTATION: Yes alert MENINGEAL SIGNS: Yes no meningeal signs SPEECH: speech normal Psych: COMMON NORMALS: mental status grossly normal, Normal thought process present, cooperative, normal affect, speech normal and activity/motor behavior normal SPEECH: Yes normal speech THOUGHT PROCESS: Normal thought process present Skin: COMMON NORMALS: no rashes or lesions noted, turgor normal, no jaundice, no petechiae and no mottling GENERAL SKIN EXAM: no rashes or lesions noted and turgor normal Course Vital Signs: Vital signs: Vital Signs Temperature 99.0 F 06/06/20 22:24 Pulse Rate 65 06/07/20 03:00 Respiratory Rate 16 06/07/20 03:00 Blood Pressure 130/72 06/07/20 03:00 Pulse Oximetry 95 06/07/20 03:00 MDM - Weakness MDM Narrative: Medical decision making narrative: Mrs. Camp is a nice 65-year-old female who comes in complaining of flulike symptoms and fever. She is Covid negative and her chest x-ray is clear. She is not hypoxic. Patient does have a mild UTI but did not complain of UTI type symptoms. My concern at this time is the patient is possibly immune suppressed as she takes 1.25 mg of prednisone daily for her lupus. The patient does not appear septic. Her lactic is normal. Nonetheless I have recommended she stay in the hospital for IV fluids and antibiotics because of this potential immune suppression. After long discussion the patient declines this and insist that she wants to go home. I cannot convince her to stay but she does understand the seriousness of this immunosuppression and agrees to return if her symptoms change or worsen. Her is with her and he supports her decision. He states he is going to be able to keep close track of her and will watch her closely. I have informed them to increase her prednisone due to possible adrenal suppression for the next 3 days. Patient agrees to do so. She will get an extra dose of hydrocortisone here and she got her first dose of IV antibiotics here. Patient's procalcitonin was normal here. Her lactic was normal. Patient's sodium was low at 128 but she is chronically hyponatremic and this is within her normal range. Lab Data: Attestation: I reviewed the patient's lab results. Labs: Lab Results 06/06/20 06/06/20 06/06/20 Range/Units 00:50 01:25 11:13 WBC (4.0-10.0) 10^3/ uL RBC (4.1-5.3) 10^6/u L Hgb (11.5-15.3) g/dL Hct (37.0-47.0) % MCV (81-99) fL MCH (28.0-34.0) pg MCHC (30.0-36.0) g/dL RDW (12.1-15.1) % Plt Count (130-400) 10^3/c mm MPV (7.4-10.4) fL Neut % (Auto) % Lymph % (Auto) % [place] % (Auto) % Eos % (Auto) % Baso % (Auto) % Neut # (Auto) (1.8-7.7) 10^3/u L Lymph # (Auto) (0.8-4.8) 10^3/u L [place] # (Auto) (0.2-0.9) 10^3/u L Eos # (Auto) (0.0-0.8) 10^3/u L Baso # (Auto) (0.0-0.1) 10^3/u L Nucleated RBC % (a uto) % Nucleated RBCs # /100WBC PT 14.70 (12.1-14.9) SECO NDS INR 1.11 (0.8-1.2) Fibrinogen 492 (174-498) mg/dL D-Dimer 0.49 (0-0.59) ug/mIFE U Specimen Type Arterial Sample Site Radial, left ABG pH 7.38 (7.35-7.45) ABG pCO2 37.1 (35-45) mmHg ABG pO2 87.7 (80.0-100.0) mmH g ABG HCO3 21.9 L (22-26) mmol/L ABG Base Excess -2.8 L (-2.0-2.0) mmol/ L Amrit Test Pos Hematocrit 32.4 L (37-47) % Type Casting Machine Operator ID ellpe Sodium (136-145) mmol/L Potassium (3.5-5.1) mmol/L Chloride (98-107) mmol/L Carbon Dioxide (22-29) mmol/L Anion Gap (5-19) BUN (8-23) mg/dL Creatinine (0.5-0.9) mg/dL GFR Calculation (90-130) mL/min Glucose (65-115) mg/dL Calculated Osmolal ity (285-295) mOsm/k g Lactic Acid (0.5-2.2) mmol/L Calcium (8.5-10.5) mg/dL Magnesium (1.7-2.3) mg/dL Total Bilirubin (0.15-1.2) mg/dL AST (0-32) U/L ALT (0-33) U/L Alkaline Phosphata se (35-105) IU/L Lactate Dehydrogen ase (135-214) U/L C-Reactive Protein (0.0-4.9) mg/L NT-Pro-B Natriuret Pep (0-125) pg/mL Total Protein (6.6-8.7) g/dL Albumin (3.5-5.2) g/dL Globulin (1.3-4.6) g/dL Procalcitonin (0-0.5) ng/mL TSH (0.27-4.20) uIU/ mL Urine Color (Yellow) Urine Appearance (CLEAR) Urine pH (5-7) Ur Specific Gravit y (1.005-1.030) Urine Protein (Negative) Urine Glucose (UA) (Normal) Urine Ketones (Negative) Urine Blood (Negative) Urine Nitrate (Negative) Urine Bilirubin (Negative) Urine Urobilinogen (Negative) mg/dL Ur Leukocyte Sabrina ase (Negative) Urine RBC (0-2) /hpf Urine WBC (0-5) /hpf Ur Squamous Epith Cells (0-5) /hpf Ur Renal Epithelia l Cell /hpf Amorphous Sediment Urine Bacteria (NONE) /hpf Influenza Type A A g (Negative) Influenza Type B A g (Negative) SARS-CoV-2 Ag (Rap id) Negative (Negative) 06/06/20 06/06/20 06/06/20 Range/Units 11:13 11:13 11:13 WBC 8.7 (4.0-10.0) 10^3/ uL RBC 3.56 L (4.1-5.3) 10^6/u L Hgb 10.6 L (11.5-15.3) g/dL Hct 31.9 L (37.0-47.0) % MCV 89.6 (81-99) fL MCH 29.8 (28.0-34.0) pg MCHC 33.2 (30.0-36.0) g/dL RDW 13.1 (12.1-15.1) % Plt Count 160 (130-400) 10^3/c mm MPV 11.0 H (7.4-10.4) fL Neut % (Auto) 80.6 % Lymph % (Auto) 13.4 % [place] % (Auto) 4.7 % Eos % (Auto) 0.6 % Baso % (Auto) 0.2 % Neut # (Auto) 7.00 (1.8-7.7) 10^3/u L Lymph # (Auto) 1.2 (0.8-4.8) 10^3/u L [place] # (Auto) 0.4 (0.2-0.9) 10^3/u L Eos # (Auto) 0.1 (0.0-0.8) 10^3/u L Baso # (Auto) 0.0 (0.0-0.1) 10^3/u L Nucleated RBC % (a uto) 0 % Nucleated RBCs # 0.0 /100WBC PT (12.1-14.9) SECO NDS INR (0.8-1.2) Fibrinogen (174-498) mg/dL D-Dimer (0-0.59) ug/mIFE U Specimen Type Sample Site ABG pH (7.35-7.45) ABG pCO2 (35-45) mmHg ABG pO2 (80.0-100.0) mmH g ABG HCO3 (22-26) mmol/L ABG Base Excess (-2.0-2.0) mmol/ L Amrit Test Hematocrit (37-47) % Type Casting Machine Operator ID Sodium 128 L (136-145) mmol/L Potassium 3.9 (3.5-5.1) mmol/L Chloride 94 L (98-107) mmol/L Carbon Dioxide 23 (22-29) mmol/L Anion Gap 14.9 (5-19) BUN 9 (8-23) mg/dL Creatinine 0.9 (0.5-0.9) mg/dL GFR Calculation 62.8 L (90-130) mL/min Glucose 107 (65-115) mg/dL Calculated Osmolal ity 265 L (285-295) mOsm/k g Lactic Acid 1.1 (0.5-2.2) mmol/L Calcium 9.0 (8.5-10.5) mg/dL Magnesium 1.5 L (1.7-2.3) mg/dL Total Bilirubin 0.4 (0.15-1.2) mg/dL AST 46 H (0-32) U/L ALT 23 (0-33) U/L Alkaline Phosphata se 63 (35-105) IU/L Lactate Dehydrogen ase 363 H (135-214) U/L C-Reactive Protein 47.7 H (0.0-4.9) mg/L NT-Pro-B Natriuret Pep 807 H (0-125) pg/mL Total Protein 6.8 (6.6-8.7) g/dL Albumin 3.4 L (3.5-5.2) g/dL Globulin 3.4 (1.3-4.6) g/dL Procalcitonin 0.15 (0-0.5) ng/mL TSH 0.28 (0.27-4.20) uIU/ mL Urine Color (Yellow) Urine Appearance (CLEAR) Urine pH (5-7) Ur Specific Gravit y (1.005-1.030) Urine Protein (Negative) Urine Glucose (UA) (Normal) Urine Ketones (Negative) Urine Blood (Negative) Urine Nitrate (Negative) Urine Bilirubin (Negative) Urine Urobilinogen (Negative) mg/dL Ur Leukocyte Sabrina ase (Negative) Urine RBC (0-2) /hpf Urine WBC (0-5) /hpf Ur Squamous Epith Cells (0-5) /hpf Ur Renal Epithelia l Cell /hpf Amorphous Sediment Urine Bacteria (NONE) /hpf Influenza Type A A g (Negative) Influenza Type B A g (Negative) SARS-CoV-2 Ag (Rap id) (Negative) 06/06/20 06/06/20 Range/Units 23:00 23:25 WBC (4.0-10.0) 10^3/ uL RBC (4.1-5.3) 10^6/u L Hgb (11.5-15.3) g/dL Hct (37.0-47.0) % MCV (81-99) fL MCH (28.0-34.0) pg MCHC (30.0-36.0) g/dL RDW (12.1-15.1) % Plt Count (130-400) 10^3/c mm MPV (7.4-10.4) fL Neut % (Auto) % Lymph % (Auto) % [place] % (Auto) % Eos % (Auto) % Baso % (Auto) % Neut # (Auto) (1.8-7.7) 10^3/u L Lymph # (Auto) (0.8-4.8) 10^3/u L [place] # (Auto) (0.2-0.9) 10^3/u L Eos # (Auto) (0.0-0.8) 10^3/u L Baso # (Auto) (0.0-0.1) 10^3/u L Nucleated RBC % (a uto) % Nucleated RBCs # /100WBC PT (12.1-14.9) SECO NDS INR (0.8-1.2) Fibrinogen (174-498) mg/dL D-Dimer (0-0.59) ug/mIFE U Specimen Type Sample Site ABG pH (7.35-7.45) ABG pCO2 (35-45) mmHg ABG pO2 (80.0-100.0) mmH g ABG HCO3 (22-26) mmol/L ABG Base Excess (-2.0-2.0) mmol/ L Amrit Test Hematocrit (37-47) % Type Casting Machine Operator ID Sodium (136-145) mmol/L Potassium (3.5-5.1) mmol/L Chloride (98-107) mmol/L Carbon Dioxide (22-29) mmol/L Anion Gap (5-19) BUN (8-23) mg/dL Creatinine (0.5-0.9) mg/dL GFR Calculation (90-130) mL/min Glucose (65-115) mg/dL Calculated Osmolal ity (285-295) mOsm/k g Lactic Acid (0.5-2.2) mmol/L Calcium (8.5-10.5) mg/dL Magnesium (1.7-2.3) mg/dL Total Bilirubin (0.15-1.2) mg/dL AST (0-32) U/L ALT (0-33) U/L Alkaline Phosphata se (35-105) IU/L Lactate Dehydrogen ase (135-214) U/L C-Reactive Protein (0.0-4.9) mg/L NT-Pro-B Natriuret Pep (0-125) pg/mL Total Protein (6.6-8.7) g/dL Albumin (3.5-5.2) g/dL Globulin (1.3-4.6) g/dL Procalcitonin (0-0.5) ng/mL TSH (0.27-4.20) uIU/ mL Urine Color Yellow (Yellow) Urine Appearance Sl cloudy A (CLEAR) Urine pH 5.0 (5-7) Ur Specific Gravit y 1.010 (1.005-1.030) Urine Protein Neg (Negative) Urine Glucose (UA) Norm (Normal) Urine Ketones Negative (Negative) Urine Blood Neg (Negative) Urine Nitrate Negative (Negative) Urine Bilirubin 1+ H (Negative) Urine Urobilinogen 4 H (Negative) mg/dL Ur Leukocyte Sabrina ase Trace H (Negative) Urine RBC 0-4 H (0-2) /hpf Urine WBC 10-15 H (0-5) /hpf Ur Squamous Epith Cells 0-4 H (0-5) /hpf Ur Renal Epithelia l Cell 2 /hpf Amorphous Sediment Not Reportable Urine Bacteria 1+ H (NONE) /hpf Influenza Type A A g Negative (Negative) Influenza Type B A g Negative (Negative) SARS-CoV-2 Ag (Rap id) (Negative) Imaging Data^: CXR: Attestation: I personally reviewed and interpreted this imaging study as follo ws: My impression: Possible bilateral interstitial prominence. Not significantly changed from previous. EKG Data^: EKG 1: Attestation: I personally reviewed and interpreted this EKG as follows: EKG interpretation date: 06/06/20 EKG interpretation time: 22:56 Interpretation: Normal sinus rhythm at 83 beats a minute, normal axis, no blocks, normal intervals, no acute ST or T wave changes. Discharge Plan Discharge Patient Disposition: Home Clinical Impression: Acute UTI Condition: Stable Prescriptions: New Zofran 4 mg tablet 4 mg PO Q6H PRN (Reason: nausea and vomiting) Qty: 20 RF: 0 cefdinir 300 mg capsule 300 mg PO Q12H 10 Days Qty: 20 RF: 0 No Action fluticasone propionate 50 mcg/actuation spray,suspension 1 spray INTRANASAL DAILY PRN (Reason: Allergy Symptoms) RF: 0 alprazolam 0.5 mg tablet 0.5 mg PO TID RF: 0 aspirin [Aspir-81] 81 mg tablet,delayed release (DR/EC) 81 mg PO DAILY RF: 0 chlordiazepoxide-clidinium 5-2.5 mg capsule 1 - 2 cap PO TID PRN (Reason: Anxiety) RF: 0 clobetasol 0.05 % ointment 1 applic TOPICAL DAILY PRN (Reason: Itching) RF: 0 cyanocobalamin (vitamin B-12) 1,000 mcg capsule 1,000 mcg PO DAILY RF: 0 fenofibrate nanocrystallized 48 mg tablet 48 mg PO DAILY RF: 0 fluoxetine 40 mg capsule 40 mg PO DAILY RF: 0 magnesium oxide 400 mg magnesium tablet 400 mg PO BID RF: 0 nitroglycerin [Nitrostat] 0.4 mg tablet, sublingual 0.4 mg SUBLINGUAL Q5M PRN (Reason: Chest Pain) RF: 0 pantoprazole 40 mg tablet,delayed release (DR/EC) 40 mg PO BID RF: 0 clopidogrel [Plavix] 75 mg tablet 75 mg PO DAILY RF: 0 potassium chloride 10 mEq tablet,ER particles/crystals 20 meq PO QAM RF: 0 tramadol 50 mg tablet 50 mg PO TID PRN (Reason: Pain) RF: 0 levothyroxine 112 mcg tablet 112 mcg PO DAILY RF: 0 gabapentin 300 mg capsule 300 mg PO TID PRN (Reason: nerve pain) RF: 0 biotin 1,000 mcg Tablet,Chewable 1,000 mcg PO DAILY RF: 0 400 mcg Tablet,Chewable 400 mcg PO DAILY RF: 0 lidocaine [Lidoderm] 5 % Adhesive Patch,Medicated 1 patch TOPICAL DAILY PRN (Reason: pain) RF: 0 cholecalciferol (vitamin D3) [Vitamin D3] 125 mcg (5,000 unit) Tablet 125 mcg PO DAILY RF: 0 prednisone 1 mg Tablet 1 mg PO DAILY Qty: 7 RF: 0 triamcinolone acetonide 0.1 % Cream 1 applic TOPICAL DAILY PRN (Reason: unknown) RF: 0 trazodone 150 mg tablet 150 - 300 mg PO BEDTIME RF: 0 nystatin 100,000 unit/gram cream See Rx Instructions .ROUTE .COMPLEX PRN (Reason: Itching) RF: 0 hydroxyzine HCl 25 mg Tablet 25 mg PO QID PRN (Reason: Itching) RF: 0 Restasis 0.05 % Dropperette 1 drp OPHTHALMIC (EYE) Q12H PRN (Reason: Dry Eyes) RF: 0 Discharge Orders: Discharge Order (Routine); Ordered 06/07/20 Ordered By: Valeria Joseph Referrals: Raheem Baron [Primary Care Provider] - 1-3 days Discharge Diet: Advance as tolerated Discharge Activity: Increase activity as tolerated Patient Instructions: Urinary Tract Infection in Women (ED) Activity Restrictions/Additional Instructions: Please return to the ER immediately for any of the signs or symptoms listed on your discharge instruction sheets, worsening/changing of your symptoms, you are not getting better as quickly as expected, or for ANY other cause or concerns. I have offered to admit you to the hospital for IV fluids and to monitor your immune system as you are relatively immune suppressed with the prednisone you take. You have declined this and understand the risk of possibly getting much sicker because of the prednisone you take. If you change your mind, if your symptoms worsen, that began to vomit, you develop a fever, or you simply change your mind you are more than welcome to return at any time for further evaluation and care. Take 3 times as much prednisone as you would normally take for the next 3 days then resume your normal prescriptions. Be certain to continue the prescription antibiotic I gave you until its completion. Coding Level of Care Code ED Mallet Cutter for Al Fwjackeline Exam Comprehensive
[2020-06-06] MEDS: ondansetron 2 mg/ML SDV 2 mL 4 MG IV (23:12)
[2020-06-06] MEDS: dexamethasone 4 mg/mL INJ 6 MG IVP (23:13)
[2020-06-06 23:26] LABS: Basophils % 0.2 %; Eosinophils # 0.1 10^3/uL (0.0-0.8); Eosinophils % 0.6 %; Hematocrit 31.9 % (37.0-47.0); Hemoglobin 10.6 g/dL (11.5-15.3); Lymphocytes # 1.2 10^3/uL (0.8-4.8); Lymphocytes % 13.4 %; Mean Corpuscular HGB Conc 33.2 g/dL (30.0-36.0); Mean Corpuscular Hemoglobin 29.8 pg (28.0-34.0); Mean Corpuscular Volume 89.6 fL (81-99); Monocytes # 0.4 10^3/uL (0.2-0.9); Monocytes % 4.7 %; Neutrophils % 80.6 %; Nucleated Red Blood Cells % 0 %; Platelet Count 160 10^3/cmm (130-400); Red Blood Count 3.56 10^6/uL (4.1-5.3); Red Cell Distribution Width 13.1 % (12.1-15.1); White Blood Count 8.7 10^3/uL (4.0-10.0)
[2020-06-06 23:28] VITALS: BP 97/47; PULSE 76; RESP 22; O2SAT 96
[2020-06-06 23:42] LABS: INR 1.11 (0.8-1.2)
[2020-06-06 23:43] LABS: Fibrinogen 492 mg/dL (174-498)
[2020-06-06] MEDS: sodium chloride 0.9% 1,000 ML 75 ML IV (23:45)
[2020-06-06 23:46] LABS: D Dimer 0.49 ug/mIFEU (0-0.59)
[2020-06-06 23:51] LABS: Lactic Sepsis W/Reflex 1.1 mmol/L (0.5-2.2)
[2020-06-06 23:56] LABS: NT Pro B Type Natriuretic Pept 807 pg/mL (0-125); Procalcitonin 0.15 ng/mL (0-0.5); Thyroid Stimulating Hormone 0.28 uIU/mL (0.27-4.20)
[2020-06-06 23:59] LABS: Blood Urine Neg (Negative); Glucose Urine UA Norm (Normal); Ketones Urine Negative (Negative); Protein Urine Neg (Negative); Urine Color Yellow (Yellow)
[2020-06-07] LABS: Add Urine Microscopic? YES; Bilirubin Urine 1+ (Negative); Leukocyte Esterase Urine Trace (Negative); Nitrate Urine Negative (Negative); RBC Urine 0-4 /hpf (0-2); Squamous Epithelial Cell Urine 0-4 /hpf (0-5); Urobilinogen Urine 4 mg/dL (Negative)
[2020-06-07 00:01] LABS: Add Urine Culture? Yes; Bacteria Urine 1+ /hpf; Renal Epithelial Cells Urine 2 /hpf
[2020-06-07 00:07] LABS: Alanine Aminotransferase 23 U/L (0-33); Albumin Level 3.4 g/dL (3.5-5.2); Alkaline Phosphatase 63 IU/L (35-105); Anion Gap 14.9 (5-19); Aspartate Amino Transferase 46 U/L (0-32); Blood Urea Nitrogen 9 mg/dL (8-23); C Reactive Protein 47.7 mg/L (0.0-4.9); Carbon Dioxide 23 mmol/L (22-29); Chloride 94 mmol/L (98-107); Globulin 3.4 g/dL (1.3-4.6); Glomerular Filtration Rate 62.8 mL/min (90-130); Glucose 107 mg/dL (65-115); Lactate Dehydrogenase 363 U/L (135-214); Magnesium 1.5 mg/dL (1.7-2.3); Osmolality Calculated 265 mOsm/kg (285-295); Potassium 3.9 mmol/L (3.5-5.1); Sodium 128 mmol/L (136-145); Total Bilirubin 0.4 mg/dL (0.15-1.2); Total Protein 6.8 g/dL (6.6-8.7)
[2020-06-07 01:00] VITALS: BP 124/75; PULSE 84; RESP 18; O2SAT 95
[2020-06-07 01:03] LABS: ABG PCO2 37.1 mmHg (35-45); ABG PH Result 7.38 (7.35-7.45); Arterial Blood Gas Hematocrit 32.4 % (37-47); Base Excess ABG -2.8 mmol/L (-2.0-2.0); Blood Gas Allen Test Pos; Blood Gas Sample Site Radial, left; Blood Gas Sample Type Arterial; HCO3 ABG 21.9 mmol/L (22-26); PO2 ABG 87.7 mmHg (80.0-100.0)
[2020-06-07 01:27] LABS: Influenza A by IFA Negative (Negative); Influenza B by IFA Negative (Negative)
[2020-06-07] MEDS: cefTRIAXone 1,000 MG in sodium chloride 0.9% (plus) 50 ML 100 MG IV (01:30)
[2020-06-07 02:00] VITALS: BP 131/78; PULSE 76; RESP 18; O2SAT 95
[2020-06-07 02:17] LABS: SARS Covid-2 Antigen Negative (Negative)
[2020-06-07] MEDS: sodium chloride 0.9% 1,000 ML 999 ML IV (02:30)
[2020-06-07] MEDS: magnesium sulfate premix 2 GM/50 ML PIGGYBACK IV (02:45)
[2020-06-07] MEDS: hydrocortisone 100 mg/2 mL SDV IVP (02:50)
[2020-06-07 03:00] VITALS: BP 130/72; PULSE 65; RESP 16; O2SAT 95
[2020-06-07 04:40] VITALS: BP 115/72; PULSE 60; RESP 16; O2SAT 97
--- NOTE | 2020-06-07 04:55 | PC.NURSE ---
i agree with the assessment
== END 2020-06-07 04:40 | disposition home or self-care (01) ==
PROVIDERS: Emergency Provider Emergency Medicine; PCP Family Medicine
DX: N39.0 Urinary tract infection, site not specified (principal); Z79.82 Long term (current) use of aspirin; Z79.02 Long term (current) use of antithrombotics/antiplatelets
CPT/HCPCS: 12345; 36600; 71045; 80053; 81001; 81003; 82803; 83605; 83615; 83735; 83880; 84145; 84443; 85025; 85378; 85384; 85610; 86140; 87040; 87077; 87086; 87186; 87426; 87804; 93005; 96361; 96365; 96367; 96375; 99284; J0131; J0696; J1100; J1720; J2405; J3475; J7030

== ENCOUNTER 2020-06-27 14:54 | Outpatient (CLI) | payer BC, SELFPAY ==
--- NOTE | 2020-06-27 15:02 | MR_ITS ---
WS: [id number] MRI LUMBAR SPINE NONCONTRAST TECHNIQUE: Sagittal T1, T2 and STIR imaging. Axial T1 and T2 imaging. CLINICAL INFORMATION: LOW BACK PAIN COMPARISON: MRI 10/09/18 and . FINDINGS: Mild lumbar curve. No acute compression. Mild chronic compression superior endplate L3 is unchanged. No high-grade central canal stenosis. L1-L2: Normal. L2-L3: Mild disc bulging with slight effacement of ventral thecal sac. Mild facet arthropathy. Mild r ight and no significant left foraminal narrowing. Slight narrowing of the right subarticular recess. L3-L4: Minimal disc bulging. Mild facet arthropathy. Slight effacement of ventral thecal sac. Mild bi lateral foraminal narrowing. L4-L5: Mild disc bulging with osteophytic ridging. Slight narrowing of the subarticular recess bilate rally. Small left annular fissure. Mild right and no significant left foraminal narrowing. Mild facet arthropathy. L5-S1: Mild annular bulging. Small left foraminal protrusion with a small annular fissure. Slight enc roachment on the exiting left L5 nerve root without impingement. Right foramen is patent. Mild facet arthropathy. Visualized pelvic bony structures: Normal. Paravertebral soft tissues: Normal. MR/MR lumbar spine wo con* [id number] IMPRESSION: 1. Mild lumbar curve. No acute compression. 2. Mild chronic compression superior endplate L3 is unchanged. 3. Mild foraminal narrowing bilateral L3-4 and bilateral L4-5, 4. Small left proximal foraminal protrusion L5-S1 with small annular fissure. Slight encroachment on the proximal exiting left L5 nerve root without signific ant impingement. 5. Small annular fissure L4-5 eccentric to the left with narrowing of the suba rticular recess bilaterally. Slight contact of the exiting left L4 nerve root. 6. Mild facet arthropathy L3-L4 and L4-L5.
== END 2020-06-27 14:55 | disposition home or self-care (01) ==
LOC: RADWPI 14:58
PROVIDERS: PCP Family Medicine; Visit Provider Licensed Practical Nurse
DX: M48.062 Spinal stenosis, lumbar region with neurogenic claudication (principal); M47.816 Spondylosis without myelopathy or radiculopathy, lumbar region; M51.27 Other intervertebral disc displacement, lumbosacral region; S32.039A Unspecified fracture of third lumbar vertebra, initial encounter for closed fracture; X58.XXXA Exposure to other specified factors, initial encounter
CPT/HCPCS: 72148

== ENCOUNTER 2020-06-28 22:32 | Emergency (ER) | payer BC, SELFPAY ==
[2020-06-28 22:43] VITALS: BP 65/45; PULSE 83; RESP 22; TEMP 37.1; O2SAT 94; BMI 20.5
--- NOTE | 2020-06-28 23:12 | ED_ITS ---
HPI - General Adult General: Chief complaint: General Medical Stated complaint: suspects UTI, nausea, lower back pain, Time Seen by Provider: 06/28/20 23:07 History of Present Illness: HPI narrative: Patient is a 65-year-old female comes to the ED with UTI symptoms, nausea and lower back pain. She has a history of having multiple UTIs and actually was hospitalized back in December for sepsis after acute kidney injury. Past medical history of emphysema, acute d iastolic heart failure due to valvular disease, mitral regurg and lupus. Patient says she noticed yesterday she started having dysuria, frequency, bladder pain and back pain. She says she developed fever today and she took her temperature at home and it was 105. She has taken Tylenol and ibuprofen around 2029. Associated symptoms: Reports nausea; Deny chest pain, dyspnea, headache(s), rash, palpitations or vomiting Review of Systems Const: Reports: fever(s); Denies: chills or fatigue Eyes: Denies: change in vision or eye discomfort ENMT: Denies: throat pain, odynophagia, nasal discharge or nasal congestion Card: Denies: chest pain, palpitations, edema, swelling of feet/ankles, dyspnea on exertion or orthopnea Resp: Denies: dyspnea, productive cough or non-productive cough GI: Reports: abdominal pain and nausea; Denies: vomiting, diarrhea, constipation or hematochezia : Reports: dysuria and urinary frequency; Denies: flank pain or hematuria Musc: Reports: back pain; Denies: neck pain or extremity swelling Skin/Breast: Denies: rash or new lesions Neuro: Denies: headache(s), numbness in extremities or weakness in extremities PFS ED PFSH: Medical History Acute diastolic heart failure due to valvular disease Anxiety disorder Arteriosclerotic cardiovascular disease Atherosclerosis of coronary artery of [place] heart without angina pectoris Atherosclerotic heart disease of [place] coronary artery with other forms of angina pectoris Chronic kidney disease COPD exacerbation Essential (primary) hypertension GERD (gastroesophageal reflux disease) Hypothyroidism Intervertebral disc disorder with radiculopathy of lumbosacral region Lumbar stenosis with neurogenic claudication Mitral regurgitation Mixed hyperlipidemia Palpitations Systemic lupus erythematosus, unspecified Ventricular arrhythmia Vitamin D deficiency Surgical History H/O: hysterectomy with BSO History of cholecystectomy History of heart artery stent 5 stents Family History Sister Cancer Brain Hypertension Family/Other Hypertension Several members Social History Smoking and tobacco status: current every day smoker cigarettes Packs smoked per day: 1 Years cigarettes smoked: 40 Alcohol intake: never Desire information about alcohol rehabilitation?: No Counseling given: No Desire information about substance/drug rehabilitation?: No Counseling given: No Caregiver/support person: No Lives independently: Yes Household members: spouse Marital status: Current occupational status: unemployed History of recent travel: No Current gender identity: Female Physical Exam Const: COMMON NORMALS: no acute distress, patient oriented x3 and alert GENERAL APPEARANCE: cooperative and comfortable HENMT: COMMON NORMALS: normocephalic HEAD & SCALP: normocephalic MOUTH: Normal oral and palatal mucosa present THROAT: posterior oropharynx normal and uvula midline Eye: COMMON NORMALS: Equal, round and reactive pupils present PUPIL: Yes Equal, round and reactive pupils present Neck/C-Spine: COMMON NORMALS: supple GENERAL: Yes normal visual inspection Resp: COMMON NORMALS: normal respiratory effort, No retractions, No use of accessory muscles and clear to auscultation bilaterally AUSCULTATION: clear to auscultation bilaterally Cardio: COMMON NORMALS: regular rate, regular rhythm, S1 normal heart sound present, S2 normal heart sound present, No gallops present (Cardio), No clicks present (Cardio), No murmurs present (Cardio) and Peripheral pulses 2+ throughout RATE: regular rate RHYTHM: regular rhythm HEART SOUNDS: S1 normal heart sound present and S2 normal heart sound present PERIPHERAL PULSES: Peripheral pulses 2+ throughout GI: COMMON NORMALS: Normal to inspection, nondistended, normoactive bowel sounds present, Soft to palpation and no masses PALPATION: Yes Soft to palpation and Yes Tenderness to palpation present (GI) Details: other (Lower abdomen over bladder.) : COMMON NORMALS: Yes no CVA tenderness BLADDER/KIDNEY EXAM: Yes no CVA tenderness Back/Pelvis: COMMON NORMALS: no CVA tenderness Extremity: COMMON NORMALS: normal to inspection Neuro: COMMON NORMALS: patient oriented x3 and moves all extremities SENSORIUM/ORIENTATION: Yes alert Skin: GENERAL SKIN EXAM: dry skin Course ED course: I have talked with Dr. Mckeon about patient's case and she reviewed all the lab findings with me and patient's improvement of blood pressure. She agreed and thought patient could be discharged home. Vital Signs: Vital signs: Vital Signs Temperature 98.0 F 06/29/20 00:50 Pulse Rate 61 06/29/20 03:19 Respiratory Rate 14 06/29/20 02:34 Blood Pressure 116/68 06/29/20 03:19 Pulse Oximetry 96 06/29/20 03:19 MDM - General Adult MDM Narrative: Medical decision making narrative: Patient is a 65-year-old female comes to the ED with UTI symptoms. Patient has a past medical history of chronic UTI. Upon arrival patient's blood pressure was 65/45. CBC was unremarkable. Sodium 129 and creatinine 1.0. Rest of CMP unremarkable. UA was clean and showed no signs of UTI. Lactic was performed and it was 2.[address] of the abdomen Showed no acute findings. Patient was given IV fluids, Zofran and morphine, while here in the ED and her symptoms improved. Her blood pressure improved to 116/68. . I talked with Dr. Mckeon about patient's case and she agreed that patient could be discharged home. Patient was diagnosed with UTI symptoms and hypotension. She was sent home with a prescription for Bactrim and told to wait and only fill it if after couple days she is still having UTI symptoms. I also provided patient with a written order to have urinalysis performed on Friday, July 03 to recheck. Return to ED precautions given. Follow-up with PCP in 5 to 7 days for reevaluation. Patient understood and agreed with plan. Lab Data: Attestation: I reviewed the patient's lab results. Labs: Lab Results 06/28/20 06/28/20 06/28/20 Range/Units 23:16 23:16 23:16 WBC 7.6 (4.0-10.0) 10^3/ uL RBC 3.46 L (4.1-5.3) 10^6/u L Hgb 10.2 L (11.5-15.3) g/dL Hct 31.1 L (37.0-47.0) % MCV 89.9 (81-99) fL MCH 29.5 (28.0-34.0) pg MCHC 32.8 (30.0-36.0) g/dL RDW 13.8 (12.1-15.1) % Plt Count 143 (130-400) 10^3/c mm MPV 11.0 H (7.4-10.4) fL Neut % (Auto) 81.9 % Lymph % (Auto) 12.4 % [place] % (Auto) 4.0 % Eos % (Auto) 0.3 % Baso % (Auto) 0.3 % Neut # (Auto) 6.21 (1.8-7.7) 10^3/u L Lymph # (Auto) 0.9 (0.8-4.8) 10^3/u L [place] # (Auto) 0.3 (0.2-0.9) 10^3/u L Eos # (Auto) 0.0 (0.0-0.8) 10^3/u L Baso # (Auto) 0.0 (0.0-0.1) 10^3/u L Nucleated RBC % (a uto) 0 % Nucleated RBCs # 0.0 /100WBC Sodium 129 L (136-145) mmol/L Potassium 4.1 (3.5-5.1) mmol/L Chloride 96 L (98-107) mmol/L Carbon Dioxide 22 (22-29) mmol/L Anion Gap 15.1 (5-19) BUN 12 (8-23) mg/dL Creatinine 1.0 H (0.5-0.9) mg/dL GFR Calculation 55.6 L (90-130) mL/min Glucose 149 H (65-115) mg/dL Calculated Osmolal ity 271 L (285-295) mOsm/k g Lactic Acid 2.4 H (0.5-2.2) mmol/L Lactic Acid (Sepsi s) (0.5-2.2) mmol/L Calcium 8.9 (8.5-10.5) mg/dL Total Bilirubin 0.4 (0.15-1.2) mg/dL AST 37 H (0-32) U/L ALT 12 (0-33) U/L Alkaline Phosphata se 63 (35-105) IU/L Total Protein 6.6 (6.6-8.7) g/dL Albumin 3.4 L (3.5-5.2) g/dL Globulin 3.2 (1.3-4.6) g/dL Lipase 22 (13-60) U/L Urine Color (Yellow) Urine Appearance (CLEAR) Urine pH (5-7) Ur Specific Gravit y (1.005-1.030) Urine Protein (Negative) Urine Glucose (UA) (Normal) Urine Ketones (Negative) Urine Blood (Negative) Urine Nitrate (Negative) Urine Bilirubin (Negative) Urine Urobilinogen (Negative) mg/dL Ur Leukocyte Sabrina ase (Negative) 06/29/20 06/29/20 Range/Units 01:56 02:16 WBC (4.0-10.0) 10^3/ uL RBC (4.1-5.3) 10^6/u L Hgb (11.5-15.3) g/dL Hct (37.0-47.0) % MCV (81-99) fL MCH (28.0-34.0) pg MCHC (30.0-36.0) g/dL RDW (12.1-15.1) % Plt Count (130-400) 10^3/c mm MPV (7.4-10.4) fL Neut % (Auto) % Lymph % (Auto) % [place] % (Auto) % Eos % (Auto) % Baso % (Auto) % Neut # (Auto) (1.8-7.7) 10^3/u L Lymph # (Auto) (0.8-4.8) 10^3/u L [place] # (Auto) (0.2-0.9) 10^3/u L Eos # (Auto) (0.0-0.8) 10^3/u L Baso # (Auto) (0.0-0.1) 10^3/u L Nucleated RBC % (a uto) % Nucleated RBCs # /100WBC Sodium (136-145) mmol/L Potassium (3.5-5.1) mmol/L Chloride (98-107) mmol/L Carbon Dioxide (22-29) mmol/L Anion Gap (5-19) BUN (8-23) mg/dL Creatinine (0.5-0.9) mg/dL GFR Calculation (90-130) mL/min Glucose (65-115) mg/dL Calculated Osmolal ity (285-295) mOsm/k g Lactic Acid (0.5-2.2) mmol/L Lactic Acid (Sepsi s) 0.5 (0.5-2.2) mmol/L Calcium (8.5-10.5) mg/dL Total Bilirubin (0.15-1.2) mg/dL AST (0-32) U/L ALT (0-33) U/L Alkaline Phosphata se (35-105) IU/L Total Protein (6.6-8.7) g/dL Albumin (3.5-5.2) g/dL Globulin (1.3-4.6) g/dL Lipase (13-60) U/L Urine Color Yellow (Yellow) Urine Appearance Clear (CLEAR) Urine pH 7.0 (5-7) Ur Specific Gravit y 1.000 L (1.005-1.030) Urine Protein Neg (Negative) Urine Glucose (UA) Norm (Normal) Urine Ketones Negative (Negative) Urine Blood Neg (Negative) Urine Nitrate Negative (Negative) Urine Bilirubin Neg (Negative) Urine Urobilinogen Norm (Negative) mg/dL Ur Leukocyte Sabrina ase Negative (Negative) Imaging Data^: CT Abd/Pel: Attestation: I personally reviewed and interpreted this imaging study as follows: Radiologist's impression: [address] [address] [address] Scan Report Signed Patient: Edyta Camp Unit #: [id number] : 1955 Age/Sex: 65 / F ADM Date: 06/28/20 Loc: ER Room/Bed: Attending Dr: Ordering Provider/Ordering MD: Omar Sorto Date of Service: 06/29/20 Procedure(s): CT abdomen pelvis w con* [id number] Accession Number(s): [id number] Report Number: [id number] PROCEDURE INFORMATION: Exam: CT Abdomen And Pelvis With Contrast Exam date and time: 06/29/2020 1:03 AM Age: 65 years old Clinical indication: Abdominal pain; Generalized; Prior surgery; Surgery date: 6+ months; Surgery type: Gb, hyst; Additional info: Abdom pain TECHNIQUE: Imaging protocol: Computed tomography of the abdomen and pelvis with intravenous contrast. Radiation optimization: All CT scans at this facility use at least one of these dose optimization techniques: automated exposure control; mA and/or kV adjustment per patient size (includes targeted exams where dose is matched to clinical indication); or iterative reconstruction. Contrast material: OMNI 300; Contrast volume: 95 ml; Contrast route: INTRAVENOUS (IV); COMPARISON: CT abdomen pelvis w con* [id number] 08/24/2017 12:16 PM RADIATION DOSE METRICS: Total DLP (mGy-cm): 298.81 FINDINGS: Lungs: Bibasilar interstitial changes are again noted, which are likely chronic. A calcified granuloma is present in the left lower lobe. Heart: The heart is normal in size. Coronary artery calcifications are noted. Liver: Normal. No mass. Gallbladder and bile ducts: The gallbladder has been removed. No biliary ductal dilatation. Pancreas: Normal. No ductal dilation. Spleen: Normal. No splenomegaly. Adrenal glands: Normal. No mass. Kidneys and ureters: Normal. No hydronephrosis. Stomach and bowel: A large amount of stool is present in the colon. No intestinal obstruction. Appendix: The appendix is normal. Intraperitoneal space: Unremarkable. No free air. No significant fluid collection. Vasculature: Atherosclerotic changes are observed in the abdominal aorta. Mild ectasia of the infrarenal abdominal aorta is noted measuring up to 2.3 cm. Lymph nodes: Unremarkable. No enlarged lymph nodes. Urinary bladder: Unremarkable as visualized. Reproductive: Unremarkable as visualized. Bones/joints: Unremarkable. No acute fracture. Soft tissues: Unremarkable. CT/CT abdomen pelvis w con* [id number] IMPRESSION: 1. No acute abnormality is seen in the abdomen or pelvis. Possible constipation. 2. Chronic interstitial lung disease. 3. Atherosclerosis and coronary artery disease. Radiation Dose CTDIVOL = (mGy): DLP = 298.81 (mGy-cm) Dictated By: Bayron Hinton MD Signed By: Bayron Hinton MD Signed Date/Time: 06/29/20149 DD/ 9 Discharge Plan Discharge Patient Disposition: Home Clinical Impression: UTI symptoms Hypotension Qualifiers: Hypotension type: unspecified hypotension type Qualified Code(s): I95.9 - Hypotension, unspecified Condition: Stable Prescriptions: New sulfamethoxazole-trimethoprim 800-160 mg tablet 1 tab PO BID 7 Days Qty: 14 RF: 0 No Action fluticasone propionate 50 mcg/actuation spray,suspension 1 spray INTRANASAL DAILY PRN (Reason: Allergy Symptoms) RF: 0 alprazolam 0.5 mg tablet 0.5 mg PO TID RF: 0 aspirin [Aspir-81] 81 mg tablet,delayed release (DR/EC) 81 mg PO DAILY RF: 0 chlordiazepoxide-clidinium 5-2.5 mg capsule 1 - 2 cap PO TID PRN (Reason: Anxiety) RF: 0 clobetasol 0.05 % ointment 1 applic TOPICAL DAILY PRN (Reason: Itching) RF: 0 cyanocobalamin (vitamin B-12) 1,000 mcg capsule 1,000 mcg PO DAILY RF: 0 fenofibrate nanocrystallized 48 mg tablet 48 mg PO DAILY RF: 0 fluoxetine 40 mg capsule 40 mg PO DAILY RF: 0 magnesium oxide 400 mg magnesium tablet 400 mg PO BID RF: 0 nitroglycerin [Nitrostat] 0.4 mg tablet, sublingual 0.4 mg SUBLINGUAL Q5M PRN (Reason: Chest Pain) RF: 0 pantoprazole 40 mg tablet,delayed release (DR/EC) 40 mg PO BID RF: 0 clopidogrel [Plavix] 75 mg tablet 75 mg PO DAILY RF: 0 potassium chloride 10 mEq tablet,ER particles/crystals 20 meq PO QAM RF: 0 tramadol 50 mg tablet 50 mg PO TID PRN (Reason: Pain) RF: 0 levothyroxine 112 mcg tablet 112 mcg PO DAILY RF: 0 gabapentin 300 mg capsule 300 mg PO TID PRN (Reason: nerve pain) RF: 0 biotin 1,000 mcg Tablet,Chewable 1,000 mcg PO DAILY RF: 0 400 mcg Tablet,Chewable 400 mcg PO DAILY RF: 0 Zofran 4 mg tablet 4 mg PO Q6H PRN (Reason: nausea and vomiting) Qty: 20 RF: 0 lidocaine [Lidoderm] 5 % Adhesive Patch,Medicated 1 patch TOPICAL DAILY PRN (Reason: pain) RF: 0 cholecalciferol (vitamin D3) [Vitamin D3] 125 mcg (5,000 unit) Tablet 125 mcg PO DAILY RF: 0 prednisone 1 mg Tablet 1 mg PO DAILY Qty: 7 RF: 0 triamcinolone acetonide 0.1 % Cream 1 applic TOPICAL DAILY PRN (Reason: unknown) RF: 0 trazodone 150 mg tablet 150 - 300 mg PO BEDTIME RF: 0 nystatin 100,000 unit/gram cream See Rx Instructions .ROUTE .COMPLEX PRN (Reason: Itching) RF: 0 hydroxyzine HCl 25 mg Tablet 25 mg PO QID PRN (Reason: Itching) RF: 0 Restasis 0.05 % Dropperette 1 drp OPHTHALMIC (EYE) Q12H PRN (Reason: Dry Eyes) RF: 0 Discharge Orders: Discharge Order (Routine); Ordered 06/29/20 Ordered By: Omar Sorto Referrals: Raheem Baron [Primary Care Provider] - Discharge Diet: Regular Discharge Activity: Increase activity as tolerated Patient Instructions: Urinary Tract Infection in Women (ED), Hypotension (ED), Dysuria (ED) Activity Restrictions/Additional Instructions: Follow-up with medical provider as directed in 5 to 7 days. I am sending you with prescription order to get a urinalysis on Friday, July 03. From sending you home with a prescription for Bactrim, fill prescription if UTI symptoms or not improving after couple days. Return to the ER or your medical provider if condition worsens. Please read and understand discharge instructions. If any questions, please ask. Coding Level of Care Code ED Payroll Assistant for Al Fwd Exam Comprehensive
[2020-06-28] MEDS: sodium chloride 0.9% 1,000 ML 999 ML IV (23:19)
[2020-06-28 23:29] LABS: Basophils % 0.3 %; Eosinophils % 0.3 %; Hematocrit 31.1 % (37.0-47.0); Hemoglobin 10.2 g/dL (11.5-15.3); Lymphocytes # 0.9 10^3/uL (0.8-4.8); Lymphocytes % 12.4 %; Mean Corpuscular HGB Conc 32.8 g/dL (30.0-36.0); Mean Corpuscular Hemoglobin 29.5 pg (28.0-34.0); Mean Corpuscular Volume 89.9 fL (81-99); Monocytes # 0.3 10^3/uL (0.2-0.9); Neutrophils # 6.21 10^3/uL (1.8-7.7); Neutrophils % 81.9 %; Nucleated Red Blood Cells % 0 %; Platelet Count 143 10^3/cmm (130-400); Red Blood Count 3.46 10^6/uL (4.1-5.3); Red Cell Distribution Width 13.8 % (12.1-15.1); White Blood Count 7.6 10^3/uL (4.0-10.0)
[2020-06-28 23:45] LABS: Alanine Aminotransferase 12 U/L (0-33); Albumin Level 3.4 g/dL (3.5-5.2); Alkaline Phosphatase 63 IU/L (35-105); Anion Gap 15.1 (5-19); Aspartate Amino Transferase 37 U/L (0-32); Blood Urea Nitrogen 12 mg/dL (8-23); Calcium 8.9 mg/dL (8.5-10.5); Carbon Dioxide 22 mmol/L (22-29); Chloride 96 mmol/L (98-107); Globulin 3.2 g/dL (1.3-4.6); Glomerular Filtration Rate 55.6 mL/min (90-130); Glucose 149 mg/dL (65-115); Lipase 22 U/L (13-60); Osmolality Calculated 271 mOsm/kg (285-295); Potassium 4.1 mmol/L (3.5-5.1); Sodium 129 mmol/L (136-145); Total Bilirubin 0.4 mg/dL (0.15-1.2); Total Protein 6.6 g/dL (6.6-8.7)
[2020-06-28 23:46] LABS: Lactic Sepsis W/Reflex 2.4 mmol/L (0.5-2.2)
--- NOTE | 2020-06-29 00:28 | CTR_ITS ---
PROCEDURE INFORMATION: Exam: CT Abdomen And Pelvis With Contrast Exam date and time: 06/29/2020 1:03 AM Age: 65 years old Clinical indication: Abdominal pain; Generalized; Prior surgery; Surgery date: 6+ months; Surgery type: Gb, hyst; Additional info: Abdom pain TECHNIQUE: Imaging protocol: Computed tomography of the abdomen and pelvis with intravenous contrast. Radiation optimization: All CT scans at this facility use at least one of these dose optimization techniques: automated exposure control; mA and/or kV adjustment per patient size (includes targeted exams where dose is matched to clinical indication); or iterative reconstruction. Contrast material: OMNI 300; Contrast volume: 95 ml; Contrast route: INTRAVENOUS (IV); COMPARISON: CT abdomen pelvis w con* [id number] 08/24/2017 12:16 PM RADIATION DOSE METRICS: Total DLP (mGy-cm): 298.81 FINDINGS: Lungs: Bibasilar interstitial changes are again noted, which are likely chronic. A calcified granuloma is present in the left lower lobe. Heart: The heart is normal in size. Coronary artery calcifications are noted. Liver: Normal. No mass. Gallbladder and bile ducts: The gallbladder has been removed. No biliary ductal dilatation. Pancreas: Normal. No ductal dilation. Spleen: Normal. No splenomegaly. Adrenal glands: Normal. No mass. Kidneys and ureters: Normal. No hydronephrosis. Stomach and bowel: A large amount of stool is present in the colon. No intestinal obstruction. Appendix: The appendix is normal. Intraperitoneal space: Unremarkable. No free air. No significant fluid collection. Vasculature: Atherosclerotic changes are observed in the abdominal aorta. Mild ectasia of the infrarenal abdominal aorta is noted measuring up to 2.3 cm. Lymph nodes: Unremarkable. No enlarged lymph nodes. Urinary bladder: Unremarkable as visualized. Reproductive: Unremarkable as visualized. Bones/joints: Unremarkable. No acute fracture. Soft tissues: Unremarkable. CT/CT abdomen pelvis w con* [id number] IMPRESSION: 1. No acute abnormality is seen in the abdomen or pelvis. Possible constipation. 2. Chronic interstitial lung disease. 3. Atherosclerosis and coronary artery disease. Radiation Dose CTDIVOL = (mGy): DLP = 298.81 (mGy-cm)
[2020-06-29 00:50] VITALS: BP 89/45; PULSE 67; RESP 18; TEMP 36.7; O2SAT 95
[2020-06-29 01:10] LABS: Reflex Lactate Order REFLEX LACTIC ORDERD
[2020-06-29] MEDS: iohexol 300 mg/mL 100 mL Btl IV (01:13)
[2020-06-29 01:58] LABS: Add Urine Microscopic? NO
[2020-06-29 02:09] LABS: Urine Appearance Clear (CLEAR); Urine Color Yellow (Yellow)
[2020-06-29 02:10] LABS: Bilirubin Urine Neg (Negative); Blood Urine Neg (Negative); Glucose Urine UA Norm (Normal); Ketones Urine Negative (Negative); Leukocyte Esterase Urine Negative (Negative); Nitrate Urine Negative (Negative); Protein Urine Neg (Negative); Urobilinogen Urine Norm (Negative)
[2020-06-29 02:25] VITALS: RESP 14
[2020-06-29] MEDS: ondansetron 2 mg/ML SDV 2 mL 4 MG IVP (02:25)
[2020-06-29] MEDS: morphine 4 mg/mL SDV 1 mL 2 MG IVP (02:25)
[2020-06-29 02:34] VITALS: BP 117/74; PULSE 64; RESP 14; O2SAT 95
[2020-06-29 02:57] LABS: Lactic Acid level (Lactate) 0.5 mmol/L (0.5-2.2)
[2020-06-29 03:19] VITALS: BP 116/68; PULSE 61; O2SAT 96
== END 2020-06-29 03:23 | disposition home or self-care (01) ==
PROVIDERS: Emergency Provider Physician Assistant; PCP Family Medicine
DX: R10.9 Unspecified abdominal pain (principal); M54.9 Dorsalgia, unspecified; I95.9 Hypotension, unspecified; Z79.82 Long term (current) use of aspirin; I11.0 Hypertensive heart disease with heart failure; I50.31 Acute diastolic (congestive) heart failure; J44.9 Chronic obstructive pulmonary disease, unspecified; I25.10 Atherosclerotic heart disease of native coronary artery without angina pectoris; E78.2 Mixed hyperlipidemia; F17.210 Nicotine dependence, cigarettes, uncomplicated
CPT/HCPCS: 12345; 74177; 80053; 81003; 83605; 83690; 85025; 87040; 96374; 96375; 99283; 99291; J2270; J2405; J7030; Q9967

== ENCOUNTER → 2020-07-04 15:12 | Outpatient (BNVA) | payer BC, SELFPAY | PROVIDERS: PCP Family Medicine; Visit Provider Licensed Practical Nurse | DX: M51.17 Intervertebral disc disorders with radiculopathy, lumbosacral region (principal); F17.210 Nicotine dependence, cigarettes, uncomplicated | CPT/HCPCS: 99213 ==

== ENCOUNTER → 2020-07-11 14:40 | Outpatient (BNVA) | payer BC, SELFPAY | PROVIDERS: PCP Family Medicine; Visit Provider Family Medicine | DX: N39.0 Urinary tract infection, site not specified (principal) | CPT/HCPCS: 81000 ==

== ENCOUNTER → 2020-07-20 12:44 | Outpatient (BNVA) | payer BC, SELFPAY | PROVIDERS: PCP Family Medicine; Referring Provider Family Medicine; Visit Provider Nurse Practitioner Family | DX: N39.0 Urinary tract infection, site not specified (principal) | CPT/HCPCS: 87086 ==

== ENCOUNTER → 2020-10-18 15:32 | Outpatient (BNVA) | payer BC, SELFPAY | PROVIDERS: PCP Family Medicine; Visit Provider Urology | DX: N39.0 Urinary tract infection, site not specified (principal); B37.3 Candidiasis of vulva and vagina | CPT/HCPCS: 81003 ==

== ENCOUNTER → 2020-11-02 12:57 | Outpatient (BNVA) | payer BC, SELFPAY | PROVIDERS: PCP Family Medicine; Referring Provider Family Medicine; Visit Provider Orthopaedic Surgery | DX: M48.062 Spinal stenosis, lumbar region with neurogenic claudication (principal) | CPT/HCPCS: 72110 ==

== ENCOUNTER 2020-11-13 13:58 | Outpatient (CLI) | payer BC, SELFPAY ==
--- NOTE | 2020-11-13 14:03 | MM_ITS ---
WS: [id number] SCREENING DIGITAL MAMMOGRAM WITH CAD HISTORY: SCREENING COMPARISON: 04/02/2018, 02/08/2016 Bilateral CC and MLO views submitted. Computer aided detection analyzed. Breast composition: There are scattered areas of fibroglandular density. Increasing asymmetry posteri or to the RIGHT nipple has progressed since prior studies. Otherwise calcifications in the LEFT breas t are stable. MM/[place] [id number] IMPRESSION: BI-RADS: 0-Incomplete: Need additional imaging evaluation FOLLOW UP: Need Additional Imaging RIGHT breast: Spot compression views (CC and MLO). True ML. Ultrasound to follo w if abnormality persists.
== END 2020-11-13 13:59 | disposition home or self-care (01) ==
LOC: RADSHAW 14:01
PROVIDERS: PCP Family Medicine; Visit Provider Family Medicine
DX: Z12.31 Encounter for screening mammogram for malignant neoplasm of breast (principal); R92.1 Mammographic calcification found on diagnostic imaging of breast
CPT/HCPCS: 77067

== ENCOUNTER 2020-11-30 11:17 | Outpatient (CLI) | payer BC, SELFPAY ==
--- NOTE | 2020-11-30 11:22 | US_ITS ---
WS: [id number] ADDITIONAL VIEWS RIGHT BREAST RIGHT BREAST ULTRASOUND, LIMITED HISTORY: ABNORMAL MAMMOGRAM COMPARISON: 11/13/2020, 04/02/2018 and 02/08/2016 Compression views right CC and MLO projection. True ML also submitted. There is mild asymmetry posterior to the RIGHT nipple seen best on the MLO projection. Asymmetry near ly completely resolves on the CC projection. RIGHT breast ultrasound, limited. There is a mildly prominent duct with a small amount of debris posterior to the nipple which most li elton correlates with the mammographic finding. No increased vascularity or shadowing. US/US breast RT limited* [id number] IMPRESSION: BI-RADS: 3-Probably Benign FOLLOW-UP: 6 Month Follow-up Recommend follow-up ultrasound in 6 months of the RIGHT breast.
== END 2020-11-30 11:18 | disposition home or self-care (01) ==
PROVIDERS: PCP Family Medicine; Visit Provider Family Medicine
DX: R92.8 Other abnormal and inconclusive findings on diagnostic imaging of breast (principal); N64.89 Other specified disorders of breast
CPT/HCPCS: 76642; 77065; 87635

== ENCOUNTER 2020-12-06 12:39 | Day surgery (SDC) | payer BC, SELFPAY ==
[2020-12-05 15:47] VITALS: BMI 23.1
--- NOTE | 2020-12-06 | SCC_ITS ---
Procedure Done: L4/5 laminectomy with partial facetectomy bilateral 8.8 seconds of fluoroscopic guidance, for a cumulative dose of 1.85 mGy, was provided to Dr. Handy by the radiology department. C-arm images of the lumbar spine were saved for the patient's permanent record. [facility]
--- NOTE | 2020-12-06 | XR_ITS ---
WS: [id number] Lumbar spine, C-arm fluoroscopy view, 12/06/2020 Clinical Data: OR PICS Comparison: Lumbar spine, 11/02/2020. Findings: Dr. Handy views the L4-L5 disc interspace. XR/XR lumbar spine 2-3V* [id number] Impression: L4-L5 disc interspace.
[2020-12-06 12:56] VITALS: BP 127/80; PULSE 59; RESP 18; TEMP 36.3; O2SAT 98
--- NOTE | 2020-12-06 13:22 | PC.NURSE ---
PT STATED SHE DOES NOT KNOW WHEN SHE TOOK HER MEDICATIONS LAST EXCEPT THE 2 SHE TOLD ME ABOUT
--- NOTE | 2020-12-06 14:01 | ANES.PREANE2 ---
Pre-Anesthetic Assessment Pre-Anesthetic Assessment: Height/Weight: Height 1.65 m Weight 63.049 kg Temp Pulse Resp BP Pulse Ox 97.4 F L 59 L 18 127/80 98 12/06/20 12:56 12/06/20 12:56 12/06/20 12:56 12/06/20 12:56 12/06/20 12:56 Preop Diagnosis: anemia, gerd, history of polyps Proposed Procedure: Operation Date: 12/06/20 14:00 Proposed Procedures p Lumbar Spine Decompression M48.062 [id number] L4-5 mis invasive decompession(Not Applicable) - Guanako Handy, DO Was Beta Yue taken within 24 hours: N/A Was Clonidine taken within 24 hours: N/A Last intake: Intake Last Liquid Date 12/05/20 Last Liquid Time 23:00 Last Solid Date 12/05/20 Last Solid Time 18:00 Social: Social History: Tobacco and No alcohol Exam: Pre-Anes Outpt Exam: alert, oriented x 3 and regular rate & rhythm Airway: Submandibular: WNL Cervical ROM: WNL MP: 2 Dentition: False Pulmonary: Pulmonary: COPD CV/HEM: CV/HEM: CAD, CHF, HTN and Murmur (MR) GI: GI: GERD Metabolic: Metabolic: Thyroid Comments: Chronic steroid for SLE Neuropsych: Neuropsych: Anxiety Anesthetic Plan: ASA status: 3 Anesthesia: General Risk of > 500 ml blood loss (7ml/kg in children): No PFSH Anesthesia PFSH: Medical History Acute diastolic heart failure due to valvular disease Anxiety disorder Arteriosclerotic cardiovascular disease Atherosclerosis of coronary artery of [place] heart without angina pectoris Atherosclerotic heart disease of [place] coronary artery with other forms of angina pectoris Chronic kidney disease COPD exacerbation Essential (primary) hypertension GERD (gastroesophageal reflux disease) Hypothyroidism Intervertebral disc disorder with radiculopathy of lumbosacral region Lumbar stenosis with neurogenic claudication Mitral regurgitation Mixed hyperlipidemia Palpitations Recurrent UTI Systemic lupus erythematosus, unspecified Ventricular arrhythmia Vitamin D deficiency Surgical History H/O: hysterectomy with BSO History of cholecystectomy History of heart artery stent 5 stents Family History Sister Cancer Brain Hypertension Family/Other Hypertension Several members Social History Smoking and tobacco status: current every day smoker cigarettes Packs smoked per day: 1 Years cigarettes smoked: 40 Alcohol intake: never Desire information about alcohol rehabilitation?: No Counseling given: No Desire information about substance/drug rehabilitation?: No Counseling given: No Caregiver/support person: No Lives independently: Yes Household members: spouse Marital status: Current occupational status: unemployed History of recent travel: No Current gender identity: Female Data Anesthesia Cardiac Studies: Holter Monitor 03/23/20
[2020-12-06] MEDS: sodium chloride 0.9% 1,000 ML 30 ML IV (14:04)
[2020-12-06] MEDS: HYDROmorphone 1 mg/mL INJ 1 mL 0.5 MG IVP (14:05)
[2020-12-06] MEDS: citric acid-sodium citrate 30 mL UDC PO (14:38)
[2020-12-06] MEDS: famotidine 20 mg/2 mL INJ IVP (14:38)
[2020-12-06] MEDS: metoclopramide 5 mg/mL SDV 2 mL 10 MG IVP (14:39)
--- NOTE | 2020-12-06 14:45 | W.PM.OPSUD ---
Surgery/Procedure H&P Update DATE OF PROCEDURE: December 06, 2020 DATE H&P PERFORMED: 12/06/20 PREOP DIAGNOSIS: anemia, gerd, history of polyps PLANNED PROCEDURE: Operation Date: 12/06/20 14:00 Proposed Procedures p Lumbar Spine Decompression M48.062 [id number] 19900 L4-5 mis invasive decompession(Not Applicable) - Guanako Handy DO
--- NOTE | 2020-12-06 14:52 | PM.HP ---
Providers/Chief Complaint Primary Care Provider: Raheem Baron Chief Complaint: lumbar decompression History of Present Illness Edyta Camp is a 65 year old female low back pain. Onset: [gradually and worsening] Duration: [2 years] Characteristics: [sharp, dull, aching] Severity: [moderate] Location: [low back] Radiating symptoms: [REMEDIOS lateral legs] Aggravating factors: [standing, walking, sitting, bending, lifting] Alleviating factors: [laying flat] Neuro deficits: numbness, tingling, & weakness REMEDIOS lower extremities, incontinence of bowel/bladder, saddle anesthesia. Prior tx: [injections by pain management, formal PT, oral anti-inflammatories] Medications/Allergies Home Medications Medication Instructions Recorded Confirmed Last Taken Type alprazolam 0.5 mg tablet 0.5 mg PO TID 09/22/19 12/06/20 12/06/20 11:00 History aspirin 81 mg tablet,delayed 81 mg PO DAILY 09/22/19 12/05/20 03/29/20 History release clopidogrel 75 mg tablet 75 mg PO DAILY 09/22/19 12/05/20 03/26/20 History cyanocobalamin (vitamin B-12) 1,000 mcg PO DAILY 09/22/19 12/05/20 03/29/20 History 1,000 mcg capsule fluoxetine 40 mg capsule 40 mg PO DAILY 09/22/19 12/05/20 03/29/20 History magnesium oxide 400 mg PO BID 09/22/19 12/05/20 03/29/20 History nitroglycerin 0.4 mg sublingual 0.4 mg SUBLINGUAL Q5M PRN 09/22/19 12/05/20 03/29/20 History tablet pantoprazole 40 mg tablet,delayed 40 mg PO BID tab 09/22/19 12/05/20 03/29/20 History release potassium chloride 10 mEq 20 meq PO QAM tab 09/22/19 12/05/20 03/29/20 History tablet,extended release(part/cryst) cholecalciferol (vitamin D3) 125 mcg PO DAILY 01/02/20 12/05/20 03/29/20 History [Vitamin D3] prednisone 1 mg PO DAILY #7 tab 02/01/20 12/05/20 03/29/20 Rx fluticasone propionate 50 1 spray INTRANASAL DAILY PRN gm 0712/05/20 03/29/20 History mcg/actuation nasal spray,suspension Restasis 1 drp OPHTHALMIC (EYE) Q12H PRN 02/28/20 12/05/20 03/29/20 History nystatin See Rx Instructions .ROUTE 02/28/20 12/05/20 03/29/20 History .COMPLEX PRN trazodone 150 - 300 mg PO BEDTIME 02/28/20 12/05/20 03/29/20 History triamcinolone acetonide 1 applic TOPICAL DAILY PRN 02/28/20 12/05/20 03/29/20 History gabapentin 300 mg capsule 300 mg PO TID PRN cap 03/09/20 12/05/20 03/29/20 History levothyroxine 112 mcg tablet 112 mcg PO DAILY tab 03/09/20 12/05/20 03/29/20 History tramadol 50 mg tablet 50 mg PO TID PRN tab 03/09/20 12/05/20 03/29/20 History ondansetron HCl [Zofran] 4 mg PO Q6H PRN #20 tab 06/07/20 12/05/20 Unknown Rx diphenhydramine HCl 25 mg capsule 25 mg PO TID PRN 07/20/20 12/05/20 Unknown History fluconazole 150 mg tablet 150 mg PO Q3D #10 tab 10/18/20 12/05/20 Unknown Rx Allergies Allergy/AdvReac Type Severity Reaction Status Date / Time No Known Allergies Allergy Verified 12/06/20 13:04 PFSH Acute PFSH: Medical History Acute diastolic heart failure due to valvular disease Anxiety disorder Arteriosclerotic cardiovascular disease Atherosclerosis of coronary artery of [place] heart without angina pectoris Atherosclerotic heart disease of [place] coronary artery with other forms of angina pectoris Chronic kidney disease COPD exacerbation Essential (primary) hypertension GERD (gastroesophageal reflux disease) Hypothyroidism Intervertebral disc disorder with radiculopathy of lumbosacral region Lumbar stenosis with neurogenic claudication Mitral regurgitation Mixed hyperlipidemia Palpitations Recurrent UTI Systemic lupus erythematosus, unspecified Ventricular arrhythmia Vitamin D deficiency Surgical History H/O: hysterectomy with BSO History of cholecystectomy History of heart artery stent 5 stents Family History Sister Cancer Brain Hypertension Family/Other Hypertension Several members Social History Smoking and tobacco status: current every day smoker cigarettes Packs smoked per day: 1 Years cigarettes smoked: 40 Alcohol intake: never Desire information about alcohol rehabilitation?: No Counseling given: No Desire information about substance/drug rehabilitation?: No Counseling given: No Caregiver/support person: No Lives independently: Yes Household members: spouse Marital status: Current occupational status: unemployed History of recent travel: No Current gender identity: Female Vitals/I&O/Wt Last Vital Signs Temp 97.4 F L 12/06/20 12:56 Pulse 59 L 12/06/20 12:56 Resp 18 12/06/20 12:56 BP 127/80 12/06/20 12:56 Pulse Ox 98 12/06/20 12:56 Weight last 48 hrs Weight 139 lb Physical Exam Narrative: EXAM NARRATIVE: EXAM NARRATIVE: CONSTITUTIONAL: The patient is normal appearing, well groomed, cooperative and in no apparent distress. GENERAL: Patient in no acute distress. Well nourished. CARDIAC: Regular rate and rhythm. CHEST: Normal inspirator effort, normal respiratory rate. ABDOMEN: Soft and non-tender. SKIN: Clear, warm and intact. NEURO?PSYCH: The patient is alert and oriented to person, place and time. NEUROVASCULAR: Upper Extremity Sensory - SILT. Motor Strength: Shoulder abduction C5: 5/5; Wrist extension C6: 5/5; Elbow extension C7: 5/5; Hand Sociology Adjunct Instructor C8: 5/5; Finger abduction T1: 5/5. Radial/ Ulnar/ Median in intact Lower Extremity Sensory - SILT. Motor Strength: Hip flexion L2/3; Ant/inner thigh: 5/5; Hip adduction L2/3: 5/5; Knee extension L4 Lat thigh: 5/5; Toe dorsiflexion L5: 5/5; Ankle dorsiflexion L5/ S1: 5/5; Plantar flexion S1: 5/5. DTR: Triceps 2+; Brachioradialis 2+; Patellar 2+; Achilles 2+. MUSCULOSKELETAL: UPPER EXTREMITIES: The patient had full active ROM in fingers, wrist, elbow, and shoulder. The patient demonstrated ability to fully flex/extend/abduct/adduct fingers, make ok sign, cross 2nd/3rd digits, extend 1st digit fully.. Radial pulse 2+, CR<2 seconds. LOWER EXTREMITIES: Pt has full, active ROM of toes, ankle, knee, and hip. Dorsalis pedis & posterior tibialis pulses 2+, CR<2 seconds. SPINE: Skin warm, dry, intact. A&P Assessment and plan (1) Lumbar stenosis with neurogenic claudication: L4/5 bilateral decompression Status: Acute Attestations Medical Necessity Statement*: failed conservative treatment Coding Level of Care Code Acute Ticket Machine Operator for [facility] Fwd Diagnoses Lumbar stenosis with neurogenic claudication M48.062
--- NOTE | 2020-12-06 15:02 | P.HP_ITS ---
Providers/Chief Complaint Primary Care Provider: Raheem Baron Chief Complaint: lumbar decompression History of Present Illness Edyta Camp is a 65 year old female Review of Systems Narrative: Const: Denies: fever(s) or chills Card: Denies: chest pain or dyspnea on exertion Resp: Denies: dyspnea or productive cough GI: Denies: abdominal pain, nausea or vomiting : Denies: difficulty voiding Musc: Reports: back pain, extremity pain and limited range of motion Skin/Breast: Denies: changes in skin color or dry skin Neuro: Denies: numbness in extremities or weakness in extremities Psych: Denies: anxiety Brett/Lymph: Denies: easy bruising or easy bleeding Medications/Allergies Home Medications Medication Instructions Recorded Confirmed Last Taken Type alprazolam 0.5 mg tablet 0.5 mg PO TID 09/22/19 12/06/20 12/06/20 11:00 History aspirin 81 mg tablet,delayed 81 mg PO DAILY 09/22/19 12/05/20 03/29/20 History release clopidogrel 75 mg tablet 75 mg PO DAILY 09/22/19 12/05/20 03/26/20 History cyanocobalamin (vitamin B-12) 1,000 mcg PO DAILY 09/22/19 12/05/20 03/29/20 History 1,000 mcg capsule fluoxetine 40 mg capsule 40 mg PO DAILY 09/22/19 12/05/20 03/29/20 History magnesium oxide 400 mg PO BID 09/22/19 12/05/20 03/29/20 History nitroglycerin 0.4 mg sublingual 0.4 mg SUBLINGUAL Q5M PRN 09/22/19 12/05/20 03/29/20 History tablet pantoprazole 40 mg tablet,delayed 40 mg PO BID tab 09/22/19 12/05/20 03/29/20 History release potassium chloride 10 mEq 20 meq PO QAM tab 09/22/19 12/05/20 03/29/20 History tablet,extended release(part/cryst) cholecalciferol (vitamin D3) 125 mcg PO DAILY 01/02/20 12/05/20 03/29/20 History [Vitamin D3] prednisone 1 mg PO DAILY #7 tab 02/01/20 12/05/20 03/29/20 Rx fluticasone propionate 50 1 spray INTRANASAL DAILY PRN gm 02/14/20 12/05/20 03/29/20 History mcg/actuation nasal spray,suspension Restasis 1 drp OPHTHALMIC (EYE) Q12H PRN 02/28/20 12/05/20 03/29/20 History nystatin See Rx Instructions .ROUTE 02/28/20 12/05/20 03/29/20 History .COMPLEX PRN trazodone 150 - 300 mg PO BEDTIME 02/28/20 12/05/20 03/29/20 History triamcinolone acetonide 1 applic TOPICAL DAILY PRN 02/28/20 12/05/20 03/29/20 History gabapentin 300 mg capsule 300 mg PO TID PRN cap 03/09/20 12/05/20 03/29/20 History levothyroxine 112 mcg tablet 112 mcg PO DAILY tab 03/09/20 12/05/20 03/29/20 History tramadol 50 mg tablet 50 mg PO TID PRN tab 03/09/20 12/05/20 03/29/20 History ondansetron HCl [Zofran] 4 mg PO Q6H PRN #20 tab 06/07/20 12/05/20 Unknown Rx diphenhydramine HCl 25 mg capsule 25 mg PO TID PRN 07/20/20 12/05/20 Unknown History fluconazole 150 mg tablet 150 mg PO Q3D #10 tab 10/18/20 12/05/20 Unknown Rx Allergies Allergy/AdvReac Type Severity Reaction Status Date / Time No Known Allergies Allergy Verified 12/06/20 13:04 PFSH Acute PFSH: Medical History Acute diastolic heart failure due to valvular disease Anxiety disorder Arteriosclerotic cardiovascular disease Atherosclerosis of coronary artery of [place] heart without angina pectoris Atherosclerotic heart disease of [place] coronary artery with other forms of angina pectoris Chronic kidney disease COPD exacerbation Essential (primary) hypertension GERD (gastroesophageal reflux disease) Hypothyroidism Intervertebral disc disorder with radiculopathy of lumbosacral region Lumbar stenosis with neurogenic claudication Mitral regurgitation Mixed hyperlipidemia Palpitations Recurrent UTI Systemic lupus erythematosus, unspecified Ventricular arrhythmia Vitamin D deficiency Surgical History H/O: hysterectomy with BSO History of cholecystectomy History of heart artery stent 5 stents Family History Sister Cancer Brain Hypertension Family/Other Hypertension Several members Social History Smoking and tobacco status: current every day smoker cigarettes Packs smoked per day: 1 Years cigarettes smoked: 40 Alcohol intake: never Desire information about alcohol rehabilitation?: No Counseling given: No Desire information about substance/drug rehabilitation?: No Counseling given: No Caregiver/support person: No Lives independently: Yes Household members: spouse Marital status: Current occupational status: unemployed History of recent travel: No Current gender identity: Female Vitals/I&O/Wt Last Vital Signs Temp 97.4 F L 12/06/20 12:56 Pulse 59 L 12/06/20 12:56 Resp 18 12/06/20 12:56 BP 127/80 12/06/20 12:56 Pulse Ox 98 12/06/20 12:56 Weight last 48 hrs Weight 139 lb Physical Exam Narrative: EXAM NARRATIVE: EXAM NARRATIVE: CONSTITUTIONAL: The patient is normal appearing, well groomed, cooperative and in no apparent distress. GENERAL: Patient in no acute distress. Well nourished. CARDIAC: Regular rate and rhythm. CHEST: Normal inspirator effort, normal respiratory rate. ABDOMEN: Soft and non-tender. SKIN: Clear, warm and intact. NEURO?PSYCH: The patient is alert and oriented to person, place and time. NEUROVASCULAR: Upper Extremity Sensory - SILT. Motor Strength: Shoulder abduction C5: 5/5; Wrist extension C6: 5/5; Elbow extension C7: 5/5; Hand Major Assembly Inspector C8: 5/5; Finger abduction T1: 5/5. Radial/ Ulnar/ Median in intact Lower Extremity Sensory - SILT. Motor Strength: Hip flexion L2/3; Ant/inner thigh: 5/5; Hip adduction L2/3: 5/5; Knee extension L4 Lat thigh: 5/5; Toe dorsiflexion L5: 5/5; Ankle dorsiflexion L5/ S1: 5/5; Plantar flexion S1: 5/5. DTR: Triceps 2+; Brachioradialis 2+; Patellar 2+; Achilles 2+. MUSCULOSKELETAL: UPPER EXTREMITIES: The patient had full active ROM in fingers, wrist, elbow, and shoulder. The patient demonstrated ability to fully flex/extend/abduct/adduct fingers, make ok sign, cross 2nd/3rd digits, extend 1st digit fully.. Radial pulse 2+, CR<2 seconds. LOWER EXTREMITIES: Pt has full, active ROM of toes, ankle, knee, and hip. Dorsalis pedis & posterior tibialis pulses 2+, CR<2 seconds. SPINE: Skin warm, dry, intact. A&P Assessment and plan (1) Lumbar stenosis with neurogenic claudication: Status: Acute Attestations Medical Necessity Statement*: failed conservative treatment Coding Level of Care Code Acute Nurse Assistant for [facility] Fwd Diagnoses Lumbar stenosis with neurogenic claudication M48.062
--- NOTE | 2020-12-06 16:14 | P.OP_ITS ---
Operative Report Date of procedure: December 06, 2020 Pre-op Diagnosis: Lumbar stenosis Post-op diagnosis: same Procedure Done: L4/5 laminectomy with partial facetectomy bilateral Surgeon: Guanako Handy Anesthesia: General Estimated blood loss (mL): 10 Condition: stable Disposition: PACU Procedure: L4/5 laminectomy with partial facetectomy bilateral Patient is brought to the operative suite. After undergoing anesthesia they are placed in the supine position. All areas of impingement are well padded. Patient is then prepped and draped in the normal sterile fashion. A skin incision is made over the L4/5 level. This is confirmed under c-arm guidance. A series of dilators are passed and the tubular retractor is docked on the L4 lamina. A bovie is used to clear the soft tissue off the lamina and the L 4/5 facet joint. A high speed joel is then used to perform the l aminectomy and take down the medial aspect of the L 4/5 facet joint. A kerrison rongeure was then used to take down the remaining lamina and smooth the edged of the laminectomy up to the point where the ligamentum flavum attaches. Attention was then brought to the medial aspect of the facet joint. The remaining medial aspect of the superior and inferior aspect of the facet joint were taken down with the kerrison from the pedicle of L4 to L 5. The facet joint had significant hypertrophy. Attention was then brought to the Ligamentum Flavum. The ligament was taken down from the lamina of L4 to L5 and out medially to the remaining facet joint. The ligament was thick. The dura was then exposed. The dura was in good repair. The L4 nerve was then traced with a curette out the L4/5 foramen and found to be adequately decompressed. The L5 nerve was traced with a curette around the L5 pedicle. The lateral recess was opened with a kerrison helping to further decompress the L5 nerve. The tubular retractor was then tilted to the contralateral side. The bovie was used to take down the soft tissue on the spinous process. The high speed joel was used to take down the spinous process and then the contralateral lamina of L4. The kerrison rongeur was used to take down the remaining lamina to the point where the ligamentum flavum attached and the ligamentum flavum was taken down from L4 to L5. The kerrison rongeur was then used to reach across and take down the medial aspect of the contralateral L4/5 facet joint.The currete was used to trace the contralateral L4 nerve out the L4/5 foramen to make sure it was decompressed adequatesly and the L5 was traced around the L5 pedicle. The lateral recess was opened further with the kerrison to ensure the L5 is adequately decompressed. Wound is then irrigated copiously with saline and surgiflo is used to stop any bleeding. The tubular retractor is removed and the wound is closed with vicryl and monocryl suture. Glue is then used to protect the wound. A sterile dressing is then placed. Patient was then placed in the supine position and transferred to the PACU in stable condition.
[2020-12-06 16:27] VITALS: BP 156/95; PULSE 78; RESP 12; TEMP 36.1; O2SAT 100
[2020-12-06 16:30] VITALS: BP 173/77; PULSE 64; RESP 18; O2SAT 100
--- NOTE | 2020-12-06 16:30 | P.PCN_ITS ---
PACU note PACU note: VSS, Good respiratory effort, report to HAND PRINTED CIRCUIT BOARD ASSEMBLER Post-Anesthesia Exam: awake
--- NOTE | 2020-12-06 16:30 | PM.PACU ---
PACU note PACU note: VSS, Good respiratory effort, report to TACTICAL/MOBILE WATCH OFFICER Post-Anesthesia Exam: awake
[2020-12-06 16:35] VITALS: BP 146/76; PULSE 66; RESP 15; TEMP 36.3; O2SAT 100
--- NOTE | 2020-12-06 16:48 | ANE.PACU2 ---
Inpatient post-anesthesia follow up: Airway intact: Yes Vital signs: Temperature 97.4 F Pulse Rate 66 Respiratory Rate 15 Blood Pressure 146/76 Pulse Oximetry 100 Oxygen Delivery Me thod Room Air Oxygen Flow Rate 6 Fraction of Inspir ed Oxygen Hydration adequate: Yes Nausea and vomiting: No Pain level: 2 Mental status: Baseline
[2020-12-06 16:54] VITALS: BP 167/74; PULSE 59; RESP 16; TEMP 36.3; O2SAT 97
== END 2020-12-06 17:23 | disposition home or self-care (01) ==
PROVIDERS: PCP Family Medicine; Visit Provider Orthopaedic Surgery
PROC: (CPT 63005; principal; 2020-12-06 13:30)
DX: M48.061 Spinal stenosis, lumbar region without neurogenic claudication (principal); J44.9 Chronic obstructive pulmonary disease, unspecified; I25.10 Atherosclerotic heart disease of native coronary artery without angina pectoris; K21.9 Gastro-esophageal reflux disease without esophagitis; F41.9 Anxiety disorder, unspecified; Z79.52 Long term (current) use of systemic steroids; I13.0 Hypertensive heart and chronic kidney disease with heart failure and stage 1 through stage 4 chronic kidney disease, or unspecified chronic kidney disease; N18.9 Chronic kidney disease, unspecified; I50.30 Unspecified diastolic (congestive) heart failure; E03.9 Hypothyroidism, unspecified; E78.2 Mixed hyperlipidemia; F17.210 Nicotine dependence, cigarettes, uncomplicated; E55.9 Vitamin D deficiency, unspecified; Z79.82 Long term (current) use of aspirin
CPT/HCPCS: 63047; 72100; 76000; 96374; 96375; J0690; J1170; J2405; J2704; J2710; J2765; J3010; J3490; J7030

== ENCOUNTER → 2020-12-29 10:15 | Outpatient (BNVA) | payer BC, SELFPAY | PROVIDERS: PCP Family Medicine; Visit Provider Orthopaedic Surgery | DX: M48.062 Spinal stenosis, lumbar region with neurogenic claudication (principal); M25.511 Pain in right shoulder; M19.011 Primary osteoarthritis, right shoulder; R07.9 Chest pain, unspecified | CPT/HCPCS: 71046; 72100; 73030 ==

== ENCOUNTER 2021-01-22 13:56 | Emergency (ER) | payer BC, SELFPAY ==
[2021-01-22 14:00] VITALS: BP 109/70; PULSE 82; RESP 16; TEMP 36.6; O2SAT 94; BMI 21.9
[2021-01-22 14:49] VITALS: BP 121/70; PULSE 65; RESP 15; O2SAT 96
--- NOTE | 2021-01-22 14:49 | XR_ITS ---
WS: [id number] PORTABLE CHEST HISTORY: cough, fevers COMPARISON: 12/29/2020 Mild rotation of the patient. Similar appearance to the mediastinum and lungs as compared to the prio r study. Interstitial thickening and a benign granuloma in the LEFT lower lobe. No dense areas of con solidation. Normal pulmonary vasculature. No pleural effusion or pneumothorax. Cardiac size: Normal. Mediastinum/Aorta: Mild atherosclerosis aorta. Calcification distal LEFT rotator cuff. XR/XR chest 1V portable [id number] IMPRESSION: Mild chronic interstitial lung disease. Stable chest with no acute findings.
--- NOTE | 2021-01-22 14:50 | ED_ITS ---
HPI - General Adult General: Chief complaint: Weakness Stated complaint: SICK ALL OVER X 1 WK Time Seen by Provider: 01/22/21 14:18 Source: patient Mode of arrival: ambulatory Limitations: no limitations History of Present Illness: HPI narrative: Patient is a 65-year-old female here for feeling sick over the past week. Patient tells me she has had a productive cough with yellow/green sputum over the past few days. She states her chest feels tight does not complain of chest pain or shortness of breath. She does tell me she wears oxygen at night and has not had to increase this or wear during the day. She tells me she feels weak and fatigued. She has had fevers ranging anywhere from 99-101. She has nausea without vomiting. No abdominal pain. Normal bowel movements. She states she does have a history of UTIs and wants us to check for this. She has received her Covid immunizations. Patient does have a history of lupus. No recent tick bites. Onset (ago): day(s) Relieving factors: none Exacerbating factors: none Associated symptoms: Reports headache(s), malaise and nausea; Deny chest pain, dyspnea, rash, palpitations, syncope or vomiting Review of Systems Const: Reports: fever(s), fatigue and malaise; Denies: chills, body aches or night sweats Eyes: Denies: change in vision or blurry vision ENMT: Reports: nasal discharge and nasal congestion; Denies: throat pain, odynophagia, ear or mastoid pain or epistaxis Card: Denies: chest pain, palpitations, irregular heart rhythm, edema, swelling of feet/ankles, lightheadedness, syncope, pre-syncope, dyspnea on exertion, orthopnea, leg pain with exertion or acrocyanosis Resp: Reports: productive cough, change in phlegm color and chest congestion; Denies: dyspnea, wheezing, stridor, pain on inspiration or hemoptysis GI: Reports: nausea; Denies: abdominal pain, vomiting or diarrhea : Denies: flank pain, dysuria or hematuria Musc: Denies: neck pain, back pain, extremity pain, extremity swelling, joint pain, joint swelling, joint redness or joint warmth Skin/Breast: Denies: rash Neuro: Reports: headache(s); Denies: numbness in extremities, weakness in extremities, sensory changes, difficulty walking or dizziness PFSH ED PFSH: Medical History Acute diastolic heart failure due to valvular disease Anxiety disorder Arteriosclerotic cardiovascular disease Atherosclerosis of coronary artery of [place] heart without angina pectoris Atherosclerotic heart disease of [place] coronary artery with other forms of angina pectoris Chronic kidney disease COPD exacerbation Essential (primary) hypertension GERD (gastroesophageal reflux disease) Hypothyroidism Intervertebral disc disorder with radiculopathy of lumbosacral region Lumbar stenosis with neurogenic claudication Mitral regurgitation Mixed hyperlipidemia Palpitations Recurrent UTI Systemic lupus erythematosus, unspecified Ventricular arrhythmia Vitamin D deficiency Surgical History H/O: hysterectomy with BSO History of cholecystectomy History of heart artery stent 5 stents Family History Sister Cancer Brain Hypertension Family/Other Hypertension Several members Social History Smoking and tobacco status: current every day smoker cigarettes Packs smoked per day: 1 Years cigarettes smoked: 40 Alcohol intake: never Desire information about alcohol rehabilitation?: No Counseling given: No Desire information about substance/drug rehabilitation?: No Counseling given: No Caregiver/support person: No Lives independently: Yes Household members: spouse Marital status: Current occupational status: unemployed History of recent travel: No Current gender identity: Female Physical Exam Const: COMMON NORMALS: no acute distress, average body habitus, patient oriented x3, no limitations, healthy appearing, alert and well nourished GENE RAL APPEARANCE: cooperative HENMT: COMMON NORMALS: normocephalic, atraumatic, hearing grossly normal bilaterally, external ears normal, EAC's normal, TM's normal bilaterally, Normal external nose present, Normal nasal mucous membranes and turbinates present, moist oral mucous membranes, oropharynx normal and gingiva normal HEAD & SCALP: normal to inspection, normocephalic and atraumatic FACE & SINUS: normal facial exam and sinuses nontender NOSE: Normal external nose present and Normal nasal mucous membranes and turbinates present EXTERNAL EAR: Yes external ears normal EXTERNAL AUDITORY CANAL: EAC's normal TYMPANIC MEMBRANE: TM's normal bilaterally Eye: COMMON NORMALS: Equal, round and reactive pupils present and EOMs intact bilaterally GENERAL EYE: appearance normal, both eyes and all related structures PUPIL: Yes Equal, round and reactive pupils present Neck/C-Spine: COMMON NORMALS: full ROM, no lymphadenopathy and no meningeal signs Chest: COMMONS NORMALS: normal inspection of the chest and normal palpation of the breasts BREAST/AXILLA PALPATION: Yes normal palpation of the breasts Resp: COMMON NORMALS: normal respiratory effort, No retractions and No use of accessory muscles EFFORT & INSPECTION: Yes able to speak in complete sentences, No respiratory distress, No labored and No Actively coughing AUSCULTATION: other (course breath sounds throughout-improved with coughing) Cardio: COMMON NORMALS: regular rate and regular rhythm RATE: regular rate RHYTHM: regular rhythm GI: COMMON NORMALS: Normal to inspection, nondistended, normoactive bowel sounds present, Soft to palpation, non-tender, No hepatosplenomegaly present and no masses PALPATION: Yes Soft to palpation and Yes No hepatosplenomegaly present Extremity: COMMON NORMALS: normal to inspection GENERAL: Yes normal exam except as noted Neuro: COMMON NORMALS: patient oriented x3 SENSORIUM/ORIENTATION: Yes alert MENINGEAL SIGNS: Yes no meningeal signs Skin: COMMON NORMALS: no rashes or lesions noted GENERAL SKIN EXAM: no rashes or lesions noted Course Vital Signs: Vital signs: Vital Signs Temperature 97.9 F 01/22/21 14:00 Pulse Rate 65 01/22/21 14:49 Respiratory Rate 15 01/22/21 14:49 Blood Pressure 121/70 01/22/21 14:49 Pulse Oximetry 96 01/22/21 14:49 MDM - General Adult MDM Narrative: Medical decision making narrative: Patient clinically does not appear ill or toxic. Her vital signs are stable. Labs overall are unremarkable. She has chronic mild elevations to her LFTs. Rapid COVID is negative. UA is normal. CXR without acute changes. Discussed most likely viral etiology. Recommended conservative management. Return to ED precautions given. Lab Data: Labs: Lab Results 01/22/21 01/22/21 01/22/21 Range/Units 15:40 15:40 15:40 WBC 11.0 H (4.0-10.0) 10^3/ uL RBC 3.76 L (4.1-5.3) 10^6/u L Hgb 11.7 (11.5-15.3) g/dL Hct 34.3 L (37.0-47.0) % MCV 91.2 (81-99) fL MCH 31.1 (28.0-34.0) pg MCHC 34.1 (30.0-36.0) g/dL RDW 12.6 (12.1-15.1) % Plt Count 205 (130-400) 10^3/c mm MPV 10.6 H (7.4-10.4) fL Neut % (Auto) 75.6 % Lymph % (Auto) 17.8 % Rabun % (Auto) 5.1 % Eos % (Auto) 0.6 % Baso % (Auto) 0.3 % Neut # (Auto) 8.31 H (1.8-7.7) 10^3/u L Lymph # (Auto) 2.0 (0.8-4.8) 10^3/u L Rabun # (Auto) 0.6 (0.2-0.9) 10^3/u L Eos # (Auto) 0.1 (0.0-0.8) 10^3/u L Baso # (Auto) 0.0 (0.0-0.1) 10^3/u L Nucleated RBC % (a uto) 0 % Nucleated RBCs # 0.0 /100WBC Sodium 135 L (136-145) mmol/L Potassium 3.8 (3.5-5.1) mmol/L Chloride 99 (98-107) mmol/L Carbon Dioxide 24 (22-29) mmol/L Anion Gap 15.8 (5-19) BUN 11 (8-23) mg/dL Creatinine 0.8 (0.5-0.9) mg/dL GFR Calculation 72.0 L (90-130) mL/min Glucose 107 (65-115) mg/dL Calculated Osmolal ity 280 L (285-295) mOsm/k g Lactic Acid 1.3 (0.5-2.2) mmol/L Calcium 9.1 (8.5-10.5) mg/dL Total Bilirubin 0.3 (0.15-1.2) mg/dL AST 48 H (0-32) U/L ALT 51 H (0-33) U/L Alkaline Phosphata se 73 (35-105) IU/L Total Protein 6.9 (6.6-8.7) g/dL Albumin 3.8 (3.5-5.2) g/dL Globulin 3.1 (1.3-4.6) g/dL Procalcitonin 0.04 (0-0.5) ng/mL Urine Color (Yellow) Urine Appearance (CLEAR) Urine pH (5-7) Ur Specific Gravit y (1.005-1.030) Urine Protein (Negative) Urine Glucose (UA) (Normal) Urine Ketones (Negative) Urine Blood (Negative) Urine Nitrate (Negative) Urine Bilirubin (Negative) Urine Urobilinogen (Negative) mg/dL Ur Leukocyte Sabrina ase (Negative) SARS-CoV-2 Ag (Rap id) (Negative) 01/22/21 01/22/21 Range/Units 15:40 15:40 WBC (4.0-10.0) 10^3/ uL RBC (4.1-5.3) 10^6/u L Hgb (11.5-15.3) g/dL Hct (37.0-47.0) % MCV (81-99) fL MCH (28.0-34.0) pg MCHC (30.0-36.0) g/dL RDW (12.1-15.1) % Plt Count (130-400) 10^3/c mm MPV (7.4-10.4) fL Neut % (Auto) % Lymph % (Auto) % Rabun % (Auto) % Eos % (Auto) % Baso % (Auto) % Neut # (Auto) (1.8-7.7) 10^3/u L Lymph # (Auto) (0.8-4.8) 10^3/u L Rabun # (Auto) (0.2-0.9) 10^3/u L Eos # (Auto) (0.0-0.8) 10^3/u L Baso # (Auto) (0.0-0.1) 10^3/u L Nucleated RBC % (a uto) % Nucleated RBCs # /100WBC Sodium (136-145) mmol/L Potassium (3.5-5.1) mmol/L Chloride (98-107) mmol/L Carbon Dioxide (22-29) mmol/L Anion Gap (5-19) BUN (8-23) mg/dL Creatinine (0.5-0.9) mg/dL GFR Calculation (90-130) mL/min Glucose (65-115) mg/dL Calculated Osmolal ity (285-295) mOsm/k g Lactic Acid (0.5-2.2) mmol/L Calcium (8.5-10.5) mg/dL Total Bilirubin (0.15-1.2) mg/dL AST (0-32) U/L ALT (0-33) U/L Alkaline Phosphata se (35-105) IU/L Total Protein (6.6-8.7) g/dL Albumin (3.5-5.2) g/dL Globulin (1.3-4.6) g/dL Procalcitonin (0-0.5) ng/mL Urine Color Yellow (Yellow) Urine Appearance Clear (CLEAR) Urine pH 5 (5-7) Ur Specific Gravit y 1.015 (1.005-1.030) Urine Protein Neg (Negative) Urine Glucose (UA) Norm (Normal) Urine Ketones Negative (Negative) Urine Blood Neg (Negative) Urine Nitrate Negative (Negative) Urine Bilirubin Neg (Negative) Urine Urobilinogen Norm (Negative) mg/dL Ur Leukocyte Sabrina ase Negative (Negative) SARS-CoV-2 Ag (Rap id) Negative (Negative) Imaging Data^: CXR: Radiologist's impression: [address] [address] XRay Report Signed Patient: Edyta Camp Unit #: [id number] : 1955 Age/Sex: 65 / F ADM Date: 01/22/21 Loc: ER Room/Bed: Attending Dr: Ordering Provider/Ordering MD: Julissa Newman Date of Service: 01/22/21 Procedure(s): XR chest 1V portable [id number] Accession Number(s): [id number] Report Number: [id number] WS: [id number] PORTABLE CHEST HISTORY: cough, fevers COMPARISON: 12/29/2020 Mild rotation of the patient. Similar appearance to the mediastinum and lungs as compared to the prior study. Interstitial thickening and a benign granuloma in the LEFT lower lobe. No dense areas of consolidation. Normal pulmonary vasculature. No pleural effusion or pneumothorax. Cardiac size: Normal. Mediastinum/Aorta: Mild atherosclerosis aorta. Calcification distal LEFT rotator cuff. XR/XR chest 1V portable [id number] IMPRESSION: Mild chronic interstitial lung disease. Stable chest with no acute findings. Dictated By: Tiffanie Davis DO Signed By: Tiffanie Davis DO Signed Date/Time: 01/22/211516 DD/ 14 Discharge Plan Discharge Patient Disposition: Home Clinical Impression: Viral upper respiratory illness Condition: Stable Prescriptions: No Action fluticasone propionate 50 mcg/actuation spray,suspension 1 spray INTRANASAL DAILY PRN (Reason: Allergy Symptoms) RF: 0 diphenhydramine HCl [Benadryl] 25 mg capsule 25 mg PO TID PRN (Reason: Allergic Reaction) RF: 0 hydrocodone-acetaminophen 5-325 mg tablet 1 - 2 tab PO .Q4-6H PRN (Reason: pain) 15 Days Qty: 40 RF: 0 alprazolam 0.5 mg tablet 0.5 mg PO TID RF: 0 aspirin [Aspir-81] 81 mg tablet,delayed release (DR/EC) 81 mg PO DAILY RF: 0 cyanocobalamin (vitamin B-12) 1,000 mcg capsule 1,000 mcg PO DAILY RF: 0 fluoxetine 40 mg capsule 40 mg PO DAILY RF: 0 magnesium oxide 400 mg magnesium tablet 400 mg PO BID RF: 0 nitroglycerin [Nitrostat] 0.4 mg tablet, sublingual 0.4 mg SUBLINGUAL Q5M PRN (Reason: Chest Pain) RF: 0 pantoprazole 40 mg tablet,delayed release (DR/EC) 40 mg PO BID RF: 0 clopidogrel [Plavix] 75 mg tablet 75 mg PO DAILY RF: 0 potassium chloride 10 mEq tablet,ER particles/crystals 20 meq PO QAM RF: 0 tramadol 50 mg tablet 50 mg PO TID PRN (Reason: Pain) RF: 0 levothyroxine 112 mcg tablet 112 mcg PO DAILY RF: 0 gabapentin 300 mg capsule 300 mg PO TID PRN (Reason: nerve pain) RF: 0 fluconazole 150 mg tablet 150 mg PO Q3D Qty: 10 RF: 3 ondansetron HCl [Zofran] 4 mg tablet 4 mg PO Q6H PRN (Reason: nausea and vomiting) Qty: 20 RF: 0 cholecalciferol (vitamin D3) [Vitamin D3] 125 mcg (5,000 unit) Tablet 125 mcg PO DAILY RF: 0 prednisone 1 mg Tablet 1 mg PO DAILY Qty: 7 RF: 0 triamcinolone acetonide 0.1 % Cream 1 applic TOPICAL DAILY PRN (Reason: unknown) RF: 0 trazodone 150 mg tablet 150 - 300 mg PO BEDTIME RF: 0 nystatin 100,000 unit/gram cream See Rx Instructions .ROUTE .COMPLEX PRN (Reason: Itching) RF: 0 Restasis 0.05 % Dropperette 1 drp OPHTHALMIC (EYE) Q12H PRN (Reason: Dry Eyes) RF: 0 Discharge Orders: Discharge ED (Routine); Ordered 01/22/21 Ordered By: Julissa Newman Referrals: Raheem Baron [Primary Care Provider] - Patient Instructions: Upper Respiratory Infection (ED), Upper Respiratory Infection - Adult Activity Restrictions/Additional Instructions: As we discussed you may do your albuterol nebulizers every 4-6 hours as needed. Continue to push fluids and rest. You may try over the counter medications to help with the cough/congestion. Return to the emergency department for severe shortness of breath, difficulty breathing, chest pain, uncontrollable fevers, generally feeling worse, or any other concerns you may have. Coding Level of Care Code ED [employer] for [employer] Exam Comprehensive
[2021-01-22] MEDS: sodium chloride 0.9% 1,000 ML 999 ML IV (15:37)
[2021-01-22 15:47] LABS: Add Urine Microscopic? NO; Basophils % 0.3 %; Charge for UA Resulting for Rev; Eosinophils # 0.1 10^3/uL (0.0-0.8); Eosinophils % 0.6 %; Hematocrit 34.3 % (37.0-47.0); Hemoglobin 11.7 g/dL (11.5-15.3); Lymphocytes % 17.8 %; Mean Corpuscular HGB Conc 34.1 g/dL (30.0-36.0); Mean Corpuscular Hemoglobin 31.1 pg (28.0-34.0); Mean Corpuscular Volume 91.2 fL (81-99); Mean Platelet Volume 10.6 fL (7.4-10.4); Monocytes # 0.6 10^3/uL (0.2-0.9); Monocytes % 5.1 %; Neutrophils # 8.31 10^3/uL (1.8-7.7); Neutrophils % 75.6 %; Nucleated Red Blood Cells % 0 %; Platelet Count 205 10^3/cmm (130-400); Red Blood Count 3.76 10^6/uL (4.1-5.3); Red Cell Distribution Width 12.6 % (12.1-15.1)
[2021-01-22 15:59] LABS: Bilirubin Urine Neg (Negative); Blood Urine Neg (Negative); Glucose Urine UA Norm (Normal); Ketones Urine Negative (Negative); Leukocyte Esterase Urine Negative (Negative); Nitrate Urine Negative (Negative); Protein Urine Neg (Negative); Specific Gravity, Urine 1.015 (1.005-1.030); Urine Appearance Clear (CLEAR); Urine Color Yellow (Yellow); Urobilinogen Urine Norm (Negative); pH Urine 5 (5-7)
[2021-01-22 16:13] LABS: SARS Covid-2 Antigen Negative (Negative)
[2021-01-22 16:19] LABS: Lactic Sepsis W/Reflex 1.3 mmol/L (0.5-2.2)
[2021-01-22 16:23] LABS: Alanine Aminotransferase 51 U/L (0-33); Albumin Level 3.8 g/dL (3.5-5.2); Alkaline Phosphatase 73 IU/L (35-105); Anion Gap 15.8 (5-19); Aspartate Amino Transferase 48 U/L (0-32); Blood Urea Nitrogen 11 mg/dL (8-23); Calcium 9.1 mg/dL (8.5-10.5); Carbon Dioxide 24 mmol/L (22-29); Chloride 99 mmol/L (98-107); Globulin 3.1 g/dL (1.3-4.6); Glucose 107 mg/dL (65-115); Osmolality Calculated 280 mOsm/kg (285-295); Potassium 3.8 mmol/L (3.5-5.1); Sodium 135 mmol/L (136-145); Total Bilirubin 0.3 mg/dL (0.15-1.2); Total Protein 6.9 g/dL (6.6-8.7)
[2021-01-22 16:29] LABS: Procalcitonin 0.04 ng/mL (0-0.5)
== END 2021-01-22 16:48 | disposition home or self-care (01) ==
PROVIDERS: Emergency Provider Physician Assistant; PCP Family Medicine
DX: J06.9 Acute upper respiratory infection, unspecified (principal); Z79.82 Long term (current) use of aspirin; Z79.02 Long term (current) use of antithrombotics/antiplatelets; I11.0 Hypertensive heart disease with heart failure; I50.30 Unspecified diastolic (congestive) heart failure; I25.10 Atherosclerotic heart disease of native coronary artery without angina pectoris; J44.9 Chronic obstructive pulmonary disease, unspecified; E78.2 Mixed hyperlipidemia; M32.9 Systemic lupus erythematosus, unspecified; F17.210 Nicotine dependence, cigarettes, uncomplicated
CPT/HCPCS: 71045; 80053; 81003; 83605; 84145; 85025; 87426; 96360; 99283; J7030

== ENCOUNTER → 2021-02-07 16:46 | Outpatient (BNVA) | payer BC, SELFPAY | PROVIDERS: PCP Family Medicine; Visit Provider Urology | DX: N39.0 Urinary tract infection, site not specified (principal) | CPT/HCPCS: 81003; 87077; 87086; 87184 ==

== ENCOUNTER → 2021-03-21 15:42 | Outpatient (BNVA) | payer BC, SELFPAY | PROVIDERS: PCP Family Medicine; Visit Provider Urology | DX: N39.0 Urinary tract infection, site not specified (principal); B37.3 Candidiasis of vulva and vagina; J40 Bronchitis, not specified as acute or chronic; R05 Cough | CPT/HCPCS: 81003; 87635 ==

== ENCOUNTER 2021-04-23 16:54 | Outpatient (CLI) | payer BC, SELFPAY ==
--- NOTE | 2021-04-23 17:05 | XRR_ITS ---
PROCEDURE INFORMATION: Exam: XR Chest Exam date and time: 04/23/2021 5:05 PM Age: 65 years old Clinical indication: Cough and shortness of breath; Prior surgery; Surgery type: Heart stents; Patient HX: History--cough; ? Fluid build up; Additional info: I50.31 - acute diastolic (congestive) heart failure TECHNIQUE: Imaging protocol: XR of the chest. Views: 2 views. COMPARISON: CR Chest 2 views* 04/16/2021 4:50 PM FINDINGS: Lungs: The lungs are somewhat hyperinflated with increased interstitial markings, likely representing COPD. Bibasilar atelectasis noted. No evidence of focal consolidation to suggest pneumonia. Pleural spaces: Unremarkable. No pleural effusion. No pneumothorax. Heart/Mediastinum: Stable cardiomediastinal silhouette. Bones/joints: Unremarkable. XR/XR chest 2V* [id number] IMPRESSION: No evidence of focal consolidation. COPD changes.
== END 2021-04-23 16:55 | disposition home or self-care (01) ==
LOC: RAD 16:57
PROVIDERS: PCP Family Medicine; Visit Provider Nurse Practitioner Family
DX: I38 Endocarditis, valve unspecified (principal); I50.31 Acute diastolic (congestive) heart failure; R05 Cough; R06.02 Shortness of breath
CPT/HCPCS: 71046; 80048; 83880; 85025

== ENCOUNTER 2021-05-07 14:00 | Emergency (ER) | payer BC, SELFPAY ==
[2021-05-07] VITALS (10 sets, daily range): BP systolic 91–126; BP diastolic 56–75; PULSE 68–84; RESP 16–20; TEMP 36.8; O2SAT 90–96; BMI 23.6
--- NOTE | 2021-05-07 14:44 | XR_ITS ---
WS: [id number] XR chest 1V portable [id number] REASON FOR EXAM: dyspnea/cough FINDINGS: The heart is at the upper limits of normal in size. Thoracic aorta and mediastinum appear normal. Calcified granulomatous disease in both hemithoraces. Compared to previous examination of 04/23/2021 there is a reticular interstitial infiltrative pattern in the left lower lung. No significant abnormality of the bony thorax. XR/XR chest 1V portable [id number] IMPRESSION: Infiltrative process in the left lower lung of unknown chronicity but compatibl e with acute/subacute pneumonitis.
[2021-05-07 15:04] LABS: Basophils % 0.1 %; Eosinophils # 0.1 10^3/uL (0.0-0.8); Eosinophils % 1.9 %; Hematocrit 37.6 % (37.0-47.0); Hemoglobin 12.6 g/dL (11.5-15.3); Lymphocytes # 0.6 10^3/uL (0.8-4.8); Lymphocytes % 9.2 %; Mean Corpuscular HGB Conc 33.5 g/dL (30.0-36.0); Mean Corpuscular Hemoglobin 30.3 pg (28.0-34.0); Mean Corpuscular Volume 90.4 fl (81-99); Mean Platelet Volume 10.7 fL (7.4-10.4); Monocytes # 0.3 10^3/uL (0.2-0.9); Neutrophils # 5.68 10^3/uL (1.8-7.7); Neutrophils % 84.1 %; Nucleated Red Blood Cells % 0 %; Platelet Count 206 10^3/cmm (130-400); Red Blood Count 4.16 10^6/uL (4.1-5.3); Red Cell Distribution Width 12.9 % (12.1-15.1); White Blood Count 6.8 10^3/uL (4.0-10.0)
--- NOTE | 2021-05-07 15:04 | W.ED.BACK ---
HPI - Back Pain/Injury General: Chief Complaint: Back Pain/Injury Stated Complaint: BACK PAIN, CP Time Seen by Provider: 05/07/21 14:31 History of Present Illness: HPI Narrative: 65-year-old female presents emergency room with complaint of right shoulder pain no history of trauma. This is been an ongoing problem. She states she had a fever last night reports it was up to 105 she has no temperature at this point. She not had any chest pain or any shortness of breath pain is worse with motion prickly with abduction and extension. MD elicited complaint: back pain (Right upper back and right shoulder) Pertinent past history: prior back pain Onset (ago): day(s) Timing: constant Severity: moderate Similar Symptoms Previously: Yes Quality: stabbing and aching Location: thoracic spine Radiation: none Exacerbating factors: none Relieving factors: none Associated symptoms: Reports arthralgias, chills, myalgias, nausea, vomiting and weakness; Deny abdominal pain, change in bowel habits, difficulty walking, dysuria, fatigue, fecal incontinence, fever(s), hematuria, numbness, syncope, tingling/numbness/burning, urinary frequency or urinary urgency Review of Systems Const: Reports: chills; Denies: fever(s) or fatigue ENMT: Denies: throat pain, ear or mastoid pain, nasal discharge or nasal congestion Card: Denies: syncope Resp: Denies: dyspnea, productive cough or non-productive cough GI: Reports: nausea and vomiting; Denies: abdominal pain, fecal incontinence or change in bowel habits : Denies: dysuria, urinary urgency or hematuria Skin/Breast: Denies: rash or pruritus Neuro: Denies: difficulty walking PFSH ED PFSH: Medical History Acute diastolic heart failure due to valvular disease Anxiety disorder Arteriosclerotic cardiovascular disease Atherosclerosis of coronary artery of [place] heart without angina pectoris Atherosclerotic heart disease of [place] coronary artery with other forms of angina pectoris Chronic kidney disease COPD exacerbation Essential (primary) hypertension GERD (gastroesophageal reflux disease) Hypothyroidism Intervertebral disc disorder with radiculopathy of lumbosacral region Lumbar stenosis with neurogenic claudication Mitral regurgitation Mixed hyperlipidemia Palpitations Recurrent UTI Systemic lupus erythematosus, unspecified Ventricular arrhythmia Vitamin D deficiency Surgical History H/O: hysterectomy with BSO History of cholecystectomy History of heart artery stent 5 stents Family History Sister Cancer Brain Hypertension Mother , at age 47 Hypertension Several members Heart disease Father , at age 78 Dementia Social History Alcohol intake: never Desire information about alcohol rehabilitation?: No Counseling given: No Desire information about substance/drug rehabilitation?: No Counseling given: No Caregiver/support person: No Lives independently: Yes Household members: spouse Marital status: Current occupational status: retired History of recent travel: No Current gender identity: Female Physical Exam Const: COMMON NORMALS: no acute distress GENERAL APPEARANCE: cooperative HENMT: COMMON NORMALS: normocephalic, atraumatic and hearing grossly normal bilaterally HEAD & SCALP: normocephalic and atraumatic Neck/C-Spine: COMMON NORMALS: no JVD Resp: COMMON NORMALS: normal respiratory effort, No retractions, No use of accessory muscles and clear to auscultation bilaterally AUSCULTATION: clear to auscultation bilaterally Cardio: COMMON NORMALS: no JVD, regular rate, regular rhythm and No murmurs present (Cardio) RATE: regular rate RHYTHM: regular rhythm GI: COMMON NORMALS: Soft to palpation and No hepatosplenomegaly present AUSCULTATION: Yes normoactive bowel sounds PALPATION: Yes Soft to palpation, No Tenderness to palpation present (GI), No Guarding due to palpation present (GI) and Yes No hepatosplenomegaly present Extremity: COMMON NORMALS: normal to inspection, capillary refill normal, no clubbing, cyanosis or edema, no calf tenderness and no pedal edema OTHER: Positive impingement sign limitation range of motion due to pain no joint swelling or edema no erythema no induration around the joint. Skin: COMMON NORMALS: no rashes or lesions noted GENERAL SKIN EXAM: no rashes or lesions noted Course Vital Signs: Vital signs: Vital Signs Temperature 98.2 F 05/07/21 14:05 Pulse Rate 68 05/07/21 18:23 Respiratory Rate 16 05/07/21 18:23 Blood Pressure 126/62 05/07/21 18:23 Pulse Oximetry 96 05/07/21 18:23 MDM - Back Pain/Injury MDM Narrative: Medical decision making narrative: Patient complains of right shoulder pain suspect she may have rotator cuff injury. White count is normal there is an incidental finding questionable left lower lobe pneumonia we will make an adjustment to her antibiotics. Think she will require an MRI at some point. We will discharge her from the ER have her follow-up with orthopedics she has already seen Dr. Valdes in the past. Pain medications given also gave her steroids. Return if is any further problem. Lab Data: Labs: Lab Results 05/07/21 05/07/21 05/07/21 14:35 14:35 14:39 WBC 6.8 10^3/uL 10^3/ uL (4.0-10.0) RBC 4.16 10^6/uL 10^6 /uL (4.1-5.3) Hgb 12.6 g/dL g/dL (11.5-15.3) Hct 37.6 % % (37.0-47.0) MCV 90.4 fl fl (81-99) MCH 30.3 pg pg (28.0-34.0) MCHC 33.5 g/dL g/dL (30.0-36.0) RDW 12.9 % % (12.1-15.1) Plt Count 206 10^3/cmm 10^3 /cmm (130-400) MPV 10.7 fL H fL (7.4-10.4) Neut % (Auto) 84.1 % % Lymph % (Auto) 9.2 % % [place] % (Auto) 4.0 % % Eos % (Auto) 1.9 % % Baso % (Auto) 0.1 % % Neut # (Auto) 5.68 10^3/uL 10^3 /uL (1.8-7.7) Lymph # (Auto) 0.6 10^3/uL L 10^ 3/uL (0.8-4.8) [place] # (Auto) 0.3 10^3/uL 10^3/ uL (0.2-0.9) Eos # (Auto) 0.1 10^3/uL 10^3/ uL (0.0-0.8) Baso # (Auto) 0.0 10^3/uL 10^3/ uL (0.0-0.1) Nucleated RBC % (a uto) 0 % % Nucleated RBCs # 0.0 /100WBC /100W BC Specimen Type Sample Site ABG pH ABG pCO2 ABG pO2 ABG HCO3 ABG O2 Saturation ABG Base Excess Amrit Test A-a O2 Gradient Hematocrit Hgb O2 Saturation Carboxyhemoglobin Methemoglobin Total Hemoglobin Ionized Calcium O2 Delivery Device FiO2 Laborer/Grade Check ID Sodium 130 mmol/L L mmol /L (136-145) Potassium 4.2 mmol/L mmol/L (3.5-5.1) Chloride 93 mmol/L L mmol/ L (98-107) Carbon Dioxide 24 mmol/L mmol/L (22-29) Anion Gap 17.2 (5-19) BUN 12 mg/dL mg/dL (8-23) Creatinine 0.8 mg/dL mg/dL (0.5-0.9) GFR Calculation 72.0 mL/min L mL/ min (90-130) Glucose 96 mg/dL mg/dL (65-115) Calculated Osmolal ity 270 mOsm/kg L mOs m/kg (285-295) Calcium 9.3 mg/dL mg/dL (8.5-10.5) Total Bilirubin 0.3 mg/dL mg/dL (0.15-1.2) AST 27 U/L U/L (0-32) ALT 10 U/L U/L (0-33) Alkaline Phosphata se 71 IU/L IU/L (35-105) Total Protein 7.8 g/dL g/dL (6.6-8.7) Albumin 3.6 g/dL g/dL (3.5-5.2) Globulin 4.2 g/dL g/dL (1.3-4.6) Urine Color Yellow (Yellow) Urine Appearance Clear (CLEAR) Urine pH 5 (5-7) Ur Specific Gravit y 1.015 (1.005-1.030) Urine Protein Neg (Negative) Urine Glucose (UA) Norm (Normal) Urine Ketones Negative (Negative) Urine Blood Neg (Negative) Urine Nitrate Negative (Negative) Urine Bilirubin Neg (Negative) Urine Urobilinogen 1 mg/dL H mg/dL (Negative) Ur Leukocyte Sabrina ase Negative (Negative) 05/07/21 15:44 WBC RBC Hgb Hct MCV MCH MCHC RDW Plt Count MPV Neut % (Auto) Lymph % (Auto) [place] % (Auto) Eos % (Auto) Baso % (Auto) Neut # (Auto) Lymph # (Auto) [place] # (Auto) Eos # (Auto) Baso # (Auto) Nucleated RBC % (a uto) Nucleated RBCs # Specimen Type Arterial Sample Site Brachial, left ABG pH 7.45 (7.35-7.45) ABG pCO2 33.9 mmHg L mmHg (35-45) ABG pO2 75.1 mmHg L mmHg (80.0-100.0) ABG HCO3 23.8 mmol/L mmol/ L (22-26) ABG O2 Saturation 96.6 ABG Base Excess 0.3 mmol/L mmol/L (-2.0-2.0) Amrit Test N/a A-a O2 Gradient 10.6 mmHg H mmHg (5-10) Hematocrit 38.4 % % (37-47) Hgb O2 Saturation 93.5 % L % (95-100) Carboxyhemoglobin 2.3 %THgb %THgb (0.4-20.1) Methemoglobin 0.9 % % (0.4-1.5) Total Hemoglobin 12.5 g/dL g/dL (12-16) Ionized Calcium 1.2 mmol/L mmol/L (1.1-1.4) O2 Delivery Device Nc FiO2 28.0 % % Laborer/Grade Check ID Amh Sodium 129.0 mmol/L L mm ol/L (131-143) Potassium 3.8 mmol/L mmol/L (3.5-5.0) Chloride Carbon Dioxide Anion Gap BUN Creatinine GFR Calculation Glucose 120.0 mg/dL H mg/ dL (70-115) Calculated Osmolal ity Calcium Total Bilirubin AST ALT Alkaline Phosphata se Total Protein Albumin Globulin Urine Color Urine Appearance Urine pH Ur Specific Gravit y Urine Protein Urine Glucose (UA) Urine Ketones Urine Blood Urine Nitrate Urine Bilirubin Urine Urobilinogen Ur Leukocyte Sabrina ase Discharge Plan Discharge Patient Disposition: Home Clinical Impression: Pain in right shoulder, LLL pneumonia Condition: Stable Prescriptions: New Augmentin 875-125 mg tablet 1 tab PO BID Qty: 20 RF: 0 Percocet 10-325 mg tablet 1 tab PO Q6H PRN (Reason: pain) Qty: 20 RF: 0 Medrol (Warren) 4 mg tablets,dose pack See Rx Instructions .ROUTE .COMPLEX Qty: 21 RF: 0 Discontinued amoxicillin-pot clavulanate 500-125 mg tablet See Rx Instructions .ROUTE .COMPLEX Qty: 60 RF: 1 Hold Instructions: Doctor's Order ciprofloxacin HCl 500 mg tablet 500 mg PO BID Qty: 42 RF: 3 prednisone 1 mg Tablet 1 mg PO DAILY Qty: 7 RF: 0 No Action fluticasone propionate 50 mcg/actuation spray,suspension 1 spray INTRANASAL DAILY PRN (Reason: Allergy Symptoms) RF: 0 diphenhydramine HCl [Benadryl] 25 mg capsule 25 mg PO TID PRN (Reason: Allergic Reaction) RF: 0 hydrocodone-acetaminophen 5-325 mg tablet 1 - 2 tab PO .Q4-6H PRN (Reason: pain) 15 Days Qty: 40 RF: 0 fluconazole 150 mg tablet 150 mg PO Q3D Qty: 10 RF: 3 alprazolam 0.5 mg tablet 0.5 mg PO TID RF: 0 aspirin [Aspir-81] 81 mg tablet,delayed release (DR/EC) 81 mg PO DAILY RF: 0 cyanocobalamin (vitamin B-12) 1,000 mcg capsule 1,000 mcg PO DAILY RF: 0 magnesium oxide 400 mg magnesium tablet 400 mg PO BID RF: 0 nitroglycerin [Nitrostat] 0.4 mg tablet, sublingual 0.4 mg SUBLINGUAL Q5M PRN (Reason: Chest Pain) RF: 0 pantoprazole 40 mg tablet,delayed release (DR/EC) 40 mg PO BID RF: 0 clopidogrel [Plavix] 75 mg tablet 75 mg PO DAILY RF: 0 potassium chloride 10 mEq tablet,ER particles/crystals 20 meq PO QAM RF: 0 fluoxetine 40 mg capsule 80 mg PO DAILY RF: 0 levothyroxine 112 mcg tablet 112 mcg PO DAILY RF: 0 gabapentin 300 mg capsule 300 mg PO TID PRN (Reason: nerve pain) RF: 0 fenofibrate nanocrystallized 48 mg tablet 48 mg PO DAILY RF: 0 lidocaine [Lidoderm] 5 % adhesive patch,medicated 1 patch topical DAILY RF: 0 furosemide 40 mg tablet 40 mg PO DAILY PRN (Reason: weight gain) Qty: 90 RF: 3 ondansetron HCl [Zofran] 4 mg tablet 4 mg PO Q6H PRN (Reason: nausea and vomiting) Qty: 20 RF: 0 cholecalciferol (vitamin D3) [Vitamin D3] 125 mcg (5,000 unit) Tablet 125 mcg PO DAILY RF: 0 triamcinolone acetonide 0.1 % Cream 1 applic TOPICAL DAILY PRN (Reason: unknown) RF: 0 nystatin 100,000 unit/gram cream See Rx Instructions .ROUTE .COMPLEX PRN (Reason: Itching) RF: 0 Restasis 0.05 % Dropperette 1 drp OPHTHALMIC (EYE) Q12H PRN (Reason: Dry Eyes) RF: 0 trazodone 150 mg tablet 150 - 300 mg PO BEDTIME PRNRF: 0 Discharge Orders: Discharge ED (Routine); Ordered 05/08/21 Ordered By: Jj Moreland Referrals: Raheem Baron [Primary Care Provider] - Patient Instructions: Opioid Safety Coding Level of Care Code ED Community Case Manager for Chg Fwd Exam Comprehensive
[2021-05-07] MEDS: morphine 4 mg/mL SDV 1 mL IVP ×2 (15:17→17:05)
[2021-05-07 15:19] LABS: Add Urine Microscopic? NO; Charge for UA Resulting for Rev
[2021-05-07 15:28] LABS: Bilirubin Urine Neg (Negative); Blood Urine Neg (Negative); Glucose Urine UA Norm (Normal); Ketones Urine Negative (Negative); Leukocyte Esterase Urine Negative (Negative); Nitrate Urine Negative (Negative); Protein Urine Neg (Negative); Specific Gravity, Urine 1.015 (1.005-1.030); Urine Appearance Clear (CLEAR); Urine Color Yellow (Yellow); Urobilinogen Urine 1 mg/dL (Negative); pH Urine 5 (5-7)
[2021-05-07 15:36] LABS: Alanine Aminotransferase 10 U/L (0-33); Albumin Level 3.6 g/dL (3.5-5.2); Alkaline Phosphatase 71 IU/L (35-105); Anion Gap 17.2 (5-19); Aspartate Amino Transferase 27 U/L (0-32); Blood Urea Nitrogen 12 mg/dL (8-23); Calcium 9.3 mg/dL (8.5-10.5); Carbon Dioxide 24 mmol/L (22-29); Chloride 93 mmol/L (98-107); Globulin 4.2 g/dL (1.3-4.6); Glucose 96 mg/dL (65-115); Osmolality Calculated 270 mOsm/kg (285-295); Potassium 4.2 mmol/L (3.5-5.1); Sodium 130 mmol/L (136-145); Total Bilirubin 0.3 mg/dL (0.15-1.2); Total Protein 7.8 g/dL (6.6-8.7)
--- NOTE | 2021-05-07 15:43 | XR_ITS ---
WS: [id number] XR shoulder RT min 2V* [id number] REASON FOR EXAM: pain FINDINGS: Moderate narrowing of the right acromioclavicular joint space with marginal osteophytes. Right glenohumeral joint space is preserved. No significant subchondral bony abnormality in the humer al head or glenoid. The acromial process has a somewhat hooked configuration with prominence of the anterior inferior bon y margin. No soft tissue abnormality. Examination is unchanged compared to the previous study of 12/29/2020 XR/XR shoulder RT min 2V* [id number] IMPRESSION: Stable shoulder examination with osteoarthritis as above. The acromial configuration can be associated with anterior rotator cuff impinge ment, correlate clinically.
[2021-05-07 15:56] LABS: ABG PCO2 33.9 mmHg (35-45); ABG PH Result 7.45 (7.35-7.45); Alveolar-Arterial Oxygen Gradi 10.6 mmHg (5-10); Arterial Blood Gas Hematocrit 38.4 % (37-47); Base Excess ABG 0.3 mmol/L (-2.0-2.0); Blood Gas Operator Identificat AMH; Blood Gas Sample Site Brachial, left; Blood Gas Sample Type Arterial; Carboxyhemoglobin 2.3 %THgb (0.4-20.1); HCO3 ABG 23.8 mmol/L (22-26); HGB O2 Sat 93.5 % (95-100); Ionized Calcium Level - ABG 1.2 mmol/L (1.1-1.4); Methemoglobin 0.9 % (0.4-1.5); Oxygen Device NC; Oxygen Saturation ABG 96.6; PO2 ABG 75.1 mmHg (80.0-100.0); Potassium Level - ABG 3.8 mmol/L (3.5-5.0); Total Hemoglobin 12.5 g/dL (12-16)
[2021-05-07] MEDS: acetaminophen 500 mg Tablet 1000 MG PO (17:04)
[2021-05-07] MEDS: ondansetron 2 mg/ML SDV 2 mL 4 MG IVP (17:25)
[2021-05-07] MEDS: dexamethasone 10 mg/mL INJ IVP (17:27)
[2021-05-07] MEDS: ketorolac 30 mg/mL INJ 15 MG IVP (17:28)
[2021-05-07] MEDS: HYDROmorphone 1 mg/mL INJ 1 mL IVP (17:59)
== END 2021-05-07 18:26 | disposition home or self-care (01) ==
PROVIDERS: Emergency Provider Family Medicine; PCP Family Medicine
DX: J18.8 Other pneumonia, unspecified organism (principal); M25.511 Pain in right shoulder; Z79.02 Long term (current) use of antithrombotics/antiplatelets; Z79.82 Long term (current) use of aspirin; I25.10 Atherosclerotic heart disease of native coronary artery without angina pectoris; J44.9 Chronic obstructive pulmonary disease, unspecified; I10 Essential (primary) hypertension; E78.2 Mixed hyperlipidemia; M32.9 Systemic lupus erythematosus, unspecified
CPT/HCPCS: 36600; 71045; 73030; 80051; 80053; 81003; 82330; 82805; 85025; 96374; 96375; 96376; 99284; J1100; J1170; J1885; J2270; J2405

== ENCOUNTER 2021-05-08 14:09 | Outpatient (CLI) | payer BC, SELFPAY ==
--- NOTE | 2021-05-08 14:23 | MR_ITS ---
WS: [id number] MRI right shoulder, 05/08/2021 Clinical Data: ROTATOR CUFF DISORDER, RIGHT Comparison: MRI right shoulder, 02/06/2006. Findings: There is a complete tear of the rotator cuff with retraction of the supraspinatus tendon. There is fl uid adjacent to the humeral head and tracking inferiorly onto the humeral shaft. Patient motion obscu res detail. The acromioclavicular joint shows moderate osteoarthritis. The glenoid labrum is intact w ith no tear or displacement. The biceps tendon resides within the bicipital groove and there is no displacement or evidence of ten dinitis or fluid in the tendon sheath. MR/MR shoulder RT wo con* [id number] Impression: 1. Complete rotator cuff tear with retraction of supraspinatus. 2. Intact glenoid labrum. 3. Biceps tendon located in the bicipital groove with no tear or tendinitis.
== END 2021-05-08 14:10 | disposition home or self-care (01) ==
PROVIDERS: PCP Family Medicine; Visit Provider Family Medicine
DX: M75.121 Complete rotator cuff tear or rupture of right shoulder, not specified as traumatic (principal)
CPT/HCPCS: 73221

== ENCOUNTER 2021-05-23 10:53 | Outpatient (CLI) | payer BC, SELFPAY ==
--- NOTE | 2021-05-23 11:00 | USCV_ITS ---
Edyta Camp Age: 66 Gender: F : 1955 Exam Date: 05/23/2021 11:25 Ordering Phys: Denita Stafford Technologist: Smita Villa Exam [place] [facility] [place] Indication: CHF BP: / HR: 61 Rhythm: Sinus Technical Quality: Adequate MEASUREMENTS (Male / Female) Normal Values 2D ECHO LV Diastolic Diameter PLAX 4.0 cm 4.2 - 5.9 / 3.9 - 5.3 cm LV Systolic Diameter PLAX 3.9 cm LV Chamber Size 4.7 cm IVS Diastolic Thickness 1.1 cm 0.6 - 1.0 / 0.6 - 0.9 cm IVS Systolic Thickness 1.3 cm LVPW Diastolic Thickness 1.2 cm 0.6 - 1.0 / 0.6 - 0.9 cm LVPW Systolic Thickness 1.8 cm RV Chamber Size 2.8 cm LVOT Diameter 2.0 cm LV Ejection Fraction 2D Teich 6.0 % LV Ejection Fraction MOD 2C 49.2 % LV Ejection Fraction 2C AL 44.0 % LA Diameter 3.1 cm LA Width 2.5 cm LA Height 3.2 cm RA Width 2.5 cm RA Height 4.3 cm Aorta at Sinotubular Diameter 2.2 cm M-MODE LV Diastolic Diameter MM 5.7 cm 4.2 - 5.9 / 3.9 - 5.3 cm LV Systolic Diameter MM 4.2 cm LV Ejection Fraction MM Teich 50.4 % IVS Diastolic Thickness MM 0.9 cm 0.6 - 1.0 / 0.6 - 0.9 cm IVS Systolic Thickness MM 1.3 cm LVPW Diastolic Thickness MM 1.1 cm 0.6 - 1.0 / 0.6 - 0.9 cm LVPW Systolic Thickness MM 1.3 cm Aortic Annulus Diameter 2.9 cm LA Ao Ratio MM 1.4 MV E Point Septal Separation 1.4 cm DOPPLER AV Peak Velocity 193.0 cm/s LVOT Peak Velocity 112.0 cm/s AV Area Cont Eq vti 1.8 cm squared AV Area Cont Eq pk 1.9 cm squared MV Area PHT 2.5 cm squared Mitral E to A Ratio 0.7 MV E' Velocity 31.5 cm/s Mitral E to MV E' Ratio 10.2 Mitral E to LV E' Lateral Ratio 12.1 Mitral E to LV E' Septal Ratio 8.8 TR Peak Velocity 207.9 cm/s TR Peak Gradient 17.3 mmHg TR Mean Velocity 149.9 cm/s TR Mean Gradient 10.2 mmHg TR Velocity Time Integral 55.0 cm TV Peak E Velocity 46.0 cm/s Right Atrial Pressure 3.0 mmHg Pulmonary Artery Systolic Pressu 20.3 mmHg PV Peak Velocity 53.0 cm/s RV Acceleration Time 0.1 s RV Ejection Time 0.3 s RV AcT/ET 0.4 FINDINGS Left Ventricle Mild diffuse hypokinesis of the left ventricle with an ejection fraction of 40%(visual).Mild left ventricular hypertrophy. Right Ventricle The right ventricle is normal in size and function. Right Atrium The right atrium is normal in size. Left Atrium The left atrium is normal in size. Mitral Valve Thickened mitral valve. Mild mitral valve regurgitation. Aortic Valve Thickened aortic valve. Moderate aortic valve regurgitation. Tricuspid Valve Trace tricuspid valve regurgitation. Estimated pulmonary artery peak systolic pressure 20 mmHg Pulmonic Valve Pulmonic valve not well visualized. Pericardium Normal pericardium without effusion. Aorta Normal ascending aorta dimension. CONCLUSIONS Mild diffuse hypokinesis of the left ventricle with an ejection fraction of 40% (visual). Thickened mitral valve. Mild mitral valve regurgitation. Thickened aortic valve. Moderate aortic valve regurgitation. Trace tricuspid valve regurgitation. Estimated pulmonary artery peak systolic pressure 20 mmHg Mild left ventricular hypertrophy. There is no pericardial effusion. There are no intracardiac masses. Compared to the study from a 01/09/2020, there is a significant drop in the LV ejection from Dr Jeremías Rosado MD [facility] (Electronically Signed) Final Date: 24 May 2021 22:22 S
== END 2021-05-23 10:54 | disposition home or self-care (01) ==
PROVIDERS: PCP Family Medicine; Visit Provider Nurse Practitioner Family
DX: I50.31 Acute diastolic (congestive) heart failure (principal); I08.3 Combined rheumatic disorders of mitral, aortic and tricuspid valves
CPT/HCPCS: 93306

== ENCOUNTER 2021-06-18 11:41 | Outpatient (CLI) | payer BC, SELFPAY ==
--- NOTE | 2021-06-18 11:48 | US_ITS ---
WS: [id number] ULTRASOUND BREAST RIGHT TECHNIQUE: Ultrasound right breast focused area of concern. CLINICAL INFORMATION: ABNORMAL MAMMO COMPARISON: Ultrasound November 30, 2020 FINDINGS: Slightly prominent ducts posterior to the areola similar in appearance to the prior examination with a small amount of internal debris. This is stable in appearance compared to previous. Recommend addit ional six-month follow-up to confirm stability. US/US breast RT limited* [id number] IMPRESSION: BI-RADS 3 probably benign Recommend 6 month follow-up ultrasound right breast
== END 2021-06-18 11:42 | disposition home or self-care (01) ==
PROVIDERS: PCP Family Medicine; Visit Provider Family Medicine
DX: R92.8 Other abnormal and inconclusive findings on diagnostic imaging of breast (principal)
CPT/HCPCS: 76642; 87635

== ENCOUNTER 2021-07-02 07:19 | Outpatient (CLI) | payer BC, SELFPAY ==
[2021-07-02 07:44] VITALS: BMI 23.6
--- NOTE | 2021-07-02 07:47 | ECG_ITS ---
[facility] Test Date: 2021-07-02 Pat Name: Edyta Camp Department: Room: Gender: Female Cancer Registry Manager: Liv Santacruz : 1955 Requested By: Jeremías Rosado Order Number: [id number] MD: Jeremías Rosado M.D. Interpretive Statements NAME OF STUDY: LEXISCAN SESTAMIBI STRESS TEST INDICATION: Chest Pain, PROCEDURE: At the baseline, the EKG revealed sinus bradycardia with some nonspecific ST-T changes. The baseline blood pressure was 128/70 mm Hg with a heart rate of 58 beats/min. Lexiscan was infused over a period of 20 seconds. A total of 0.4 milligrams of Lexiscan was infused. The stress phase was continued for a total of 5 minutes. Heart rate at the end of the stress phase was 82 with a blood pressure 124/76. The EKG at the peak infusion revealed no significant changes. Sestamibi was injected 20 seconds after the Lexiscan infusion. Blood pressure at the end of the recovery phase was 136/77 with a heart rate of 77 per minute. CONCLUSION: 1. No significant EKG changes with the LexiScan infusion 2. No LexiScan induced chest pain or cardiac arrhythmia 3. Normal blood pressure and heart rate response 4. Sestamibi/sestamibi perfusion scan pending; see separate report. Electronically Signed On 07-06-2021 10:48:26 NECK BAND MAKER by Jeremías Rosado M.D. [id number]
--- NOTE | 2021-07-02 07:48 | NMCV_ITS ---
NM lyn perf SPECT r/s* [id number] Edyta Camp Age: 66 Gender: F : 1955 Exam Date: 07/02/2021 07:48 Ordering Phys: Jeremías Rosado MD ([email or web address]) Technologist: GABRIELLA Gama Exam Location: [facility] Indications: SHORTNESS OF BREATH STRESS TEST Please see separate stress test report in [facility] for full findings IMAGE PROTOCOL Rest/Stress 1 Lexiscan Day Radiopharmaceutical Dose (mCi) Administration Site Administered by Rest: Tc-99m 10.7 IV GABRIELLA Ovalle Sestamibi Stress:Tc-99m 32.4 IV GABRIELLA Gama Sestamimary jane Rest: 02-Jul-2021 60 Discovery 630 Stress: 02-Jul-2021 30 Discovery 630 0.4mg Lexiscan. Supine position only as patient was unable to lay prone. SPECT RESULTS Technical Quality: Excellent Raw Data Analysis: Normal, Breast attenuation Image Corrections: No attenuation or motion correction applied Summed Stress Score: 0 Summed Rest Score: 1 Summed Difference Score: 0 PERFUSION FINDINGS Patchy areas of decreased tracer uptake in the anterior wall and inferior wall regions, with no significant reversibility FUNCTIONAL RESULTS (calculated via Gated SPECT) Stress Image LV EF (%): 61 Stress EDV (mL):109 TID: 0.86 Stress ESV (mL):43 FUNCTIONAL FINDINGS: Segmental wall motion analysis revealing mild hypokinesia of the LV apex IMPRESSIONS 1. Myocardial perfusion imaging revealing patchy areas of persistent decreased tracer uptake in the anterior wall and inferior wall regions, most likely represent attenuation artifacts. 2. Normal LV ejection fraction 61%. 3. LV wall motion analysis revealing mild hypokinesia of the LV apex. 4. Normal LV volume. No significant coronary ischemia, based on the above findings Dr Jeremías Rosado MD [facility] (Electronically Signed) Final Date: 03 July 2021 21:00 S
[2021-07-02] MEDS: regadenoson 0.4 Mg/5 ml Syringe IVP (09:23)
[2021-07-02 09:24] VITALS: BP 126/75; PULSE 82
== END 2021-07-02 07:20 | disposition home or self-care (01) ==
LOC: CDL 07:22
PROVIDERS: PCP Family Medicine; Visit Provider Internal Medicine Cardiovascular Disease
DX: R07.9 Chest pain, unspecified (principal); R06.02 Shortness of breath
CPT/HCPCS: 78452; 93017; A9500; J2785

== ENCOUNTER → 2021-07-10 11:12 | Outpatient (BNVA) | payer BC, SELFPAY | PROVIDERS: PCP Family Medicine; Visit Provider Family Medicine | DX: R19.7 Diarrhea, unspecified (principal) | CPT/HCPCS: 87493 ==

== ENCOUNTER → 2021-07-16 11:13 | Outpatient (BNVA) | payer BC, SELFPAY | PROVIDERS: PCP Family Medicine; Visit Provider Orthopaedic Surgery | DX: Z01.812 Encounter for preprocedural laboratory examination (principal); Z20.822 Contact with and (suspected) exposure to COVID-19 | CPT/HCPCS: 87635 ==

== ENCOUNTER 2021-07-19 08:04 | Day surgery (SDC) | payer BC, SELFPAY ==
[2021-07-18 12:54] VITALS: BMI 23.3
[2021-07-19] VITALS (11 sets, daily range): BP systolic 112–163; BP diastolic 58–89; PULSE 58–67; RESP 12–18; TEMP 36.1–36.7; O2SAT 93–100
[2021-07-19] MEDS: acetaminophen 500 mg Tablet 1000 MG PO (08:37)
[2021-07-19] MEDS: sodium chloride 0.9% 1,000 ML 30 ML IV (08:42)
--- NOTE | 2021-07-19 09:08 | P.HP_ITS ---
Same Day Surgery H&P Indication for Procedure/HPI DATE OF PROCEDURE: July 19, 2021 CHIEF COMPLAINT/INDICATIONFOR SURGICAL PROCEDURE: Right rotator cuff tear. Here for rotator cuff repair and other indicated procedures PREOP DIAGNOSIS: Rotator cuff tear Right shoulder PLANNED PROCEDRUE: Operation Date: 07/19/21 09:15 Proposed Procedures p Arthroscopic Right Rotator Cuff Repair 73024 M75.120(Right) - Ata Wan MD s Shoulder Arthroscopy(Right) - Ata Wan MD Progressive right shoulder pain since April, MRI has revealed full-thickness tear of the rotator cuff. Cardiac clearance has been obtained by Dr. Rosado. Well proceed with diagnostic arthroscopy left rotator cuff repair today Medications/Allergies* Home Medications Medication Instructions Recorded Confirmed Type alprazolam 0.5 mg tablet 0.5 mg PO TID 09/22/19 07/19/21 History aspirin 81 mg tablet,delayed 81 mg PO DAILY 09/22/19 07/19/21 History release clopidogrel 75 mg tablet 75 mg PO DAILY 09/22/19 07/19/21 History cyanocobalamin (vitamin B-12) 1,000 mcg PO DAILY 09/22/19 07/19/21 History 1,000 mcg capsule magnesium oxide 400 mg PO DAILY 09/22/19 07/19/21 History nitroglycerin 0.4 mg sublingual 0.4 mg SUBLINGUAL Q5M PRN 09/22/19 07/18/21 History tablet pantoprazole 40 mg tablet,delayed 40 mg PO BID tab 09/22/19 07/19/21 History release potassium chloride 10 mEq 20 meq PO QAM tab 09/22/19 07/19/21 History tablet,extended release(part/cryst) cholecalciferol (vitamin D3) 125 mcg PO DAILY 01/02/20 07/19/21 History [Vitamin D3] fluticasone propionate 50 1 spray INTRANASAL DAILY PRN gm 02/14/20 07/19/21 History mcg/actuation nasal spray,suspension Restasis 1 drp OPHTHALMIC (EYE) Q12H PRN 02/28/20 07/18/21 History nystatin See Rx Instructions .ROUTE 02/28/20 07/18/21 History .COMPLEX PRN triamcinolone acetonide 1 applic TOPICAL DAILY PRN 02/28/20 07/18/21 History gabapentin 300 mg capsule 300 mg PO TID PRN cap 03/09/20 07/19/21 History levothyroxine 112 mcg tablet 112 mcg PO DAILY tab 03/09/20 07/19/21 History diphenhydramine HCl 25 mg capsule 25 mg PO TID PRN 07/20/20 07/19/21 History trazodone 150 mg tablet 150 - 300 mg PO BEDTIME PRN 03/21/21 07/19/21 History fenofibrate nanocrystallized 48 mg 48 mg PO DAILY 04/23/21 07/19/21 History tablet lidocaine 5 % topical patch 1 patch TOPICAL DAILY 04/23/21 07/18/21 History fluoxetine 40 mg capsule 60 mg PO DAILY cap 06/18/21 07/19/21 History prednisone 2.5 mg tablet 2.5 mg PO DAILY 06/18/21 07/19/21 History fluconazole [Diflucan] 150 mg PO Q3D 07/19/21 07/19/21 History Allergies/Adverse Reactions Allergy/AdvReac Type Severity Reaction Status Date / Time Influenza Virus Vaccines Allergy Unknown Verified 07/18/21 12:50 Current Medications: Generic Name Dose Route Start Last Admin Trade Name Freq PRN Reason Stop Dose Admin Sodium Chloride 1,000 mls @ 30 mls/hr 07/19/21 08:15 07/19/21 08:42 Sodium Chloride 0.9% IV 07/20/21 08:14 30 mls/hr .Q24H SARIKA Administration Pertinent History/Comorbid Conditions* Medical History (Updated 06/18/21 @ 19:57 by Jeremías Rosado MD) Acute diastolic heart failure due to valvular disease Anxiety disorder Arteriosclerotic cardiovascular disease Atherosclerosis of coronary artery of [place] heart without angina pectoris Atherosclerotic heart disease of [place] coronary artery with other forms of angina pectoris Chronic kidney disease COPD exacerbation Essential (primary) hypertension GERD (gastroesophageal reflux disease) Hypothyroidism Intervertebral disc disorder with radiculopathy of lumbosacral region Lumbar stenosis with neurogenic claudication Mitral regurgitation Mixed hyperlipidemia Palpitations Recurrent UTI Systemic lupus erythematosus, unspecified Ventricular arrhythmia Vitamin D deficiency Surgical History (Updated 09/22/19 @ 16:08 by BING Millan) H/O: hysterectomy with BSO History of cholecystectomy History of heart artery stent 5 stents Family History (Updated 06/18/21 @ 10:37 by Nidia Worrell RN) Father, at age 78 Mother, at age 47 CAD (coronary artery disease) Mother rheumatic fever, early onset heart disease Dementia Father Heart disease Mother Lung disease Family/Other Cancer Sister Brain Hypertension Sister Mother Several members Denies family history of Diabetes Clotting disorder Chronic kidney disease (CKD) Suicide Anesthesia complication Bleeding disorder Stroke Social History Smoking and tobacco status: current every day smoker cigarettes Packs smoked per day: 1 Years cigarettes smoked: 40 Alcohol intake: never Desire information about alcohol rehabilitation?: No Counseling given: No Desire information about substance/drug rehabilitation?: No Counseling given: No Caregiver/support person: No Lives independently: Yes Household members: spouse Marital status: Current occupational status: retired History of recent travel: No Current gender identity: Female Pertinent Exam Findings alert, oriented x 3, clear to auscultation bilaterally and regular rate & rhythm Recommendations Surgery/Procedure today Coding Level of Care Code 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
--- NOTE | 2021-07-19 09:16 | P.ANESASSM_ITS ---
Pre-Anesthetic Assessment Pre-Anesthetic Assessment: Height/Weight: Height 1.65 m Weight 63.503 kg Temp Pulse Resp BP Pulse Ox 97.3 F L 65 18 124/63 96 07/19/21 08:12 07/19/21 08:12 07/19/21 08:12 07/19/21 08:12 07/19/21 08:12 Preop Diagnosis: Rotator cuff tear Right shoulder Proposed Procedure: Operation Date: 07/19/21 09:15 Proposed Procedures p Arthroscopic Right Rotator Cuff Repair 29122 M75.120(Right) - Ata Wan MD s Shoulder Arthroscopy(Right) - Ata Wan MD Was Beta Yue taken within 24 hours: N/A Was Clonidine taken within 24 hours: N/A Last intake: Intake Last Liquid Date 07/18/21 Last Liquid Time 19:00 Last Solid Date 07/18/21 Last Solid Time 19:00 Social: Social History: Tobacco and No alcohol Exam: Pre-Anes Outpt Exam: alert, oriented x 3 and regular rate & rhythm Airway: Submandibular: WNL Cervical ROM: WNL MP: 2 Pulmonary: Pulmonary: COPD CV/HEM: CV/HEM: CAD, HTN and Murmur (MR) Metabolic: Metabolic: Thyroid Musc/skel: Musc/skel: Lower Back Pain Neuropsych: Neuropsych: Anxiety and Depression Anesthetic Plan: ASA status: 3 Anesthesia: General and Regional (specify below) (Right Interscalene nerve blk) Risk of > 500 ml blood loss (7ml/kg in children): No Meds/Allergies Current Medications: Current Medications Generic Name Dose Route Start Last Admin Trade Name Freq PRN Reason Stop Dose Admin Sodium Chloride 1,000 mls @ 30 ml s/hr 07/19/21 08:15 07/19/21 08:42 Sodium Chloride 0.9% IV 07/20/21 08:14 30 mls/hr .Q24H SARIKA Administration PFSH Anesthesia PFSH: Medical History Acute diastolic heart failure due to valvular disease Anxiety disorder Arteriosclerotic cardiovascular disease Atherosclerosis of coronary artery of [place] heart without angina pectoris Atherosclerotic heart disease of [place] coronary artery with other forms of angina pectoris Chronic kidney disease COPD exacerbation Essential (primary) hypertension GERD (gastroesophageal reflux disease) Hypothyroidism Intervertebral disc disorder with radiculopathy of lumbosacral region Lumbar stenosis with neurogenic claudication Mitral regurgitation Mixed hyperlipidemia Palpitations Recurrent UTI Systemic lupus erythematosus, unspecified Ventricular arrhythmia Vitamin D deficiency Surgical History H/O: hysterectomy with BSO History of cholecystectomy History of heart artery stent 5 stents Family History Sister Cancer Brain Hypertension Mother , at age 47 Hypertension Several members Heart disease CAD (coronary artery disease) rheumatic fever, early onset heart disease Father , at age 78 Dementia Family/Other Lung disease Denies family history of Diabetes Clotting disorder Chronic kidney disease (CKD) Suicide Anesthesia complication Bleeding disorder Stroke Social History Smoking and tobacco status: current every day smoker cigarettes Packs smoked per day: 1 Years cigarettes smoked: 40 Alcohol intake: never Desire information about alcohol rehabilitation?: No Counseling given: No Desire information about substance/drug rehabilitation?: No Counseling given: No Caregiver/support person: No Lives independently: Yes Household members: spouse Marital status: Current occupational status: retired History of recent travel: No Current gender identity: Female Data Anesthesia CBC & Chem 7: 07/19/21 08:40 07/19/21 08:40 Cardiac Studies: Echocardiogram 05/23/21 Holter Monitor 03/23/20
[2021-07-19 09:18] LABS: Basophils % 0.5 %; Eosinophils # 0.1 10^3/uL (0.0-0.8); Eosinophils % 2.4 %; Hematocrit 37.3 % (37.0-47.0); Hemoglobin 12.3 g/dL (11.5-15.3); Lymphocytes # 1.7 10^3/uL (0.8-4.8); Lymphocytes % 29.6 %; Mean Corpuscular Hemoglobin 30.3 pg (28.0-34.0); Mean Corpuscular Volume 91.9 fl (81-99); Mean Platelet Volume 10.6 fL (7.4-10.4); Monocytes # 0.4 10^3/uL (0.2-0.9); Monocytes % 7.1 %; Neutrophils # 3.46 10^3/uL (1.8-7.7); Neutrophils % 60.1 %; Nucleated Red Blood Cells % 0 %; Platelet Count 152 10^3/cmm (130-400); Red Blood Count 4.06 10^6/uL (4.1-5.3); Red Cell Distribution Width 14.2 % (12.1-15.1); White Blood Count 5.8 10^3/uL (4.0-10.0)
--- NOTE | 2021-07-19 09:18 | ANES.PROC ---
Anesthesia Procedures Procedure/Date: 07/19/21 Nerve Block ^: Nerve Block 1: Main Anesthesia: general anesthesia Time Out Performed: Yes Consent: requested by attending/covering physician, from patient, risks and benefits reviewed and patient agrees to proceed Nerve block location: interscalene (Right) Anesthesia monitors applied: pulse oximetry, EKG, BP cuff and oxygen Nerve block position: semi sitting Anesthetic Used: ropivicaine 0.5% Amount of anesthesia used (mL): 30 Nerve Stimulator Used?: No Interscalene/Femoral BLK: 2 stimuplex 22 g needle used for position and inplane approach and visualize local anesthetic spread Injection: neg aspiration of heme Patient Tolerated Procedure: well Complications: none
[2021-07-19 09:30] LABS: Alanine Aminotransferase 18 U/L (0-33); Albumin Level 3.6 g/dL (3.5-5.2); Alkaline Phosphatase 55 IU/L (35-105); Aspartate Amino Transferase 30 U/L (0-32); Blood Urea Nitrogen 12 mg/dL (8-23); Calcium 8.7 mg/dL (8.5-10.5); Carbon Dioxide 23 mmol/L (22-29); Chloride 100 mmol/L (98-107); Globulin 3.2 g/dL (1.3-4.6); Glomerular Filtration Rate 71.8 mL/min (90-130); Glucose 80 mg/dL (65-115); Osmolality Calculated 283 mOsm/kg (285-295); Sodium 137 mmol/L (136-145); Total Bilirubin 0.2 mg/dL (0.15-1.2); Total Protein 6.8 g/dL (6.6-8.7)
[2021-07-19 09:33] LABS: Anion Gap 18.2 (5-19); Potassium 4.2 mmol/L (3.5-5.1)
[2021-07-19] MEDS: EPINEPHrine 1 mg/mL INJ 2 MG XX (10:01)
--- NOTE | 2021-07-19 11:17 | P.OP_ITS ---
Operative Report Date of procedure: July 19, 2021 Pre-op Diagnosis: Rotator cuff tear Right shoulder Post-op diagnosis: same Post-op Findings: Full-thickness tear right rotator cuff Implants: [employer] Regenetin patch, [employer] Helicoil 5.5 mm anchor Pathology: none sent Surgeon: Ata Wan Anesthesia: General and Nerve Block (Interscalene block) Estimated blood loss (mL): 10 Findings: The patient had a full-thickness tear of her supraspinatus tendon beginning of the biceps tendon extending posteriorly approximately 15mm with a centimeter of tendinous retraction. Overall her rotator cuff was frayed and degenerative. She had a large anterior subacromial spur. Condition: stable Disposition: PACU Procedure: Patient was given an interscalene block and taken to the operating room. She is prepped and draped in the lateral position with her right arm in 10 pounds of traction. She was given 2 g of Ancef. A timeout was performed. A posterior portal was made 2 cm inferior and medial to the posterior corner to the acromion. A scope cannula and trocar were driven into the subacromial space. An anterior lateral working portal made. Utilizing the [employer]hew Werewolf probe abundant bursal tissue was removed. This revealed a crescentic type tear with very degenerative appearing peripheral tendon. The tear itself measured approximately a centimeter and half from anterior to posterior with a centimeter of medial retraction. The leading edge of the acromion was outlined revealing very prominent spurring. A 5.5 mm acromionizer was introduced laterally and approximately 5 mm of anterior and inferior acromion removed Attention was then focused on the rotator cuff. The footprint on the greater tuberosity was debrided. Through a lateral stab wound a [employer]hew Helicoil 5.5 mm anchor was placed. 1 limb of the tape was placed through the posterior lateral tear approximately 6 mm from the end and the second limb of tape placed through the anterior rotator cuff tear 6 mm from the tear and. The suture was then passed centrally and medially approximately 8 mm from the tendinous edges. Through the lateral portal the tape sutures were secured followed by the FiberWire drawing the rotator cuff to the medial footprint. Next a low lateral portal was made and through that the [employer]hew Regeneten patch was placed. It was fixed medially with soft tissue nestor in each corner and centrally with anterior and posterior soft tissue nestor. To lateral bone nestor were placed securing the patch over the degenerative cuff and repair. Arthroscopic [place] is removed. Portals were closed with 3-0 Prolene. Sterile dressings were applied. The patient was extubated and taken to recovery room in stable condition.
[2021-07-19] MEDS: oxyCODONE-APAP 5-325 mg Tablet 1 TAB PO (12:46)
--- NOTE | 2021-07-19 14:17 | ANE.PACU2 ---
Inpatient post-anesthesia follow up: Airway intact: Yes Vital signs: Temperature 98.0 F Pulse Rate 67 Respiratory Rate 16 Blood Pressure 141/89 Pulse Oximetry 97 Oxygen Delivery Me thod Room Air Oxygen Flow Rate 8 Fraction of Inspir ed Oxygen Hydration adequate: Yes Nausea and vomiting: No Pain level: 1 Mental status: Baseline
== END 2021-07-19 13:02 | disposition home or self-care (01) ==
PROVIDERS: Anesthesiology; PCP Family Medicine; Visit Provider Orthopaedic Surgery
PROC: (CPT 29827; principal; 2021-07-19 09:05)
PROC: (CPT 29805; 2021-07-19 09:05)
DX: M75.120 Complete rotator cuff tear or rupture of unspecified shoulder, not specified as traumatic (principal); J44.9 Chronic obstructive pulmonary disease, unspecified; I25.10 Atherosclerotic heart disease of native coronary artery without angina pectoris; I13.0 Hypertensive heart and chronic kidney disease with heart failure and stage 1 through stage 4 chronic kidney disease, or unspecified chronic kidney disease; N18.9 Chronic kidney disease, unspecified; I50.31 Acute diastolic (congestive) heart failure; K21.9 Gastro-esophageal reflux disease without esophagitis; E03.9 Hypothyroidism, unspecified; E78.2 Mixed hyperlipidemia; Z95.5 Presence of coronary angioplasty implant and graft; F17.210 Nicotine dependence, cigarettes, uncomplicated; Z79.82 Long term (current) use of aspirin
CPT/HCPCS: 29827; 64415; 76942; 80053; 85025; 96365; C1713; J0171; J0690; J1100; J2405; J2704; J2710; J2795; J3010; J3490; J7030

== ENCOUNTER → 2021-10-04 15:40 | Outpatient (BNVA) | payer BC, SELFPAY | PROVIDERS: PCP Family Medicine; Visit Provider Internal Medicine Cardiovascular Disease | DX: N18.9 Chronic kidney disease, unspecified (principal); I25.5 Ischemic cardiomyopathy; I50.33 Acute on chronic diastolic (congestive) heart failure; E78.5 Hyperlipidemia, unspecified; Z79.01 Long term (current) use of anticoagulants; R06.02 Shortness of breath | CPT/HCPCS: 80048; 80076; 83880; 84443; 85025 ==

== ENCOUNTER 2021-10-05 06:00 | Outpatient (RCR) | payer BC, SELFPAY | END 2021-11-01 23:59 | disposition home or self-care (01) | LOC: APT 06:00 | PROVIDERS: PCP Family Medicine; Referring Provider Orthopaedic Surgery; Visit Provider Orthopaedic Surgery | DX: Z47.89 Encounter for other orthopedic aftercare (principal) | CPT/HCPCS: 97110; 97163 ==

== ENCOUNTER 2021-10-15 15:07 | Emergency (ER) | payer BC, SELFPAY ==
[2021-10-15 15:21] VITALS: BP 113/71; PULSE 179; RESP 22; TEMP 37.1; O2SAT 96; BMI 22.3
[2021-10-15 15:53] VITALS: PULSE 76
--- NOTE | 2021-10-15 17:36 | XRR_ITS ---
PROCEDURE INFORMATION: Exam: XR Chest Exam date and time: 10/15/2021 5:36 PM Age: 66 years old Clinical indication: Cough and dyspnea; Additional info: Dyspnea/cough TECHNIQUE: Imaging protocol: XR of the chest. Views: 1 view. COMPARISON: CR XR chest 1V portable [id number] 05/07/2021 3:04 PM, also several additional chest radiographs from 2020 FINDINGS: Lungs: Since May 2021 there is a persisting but slightly decreased hazy opacity in the left lower lobe. This opacity was not present in April 2021. The right lung is clear. Pleural spaces: Unremarkable. No pleural effusion. No pneumothorax. Heart/Mediastinum: The heart size is unchanged. Bones/joints: Unremarkable. XR/XR chest 1V portable [id number] IMPRESSION: Slightly decreased left lower lobe hazy opacity. This may be a slowly resolving infiltrate, possibly with underlying scarring
--- NOTE | 2021-10-15 17:36 | ECG_ITS ---
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 Measurements Intervals [place] Rate: 85 P: TN: QRS: 54 QRSD: 109 T: 49 QT: 401 QTc: 478 Interpretive Statements SUPRAVENTRICULAR RHYTHM MODERATE ST DEPRESSION [0.05+ mV ST DEPRESSION] Compared to ECG 06/06/2020 22:56:09 Supraventricular rhythm now present Sinus rhythm no longer present ST (T wave) deviation still present Electronically Signed On 10-15-2021 21:00:23 CDT by Derrick Peralta M.D. [email or web address]
[2021-10-15 17:59] LABS: ABG PCO2 32.5 mmHg (35-45); Alveolar-Arterial Oxygen Gradi 5.7 mmHg (5-10); Arterial Blood Gas Hematocrit 36.2 % (37-47); Base Excess ABG 2.2 mmol/L (-2.0-2.0); Blood Gas Sample Type Arterial; Carboxyhemoglobin 3.2 %THgb (0.4-20.1); HCO3 ABG 25.1 mmol/L (22-26); HGB O2 Sat 91.1 % (95-100); Ionized Calcium Level - ABG 1.2 mmol/L (1.1-1.4); Methemoglobin 0.8 % (0.4-1.5); Oxygen Saturation ABG 94.9; PO2 ABG 65.5 mmHg (80.0-100.0); Potassium Level - ABG 4.2 mmol/L (3.5-5.0); Total Hemoglobin 11.8 g/dL (12-16)
[2021-10-15 18:00] LABS: Blood Gas Operator Identificat ED; Blood Gas Sample Site Brachial, left; Oxygen Device ROOM AIR
--- NOTE | 2021-10-15 18:09 | W.ED.SOB ---
HPI - SOB/Dyspnea General: Chief Complaint: Shortness of Breath/Dyspnea Stated Complaint: SOB; multiple complaints Time Seen by Provider: 10/15/21 17:36 History of Present Illness: HPI Narrative: Ms. Telles is a 66-year-old lady with significant past medical history of ischemic cardiomyopathy, current treatment for recurrent UTI and yeast infection, COPD with intermittent home oxygen use who presents to the emergency department due to multiple concerns. For the past week or so she has had shortness of breath which has been gradual onset and mild associated cough. She has had increased frequency of home oxygen use and turn up the oxygen. She denies specific exacerbating factors though apparently was told that she has extra fluid on her lungs and around her heart and was thus initiated on Lasix. Additionally for the past 3 to 4 days she has had bilateral lower extremity weakness and cramping. This is generalized and symmetric without focality or reported other neurologic deficits. She has had associated myalgias and arthralgias including back pain and right shoulder pain from a fall. She does have a history of back surgeries. No continence issues. No numbness or tingling. Overall intensity of symptoms moderate to severe. Course has been worsening. No other specific changes in health, medications, known exacerbating, or alleviating factors identified. Patient is currently on Augmentin. Pertinent past history: COPD and congestive heart failure Onset (ago): day(s) Context: other Timing: progressively worsening Severity: severe Exacerbating factors: nothing Relieving factors: nothing Associated symptoms: Reports fever(s) and other Review of Systems General: Reports: 10 or more systems reviewed and unremarkable except in HPI and below Const: Reports: fever(s) PFSH ED PFSH: Medical History Acute diastolic heart failure due to valvular disease Anxiety disorder Arteriosclerotic cardiovascular disease Atherosclerosis of coronary artery of [place] heart without angina pectoris Atherosclerotic heart disease of [place] coronary artery with other forms of angina pectoris Chronic kidney disease COPD exacerbation Essential (primary) hypertension GERD (gastroesophageal reflux disease) Hypothyroidism Intervertebral disc disorder with radiculopathy of lumbosacral region Lumbar stenosis with neurogenic claudication Mitral regurgitation Mixed hyperlipidemia Palpitations Recurrent UTI Systemic lupus erythematosus, unspecified Ventricular arrhythmia Vitamin D deficiency Surgical History H/O: hysterectomy with BSO History of cholecystectomy History of heart artery stent 5 stents Family History Sister Cancer Brain Hypertension Mother , at age 47 Hypertension Several members Heart disease CAD (coronary artery disease) rheumatic fever, early onset heart disease Father , at age 78 Dementia Family/Other Lung disease Denies family history of Diabetes Clotting disorder Chronic kidney disease (CKD) Suicide Anesthesia complication Bleeding disorder Stroke Social History Smoking and tobacco status: current every day smoker cigarettes Packs smoked per day: 1 Years cigarettes smoked: 40 Alcohol intake: never Desire information about alcohol rehabilitation?: No Counseling given: No Desire information about substance/drug rehabilitation?: No Counseling given: No Caregiver/support person: No Lives independently: Yes Household members: spouse Marital status: Current occupational status: retired History of recent travel: No Current gender identity: Female Physical Exam Const: COMMON NORMALS: alert GENERAL APPEARANCE: cooperative, well developed and ill appearing (Mildly) HENMT: COMMON NORMALS: normocephalic and atraumatic HEAD & SCALP: normocephalic and atraumatic Eye: COMMON NORMALS: conjunctivae normal CONJUNCTIVA: Yes conjunctivae normal SCLERA: sclerae normal Neck/C-Spine: COMMON NORMALS: supple GENERAL: Yes trachea midline Resp: COMMON NORMALS: normal respiratory effort EFFORT & INSPECTION: Yes able to speak in complete sentences AUSCULTATION: diminished lung sounds Cardio: COMMON NORMALS: regular rate and regular rhythm RATE: regular rate RHYTHM: regular rhythm GI: COMMON NORMALS: Soft to palpation PALPATION: Yes Soft to palpation and No Tenderness to palpation present (GI) PERCUSSION: normal to percussion Extremity: GENERAL: Yes normal exam except as noted and No edema Neuro: COMMON NORMALS: moves all extremities SENSORIUM/ORIENTATION: Yes alert and No Orientation impaired Psych: COMMON NORMALS: mental status grossly normal and Normal thought process present THOUGHT PROCESS: Normal thought process present Course ED course: - Patient was seen and evaluated by me at bedside - Patient placed on cardiac monitors, IV access obtained - Initial evaluation notable for exam as above - Analgesia, breathing treatment, IV fluids, steroids given. - Labs notable for no leukocytosis, normal hemoglobin. ABG with mildly decreased PO2, PCO2 is also decreased with elevated pH. Metabolic panel notable for likely dehydration, magnesium low and replenishment ordered. Transaminitis improving from previous. Delta troponin is negative and BNP is markedly improved compared to 11 days ago. Negative viral studies for infectious. - Imaging notable for decreased opacities opacity. Given severity of patient's reported symptoms with virtually negative evaluation thus far additional imaging is felt to be warranted to rule out potentially serious conditions requiring intervention. CT scan with perhaps worsening pneumonitis, no evidence of pulmonary embolism. CT C-spine with mild disc bulging without significant central or foraminal stenosis. - Upon serial reexamination after treatment the patient was significantly improved - Based on patient history, evaluation, labs, and imaging as interpreted the most likely cause of the patient's condition is uncertain, perhaps related to COPD exacerbation. - The results of ED evaluation were discussed with the patient including prescriptions and/or symptomatic cares (if applicable) including appropriate and responsible use, followup plan, and return precautions. The patient verbalized understanding and felt safe for discharge. - Patient discharged in satisfactory condition. Note: Click bubbles or prepopulated wallace in note writing are used for assistance with data collection and billing and are inherently more limited than narrative and other text portions of this note. Please use narrative for additional clinical history and defer to narrative/free test for any case of contradictory information. If information appears in only free text or click bubble it should be considered present or absent as reported. Please contact note television script writer for clarifications of clinical information or contradictory information. MDM is a brief summary, contradictory or erroneous seeming information should be clarified and full note should be reviewed. Vital Signs: Vital signs: Vital Signs Temperature 98.0 F 10/15/21 18:37 Pulse Rate 86 10/15/21 19:21 Respiratory Rate 16 10/15/21 22:57 Blood Pressure 146/81 10/15/21 18:37 Pulse Oximetry 98 10/15/21 19:21 MDM - SOB/Dyspnea Medical Decision Making 66-year-old lady with complex past medical history presenting to the emergency department due to worsening respiratory symptoms. ED evaluation notable for no obvious cause of symptoms with exception of perhaps worsening pneumonitis. Patient significantly improved with treatment and satisfactory for outpatient management and treatment with COPD exacerbation. Patient feels improved and comfortable with plan. Medical Records I reviewed the patient's medical records. Lab Data I reviewed the patient's lab results. : 10/15/21 17:58 10/15/21 17:58 Labs/Radiology: Radiology Impressions Chest X-Ray 10/15/21 17:36 IMPRESSION: Slightly decreased left lower lobe hazy opacity. This may be a slowly resolving infiltrate, possibly with underlying scarring Chest CTA 10/15/21 20:32 IMPRESSION: 1. Chronic and increased interstitial infiltrates suggesting pneumonitis. 2. Emphysema and fibrosis. 3. Mild central adenopathy is most likely reactive. 4. Extensive coronary atherosclerosis Lumbar Spine CT 10/15/21 20:34 IMPRESSION: Multiple mild disc bulges and facet degenerative changes. No significant central or foraminal stenosis Laboratory Results WBC 8.9 10^3/uL (4.0-10.0) 10/15/21 17:58 RBC 4.20 10^6/uL (4.1-5.3) 10/15/21 17:58 Hgb 12.5 g/dL (11.5-15.3) 10/15/21 17:58 Hct 37.6 % (37.0-47.0) 10/15/21 17:58 MCV 89.5 fl (81-99) 10/15/21 17:58 MCH 29.8 pg (28.0-34.0) 10/15/21 17:58 MCHC 33.2 g/dL (30.0-36.0) 10/15/21 17:58 RDW 14.3 % (12.1-15.1) 10/15/21 17:58 Plt Count 206 10^3/cmm (130-400) 10/15/21 17:58 MPV 10.6 fL (7.4-10.4) H 10/15/21 17:58 Neut % (Auto) 73.4 % 10/15/21 17:58 Lymph % (Auto) 18.2 % 10/15/21 17:58 Band[place] % (Auto) 6.3 % 10/15/21 17:58 Eos % (Auto) 1.2 % 10/15/21 17:58 Baso % (Auto) 0.3 % 10/15/21 17:58 Neut # (Auto) 6.55 10^3/uL (1.8-7.7) 10/15/21 17:58 Lymph # (Auto) 1.6 10^3/uL (0.8-4.8) 10/15/21 17:58 [place] # (Auto) 0.6 10^3/uL (0.2-0.9) 10/15/21 17:58 Eos # (Auto) 0.1 10^3/uL (0.0-0.8) 10/15/21 17:58 Baso # (Auto) 0.0 10^3/uL (0.0-0.1) 10/15/21 17:58 Nucleated RBC % (auto) 0 % 10/15/21 17:58 Nucleated RBCs # 0.0 /100WBC 10/15/21 17:58 Specimen Type Arterial 10/15/21 17:49 Sample Site Brachial, left 10/15/21 17:49 ABG pH 7.50 (7.35-7.45) H 10/15/21 17:49 ABG pCO2 32.5 mmHg (35-45) L 10/15/21 17:49 ABG pO2 65.5 mmHg (80.0-100.0) L 10/15/21 17:49 ABG HCO3 25.1 mmol/L (22-26) 10/15/21 17:49 ABG O2 Saturation 94.9 10/15/21 17:49 ABG Base Excess 2.2 mmol/L (-2.0-2.0) H 10/15/21 17:49 Amrit Test N/a 10/15/21 17:49 A-a O2 Gradient 5.7 mmHg (5-10) 10/15/21 17:49 Hematocrit 36.2 % (37-47) L 10/15/21 17:49 Hgb O2 Saturation 91.1 % (95-100) L 10/15/21 17:49 Carboxyhemoglobin 3.2 %THgb (0.4-20.1) 10/15/21 17:49 Methemoglobin 0.8 % (0.4-1.5) 10/15/21 17:49 Total Hemoglobin 11.8 g/dL (12-16) L 10/15/21 17:49 Sodium 132.0 mmol/L (131-143) 10/15/21 17:49 Potassium 4.2 mmol/L (3.5-5.0) 10/15/21 17:49 Glucose 98.0 mg/dL (70-115) 10/15/21 17:49 Ionized Calcium 1.2 mmol/L (1.1-1.4) 10/15/21 17:49 O2 Delivery Device Room air 10/15/21 17:49 FiO2 21.0 % 10/15/21 17:49 Software Sales Consultant ID Ed 10/15/21 17:49 Sodium 130 mmol/L (136-145) L 10/15/21 17:58 Potassium 4.1 mmol/L (3.5-5.1) 10/15/21 17:58 Chloride 90 mmol/L (98-107) L 10/15/21 17:58 Carbon Dioxide 23 mmol/L (22-29) 10/15/21 17:58 Anion Gap 21.1 (5-19) H 10/15/21 17:58 BUN 12 mg/dL (8-23) 10/15/21 17:58 Creatinine 0.7 mg/dL (0.5-0.9) 10/15/21 17:58 GFR Calculation 83.7 mL/min (90-130) L 10/15/21 17:58 Glucose 86 mg/dL (65-115) 10/15/21 17:58 Calculated Osmolality 269 mOsm/kg (285-295) L 10/15/21 17:58 Calcium 9.5 mg/dL (8.5-10.5) 10/15/21 17:58 Magnesium 1.4 mg/dL (1.7-2.3) L 10/15/21 17:58 Total Bilirubin 0.4 mg/dL (0.15-1.2) 10/15/21 17:58 AST 44 U/L (0-32) H 10/15/21 17:58 ALT 27 U/L (0-33) 10/15/21 17:58 Alkaline Phosphatase 112 IU/L (35-105) H 10/15/21 17:58 Creatine Kinase 118 U/L (26-192) 10/15/21 17:58 Troponin T Baseline 10 ng/L (0-10) 10/15/21 17:58 Troponin T 120 Minute 10.15 ng/L (0-10) H 10/15/21 19:50 Delta Troponin T 0.15 ABS# (0-10) 10/15/21 19:50 NT-Pro-B Natriuret Pep 462 pg/mL (0-125) H 10/15/21 17:58 Total Protein 7.8 g/dL (6.6-8.7) 10/15/21 17:58 Albumin 3.9 g/dL (3.5-5.2) 10/15/21 17:58 Globulin 3.9 g/dL (1.3-4.6) 10/15/21 17:58 Nasal Influ A H1 2009 PCR Not detected (NOT DETECT) 10/15/21 18:33 Coronavirus 229E (PCR) Not detected (NOT DETECT) 10/15/21 18:33 Influenza A (H1) PCR Not detected (NOT DETECT) 10/15/21 18:33 Influenza A (H3) PCR Not detected (NOT DETECT) 10/15/21 18:33 Influenza Type A (PCR) Not detected (NOT DETECT) 10/15/21 18:33 Influenza Type B (PCR) Not detected (NOT DETECT) 10/15/21 18:33 SARS-CoV-2 (PCR) Not detected (NOT DETECT) 10/15/21 18:33 EKG Data EKG 1: I personally reviewed and interpreted this EKG as follows: EKG Interpretation Date: 10/14/21 EKG interpretation time: 17:52 Interpretation: Twelve-lead EKG shows a regular rhythm at a rate of 85. Clinical appears grossly normal, QRS duration 109, QTc 443. Normal axis. Interpretation: Sinus rhythm with nonspecific ST segment abnormalities. EKG 2: I personally reviewed and interpreted this EKG as follows: EKG Interpretation Date: 10/14/21 EKG interpretation time: 19:56 Interpretation: . Twelve-lead EKG shows a regular rhythm and rate of 89 IN interval 145, QRS duration 92, QTc 430. Normal axis. Interpretation: Sinus rhythm. Nonspecific ST segment abnormalities. Discharge Plan Discharge Patient Disposition: Home Clinical Impression: COPD exacerbation Condition: Stable Prescriptions: New prednisone 20 mg tablet 40 mg PO ONCE 5 Days Qty: 10 0RF albuterol sulfate 90 mcg/actuation HFA aerosol inhaler 2 inh inhalation Q8H PRN (Reason: shortness of breath or wheezing) Qty: 8.5 0RF oxycodone 5 mg tablet 5 mg PO Q6H PRN (Reason: pain) Qty: 4 0RF No Action fluticasone propionate 50 mcg/actuation spray,suspension 1 spray INTRANASAL DAILY PRN (Reason: Allergy Symptoms) 0RF diphenhydramine HCl [Benadryl] 25 mg capsule 25 mg PO TID PRN (Reason: Allergic Reaction) 0RF prednisone 2.5 mg tablet 2.5 mg PO DAILY 0RF alprazolam 0.5 mg tablet 0.5 mg PO TID 0RF cyanocobalamin (vitamin B-12) 1,000 mcg capsule 1,000 mcg PO DAILY 0RF magnesium oxide 400 mg magnesium tablet 400 mg PO DAILY 0RF nitroglycerin [Nitrostat] 0.4 mg tablet, sublingual 0.4 mg SUBLINGUAL Q5M PRN (Reason: Chest Pain) 0RF pantoprazole 40 mg tablet,delayed release (DR/EC) 40 mg PO BID 0RF clopidogrel [Plavix] 75 mg tablet 75 mg PO DAILY 0RF fluoxetine 40 mg capsule 60 mg PO DAILY 0RF levothyroxine 112 mcg tablet 112 mcg PO DAILY 0RF gabapentin 300 mg capsule 300 mg PO TID PRN (Reason: nerve pain) 0RF fenofibrate nanocrystallized 48 mg tablet 48 mg PO DAILY 0RF lidocaine [Lidoderm] 5 % adhesive patch,medicated 1 patch topical DAILY 0RF Rx Instructions: leave on most painful area for up to 12 hrs ciprofloxacin HCl 500 mg tablet See Rx Instructions .ROUTE .COMPLEX Qty: 42 0RF Dose Instruction: TAKE ONE TABLET BY MOUTH TWICE DAILY Rx Instructions: TAKE ONE TABLET BY MOUTH TWICE DAILY oxycodone 5 mg tablet 5 mg PO Q4H PRN (Reason: pain) 7 Days Qty: 40 0RF tramadol 50 mg tablet 50 mg PO Q6H PRN (Reason: pain) Qty: 30 0RF furosemide 40 mg tablet 40 mg PO DAILY PRN (Reason: weight gain) Qty: 90 3RF potassium chloride 10 mEq tablet,ER particles/crystals 20 meq PO QAM Qty: 180 3RF ondansetron HCl [Zofran] 4 mg tablet 4 mg PO Q6H PRN (Reason: nausea and vomiting) Qty: 20 0RF Diflucan 150 mg tablet 150 mg PO Q3D 0RF cholecalciferol (vitamin D3) [Vitamin D3] 125 mcg (5,000 unit) Tablet 125 mcg PO DAILY 0RF triamcinolone acetonide 0.1 % Cream 1 applic TOPICAL DAILY PRN (Reason: unknown) 0RF nystatin 100,000 unit/gram cream See Rx Instructions .ROUTE .COMPLEX PRN (Reason: Itching) 0RF Rx Instructions: topically use as needed Restasis 0.05 % Dropperette 1 drp OPHTHALMIC (EYE) Q12H PRN (Reason: Dry Eyes) 0RF Rx Instructions: 1 drop each eye bid trazodone 150 mg tablet 150 - 300 mg PO BEDTIME PRN (Reason: Insomnia) 0RF Discharge Orders: Discharge ED (Routine); Ordered 10/15/21 Ordered By: David Lyon Referrals: Raheem Baron [Primary Care Provider] - Discharge Diet: Usual diet Discharge Activity: Resume usual activity Patient Instructions: Dehydration (ED), COPD (Chronic Obstructive Pulmonary Disease) (ED), Opioid Safety Activity Restrictions/Additional Instructions: Thank you for visiting the emergency department. You were seen and evaluated for shortness of breath associated with other symptoms. The exact cause your symptoms is unclear. Your shortness of breath may be related to to flareup of COPD. recommend completing your course of antibiotics. Additionally will be given a prescription for steroids and an inhaler. Please follow-up with your primary care provider. Please call your business support liaison tomorrow with regards to continuing your Lasix or not. Please return to the emergency department for worsening symptoms or anything else that you are concerned about and feel needs emergency department evaluation. Coding Level of Care Code ED [employer] Operator for [place] Exam Comprehensive
[2021-10-15 18:16] LABS: Basophils % 0.3 %; Eosinophils # 0.1 10^3/uL (0.0-0.8); Eosinophils % 1.2 %; Hematocrit 37.6 % (37.0-47.0); Hemoglobin 12.5 g/dL (11.5-15.3); Lymphocytes # 1.6 10^3/uL (0.8-4.8); Lymphocytes % 18.2 %; Mean Corpuscular HGB Conc 33.2 g/dL (30.0-36.0); Mean Corpuscular Hemoglobin 29.8 pg (28.0-34.0); Mean Corpuscular Volume 89.5 fl (81-99); Mean Platelet Volume 10.6 fL (7.4-10.4); Monocytes # 0.6 10^3/uL (0.2-0.9); Monocytes % 6.3 %; Neutrophils # 6.55 10^3/uL (1.8-7.7); Neutrophils % 73.4 %; Nucleated Red Blood Cells % 0 %; Platelet Count 206 10^3/cmm (130-400); Red Cell Distribution Width 14.3 % (12.1-15.1); White Blood Count 8.9 10^3/uL (4.0-10.0)
[2021-10-15] MEDS: morphine 4 mg/mL SDV 1 mL IVP ×2 (18:34→22:57)
[2021-10-15 18:37] VITALS: BP 146/81; PULSE 86; RESP 20; TEMP 36.7; O2SAT 100
[2021-10-15 18:42] LABS: Troponin(5th) Baseline 10 ng/L (0-10)
[2021-10-15 18:44] LABS: Alanine Aminotransferase 27 U/L (0-33); Albumin Level 3.9 g/dL (3.5-5.2); Alkaline Phosphatase 112 IU/L (35-105); Aspartate Amino Transferase 44 U/L (0-32); Blood Urea Nitrogen 12 mg/dL (8-23); Calcium 9.5 mg/dL (8.5-10.5); Carbon Dioxide 23 mmol/L (22-29); Chloride 90 mmol/L (98-107); Creatine Phosphokinase 118 U/L (26-192); Globulin 3.9 g/dL (1.3-4.6); Glomerular Filtration Rate 83.7 mL/min (90-130); Glucose 86 mg/dL (65-115); Osmolality Calculated 269 mOsm/kg (285-295); Sodium 130 mmol/L (136-145); Total Bilirubin 0.4 mg/dL (0.15-1.2); Total Protein 7.8 g/dL (6.6-8.7)
[2021-10-15 19:00] LABS: Anion Gap 21.1 (5-19); Potassium 4.1 mmol/L (3.5-5.1)
[2021-10-15 19:21] VITALS: PULSE 86; RESP 18; O2SAT 98
[2021-10-15] MEDS: ipratropium-albuterol 3 mL Neb INHALATION (19:21)
[2021-10-15 19:23] LABS: Magnesium 1.4 mg/dL (1.7-2.3); NT Pro B Type Natriuretic Pept 462 pg/mL (0-125)
--- NOTE | 2021-10-15 19:36 | ECG_ITS ---
[facility] Test Date: 2021-10-15 Pat Name: Edyta Camp Department: Room: Gender: Female Clinic Coordinator: : 1955 Requested By: Jj Mcleod Order Number: [id number] MD: Derrick Peralta M.D. Measurements Intervals [place]ane Rate: 89 P: -18 IL: 145 QRS: 56 QRSD: 92 T: 28 QT: 383 QTc: 467 Interpretive Statements SINUS RHYTHM NONSPECIFIC ST & T-WAVE ABNORMALITY Compared to ECG 10/15/2021 17:48:09 T-wave abnormality now present Supraventricular rhythm no longer present ST (T wave) deviation no longer present Electronically Signed On 10-15-2021 21:11:45 CDT by Derrick Peralta M.D. [id number]
[2021-10-15] MEDS: magnesium sulfate premix 2 GM/50 ML PIGGYBACK IV (19:42)
[2021-10-15 20:19] LABS: Troponin 5 2HR 10.15 ng/L (0-10)
[2021-10-15 20:22] LABS: Troponin 5 2HR Delta 0.15 ABS# (0-10)
[2021-10-15 20:22] LABS: Adenovirus Not Detected (NOT DETECT); Chlamydia Pneumoniae Not Detected (NOT DETECT); Coronavirus 229E,HKU1,NL63,OC4 Not Detected (NOT DETECT); Human Metapneumovirus Not Detected (NOT DETECT); Human Rhinovirus/Enterovirus Not Detected (NOT DETECT); Influenza A Not Detected (NOT DETECT); Influenza A H1 Not Detected (NOT DETECT); Influenza A H1-2009 Not Detected (NOT DETECT); Influenza A H3 Not Detected (NOT DETECT); Influenza B Not Detected (NOT DETECT); Mycoplasma Pneumoniae Not Detected (NOT DETECT); Parainfluenza Virus Type 1 Not Detected (NOT DETECT); Parainfluenza Virus Type 2 Not Detected (NOT DETECT); Parainfluenza Virus Type 3 Not Detected (NOT DETECT); Parainfluenza Virus Type 4 Not Detected (NOT DETECT); Respiratory Syncytial Virus A Not Detected (NOT DETECT); Respiratory Syncytial Virus B Not Detected (NOT DETECT); SARS-COV-2 Not Detected (NOT DETECT)
[2021-10-15 20:26] LABS: Influenza A Not Detected (NOT DETECT); Influenza A H1 Not Detected (NOT DETECT); Influenza A H1-2009 Not Detected (NOT DETECT); Influenza A H3 Not Detected (NOT DETECT); Influenza B Not Detected (NOT DETECT); Results from Genmark
--- NOTE | 2021-10-15 20:32 | CTR_ITS ---
PROCEDURE INFORMATION: Exam: CTA Chest With Contrast Exam date and time: 10/15/2021 8:32 PM Age: 66 years old Clinical indication: Tachypnea; Patient HX: Sob/tachycardia and abnormal cxr; Additional info: SOB, tachycardia, abnormal chest XR TECHNIQUE: Imaging protocol: Computed tomographic angiography of the chest with contrast. 3D rendering (Not supervised by radiologist): MIP and/or 3D reconstructed images were created by the technologist. Radiation optimization: All CT scans at this facility use at least one of these dose optimization techniques: automated exposure control; mA and/or kV adjustment per patient size (includes targeted exams where dose is matched to clinical indication); or iterative reconstruction. Contrast material: 95; Contrast volume: 95 ml; Contrast route: INTRAVENOUS (IV); COMPARISON: CTA Chest-Pulmonary Emb [id number] 10/29/2017 7:52 PM RADIATION DOSE METRICS: Total DLP (mGy-cm): 617.12 FINDINGS: Pulmonary arteries: Normal. No pulmonary emboli. Aorta: Unremarkable. No aortic aneurysm. No aortic dissection. Lungs: Chronic and increased subtle interstitial infiltrates in both lungs are greatest in the right upper lobe. The pattern suggests pneumonitis. There is also paraseptal emphysema and fibrosis with an upper lobe predominance. There is some mucoid fluid in the right mainstem bronchus. Pleural spaces: Unremarkable. No pneumothorax. No pleural effusion. Heart: There is extensive calcified plaque throughout the coronary arteries. Lymph nodes: Mild hilar and central mediastinal adenopathy measuring up to 1.1 cm, most likely reactive. Bones/joints: Unremarkable. No acute fracture. Soft tissues: Unremarkable. CT/CT angio chest PE protcl [id number] IMPRESSION: 1. Chronic and increased interstitial infiltrates suggesting pneumonitis. 2. Emphysema and fibrosis. 3. Mild central adenopathy is most likely reactive. 4. Extensive coronary atherosclerosis
--- NOTE | 2021-10-15 20:34 | CTR_ITS ---
PROCEDURE INFORMATION: Exam: CT Lumbar Spine Without Contrast Exam date and time: 10/15/2021 8:34 PM Age: 66 years old Clinical indication: Prior surgery; Surgery date: 6+ months; Patient HX: Low back pain w/ HX of surgery; Additional info: Low back pain, HX surgery TECHNIQUE: Imaging protocol: Computed tomography images of the lumbar spine without contrast. Radiation optimization: All CT scans at this facility use at least one of these dose optimization techniques: automated exposure control; mA and/or kV adjustment per patient size (includes targeted exams where dose is matched to clinical indication); or iterative reconstruction. COMPARISON: MR lumbar spine wo con* [id number] 06/27/2020 2:56 PM RADIATION DOSE METRICS: Total DLP (mGy-cm): 2084.41 FINDINGS: Vertebrae: There is mild chronic deformity of the L3 superior endplate which is unchanged since the previous MRI. L1-L2: At L1-L2 there is mild facet hypertrophy and no stenosis. . No severe spinal canal stenosis. No significant neural foraminal narrowing. L2-L3: At L2-L3 there is a broad-based disc bulge and facet and ligamentum flava hypertrophy. The thecal sac is slightly deformed but without significant central stenosis L3-L4: At L3-L4 there is a mild broad-based disc bulge with facet and ligamentum flava hypertrophy. However no central or foraminal stenosis. . L4-L5: At L4-L5 there is a broad-based disc bulge with mild facet and ligamentum flava hypertrophy. No significant central or foraminal stenosis. . L5-S1: At L5-S1 there is a broad-based disc bulge producing mild deformity of the thecal sac and no stenosis. Gallbladder and bile ducts: The gallbladder is surgically absent. Vasculature: Scattered calcified plaque in the abdominal aorta and iliac arteries. CT/CT lumbar spine wo con* [id number] IMPRESSION: Multiple mild disc bulges and facet degenerative changes. No significant central or foraminal stenosis
[2021-10-15] MEDS: sodium chloride 0.9% 1,000 ML 999 ML IV (20:50)
[2021-10-15] MEDS: iohexol 350 mg/mL 100 mL Btl IV (22:14)
[2021-10-15 22:57] VITALS: RESP 16
== END 2021-10-15 23:14 | disposition home or self-care (01) ==
PROVIDERS: Family Medicine; Emergency Provider Emergency Medicine; PCP Family Medicine
DX: J44.1 Chronic obstructive pulmonary disease with (acute) exacerbation (principal); Z79.02 Long term (current) use of antithrombotics/antiplatelets; Z20.822 Contact with and (suspected) exposure to COVID-19
CPT/HCPCS: 36600; 71045; 71275; 72131; 80051; 80053; 82330; 82550; 82805; 83735; 83880; 84484; 85025; 87631; 87635; 93005; 94640; 96365; 96375; 96376; 99284; J2270; J2930; J3475; J7030; Q9967

== ENCOUNTER → 2021-11-07 15:12 | Outpatient (BNVA) | payer BC, SELFPAY | PROVIDERS: PCP Family Medicine; Visit Provider Nurse Practitioner Family | DX: J44.9 Chronic obstructive pulmonary disease, unspecified (principal) | CPT/HCPCS: 71046 ==

== ENCOUNTER 2021-12-17 15:11 | Outpatient (CLI) | payer BC, SELFPAY ==
--- NOTE | 2021-12-17 15:24 | US_ITS ---
WS: [id number] ULTRASOUND BREAST RIGHT TECHNIQUE: Ultrasound right breast focused area of concern. CLINICAL INFORMATION: ABNORMAL MAMMOGRAM. Six-month follow-up. COMPARISON: June 18, 2021 November 30, 2020 FINDINGS: Ultrasound RIGHT breast subareolar. Again seen are slightly prominent ducts posterior to the areola i n the area of interest. Debris within the ducts appears improved compared to previous. No cystic or s olid lesions to target for biopsy. Recommend return to annual screening mammography. US/US breast RT limited* [id number] IMPRESSION: BI-RADS 2 benign Recommend return to annual screening mammography.
== END 2021-12-17 15:12 | disposition home or self-care (01) ==
PROVIDERS: PCP Family Medicine; Visit Provider Family Medicine
DX: R92.8 Other abnormal and inconclusive findings on diagnostic imaging of breast (principal)
CPT/HCPCS: 76642

== ENCOUNTER → 2022-01-28 16:51 | Outpatient (BNVA) | payer BC, SELFPAY | PROVIDERS: PCP Family Medicine; Visit Provider Internal Medicine Cardiovascular Disease | DX: R07.9 Chest pain, unspecified (principal); I25.118 Atherosclerotic heart disease of native coronary artery with other forms of angina pectoris; R06.02 Shortness of breath; I50.33 Acute on chronic diastolic (congestive) heart failure; I35.1 Nonrheumatic aortic (valve) insufficiency; I25.5 Ischemic cardiomyopathy; I50.31 Acute diastolic (congestive) heart failure; I38 Endocarditis, valve unspecified; J44.1 Chronic obstructive pulmonary disease with (acute) exacerbation | CPT/HCPCS: 80048; 83880 ==

== ENCOUNTER 2022-02-12 09:29 | Outpatient (CLI) | payer BC, SELFPAY ==
--- NOTE | 2022-02-12 09:30 | MR_ITS ---
WS: [id number] MRI RIGHT SHOULDER NONCONTRAST TECHNIQUE: Sagittal T2, coronal T1, T2 and proton density imaging. Axial gradient PDE imaging. CLINICAL INFORMATION: M25.511 - Pain in right shoulder COMPARISON: MRI May 08, 2021 FINDINGS: Images degraded by motion and positioning. Mild degenerative arthritis AC joint. Mild subacromial spurring. History of interval rotator cuff rep air compared to May 08, 2021. Mild edema and fluid at the AC joint. Narrowing of the subacromial space. Chronic thinning of the supraspinatus and infraspinatus with atrophy of the muscle bellies. Canales spected recurrent high-grade near complete tear involving the distal supraspinatus with retraction to the level of glenohumeral joint. This appears retracted from the level of the humeral anchor. Retrac tion to the level of glenohumeral joint. Retraction measures approximately 2.2 cm. Thinning of the infraspinatus which appears intact distally. Small joint effusion. Subcoracoid effusion. Infraspinatus appears intact distally. Teres minor appear s intact. Subcoracoid effusion. Subscapularis appears intact with tendinopathy. Biceps tendon appears intact within the bicipital groove. Degenerative fraying of the glenoid labrum. Small shoulder effus ion. MR/MR shoulder RT wo con* [id number] IMPRESSION: Images degraded by motion. 1. There appears to be high-grade near complete tear of the repaired supraspin atus with retraction to the level of glenohumeral joint. Supraspinatus appears retracted from the rotator cuff anchor measuring 2.2 cm best seen on the sagitt al imaging. 2. Chronic thinning of the infraspinatus which appears intact distally. 3. Tendinopathy involving the subscapularis. 4. Biceps tendon is intact within the bicipital groove. 5. Subcoracoid and glenohumeral joint effusion.
[2022-02-15 13:54] LABS: Basophils % 0.6 %; Eosinophils # 0.1 10^3/uL (0.0-0.8); Eosinophils % 1.8 %; Hematocrit 37.7 % (37.0-47.0); Hemoglobin 12.2 g/dL (11.5-15.3); Lymphocytes % 29.2 %; Mean Corpuscular HGB Conc 32.4 g/dL (30.0-36.0); Mean Corpuscular Hemoglobin 29.5 pg (28.0-34.0); Mean Corpuscular Volume 91.1 fl (81-99); Mean Platelet Volume 10.5 fL (7.4-10.4); Monocytes # 0.5 10^3/uL (0.2-0.9); Monocytes % 7.5 %; Neutrophils # 4.11 10^3/uL (1.8-7.7); Neutrophils % 60.5 %; Nucleated Red Blood Cells % 0 %; Platelet Count 189 10^3/cmm (130-400); Red Blood Count 4.14 10^6/uL (4.1-5.3); Red Cell Distribution Width 13.9 % (12.1-15.1); White Blood Count 6.8 10^3/uL (4.0-10.0)
[2022-02-15 14:07] LABS: INR 1.08 (0.83-1.21); Prothrombin Time (Patient) 14.3 Seconds (12.0-15.1)
[2022-02-15 14:26] LABS: Anion Gap 12.6 (5-19); Blood Urea Nitrogen 13 mg/dL (8-23); Calcium 9.1 mg/dL (8.5-10.5); Carbon Dioxide 30 mmol/L (22-29); Chloride 93 mmol/L (98-107); Glomerular Filtration Rate 49.7 mL/min (90-130); Glucose 93 mg/dL (65-115); NT Pro B Type Natriuretic Pept 492 pg/mL (0-125); Osmolality Calculated 274 mOsm/kg (285-295); Potassium 3.6 mmol/L (3.5-5.1); Sodium 132 mmol/L (136-145)
== END 2022-02-12 09:30 | disposition home or self-care (01) ==
PROVIDERS: Internal Medicine Cardiovascular Disease; PCP Family Medicine; Visit Provider Orthopaedic Surgery
DX: M25.511 Pain in right shoulder (principal)
CPT/HCPCS: 73221

== ENCOUNTER 2022-02-19 06:11 | Outpatient (CLI) | payer BC, SELFPAY ==
[2022-02-19] VITALS (93 sets, daily range): BP systolic 85–149; BP diastolic 51–80; PULSE 53–70; RESP 11–27; TEMP 36.8; O2SAT 87–98; BMI 23.8; BMI 22.9
--- NOTE | 2022-02-19 06:00 | XACV_ITS ---
Ht: 165 cm Wt: 65 kg BSA: 1.73 m2 Gender: Female : 1955 Any Known Allergies: Other Exam Priority: Routine Indication(s): - Cardiomyopathy Procedure(s): Procedure Description: Diagnostic procedure Procedure Description: PCI procedure Procedure Description: Left Heart Catheterization Procedure Description: Drug Eluting Coronary Stent Procedure Description: PTCA Procedure Description: Miscellaneous Procedure Description: ACT Procedure Description: Coronary Angiography Procedure Description: Pressure Wire Alonzo ROCK; Diagnostic Cath Status: Elective Diagnostic Findings * The left main is a medium caliber Chanel, extremely short, bifurcates to the left anterior descending and circumflex artery. * The left anteceding artery is a medium caliber vessel literature appears to taper off to his LV apex. The proximal and the mid LAD was found to have long stented segments. Moderate diffuse in-stent narrowing was noted in the distal part of the proximal segment and proximal part of the distal stented segment. The arterial segment between the two stented areas was found to have moderately severe segmental narrowing. The diagonal branches were found to be related to small caliber single cylindrical results. * The left circumflex artery is a medium caliber codominant vessel. It gives off a high obtuse marginal branch. The proximal segment of the obtuse marginal branch and proximal to mid segment of the circumflex artery were found to have long stented areas. The ostium of the first septal mild artery was found to have around 50% stenosis. The distal circumflex artery also was found to have mild diffuse intimal irregularities. No significant obstructive lesions were noted. * The right coronary artery is a medium caliber vessel which has was found to have a posterior takeoff. Proximal to mid segment of the artery was found to have mild diffuse disease. Just around the second RV branch of the artery, there was a segmental narrowing of around 60 to 70% . The distal artery was found to have minimal intimal irregularities. This artery appears to be a codominant vessel. PCI Status: Elective PCI Indication: Other Interventional Findings * Procedure detail: We engaged RCA with JR4 guide catheter. IV heparin was administered to maintain ACT above 250 S. After normalization, IFR wire was advanced into distal RCA. IFR value of 0.83 was obtained. As this was significant, we decided to perform PCI. Mid RCA stenosis was predilated with 2.5 x 12 mm noncompliant balloon. This was followed by placement of 3.0 x 18 mm resolute Radha drug-eluting stent. We then postdilated the proximal portion of the stent with 3.0 by a 6 mm NC balloon. At this time final angiogram was performed that showed excellent stent expansion, no residual stenosis and TA-3 flow. We then turned our attention to LAD. There was significant in-stent restenosis in the proximal stent and a stenosis between the 2 old stents. We decided to perform balloon angioplasty. Balloon angioplasty was performed using 3.0 x 6 mm NC balloon. We then predilated with 2.5 x 12 mm semicompliant balloon. At this time angiogram showed haziness between the 2 stented segments. It was likely secondary to her dissection. This segment was stented with a 3.0 x 15 mm resolute Radha drug-eluting stent. We postdilated the stent with 3.0 x 12 mm NC balloon. At this time final angiogram was performed that showed excellent stent expansion, no residual stenosis and TA-3 flow. Guidewire and guide catheter were removed and patient left the Flange Machine Operator in a stable condition. * Proximal Left Anterior Descendin% stenosis treated with a MDT NC EUPHORA RX 3.88R43DC BALLOON, AB TREK 2.50X12 RX BALLOON, and MDT NC EUPHORA RX 3.32R45OZ BALLOON. * Mid Left Anterior Descendin% stenosis treated with a MDT R RADHA 3.0X15 LON, MDT NC EUPHORA RX 3.77U63QM BALLOON, and MDT NC EUPHORA RX 3.08R13ZQ BALLOON. * Mid Right Coronary Artery: 70% stenosis treated with a AB TREK 2.50X12 RX BALLOON, MDT R RADHA 3.0X18 LON, and MDT NC EUPHORA RX 3.35L52LQ BALLOON. Conclusions 1. This is a 66-year-old white female with a history of coronary disease, status post multiple PCI's, presenting with increasing shortness of breath with activities and reversing of the LV systolic function. In order to further evaluate her symptoms and the worsening LV systolic function, a cardiac catheterization was recommended. Patient underwent left heart catheterization with left and right coronary angiogram today. The findings are as follows. 2. Extremely short left main. The stented segments of the left anterior descending artery was found to have moderate diffuse in-stent narrowing. In between the stented segments, there was a moderately severe narrowing noted in the mid LAD. Patent stented segments of the circumflex and obtuse marginal arteries. 50% ostial narrowing in the first obtuse marginal artery. Moderately severe stenosis in the mid to distal RCA of 60 to 70%. LVEDP of 13 mmHg. 3. I reviewed and discussed the cardiac catheterization data with the Dr. Peralta. It is thought to be appropriate to consider IFR and possible PCI of the above-mentioned lesions in right coronary artery. Dr. Peralta concurred with this plan and took over further management of this patient at this point. 4. iFR was ischemic in RCA. Patient underwent successful revascularization of mid RCA with LON x1. Proximal to mid LAD underwent successful revascularization with LON x1. 5. Proximal Left Anterior Descending was treated with a Balloon, Balloon, and Balloon. 6. Mid Left Anterior Descending was treated with a Drug Eluting Stent, Balloon, and Balloon. 7. Mid Right Coronary Artery was treated with a Balloon, Drug Eluting Stent, and Balloon. Recommendations * Apsirin and Plavix for atleast 1 year. * High intensity statin therapy. * Beta johnie therapy. * Outpatient cardiology follow up in 4 weeks. Interventional RX Recommendation: PCI w/o planned CABG Diagnostic RX Recommendation: PCI w/o planned CABG Anticoagulation: Heparin LV EDP: 13 mmHg Left Ventriculography Findings: * The LV gram was not performed because of the limitations on dye usage. The LVEDP was 13mmHg. Pressures Phase:Rest AO : 123 / 54 ( 79 ) @ 8:42:00 AM 117 / 54 ( 78 ) @ 8:42:00 AM 104 / 69 ( 85 ) @ 9:07:00 AM 114 / 63 ( 84 ) @ 9:22:00 AM 109 / 56 ( 81 ) @ 9:51:00 AM LV : 116 / -6 / 13 @ 8:41:00 AM 118 / -6 / 13 @ 8:42:00 AM 118 / -6 / 13 @ 8:42:00 AM Valves Phase:DefaultPhase AV : 0.0 @ 9:18:56 AM AV Mean Gradient: 0.0 @ 9:18:56 AM Clinical Evaluation EBL: 5mL-10mL Procedural Details Procedure Consent Obtained. Admit Source: Out Patient. Pre-Procedure Time Out. Identified patient by full name and date of as verbalized by the patient/guarantor. Does the consent match the physician's order: Yes. Accurate & Complete Informed Consent: Yes. Inpatient/Outpatient History & Physical on Chart: Yes. If H&P is completed, is and addenduem needed: No; If yes, is the addendum complete: N/A. Visualize and Verify Site with Patient/Guarantor: N/A. Relevant Radiology Images available: N/A. The risks, benefits, and alternatives of sedation and/or procedure were discussed by physician. The patient agrees to continue. Patient states she has sensitivity to Contrast dye to MD. Will give 100 mg IV Solu Medrol prior to start. Procedure started. [facility] Clinical Fraility Score: 3: Managing Well. Flange Machine Operator Indications: Cardiomyopathy. Chest Pain Symptom Assessment: Atypical Angina. Cardiovascular Instability: No, stable. Correct patient, site and procedure confirmed by cath team. Current diagnosis: ASHD, Cardiomyopathy. PERRLA. Strong, equal hand hydro plant operator bilaterally. Lungs clear x 5 lobes. IV Site on Arrival: 20 gauge in the left anticubital. IV Fluids: 0.9% NaCl at KVO. 0 mL infused prior to slab lifting engineer. Pre Procedural Pulses: right radial was Doppled. Pre Procedural Pulses: bilateral posterior tibial was Doppled. Pre Procedural Pulses: bilateral dorsalis pedis was Doppled. Oxygen started at 3liters/min via nasal canula. Physician notified. Baseline sample Acquired. HR: 72 BPM. Physician arrived. Equipment: 5F - Femoral. Heparinized Saline (2 units/mL), 1000 mL bag. Kit, Micropuncture. Cardiac Cath Pack. Physician scrubbed in. Immediate Pre-Procedure Time Out. Correct Patient: Yes; Correct Procedure: Yes; Correct Site: Yes; Correct Patient Position: Yes; Correct Supplies: Yes; Dried Flammable Prep: Yes; Blood Products Available: N/A;. Lidocaine 1% infiltrated to the right groin. Current Diagnosis : Chest Pain. Baseline sample Acquired. HR: 72 BPM. Arterial access obtained with micropuncture set. A 5 south korean JL4 catheter in over wire. Multiple views taken of left coronary artery. Catheter removed over the standard wire. A 5 south korean JR4 catheter in over wire. Multiple views taken of right coronary artery. Catheter removed over the standard wire. A 5 south korean Angled Pig catheter in over wire. EDP Sample taken: LV 116/-7,13; HR: 66 BPM; SpO2: 100%. EDP Sample taken: LV 118/-7,13; HR: 66 BPM; SpO2: 100%. Pullback taken: LV 118/-7,13; AO 117/54(78); Mean: 0mmHg, Peak to Peak: 0mmHg, SEP: 19sec/min; HR: 66 BPM; SpO2: 100%. Physician review of films. Waiting on Dr Peralta to review. Catheter removed over the standard wire. Physician scrubbed out. Awaiting Dr Peralta to review. Sheath KVO to maintain patency. Dr Peralta arrived. MD review. Dr Peralta scrubbed in. Starting intervention. INVENTORY: COPILOT, ENDOFLATOR, JR 4 GUIDE, JAVIER OMNIWIRE. Sheath upsized to a 6 Fr. 6 south korean JR 4 guide catheter was inserted over the wire. Guide seated in the RCA. IFR guidewire was advanced through the guide catheter to lesion in the mid RCA. Normalized proximal to lesion then advanced past lesion. IFR measurements obtained. Pull back mesurements obtained. IFR SPOT 0.83, IFR PULL BACK 0.82. MD to use IFR wire for intervention. Inflation number : 1 A AB TREK 2.50X12 RX BALLOON was prepped and advanced across the Mid RCA , then inflated to 12 CHRISTINE for 0:21 seconds. Results checked. Balloon out over the wire. Angiography performed. Stent inserted. No cross. Removed intact. Inflation number: 2 The AB TREK 2.50X12 RX BALLOON was reinflated across the Mid RCA, to 8 CHRISTINE for 0:17 seconds. Inflation number: 3 The AB TREK 2.50X12 RX BALLOON was reinflated across the Mid RCA, to 12 CHRISTINE for 0:15 seconds. Balloon out over the wire. Stent inserted. No cross. Removed intact. IFR wire removed. BMW wire inserted through the guide catheter to the lesion in the Mid RCA. Guidewire advanced across lesion. 6 FR GUIDELINER inserted as crossing support and guide support. Inflation Number : 4 A FÉLIX Fernandes RADHA 3.0X18 LON -Lot Number# [id number] prepped and advanced across the Mid RCA. The stent was deployed at 12 CHRISTINE for 0:20 seconds. Exp: 09-04-2024. Results checked. Stent balloon out over the wire. Family updated by MD's prior to the start of the intervention. Inflation number : 5 A FÉLIX VILLA EUPHORA RX 3.55H05KQ BALLOON was prepped and advanced across the Mid RCA , then inflated to 16 CHRISTINE for 0:18 seconds. Inflation number: 6 The MDVick VILLA EUPHORA RX 3.96Y02OU BALLOON was reinflated across the Mid RCA, to 12 CHRISTINE for 0:11 seconds. Balloon out. Guideliner out. Results checked. Wire out. Guide catheter out over the wire. ACT drawn. Results 299 seconds. Therapeutic limits - pre-heparin administration 90-150 seconds and monitoring heparin during a vascular procedure >250 seconds. Inventory is CRD 6FR XB 3 GUIDE. 6 south korean XB 3 guide catheter was inserted over the wire. Guide seated in the LCS. BMW guidewire was advanced through the guide catheter to lesion in the prox LAD. Unable to cross. Wire discarded. New BMW inserted. Guidewire advanced across lesion. Inflation number: 1 The MDT NC EUPHORA RX 3.96T62RB BALLOON was reinflated across the Prox LAD, to 12 CHRISTINE for 0:07 seconds. Balloon out over the wire. Inflation number : 2 A AB TREK 2.50X12 RX BALLOON was prepped and advanced across the Prox LAD , then inflated to 12 CHRISTINE for 0:07 seconds. Inflation number: 3 The AB TREK 2.50X12 RX BALLOON was reinflated across the Prox LAD, to 12 CHRISTINE for 0:09 seconds. Inflation number: 4 The AB TREK 2.50X12 RX BALLOON was reinflated across the Prox LAD, to 12 CHRISTINE for 0:08 seconds. Inflation number: 5 The AB TREK 2.50X12 RX BALLOON was reinflated across the Prox LAD, to 8 CHRISTINE for 0:11 seconds. Balloon out over the wire. Results checked. Inflation number : 6 A MDT NC EUPHORA RX 3.67L63DQ BALLOON was prepped and advanced across the Prox LAD , then inflated to 12 CHRISTINE for 0:23 seconds. Inflation number: 7 The MDT NC EUPHORA RX 3.68K56GG BALLOON was reinflated across the Prox LAD, to 12 CHRISTINE for 0:17 seconds. Inflation number: 8 The MDT NC EUPHORA RX 3.99G75PP BALLOON was reinflated across the Prox LAD, to 12 CHRISTINE for 0:14 seconds. Balloon out over the wire. Results checked. Inflation Number : 1 A MDT R RADHA 3.0X15 LON -Lot Number# [id number] was prepped and advanced across the Mid LAD. The stent was deployed at 14 CHRISTINE for 0:16 seconds. EXP 10-31-2024. Results checked. Stent balloon out over the wire. 3.0x 15 NC balloon inserted but will not cross. Removed over the wire. Guideliner inserted. Inflation number: 2 The MDT NC EUPHORA RX 3.66H62DC BALLOON was reinflated across the Mid LAD, to 12 CHRISTINE for 0:11 seconds. Balloon out over the wire. Inflation number : 3 A MDT NC EUPHORA RX 3.25C35LB BALLOON was prepped and advanced across the Mid LAD , then inflated to 18 CHRISTINE for 0:24 seconds. Inflation number: 4 The MDT NC EUPHORA RX 3.59S40XU BALLOON was reinflated across the Mid LAD, to 20 CHRISTINE for 0:17 seconds. Balloon out over the wire. Results checked. Wire and guideliner out. Results checked. Guide catheter removed over the wire. Physician scrubbed out. A Suture was successful obtaining hemostatsis at the Right Femoral artery insertion site. Sheath(s) sutured into position with 2-0 silk and sterile 4x4's and Op-site applied over the site. No oozing or signs and symptoms of hematoma noted. Arterial sheath flushed and connected to tranducer and pressure bag with heparinized saline. Post Procedure: Pulses reassessed and unchanged. PERRLA. Strong, equal hand hydro plant operator bilaterally. No VTE prophylaxis required. Medication waste: Nitro 49.4 mg Heparin 4500 units Fentanyl 75 mcg. Total IV fluids: 380 mL. Fluoro: 28:04. Contrast type used: Omnipaque 300 mgI/mL, 500 mL bottle. [id number]. Post-op diagnosis: Severe mid rca and proximal/mid lad stenosis. Complications: None. Estimated blood loss: 5mL-10mL. Responsiveness - Normal response to verbal stimuli; alert and oriented, PERRLA. Airway - Unaffected, no intervention required; spontaneous ventilation. Circulation: W/N/L, pulses unchanged. Nausea/Vomiting: No. Procedure completed. Patient transferred by stretcher to 1st floor. ACT drawn. Results 348 seconds. Therapeutic limits - pre-heparin administration 90-150 seconds and monitoring heparin during a vascular procedure >250 seconds. Vital chart was stopped. Procedure started. Access Site Site: Right Femoral artery Sheath Size: 5 Fr Hemostasis Method: Suture Hemostasis Success: Successful Procedure Medications Start: 7:19 AM Stop: 7:19 AM Medication: Solu-Medrol (methylprednisolone) Amount: 100 mg Route: I.V. Start: 7:21 AM Stop: 7:21 AM Medication: Versed Amount: 1 mg Route: I.V. Start: 7:26 AM Stop: 7:26 AM Medication: Fentanyl Amount: 25 mcg Route: I.V. Start: 7:39 AM Stop: 7:39 AM Medication: Versed Amount: 0.5 mg Route: I.V. Start: 7:42 AM Stop: 7:42 AM Medication: 0.9% Saline Amount: 250 ml Route: I.V. bolus Start: 7:58 AM Stop: 7:58 AM Medication: Heparin Amount: 6000 units Route: I.V. Start: 8:15 AM Stop: 8:15 AM Medication: Heparin Amount: 1000 units Route: I.V. Start: 8:22 AM Stop: 8:22 AM Medication: Nitrogylcerin Amount: 200 mcg Route: I.C. Start: 8:35 AM Stop: 8:35 AM Medication: Heparin Amount: 1000 units Route: I.V. Start: 8:46 AM Stop: 8:46 AM Medication: Nitrogylcerin Amount: 200 mcg Route: I.C. Start: 8:48 AM Stop: 8:48 AM Medication: Heparin Amount: 1000 units Route: I.V. Start: 9:00 AM Stop: 9:00 AM Medication: Versed Amount: 0.5 mg Route: I.V. Start: 9:00 AM Stop: 9:00 AM Medication: Nitrogylcerin Amount: 200 mcg Route: I.C. Start: 9:00 AM Stop: 9:00 AM Medication: Heparin Amount: 1000 units Route: I.V. Start: 9:07 AM Stop: 9:07 AM Medication: Plavix Amount: 600 mg Route: P.O. I, the attending physician, have reviewed and verified all procedure medications. Yes, all medications given per verbal order History/Risk Factors Hypertension: Yes Dyslipidemia: Yes Peripheral Arterial Disease (PAD): No Myocardial Infarction ([place]): No Obesity: No Renal Disease: No Tobacco Use: Current/Recent(w/in 1 year) Prior Interventions PCI: No CABG: No Valve Surgery: No Report Signatures Interventional Workflow Finalized by Derrick Peralta MD on 02/28/2022 11:49 AM Diagnostic Workflow Finalized by Dr Jeremías Rosado MD [facility] on 02/19/2022 08:30 PM
[2022-02-19] MEDS: diphenhydrAMINE 50 mg Capsule PO (06:20)
--- NOTE | 2022-02-19 07:08 | W.PM.OPSUD ---
Surgery/Procedure H&P Update DATE OF PROCEDURE: February 19, 2022 DATE H&P PERFORMED: 01/28/22 H&P UPDATE INFORMATION: I have reviewed H&P completed within last 30 days, I have examined patient prior to procedure and No changes to prior documentation PREOP DIAGNOSIS: ASHD/Cardiomyopathy PRIMARY INDICATION FOR PROCEDURE: ASHD/ drop in the LVEF PLANNED PROCEDURE: Operation Date: 02/19/22 07:00 Proposed Procedures p Cardiac Catheterization 51127 i25.5 I49.9(Left) - Jeremías Rosado MD PATIENT REASSESSED PRIOR TO SEDATION, WITH NO CHANGE NOTED: Yes PHYSICAL EXAM: alert, clear to auscultation bilaterally and regular rate & rhythm AIRWAY EVAL/ANESTHESIA PLAN: normal airway, see other exam findings, ASA III, Monitored Anesthesia, Local Anesthesia, Risks, benefits & alternatives of sedation and/or procedure discussed and Patient agrees to continue as planned
--- NOTE | 2022-02-19 09:30 | PC.NURSE ---
received from cardiac laboratory assistant via bed at 0920.report received.pt is drowsy but easily awakened.alert and oriented x 3.sr on monitor.right femoral sheath intact to pressurized system.right groin drsg is dry and intact.no hematoma noted.right leg is warm to toucha nd with brisk capillary refill.right dp pulse is palpable.instructed pt in activity restrictions s/p femoral artery procedure..and instructed to notify staff for any cp,sob,pain,numbness or for any concerns at all.pt verb understanding of instructions.
[2022-02-19] MEDS: FUROsemide 40 mg Tablet PO (12:55)
[2022-02-19 13:18] LABS: Partial Thromboplastin Time > 250.0 SECONDS (23.9-36.7)
[2022-02-19] MEDS: pantoprazole DR 40 mg Tablet PO (17:29)
[2022-02-19] MEDS: ALPRAZolam 0.5 mg Tablet PO ×2 (17:29→21:29)
[2022-02-19] MEDS: loperamide 2 mg Capsule PO (17:59)
--- NOTE | 2022-02-19 18:13 | PC.NURSE ---
right femoral sheath remains in due to continued prolonged ptt.dr geller aware.awaiting ptt results
--- NOTE | 2022-02-19 18:50 | PC.NURSE ---
pt transferred to [facility] via bed.report given at bedside.
--- NOTE | 2022-02-19 19:07 | PC.NURSE ---
Received bedside report from BLAINE Ortiz. Patient is s/p [facility] with right femoral access. Sheath with pressure bag remains in place at this time due to elevated PTT. PTT is pending currently. Discussed with patient the pending lab, site care and restrictions. Patient and spouse verbalized complete understanding. Will continue to monitor.
[2022-02-19 19:12] LABS: Partial Thromboplastin Time 165.8 SECONDS (23.9-36.7)
[2022-02-19 20:29] LABS: Partial Thromboplastin Time 34.3 SECONDS (23.9-36.7)
[2022-02-19] MEDS: trazodone 150 mg Tablet PO (21:29)
--- NOTE | 2022-02-19 21:33 | PC.NURSE ---
Initiated sheath removal from right groin at 2104 per protocol. Maintained pressure for 20min. No s/s of bleeding or hematoma formation observed. VS wnl. Instructed patient on site care and restrictions. Patient verbalized complete understanding. Assisted patient to right side maintaining hemostasis. No complications noted. Will continue to monitor.
[2022-02-20] VITALS (19 sets, daily range): BP systolic 108–140; BP diastolic 59–68; PULSE 55–72; RESP 14–21; TEMP 36.4–36.8; O2SAT 91–100
--- NOTE | 2022-02-20 03:24 | PC.NURSE ---
Patient up to [facility] at this time. Dressing to right groin remains c,d,i with no s/s of bleeding or hematoma formation observed. Pulses to bilateral lower extremities remain palpable at this time. Will continue to monitor.
[2022-02-20] MEDS: potassium chloride ER 20 mEq Tablet PO (05:14)
--- NOTE | 2022-02-20 05:15 | PC.NURSE ---
Dressing to right groin remains c,d,i with no s/s of bleeding or hematoma formation observed. Patient denies pain to site. Will continue to monitor.
[2022-02-20] MEDS: zinc gluconate 50 mg Tablet PO (08:56)
[2022-02-20] MEDS: magnesium oxide 400 mg tablet PO (08:56)
[2022-02-20] MEDS: predniSONE 5 mg Tablet 2.5 MG PO (08:56)
[2022-02-20] MEDS: ALPRAZolam 0.5 mg Tablet PO (08:56)
[2022-02-20] MEDS: fluoxetine 20 mg Capsule 60 MG PO (08:56)
[2022-02-20] MEDS: pantoprazole DR 40 mg Tablet PO (08:57)
[2022-02-20] MEDS: cholecalciferol (vitamin D3) 5,000 unit Tablet 5000 UNIT PO (08:57)
[2022-02-20] MEDS: clopidogrel 75 mg Tablet PO (08:57)
[2022-02-20] MEDS: metoprolol tartrate 25 mg Tablet PO (08:57)
[2022-02-20] MEDS: FUROsemide 40 mg Tablet PO (08:57)
[2022-02-20] MEDS: cyanocobalamin 1,000 mcg Tablet 1000 MCG PO (08:57)
[2022-02-20] MEDS: ferrous sulfate EC 325 mg Tablet PO (08:57)
[2022-02-20] MEDS: levothyroxine 112 mcg Tablet PO (08:58)
--- NOTE | 2022-02-20 12:41 | P.PN_ITS ---
Subjective Subjective: The patient was admitted to hospital following the cardiac catheterization and PCI, for close monitoring and management. Patient was found to have moderately severe in-stent narrowing in the LAD and a moderate to severe stenosis in the right coronary artery. The IFR of the right coronary artery lesion was found to be significant. Patient underwent angioplasty and stent placement of the right RCA and LAD lesions. She had an uneventful postprocedure course. No hematoma bleeding from the artery puncture site. Medications: Medication Review Details: Current Medications Al Hydrox/Mg Hydrox/Simethicone (Gycu-Mmp-Osmntoswp-Crow 30 Ml Udc) 30 ml PO Q4H PRN PRN Reason: INDIGESTION Albuterol Sulfate (Albuterol 8 Gm Mdi) 1 puff INHALATION Q8H PRN PRN Reason: shortness of breath or wheezing Alprazolam (Alprazolam 0.5 Mg Tablet) 0.5 mg PO TID [facility] Last Admin: 02/20/22 08:56 Dose: 0.5 mg Documented by: Clopidogrel Bisulfate (Clopidogrel 75 Mg Tablet) 75 mg PO DAILY [facility] Last Admin: 02/20/22 08:57 Dose: 75 mg Documented by: Cyanocobalamin (Cyanocobalamin 1,000 Mcg Tablet) 1,000 mcg PO DAILY [facility] Last Admin: 02/20/22 08:57 Dose: 1,000 mcg Documented by: Diphenhydramine HCl (Diphenhydramine 25 Mg Capsule) 25 mg PO TID PRN PRN Reason: Allergic Reaction Fenofibrate (Fenofibrate 48 Mg Tablet) 48 mg PO DAILY [facility] Last Admin: 02/20/22 09:27 Dose: Not Given Documented by: Ferrous Sulfate (Ferrous Sulfate Ec 325 Mg Tablet) 325 mg PO DAILY [facility] Last Admin: 02/20/22 08:57 Dose: 325 mg Documented by: Fluoxetine HCl (Fluoxetine 20 Mg Capsule) 60 mg PO DAILY [facility] Last Admin: 02/20/22 08:56 Dose: 60 mg Documented by: Fluticasone Propionate (Fluticasone Nasal Kulm 16gm Btl) 1 spray INTRANASAL DAILY PRN PRN Reason: Allergy Symptoms Furosemide (Furosemide 40 Mg Tablet) 40 mg PO DAILY [facility] Last Admin: 02/20/22 08:57 Dose: 40 mg Documented by: Gabapentin (Gabapentin 300 Mg Capsule) 300 mg PO TID PRN PRN Reason: nerve pain Levothyroxine Sodium (Levothyroxine 112 Mcg Tablet) 112 mcg PO DAILY [facility] Last Admin: 02/20/22 08:58 Dose: 112 mcg Documented by: Loperamide HCl (Loperamide 2 Mg Capsule) 2 mg PO QID PRN PRN Reason: DIARRHEA Last Admin: 02/19/22 17:59 Dose: 2 mg Documented by: Magnesium Oxide (Magnesium Oxide 400 Mg Tablet) 400 mg PO DAILY [facility] Last Admin: 02/20/22 08:56 Dose: 400 mg Documented by: Metoprolol Tartrate (Metoprolol Tartrate 25 Mg Tablet) 25 mg PO DAILY [facility] Last Admin: 02/20/22 08:57 Dose: 25 mg Documented by: Nitroglycerin (Nitroglycerin 0.4 Mg Sublingual Tablet) 0.4 mg SUBLINGUAL Q5M PRN PRN Reason: Chest Pain Non-Formulary Medication (Caltrate + D3 Plus Minerals) 630 mg PO DAILY [facility] Last Admin: 02/20/22 09:26 Dose: Not Given Documented by: Non-Formulary Medication (Cyclosporine [Restasis]) 1 drop EYEAFF Q12H PRN PRN Reason: Dry Eyes Non-Formulary Medication (Umeclidinium-Vilanterol [Anoro Ellipta]) 1 inh INHALA TION DAILY [facility] Last Admin: 02/20/22 09:27 Dose: Not Given Documented by: Nystatin (Nystatin Cream 30 Gm) 1 applic TOPICAL DAILY PRN PRN Reason: Itching Ondansetron HCl (Ondansetron 4 Mg Tablet) 4 mg PO Q6H PRN PRN Reason: nausea and vomiting Pantoprazole Sodium (Pantoprazole Dr 40 Mg Tablet) 40 mg PO BID [facility] Last Admin: 02/20/22 08:57 Dose: 40 mg Documented by: Potassium Chloride (Potassium Chloride Er 20 Meq Tablet) 20 meq PO QAM [facility] Last Admin: 02/20/22 05:14 Dose: 20 meq Documented by: Prednisone (Prednisone 5 Mg Tablet) 2.5 mg PO DAILY [facility] Last Admin: 02/20/22 08:56 Dose: 2.5 mg Documented by: Promethazine HCl/Dextromethorphan (Promethazine-Dm 6.25-15 Mg/5 Ml Syrup) 5 - 10 ml PO Q6H PRN PRN Reason: cough Trazodone HCl (Trazodone 150 Mg Tablet) 150 mg PO BEDTIME PRN PRN Reason: Insomnia Last Admin: 02/19/22 21:29 Dose: 150 mg Documented by: Triamcinolone Acetonide (Triamcinolone 0.1% Cream 15 Gm) 1 applic TOPICAL DAILY PRN PRN Reason: unknown Vitamin D (Cholecalciferol (Vitamin D3) 5,000 Unit Tablet) 5,000 unit PO DAILY [facility] Last Admin: 02/20/22 08:57 Dose: 5,000 unit Documented by: Zinc Gluconate (Zinc Gluconate 50 Mg Tablet) 50 mg PO DAILY [facility] Last Admin: 02/20/22 08:56 Dose: 50 mg Documented by: Vitals/I&O/Wt Last Vital Signs Temp 98 F 02/20/22 11:27 Pulse 65 02/20/22 11:27 Resp 16 02/20/22 11:27 BP 108/59 02/20/22 11:27 Pulse Ox 98 02/20/22 11:27 02/19/22 02/20/22 02/20/22 22:59 06:59 14:59 Intake Total 780 / 900 480 / 480 Output Total 600 / 600 Balance 180 / 300 480 / 480 Weight last 48 hrs Weight 142 lb 6 oz Weight 143 lb Physical Exam Narrative: GENERAL: The patient is alert and oriented times three. Not in any acute distress. HEENT: No significant pallor, icterus or lymphadenopathy.Oral cavity: There are no mucous membrane lesions. NECK: Trachea appears to be central. No masses noted. No JVD or thyromegaly appreciated. RESPIRATORY: Chest is symmetrical. No intercostals muscle retraction or any a ccessory muscle activation. There is no chest wall tenderness. Breath sounds are heard bilaterally. No rales or rhonchi heard. No evidence of any consolidation. BREASTS: Deferred. HEART: The heart sounds are normal. No S3 or S4. No significant murmurs. No pericardial rub ABDOMEN: No vessel pulsations or distention. No tenderness. No organomegaly appreciated. Bowel sounds are normally heard. : Deferred. RECTAL: Deferred. LYMPHATIC: No lymphadenopathy noted in the neck. EXTREMITIES: No hematoma or bleeding in the right groin. MUSCULOSKELETAL: No acute joint deformities or swelling SKIN: There are no significant rashes or ecchymosis NEUROPSYCHIATRIC: The patient is alert and oriented x3. Appears to be in a good mood. No tremors or rigidity noted. Data : 02/20/22 13:28 Other Labs: Laboratory Last Values APTT 34.3 SECONDS (23.9-36.7) D 02/19/22 19:55 Micro: Laboratory Last Values APTT 34.3 SECONDS (23.9-36.7) D 02/19/22 19:55 A&P Assessment and plan (1) Atherosclerotic heart disease of [place] coronary artery with other forms of angina pectoris: Patient status post PCI of the RCA and LAD lesions. Seems to be stable. No recurrence of chest pain or shortness of breath. We will continue on the Plavix and aspirin. Status: Acute (2) Ischemic cardiomyopathy: No evidence of any heart failure. LVEDP was around 13 mmHg. We may consider starting her on a low-dose of ARB as a bridge to his Entresto. She has been running a low blood pressure in the past. She will be seen in the clinic next week and consider starting her on the losartan, if the blood pressure tolerates. Status: Acute (3) COPD exacerbation: Continue on the current treatment measures. Status: Acute Plan We will recheck the BMP today to reevaluate the kidney function. If she continues remain stable, will be discharged home today Will be seen at [facility] next week by the nurse practitioner. 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
[2022-02-20 14:32] LABS: Anion Gap 13.4 (5-19); Blood Urea Nitrogen 12 mg/dL (8-23); Calcium 8.7 mg/dL (8.5-10.5); Carbon Dioxide 28 mmol/L (22-29); Chloride 95 mmol/L (98-107); Glomerular Filtration Rate 55.5 mL/min (90-130); Glucose 90 mg/dL (65-115); Osmolality Calculated 275 mOsm/kg (285-295); Potassium 3.4 mmol/L (3.5-5.1); Sodium 133 mmol/L (136-145)
== END 2022-02-20 14:05 | disposition home or self-care (01) ==
LOC: CCL 06:12 → CSU 09:54 → MEDSURG 02-20 09:08
PROVIDERS: Internal Medicine; PCP Family Medicine; Visit Provider Internal Medicine Cardiovascular Disease
DX: I25.118 Atherosclerotic heart disease of native coronary artery with other forms of angina pectoris (principal); J44.1 Chronic obstructive pulmonary disease with (acute) exacerbation; I25.5 Ischemic cardiomyopathy; E78.5 Hyperlipidemia, unspecified; I12.9 Hypertensive chronic kidney disease with stage 1 through stage 4 chronic kidney disease, or unspecified chronic kidney disease; N18.9 Chronic kidney disease, unspecified
CPT/HCPCS: 36415; 80048; 83880; 85025; 85347; 85610; 85730; 86850; 86900; 93452; 93458; 93571; 96360; 96361; 99152; 99153; C1725; C1769; C1874; C1887; C1894; C9600; C9601; J1644; J2250; J2930; J3010; J3490; J7030; J7512; Q0163; Q9967

== ENCOUNTER 2022-02-25 13:36 | Outpatient (CLI) | payer BC, SELFPAY ==
--- NOTE | 2022-02-25 13:52 | USCV_ITS ---
Edyta Camp Age: 66 Gender: F : 1955 Exam Date: 02/25/2022 14:18 Ordering Phys: Jeremías Rosado MD ([email or web address]) Technologist: STACI [place] [facility] [place] ISCHEMIC CARDIOMYOPATHY/ MODERATE AO VALVE REGURGITATION BP: 108 / 59 HR: 66 Rhythm: Sinus Technical Quality: Adequate MEASUREMENTS (Male / Female) Normal Values 2D ECHO LV Diastolic Diameter PLAX 3.7 cm 4.2 - 5.9 / 3.9 - 5.3 cm LV Systolic Diameter PLAX 2.9 cm IVS Diastolic Thickness 1.1 cm 0.6 - 1.0 / 0.6 - 0.9 cm IVS Systolic Thickness 1.1 cm LVPW Diastolic Thickness 1.0 cm 0.6 - 1.0 / 0.6 - 0.9 cm LVPW Systolic Thickness 1.1 cm LVOT Diameter 2.0 cm LV Ejection Fraction 2D Teich 43.8 % LV Ejection Fraction MOD 2C 43.7 % LV Ejection Fraction 2C AL 42.7 % LA Diameter 3.1 cm LA Width 3.2 cm LA Height 4.0 cm RA Width 2.5 cm RA Height 3.9 cm Aorta at Sinotubular Diameter 2.0 cm IVC Diameter 1.4 cm M-MODE Aortic Annulus Diameter 2.6 cm LA Ao Ratio MM 1.2 MV E Point Septal Separation 0.9 cm DOPPLER AV Peak Velocity 196.0 cm/s LVOT Peak Velocity 109.0 cm/s AV Area Cont Eq vti 1.9 cm squared AV Area Cont Eq pk 1.8 cm squared MV Peak Velocity 578.0 cm/s MV Area PHT 2.8 cm squared Mitral E to A Ratio 0.7 MV E' Velocity 25.0 cm/s Mitral E to MV E' Ratio 8.6 Mitral E to LV E' Lateral Ratio 9.2 Mitral E to LV E' Septal Ratio 8.3 TR Peak Velocity 302.8 cm/s TR Peak Gradient 36.7 mmHg TR Mean Velocity 255.5 cm/s TR Mean Gradient 26.7 mmHg TR Velocity Time Integral 101.1 cm Right Atrial Pressure 3.0 mmHg Pulmonary Artery Systolic Pressu 39.7 mmHg RV Acceleration Time 0.1 s RV Ejection Time 0.3 s RV AcT/ET 0.4 FINDINGS Left Ventricle Normal LV size with diminished ejection fraction of 35 to 40%. Diffuse hypokinesia of the left ventricle Right Ventricle Normal right ventricular size. Right Atrium Normal right atrial size. Left Atrium Mildly increased left atrial size. Mitral Valve Mild mitral valve regurgitation. Thickened mitral valve. Aortic Valve Thickened aortic valve. [id number] aortic valve regurgitation. Tricuspid Valve No gross abnormalities noted Pulmonic Valve Pulmonic valve not well visualized. Pericardium No pericardial effusion. Aorta Normal aortic annulus size. IVC Normal inferior vena cava. CONCLUSIONS Normal LV size with diminished ejection fraction of 35 to 40%. Diffuse hypokinesia of the left ventricle. Mild mitral valve regurgitation. Thickened mitral valve. Mildly increased left atrial size. Thickened aortic valve. [id number] aortic valve regurgitation. There is no pericardial effusion. There are no intracardiac masses. Compared to the study from 05/23/2021, there may not be a significant change Dr Jeremías Rosado MD [facility] (Electronically Signed) Final Date: 26 February 2022 20:50 S
== END 2022-02-25 13:37 | disposition home or self-care (01) ==
PROVIDERS: PCP Family Medicine; Visit Provider Internal Medicine Cardiovascular Disease
DX: I25.5 Ischemic cardiomyopathy (principal); I08.0 Rheumatic disorders of both mitral and aortic valves
CPT/HCPCS: 93306

== ENCOUNTER → 2022-02-26 11:20 | Outpatient (BNVA) | payer BC, SELFPAY | PROVIDERS: PCP Family Medicine; Referring Provider Internal Medicine Critical Care Medicine; Visit Provider Internal Medicine Rheumatology | DX: M19.90 Unspecified osteoarthritis, unspecified site (principal); M32.9 Systemic lupus erythematosus, unspecified; Z79.899 Other long term (current) drug therapy; J84.89 Other specified interstitial pulmonary diseases; R76.8 Other specified abnormal immunological findings in serum | CPT/HCPCS: 36415; 80076; 81001; 82565; 82570; 84156; 85025; 85651; 86140; 86200; 86431 ==

== ENCOUNTER 2022-04-04 14:55 | Outpatient (CLI) | payer BC, SELFPAY ==
--- NOTE | 2022-04-04 15:15 | CT_ITS ---
WS: [id number] CT RIGHT SHOULDER, NONCONTRAST., 3-D. HISTORY: shoulder pain Technique: All CT scans at [facility] use at least one of these dose optimization techniques: automated exposure control; mA and/or kV adjustment per patient size (includes targeted exams where dose is matched to clinical indication); or iterative reconstruction. DLP: 573.81 mGy.cm COMPARISON: 05/07/2021 No acute fracture or dislocation. Mild narrowing of the AC joint. Distal clavicle osteophytes with mi ld encroachment upon the myotendinous region of the supraspinatus muscle. There is slight superior el evation of the humeral head. Mild narrowing of the glenohumeral joint. Cortical defects with loss of the cartilage and normal contour of the bone involving the medial humeral head in the region of the g lenohumeral joint. Severe atrophy of the supraspinatus muscle. Mild atrophy of the infraspinatus muscle. This favors ten don tears as an etiology. Fibrotic changes noted within the RIGHT upper lung. Extensive calcifications are noted within the visualized LEFT main, circumflex and LAD coronary arter ies. CT/CT shoulder RT wo con* [id number] IMPRESSION: 1. No acute fracture or displacement. 2. Osteochondral lesion involving the medial humeral head. No associated loose body fragments in the joint space. 3. Severe atrophy of the supraspinatus muscle and mild atrophy of the infraspi natus muscles. These findings are typically seen with rotator cuff tears. 4. Moderate AC joint arthritis with encroachment upon the supraspinatus myoten dinous insertion site.
== END 2022-04-04 14:56 | disposition home or self-care (01) ==
LOC: RAD 14:56
PROVIDERS: PCP Family Medicine; Visit Provider Orthopaedic Surgery
DX: M62.511 Muscle wasting and atrophy, not elsewhere classified, right shoulder (principal); M13.811 Other specified arthritis, right shoulder
CPT/HCPCS: 73200

== ENCOUNTER → 2022-04-15 05:59 | Day surgery (SDC) | payer BC, SELFPAY ==
--- NOTE | 2022-04-01 13:40 | P.ANESASSM_ITS ---
Pre-Anesthetic Assessment Height/Weight: Height 1.52 m Preop Diagnosis: ASHD/Cardiomyopathy Operation Date: 04/15/22 07:00 Proposed Procedures p right reverse total shoulder arthroplasty/ 44142,M87.00,M75.120(Right) - Ata Wan MD Familial anesthetic complications: None Social Tobacco and No alcohol Exam alert, oriented x 3, clear to auscultation bilaterally and regular rate & rhythm Airway Mallampati: Class III Dentition: false Comments: Comments: implants on bottom Pulmonary Chronic Obstructive Pulmonary Disease (on O2 prn witih activity/exertion, 3 LNC) CV/HEM Arrythmia, Coronary Artery Disease (stents placed recently - Dr. Wan and Dr. Rosado agreed to wait 6 weeks before surgery, plavix to continue perioperatively), Congestive Heart Failure, Hypertension and Palpitations None reported Hepatic None reported Metabolic Thyroid Disease lupus, on prednisone for lupus, bursitis, and appetite Neuropsych None reported Anesthetic Plan ASA status: 4 Anesthesia: General and Regional (specify below) Other: interscalene Risk of > 500 ml blood loss (7ml/kg in children): No Medications/Allergies Home Medications Medication Instructions Recorded Confirmed Last Taken Type alprazolam 0.5 mg tablet 0.5 mg PO TID 09/22/19 04/01/22 02/19/22 05:00 History cyanocobalamin (vitamin B-12) 1,000 mcg PO DAILY 09/22/19 04/01/22 02/18/22 19:00 History 1,000 mcg capsule nitroglycerin 0.4 mg sublingual 0.4 mg sublingual Q5M PRN Chest 09/22/19 04/01/22 03/29/20 History tablet (Nitrostat) Pain pantoprazole 40 mg tablet,delayed 40 mg PO BID 09/22/19 04/01/22 02/19/22 05:00 History release cholecalciferol (vitamin D3) 125 125 mcg PO DAILY 01/02/20 04/01/22 02/19/22 05:00 History mcg (5,000 unit) tablet (Vitamin D3) fluticasone propionate 50 1 spray intranasal DAILY PRN 02/14/20 04/01/22 07/17/21 History mcg/actuation nasal Allergy Symptoms spray,suspension cyclosporine 0.05 % eye drops in a 1 drp ophthalmic (eye) Q12H PRN 02/28/20 04/01/22 03/29/20 History dropperette (Restasis) Dry Eyes nystatin 100,000 unit/gram topical See Rx Instructions .Route 02/28/20 04/01/22 03/29/20 History cream .COMPLEX PRN Itching triamcinolone acetonide 0.1 % 1 applic topical DAILY PRN unknown 02/28/20 04/01/22 03/29/20 History topical cream gabapentin 300 mg capsule 300 mg PO TID PRN nerve pain 03/09/20 04/01/22 07/11/21 History levothyroxine 112 mcg tablet 112 mcg PO DAILY 03/09/20 04/01/22 02/19/22 05:00 History ondansetron HCl 4 mg tablet 4 mg PO Q6H PRN nausea and 06/07/20 04/01/22 02/18/22 19:00 Rx (Zofran) vomiting #20 tabs diphenhydramine HCl 25 mg capsule 25 mg PO TID PRN Allergic Reaction 07/20/20 04/01/22 07/18/21 History (Benadryl) trazodone 150 mg tablet 150 - 300 mg PO BEDTIME PRN 03/21/21 04/01/22 02/18/22 20:00 History Insomnia fluoxetine 40 mg capsule 60 mg PO DAILY 06/18/21 04/01/22 07/19/21 History albuterol sulfate 90 mcg/actuation 2 inh inhalation Q8H PRN shortness 10/15/21 04/01/22 Unknown Rx aerosol inhaler of breath or wheezing #8.5 grams promethazine-DM 6.25 mg-15 mg/5 mL 5 - 10 ml PO Q6H PRN cough #240 mL 11/07/21 04/01/22 Unknown Rx oral syrup clopidogrel 75 mg tablet (Plavix) 75 mg PO DAILY #90 tabs 11/20/21 04/01/22 02/19/22 05:00 Rx fenofibrate nanocrystallized 48 mg 48 mg PO DAILY #90 tabs 11/20/21 04/01/22 02/19/22 05:00 Rx tablet magnesium oxide 400 mg PO DAILY #90 tabs 11/20/21 04/01/22 02/18/22 19:00 Rx potassium chloride 10 mEq 20 meq PO QAM #180 tabs 11/20/21 04/01/22 02/18/22 10:00 Rx tablet,extended release(part/cryst) umeclidinium 62.5 mcg-vilanterol 1 inh inhalation DAILY 60 days #60 12/17/21 04/01/22 02/18/22 19:00 Rx 25 mcg/actuation powdr for ea inhalation (Anoro Ellipta) furosemide 40 mg tablet 40 mg PO DAILY #90 tabs 01/29/22 04/01/22 02/18/22 10:00 Rx Caltrate + D3 Plus Minerals 630 mg PO DAILY 02/19/22 04/01/22 Unknown History metoprolol tartrate 25 mg PO DAILY 02/19/22 04/01/22 02/19/22 05:00 History zinc 50 mg tablet 50 mg PO DAILY 02/19/22 04/01/22 Unknown History ciprofloxacin HCl 500 mg tablet 500 mg PO DAILY #5 tabs 02/26/22 04/01/22 Unknown Rx (Cipro) prednisone 2.5 mg tablet 2.5 mg PO DAILY #90 tabs 02/26/22 04/01/22 Unknown Rx prednisone 20 mg tablet See Rx Instructions PO .COMPLEX 02/26/22 04/01/22 Unknown Rx PRN joint pain flare #30 tabs sacubitril 24 mg-valsartan 26 mg 1 tab PO BID #180 tabs 02/27/22 04/01/22 U nknown Rx tablet (Entresto) Allergies Allergy/AdvReac Type Severity Reaction Status Date / Time Influenza Virus Vaccines Allergy Unknown Verified 04/01/22 13:12 [facility] Anesthesia Medical History Acute diastolic heart failure due to valvular disease Anxiety disorder Arteriosclerotic cardiovascular disease Atherosclerosis of coronary artery of [place] heart without angina pectoris Atherosclerotic heart disease of [place] coronary artery with other forms of angina pectoris Chronic kidney disease COPD exacerbation Essential (primary) hypertension GERD (gastroesophageal reflux disease) Hypothyroidism Intervertebral disc disorder with radiculopathy of lumbosacral region Lumbar stenosis with neurogenic claudication Mitral regurgitation Mixed hyperlipidemia Palpitations Positive double stranded DNA antibody test Recurrent UTI SS-A antibody positive Systemic lupus erythematosus, unspecified Ventricular arrhythmia Vitamin D deficiency Surgical History H/O: hysterectomy with BSO History of cholecystectomy History of heart artery stent 5 stents Family History Sister Cancer Brain Hypertension Mother , at age 47 Hypertension Several members Heart disease CAD (coronary artery disease) rheumatic fever, early onset heart disease Father , at age 78 Dementia Family/Other Lung disease Denies family history of Diabetes Clotting disorder Chronic kidney disease (CKD) Suicide Anesthesia complication Bleeding disorder Stroke Social History Smoking and tobacco status: never smoked Alcohol intake: never Desire information about alcohol rehabilitation?: No Counseling given: No Desire information about substance/drug rehabilitation?: No Counseling given: No Caregiver/support person: No Lives independently: Yes Household members: spouse Marital status: Current occupational status: retired History of recent travel: No Current gender identity: Female Data Anesthesia Cardiac Studies: Echocardiogram 02/25/22 Echocardiogram Ultrasound 01/03/20 Sestamibi Stress Test (Cardiology) 07/02 Holter Monitor 03/23/20
[2022-04-01 13:41] VITALS: BMI 26.2
[2022-04-01 14:16] LABS: Basophils % 0.3 %; Eosinophils # 0.1 10^3/uL (0.0-0.8); Eosinophils % 1.2 %; Hematocrit 38.3 % (37.0-47.0); Hemoglobin 12.5 g/dL (11.5-15.3); Lymphocytes # 1.9 10^3/uL (0.8-4.8); Lymphocytes % 22.4 %; Mean Corpuscular HGB Conc 32.6 g/dL (30.0-36.0); Mean Corpuscular Hemoglobin 30.3 pg (28.0-34.0); Mean Platelet Volume 10.9 fL (7.4-10.4); Monocytes # 0.5 10^3/uL (0.2-0.9); Monocytes % 5.7 %; Neutrophils # 5.98 10^3/uL (1.8-7.7); Neutrophils % 69.6 %; Nucleated Red Blood Cells % 0 %; Platelet Count 231 10^3/cmm (130-400); Red Blood Count 4.12 10^6/uL (4.1-5.3); Red Cell Distribution Width 14.4 % (12.1-15.1); White Blood Count 8.6 10^3/uL (4.0-10.0)
[2022-04-01 14:38] LABS: Anion Gap 14.3 (5-19); Blood Urea Nitrogen 17 mg/dL (8-23); Calcium 9.5 mg/dL (8.5-10.5); Carbon Dioxide 28 mmol/L (22-29); Chloride 97 mmol/L (98-107); Glomerular Filtration Rate 62.6 mL/min (90-130); Glucose 99 mg/dL (65-115); Osmolality Calculated 284 mOsm/kg (285-295); Potassium 3.3 mmol/L (3.5-5.1); Sodium 136 mmol/L (136-145)
[2022-04-15 06:16] VITALS: BP 123/65; PULSE 58; RESP 16; TEMP 36.4; O2SAT 92
--- NOTE | 2022-04-15 06:23 | P.ANESUD_ITS ---
Pre-Anesthetic Update Pre-Anesthetic Assessment: Date of Surgery/Procedure: 04/15/22 Preop Amparo gnosis: Avascular necrosis right shoulder Proposed Procedure: Operation Date: 04/15/22 07:00 Proposed Procedures p right reverse total shoulder arthroplasty/ 42979,M87.00,M75.120(Right) - Ata Wan MD Changes from Pre-Anesthetic Assessment: Patient reports fever over the weekend resolved with acetaminophen with increased level of SOB, new cough, weakness, and increased use of PRN home O2. CXR ordered and did appear to be patient's baseline exam, final read pending. Patient evaluated by Doctor Soco who decided to postpone today's case. I discussed options to further evaluate the patient including seeing patient own PCP, urgent care, and ER. Patient did not think they could get in to see their own PCP and did not want to wait until local urgent care opened. Patient would like to go to ED for further evaluation. Last Intake: Intake Last Liquid Date 04/14/22 Last Liquid Time 22:00 Last Solid Date 04/14/22 Last Solid Time 20:00 Vitals: Temperature 97.6 F 04/15/22 06:16 Temperature Source Temporal Artery S can 04/15/22 06:16 Pulse Rate 58 L 04/15/22 06:16 Respiratory Rate 16 04/15/22 06:16 Blood Pressure 123/65 04/15/22 06:16 Blood Pressure Henny n 84 04/15/22 06:16 Pulse Oximetry 92 04/15/22 06:16 Oxygen Delivery Me thod 04/15/22 06:16 Cardiac Studies: Echocardiogram 02/25/22 Echocardiogram Ultrasound 01/03/20 Sestamibi Stress Test (Cardiology) 07/02 Holter Monitor 03/23/20
--- NOTE | 2022-04-15 06:30 | PC.NURSE ---
0601 pt arrived to dept. weak and stumbling. spouse states that she's been this way for a couple of years. states she has been coughing and having shortness of breath. pt states she wears oxygen as needed and has worn it alot over the weekend.
--- NOTE | 2022-04-15 06:33 | XRR_ITS ---
PROCEDURE INFORMATION: Exam: XR Chest Exam date and time: 04/15/2022 6:50 AM Age: 66 years old Clinical indication: Screening exam; Pre-operative exam; Other: Shoulder; Additional info: Pre op TECHNIQUE: Imaging protocol: Radiologic exam of the chest. Views: 1 view. COMPARISON: CR XR chest 2V* [id number] 11/07/2021 3:11 PM FINDINGS: Lungs: Unremarkable. No consolidation. Pleural spaces: Unremarkable. No pleural effusion. No pneumothorax. Heart/Mediastinum: Unremarkable. No cardiomegaly. Bones/joints: Unremarkable. XR/XR chest 1V portable [id number] IMPRESSION: No acute findings.
--- NOTE | 2022-04-15 06:34 | PC.NURSE ---
dr. moreno into see pt . portable chest x-ray ordered.
--- NOTE | 2022-04-15 07:07 | PC.NURSE ---
Addendum entered by Mariana Peres LPN 04/15/22 07:14: pt going to ER due to generally feeling unwell. Original Note: dr. naqvi into see pt. procedure cancelled. pt going to the ER .
== END ==
PROVIDERS: Anesthesiology; PCP Family Medicine; Visit Provider Orthopaedic Surgery
PROC: (CPT 23472; principal; 2022-04-15 07:00)
DX: I25.10 Atherosclerotic heart disease of native coronary artery without angina pectoris (principal); Z53.8 Procedure and treatment not carried out for other reasons; I42.9 Cardiomyopathy, unspecified; J44.9 Chronic obstructive pulmonary disease, unspecified; Z99.81 Dependence on supplemental oxygen; Z95.5 Presence of coronary angioplasty implant and graft; I11.0 Hypertensive heart disease with heart failure; I50.9 Heart failure, unspecified
CPT/HCPCS: 71045; 80048; 85025

== ENCOUNTER 2022-04-15 07:20 | Emergency (ER) | payer BC, SELFPAY ==
[2022-04-15] VITALS (15 sets, daily range): BP systolic 92–122; BP diastolic 53–64; PULSE 57–68; RESP 17–23; TEMP 36.6; O2SAT 91–93; BMI 21.4
--- NOTE | 2022-04-15 07:53 | W.ED.SOB ---
Documented by User: MARIFER Quiñonez 04/15/22 09:27 HPI - SOB/Dyspnea General: Chief Complaint: Shortness of Breath/Dyspnea Stated Complaint: fluids in lungs Time Seen by Provider: 04/15/22 07:34 History of Present Illness: HPI Narrative: Patient is a 66-year-old female comes to the ED with shortness of breath. Patient has COPD and heart failure. She has 3 L of oxygen at home that she uses as needed. Patient was scheduled to have right shoulder surgery today, but given her symptoms they sent her here to the ED to be evaluated. Approximately 3 days ago patient started developing generalized weakness, cough and shortness of breath. She says her cough is productive with clear sputum. Over these past 3 days she has had wear her oxygen more frequently throughout the day. Shortness of breath worsens with exertion. Endorses having a low-grade fever. Patient started taking 20 mg of prednisone daily 2 days ago for bursitis. Denies chills, body aches, chest pain, palpitations, abdominal pain, nausea/vomiting, bladder or bowel symptoms. Associated symptoms: Reports fever(s); Deny abdominal pain, chest pain, nausea, orthopnea, palpitations or vomiting Review of Systems Const: Reports: fever(s); Denies: chills or fatigue Eyes: Denies: change in vision or eye discomfort ENMT: Denies: throat pain, odynophagia, nasal discharge or nasal congestion Card: Denies: chest pain, palpitations, edema, swelling of feet/ankles, dyspnea on exertion or orthopnea Resp: Reports: dyspnea and productive cough; Denies: non-productive cough GI: Denies: abdominal pain, nausea, vomiting, diarrhea, constipation or hematochezia : Denies: flank pain, dysuria or hematuria Musc: Denies: neck pain, back pain or extremity swelling Skin/Breast: Denies: rash or new lesions Neuro: Denies: headache(s), numbness in extremities or weakness in extremities PFS ED PFSH: Medical History Acute diastolic heart failure due to valvular disease Anxiety disorder Arteriosclerotic cardiovascular disease Atherosclerosis of coronary artery of [place] heart without angina pectoris Atherosclerotic heart disease of [place] coronary artery with other forms of angina pectoris Chronic kidney disease COPD exacerbation Essential (primary) hypertension GERD (gastroesophageal reflux disease) Hypothyroidism Intervertebral disc disorder with radiculopathy of lumbosacral region Lumbar stenosis with neurogenic claudication Mitral regurgitation Mixed hyperlipidemia Palpitations Positive double stranded DNA antibody test Recurrent UTI SS-A antibody positive Systemic lupus erythematosus, unspecified Ventricular arrhythmia Vitamin D deficiency Surgical History H/O: hysterectomy with BSO History of cholecystectomy History of heart artery stent 5 stents Family History Sister Cancer Brain Hypertension Mother , at age 47 Hypertension Several members Heart disease CAD (coronary artery disease) rheumatic fever, early onset heart disease Father , at age 78 Dementia Family/Other Lung disease Denies family history of Diabetes Clotting disorder Chronic kidney disease (CKD) Suicide Anesthesia complication Bleeding disorder Stroke Social History Smoking and tobacco status: current every day smoker cigarettes Packs smoked per day: 2 Years cigarettes smoked: 50 [ Other cigarette details: Started at age 16] Alcohol intake: never Desire information about alcohol rehabilitation?: No Counseling given: No Desire information about substance/drug rehabilitation?: No Counseling given: No Caregiver/support person: No Lives independently: Yes Household members: spouse Marital status: Current occupational status: retired History of recent travel: No Current gender identity: Female Physical Exam Const: COMMON NORMALS: patient oriented x3 and alert GENERAL APPEARANCE: cooperative HENMT: COMMON NORMALS: normocephalic HEAD & SCALP: normocephalic MOUTH: Normal oral and palatal mucosa present THROAT: posterior oropharynx normal and uvula midline Neck/C-Spine: COMMON NORMALS: supple GENERAL: Yes normal visual inspection Resp: COMMON NORMALS: normal respiratory effort, No retractions and No use of accessory muscles AUSCULTATION: wheezes scattered wheezes and diminished lung sounds bilateral in the lower lung wallace Cardio: COMMON NORMALS: regular rate, regular rhythm, S1 normal heart sound present, S2 normal heart sound present, No gallops present (Cardio), No clicks present (Cardio), No murmurs present (Cardio) and Peripheral pulses 2+ throughout RATE: regular rate RHYTHM: regular rhythm HEART SOUNDS: S1 normal heart sound present and S2 normal heart sound present PERIPHERAL PULSES: Peripheral pulses 2+ throughout GI: COMMON NORMALS: Normal to inspection, nondistended, normoactive bowel sounds present, Soft to palpation, non-tender and no masses PALPATION: Yes Soft to palpation : COMMON NORMALS: Yes no CVA tenderness BLADDER/KIDNEY EXAM: Yes no CVA tenderness Back/Pelvis: COMMON NORMALS: no CVA tenderness Extremity: COMMON NORMALS: normal to inspection and no pedal edema Neuro: COMMON NORMALS: patient oriented x3 SENSORIUM/ORIENTATION: Yes alert GAIT: Yes Normal gait present Skin: GENERAL SKIN EXAM: dry skin Course Vital Signs: Vital signs: Vital Signs Temperature 97.9 F 04/15/22 07:26 Pulse Rate 60 04/15/22 10:30 Respiratory Rate 17 04/15/22 10:30 Blood Pressure 104/57 04/15/22 10:30 Pulse Oximetry 93 04/15/22 08:57 Oxygen Delivery Me thod 04/15/22 08:57 MDM - SOB/Dyspnea Medical Decision Making Patient is a 66-year-old female comes to the ED with shortness of breath, cough and nasal drainage for the past 3 days. Patient has a history of COPD and heart failure. She is on 3 L of oxygen as needed at home. Patient says over the past couple days she has had to use her oxygen more frequently throughout the day than usual. I performed initial history, physical exam and lab work-up of patient. Patient case was signed over to Dr. Moreland and he will be managing patient's plan of care and dispo. Lab Data I reviewed the patient's lab results. : 04/15/22 07:57 04/15/22 07:57 Labs/Radiology: Laboratory Results WBC 9.0 10^3/uL (4.0-10.0) 04/15/22 07:57 RBC 3.74 10^6/uL (4.1-5.3) L 04/15/22 07:57 Hgb 11.3 g/dL (11.5-15.3) L 04/15/22 07:57 Hct 34.2 % (37.0-47.0) L 04/15/22 07:57 MCV 91.4 fl (81-99) 04/15/22 07:57 MCH 30.2 pg (28.0-34.0) 04/15/22 07:57 MCHC 33.0 g/dL (30.0-36.0) 04/15/22 07:57 RDW 13.9 % (12.1-15.1) 04/15/22 07:57 Plt Count 203 10^3/cmm (130-400) 04/15/22 07:57 MPV 10.1 fL (7.4-10.4) 04/15/22 07:57 Neut % (Auto) 87.2 % 04/15/22 07:57 Lymph % (Auto) 6.1 % 04/15/22 07:57 [place] % (Auto) 5.3 % 04/15/22 07:57 Eos % (Auto) 0.8 % 04/15/22 07:57 Baso % (Auto) 0.2 % 04/15/22 07:57 Neut # (Auto) 7.87 10^3/uL (1.8-7.7) H 04/15/22 07:57 Lymph # (Auto) 0.6 10^3/uL (0.8-4.8) L 04/15/22 07:57 [place] # (Auto) 0.5 10^3/uL (0.2-0.9) 04/15/22 07:57 Eos # (Auto) 0.1 10^3/uL (0.0-0.8) 04/15/22 07:57 Baso # (Auto) 0.0 10^3/uL (0.0-0.1) 04/15/22 07:57 Nucleated RBC % (auto) 0 % 04/15/22 07:57 Nucleated RBCs # 0.0 /100WBC 04/15/22 07:57 Sodium 134 mmol/L (136-145) L 04/15/22 07:57 Potassium 3.9 mmol/L (3.5-5.1) 04/15/22 07:57 Chloride 96 mmol/L (98-107) L 04/15/22 07:57 Carbon Dioxide 27 mmol/L (22-29) 04/15/22 07:57 Anion Gap 14.9 (5-19) 04/15/22 07:57 BUN 13 mg/dL (8-23) 04/15/22 07:57 Creatinine 0.7 mg/dL (0.5-0.9) 04/15/22 07:57 GFR Calculation 83.7 mL/min (90-130) L 04/15/22 07:57 Glucose 103 mg/dL (65-115) 04/15/22 07:57 Calculated Osmolality 278 mOsm/kg (285-295) L 04/15/22 07:57 Calcium 9.0 mg/dL (8.5-10.5) 04/15/22 07:57 Total Bilirubin 0.3 mg/dL (0.15-1.2) 04/15/22 07:57 AST 44 U/L (0-32) H 04/15/22 07:57 ALT 37 U/L (0-33) H 04/15/22 07:57 Alkaline Phosphatase 74 U/L (35-105) 04/15/22 07:57 Troponin T Baseline 8 ng/L (0-10) 04/15/22 07:57 Troponin T 120 Minute 6.63 ng/L (0-10) 04/15/22 10:08 Delta Troponin T -1.37 ABS# (0-10) L 04/15/22 10:08 NT-Pro-B Natriuret Pep 809 pg/mL (0-125) H 04/15/22 07:57 Total Protein 7.0 g/dL (6.6-8.7) 04/15/22 07:57 Albumin 3.3 g/dL (3.5-5.2) L 04/15/22 07:57 Globulin 3.7 g/dL (1.3-4.6) 04/15/22 07:57 Influenza Type A Ag Negative (Negative) 04/15/22 07:57 Influenza Type B Ag Negative (Negative) 04/15/22 07:57 SARS-CoV-2 Ag (Rapid) Negative (Negative) 04/15/22 07:57 Discharge Plan Discharge Patient Disposition: Home Clinical Impression: COPD exacerbation Condition: Stable Prescriptions: New prednisone 20 mg tablet 20 mg PO TID Qty: 15 0RF Rx Instructions: 1 p.o. 3 times daily x3 days, 1 p.o. twice daily x2 days, 1 p.o. daily x2 days albuterol sulfate 90 mcg/actuation HFA aerosol inhaler 2 inh INHALATION Q4H PRN (Reason: shortness of breath or wheezing) Qty: 18 0RF Held prednisone 2.5 mg tablet 2.5 mg PO DAILY Qty: 90 1RF Hold Instructions: Resume on 04/23/22. No Action fluticasone propionate 50 mcg/actuation spray,suspension 1 spray INTRANASAL DAILY PRN (Reason: Allergy Symptoms) diphenhydramine HCl [Benadryl] 25 mg capsule 25 mg PO TID PRN (Reason: Allergic Reaction) alprazolam 0.5 mg tablet 0.5 mg PO TID cyanocobalamin (vitamin B-12) 1,000 mcg capsule 1,000 mcg PO DAILY nitroglycerin [Nitrostat] 0.4 mg tablet, sublingual 0.4 mg SUBLINGUAL Q5M PRN (Reason: Chest Pain) pantoprazole 40 mg tablet,delayed release (DR/EC) 40 mg PO BID fluoxetine 40 mg capsule 60 mg PO DAILY levothyroxine 112 mcg tablet 112 mcg PO DAILY gabapentin 300 mg capsule 300 mg PO TID PRN (Reason: nerve pain) Anoro Ellipta 62.5-25 mcg/actuation blister with device 1 inh inhalation DAILY 60 Days Qty: 60 3RF promethazine-DM 6.25-15 mg/5 mL syrup 5 - 10 ml PO Q6H PRN (Reason: cough) Qty: 240 0RF clopidogrel [Plavix] 75 mg tablet 75 mg PO DAILY Qty: 90 3RF fenofibrate nanocrystallized 48 mg tablet 48 mg PO DAILY Qty: 90 3RF magnesium oxide 400 mg magnesium tablet 400 mg PO DAILY Qty: 90 3RF potassium chloride 10 mEq tablet,ER particles/crystals 20 meq PO QAM Qty: 180 3RF furosemide 40 mg tablet 40 mg PO DAILY Qty: 90 3RF sacubitril-valsartan 49-51 mg tablet 1 tab PO BID 28 Days Qty: 60 0RF prednisone 20 mg tablet See Rx Instructions .ROUTE .COMPLEX Qty: 30 0RF Dose Instruction: TAKE ONE TABLET BY MOUTH DAILY FOR 5 TO 7 DAYS NEEDED FOR ARTHRITIS FLARE / JOINT PAIN FLARE Rx Instructions: TAKE ONE TABLET BY MOUTH DAILY FOR 5 TO 7 DAYS NEEDED FOR ARTHRITIS FLARE / JOINT PAIN FLARE ondansetron HCl [Zofran] 4 mg tablet 4 mg PO Q6H PRN (Reason: nausea and vomiting) Qty: 20 0RF albuterol sulfate 90 mcg/actuation HFA aerosol inhaler 2 inh inhalation Q8H PRN (Reason: shortness of breath or wheezing) Qty: 8.5 0RF cholecalciferol (vitamin D3) [Vitamin D3] 125 mcg (5,000 unit) Tablet 125 mcg PO DAILY triamcinolone acetonide 0.1 % Cream 1 applic TOPICAL DAILY PRN (Reason: unknown) nystatin 100,000 unit/gram cream See Rx Instructions .ROUTE .COMPLEX PRN (Reason: Itching) Rx Instructions: topically use as needed cyclosporine [Restasis] 0.05 % Dropperette 1 drp OPHTHALMIC (EYE) Q12H PRN (Reason: Dry Eyes) Rx Instructions: 1 drop each eye bid trazodone 150 mg tablet 150 - 300 mg PO BEDTIME PRN (Reason: Insomnia) zinc 50 mg Tablet 50 mg PO DAILY Caltrate + D3 Plus Minerals 630 mg tablet 630 mg PO DAILY metoprolol tartrate 25 mg tablet 25 mg PO DAILY Discharge Orders: Discharge ED (Routine); Ordered 04/15/22 Ordered By: Jj Moreland Referrals: Raheem Baron [Primary Care Provider] - Patient Instructions: Opioid Safety Activity Restrictions/Additional Instructions: Recommend that you contact Dr. Flores or your primary care doctor to reevaluate and get clearance to proceed with surgery once it is rescheduled. Sign Out Sign Out Data: Patient Sign Out occurred on 04/15/22 at 08:47. Patient's care was discussed, and care was transferred from to Jj Moreland DO. Coding Level of Care Code ED Central Control Room Operator for Chg Fwd Exam Comprehensive Documented by User: Jj Moreland DO 04/15/22 11:25 HPI - SOB/Dyspnea General: Chief Complaint: Shortness of Breath/Dyspnea Stated Complaint: fluids in lungs Time Seen by Provider: 04/15/22 07:34 PFSH ED PFSH: Medical History Acute diastolic heart failure due to valvular disease Anxiety disorder Arteriosclerotic cardiovascular disease Atherosclerosis of coronary artery of [place] heart without angina pectoris Atherosclerotic heart disease of [place] coronary artery with other forms of angina pectoris Chronic kidney disease COPD exacerbation Essential (primary) hypertension GERD (gastroesophageal reflux disease) Hypothyroidism Intervertebral disc disorder with radiculopathy of lumbosacral region Lumbar stenosis with neurogenic claudication Mitral regurgitation Mixed hyperlipidemia Palpitations Positive double stranded DNA antibody test Recurrent UTI SS-A antibody positive Systemic lupus erythematosus, unspecified Ventricular arrhythmia Vitamin D deficiency Surgical History H/O: hysterectomy with BSO History of cholecystectomy History of heart artery stent 5 stents Family History Sister Cancer Brain Hypertension Mother , at age 47 Hypertension Several members Heart disease CAD (coronary artery disease) rheumatic fever, early onset heart disease Father , at age 78 Dementia Family/Other Lung disease Denies family history of Diabetes Clotting disorder Chronic kidney disease (CKD) Suicide Anesthesia complication Bleeding disorder Stroke Social History Smoking and tobacco status: current every day smoker cigarettes Packs smoked per day: 2 Years cigarettes smoked: 50 [ Other cigarette details: Started at age 16] Alcohol intake: never Desire information about alcohol rehabilitation?: No Counseling given: No Desire information about substance/drug rehabilitation?: No Counseling given: No Caregiver/support person: No Lives independently: Yes Household members: spouse Marital status: Current occupational status: retired History of recent travel: No Current gender identity: Female Course Vital Signs: Vital signs: Vital Signs Temperature 97.9 F 04/15/22 07:26 Pulse Rate 60 04/15/22 10:30 Respiratory Rate 17 04/15/22 10:30 Blood Pressure 104/57 04/15/22 10:30 Pulse Oximetry 93 04/15/22 08:57 Oxygen Delivery Me thod 04/15/22 08:57 MDM - SOB/Dyspnea Medical Decision Making Patient is a 66-year-old female comes to the ED with shortness of breath, cough and nasal drainage for the past 3 days. Patient has a history of COPD and heart failure. She is on 3 L of oxygen as needed at home. Patient says over the past couple days she has had to use her oxygen more frequently throughout the day than usual. I performed initial history, physical exam and lab work-up of patient. Patient case was signed over to Dr. Moreland and he will be managing patient's plan of care and dispo. Care assumed from Omar Sorto. Chest x-ray done prior to arrival here was reviewed no acute findings. Reviewed labs and imaging seen and examined patient concur with Omar Sorto's documentation. She is stable at this time. We will go at discharge home because exacerbation of her COPD increase her oxygen level and have her follow-up with her primary care or pulmonology prior to surgery for clearance. COVID and flu done today are negative. Medical Records I reviewed the patient's medical records. Lab Data : 04/15/22 07:57 04/15/22 07:57 Labs/Radiology: Laboratory Results WBC 9.0 10^3/uL (4.0-10.0) 04/15/22 07:57 RBC 3.74 10^6/uL (4.1-5.3) L 04/15/22 07:57 Hgb 11.3 g/dL (11.5-15.3) L 04/15/22 07:57 Hct 34.2 % (37.0-47.0) L 04/15/22 07:57 MCV 91.4 fl (81-99) 04/15/22 07:57 MCH 30.2 pg (28.0-34.0) 04/15/22 07:57 MCHC 33.0 g/dL (30.0-36.0) 04/15/22 07:57 RDW 13.9 % (12.1-15.1) 04/15/22 07:57 Plt Count 203 10^3/cmm (130-400) 04/15/22 07:57 MPV 10.1 fL (7.4-10.4) 04/15/22 07:57 Neut % (Auto) 87.2 % 04/15/22 07:57 Lymph % (Auto) 6.1 % 04/15/22 07:57 [place] % (Auto) 5.3 % 04/15/22 07:57 Eos % (Auto) 0.8 % 04/15/22 07:57 Baso % (Auto) 0.2 % 04/15/22 07:57 Neut # (Auto) 7.87 10^3/uL (1.8-7.7) H 04/15/22 07:57 Lymph # (Auto) 0.6 10^3/uL (0.8-4.8) L 04/15/22 07:57 [place] # (Auto) 0.5 10^3/uL (0.2-0.9) 04/15/22 07:57 Eos # (Auto) 0.1 10^3/uL (0.0-0.8) 04/15/22 07:57 Baso # (Auto) 0.0 10^3/uL (0.0-0.1) 04/15/22 07:57 Nucleated RBC % (auto) 0 % 04/15/22 07:57 Nucleated RBCs # 0.0 /100WBC 04/15/22 07:57 Sodium 134 mmol/L (136-145) L 04/15/22 07:57 Potassium 3.9 mmol/L (3.5-5.1) 04/15/22 07:57 Chloride 96 mmol/L (98-107) L 04/15/22 07:57 Carbon Dioxide 27 mmol/L (22-29) 04/15/22 07:57 Anion Gap 14.9 (5-19) 04/15/22 07:57 BUN 13 mg/dL (8-23) 04/15/22 07:57 Creatinine 0.7 mg/dL (0.5-0.9) 04/15/22 07:57 GFR Calculation 83.7 mL/min (90-130) L 04/15/22 07:57 Glucose 103 mg/dL (65-115) 04/15/22 07:57 Calculated Osmolality 278 mOsm/kg (285-295) L 04/15/22 07:57 Calcium 9.0 mg/dL (8.5-10.5) 04/15/22 07:57 Total Bilirubin 0.3 mg/dL (0.15-1.2) 04/15/22 07:57 AST 44 U/L (0-32) H 04/15/22 07:57 ALT 37 U/L (0-33) H 04/15/22 07:57 Alkaline Phosphatase 74 U/L (35-105) 04/15/22 07:57 Troponin T Baseline 8 ng/L (0-10) 04/15/22 07:57 Troponin T 120 Minute 6.63 ng/L (0-10) 04/15/22 10:08 Delta Troponin T -1.37 ABS# (0-10) L 04/15/22 10:08 NT-Pro-B Natriuret Pep 809 pg/mL (0-125) H 04/15/22 07:57 Total Protein 7.0 g/dL (6.6-8.7) 04/15/22 07:57 Albumin 3.3 g/dL (3.5-5.2) L 04/15/22 07:57 Globulin 3.7 g/dL (1.3-4.6) 04/15/22 07:57 Influenza Type A Ag Negative (Negative) 04/15/22 07:57 Influenza Type B Ag Negative (Negative) 04/15/22 07:57 SARS-CoV-2 Ag (Rapid) Negative (Negative) 04/15/22 07:57 Discharge Plan Discharge Patient Disposition: Home Clinical Impression: COPD exacerbation Condition: Stable Prescriptions: New prednisone 20 mg tablet 20 mg PO TID Qty: 15 0RF Rx Instructions: 1 p.o. 3 times daily x3 days, 1 p.o. twice daily x2 days, 1 p.o. daily x2 days albuterol sulfate 90 mcg/actuation HFA aerosol inhaler 2 inh INHALATION Q4H PRN (Reason: shortness of breath or wheezing) Qty: 18 0RF Held prednisone 2.5 mg tablet 2.5 mg PO DAILY Qty: 90 1RF Hold Instructions: Resume on 04/23/22. No Action fluticasone propionate 50 mcg/actuation spray,suspension 1 spray INTRANASAL DAILY PRN (Reason: Allergy Symptoms) diphenhydramine HCl [Benadryl] 25 mg capsule 25 mg PO TID PRN (Reason: Allergic Reaction) alprazolam 0.5 mg tablet 0.5 mg PO TID cyanocobalamin (vitamin B-12) 1,000 mcg capsule 1,000 mcg PO DAILY nitroglycerin [Nitrostat] 0.4 mg tablet, sublingual 0.4 mg SUBLINGUAL Q5M PRN (Reason: Chest Pain) pantoprazole 40 mg tablet,delayed release (DR/EC) 40 mg PO BID fluoxetine 40 mg capsule 60 mg PO DAILY levothyroxine 112 mcg tablet 112 mcg PO DAILY gabapentin 300 mg capsule 300 mg PO TID PRN (Reason: nerve pain) Anoro Ellipta 62.5-25 mcg/actuation blister with device 1 inh inhalation DAILY 60 Days Qty: 60 3RF promethazine-DM 6.25-15 mg/5 mL syrup 5 - 10 ml PO Q6H PRN (Reason: cough) Qty: 240 0RF clopidogrel [Plavix] 75 mg tablet 75 mg PO DAILY Qty: 90 3RF fenofibrate nanocrystallized 48 mg tablet 48 mg PO DAILY Qty: 90 3RF magnesium oxide 400 mg magnesium tablet 400 mg PO DAILY Qty: 90 3RF potassium chloride 10 mEq tablet,ER particles/crystals 20 meq PO QAM Qty: 180 3RF furosemide 40 mg tablet 40 mg PO DAILY Qty: 90 3RF sacubitril-valsartan 49-51 mg tablet 1 tab PO BID 28 Days Qty: 60 0RF prednisone 20 mg tablet See Rx Instructions .ROUTE .COMPLEX Qty: 30 0RF Dose Instruction: TAKE ONE TABLET BY MOUTH DAILY FOR 5 TO 7 DAYS NEEDED FOR ARTHRITIS FLARE / JOINT PAIN FLARE Rx Instructions: TAKE ONE TABLET BY MOUTH DAILY FOR 5 TO 7 DAYS NEEDED FOR ARTHRITIS FLARE / JOINT PAIN FLARE ondansetron HCl [Zofran] 4 mg tablet 4 mg PO Q6H PRN (Reason: nausea and vomiting) Qty: 20 0RF albuterol sulfate 90 mcg/actuation HFA aerosol inhaler 2 inh inhalation Q8H PRN (Reason: shortness of breath or wheezing) Qty: 8.5 0RF cholecalciferol (vitamin D3) [Vitamin D3] 125 mcg (5,000 unit) Tablet 125 mcg PO DAILY triamcinolone acetonide 0.1 % Cream 1 applic TOPICAL DAILY PRN (Reason: unknown) nystatin 100,000 unit/gram cream See Rx Instructions .ROUTE .COMPLEX PRN (Reason: Itching) Rx Instructions: topically use as needed cyclosporine [Restasis] 0.05 % Dropperette 1 drp OPHTHALMIC (EYE) Q12H PRN (Reason: Dry Eyes) Rx Instructions: 1 drop each eye bid trazodone 150 mg tablet 150 - 300 mg PO BEDTIME PRN (Reason: Insomnia) zinc 50 mg Tablet 50 mg PO DAILY Caltrate + D3 Plus Minerals 630 mg tablet 630 mg PO DAILY metoprolol tartrate 25 mg tablet 25 mg PO DAILY Discharge Orders: Discharge ED (Routine); Ordered 04/15/22 Ordered By: Jj Moreland Referrals: Raheem Baron [Primary Care Provider] - Patient Instructions: Opioid Safety Activity Restrictions/Additional Instructions: Recommend that you contact Dr. Flores or your primary care doctor to reevaluate and get clearance to proceed with surgery once it is rescheduled. Sign Out Sign Out Data: Patient Sign Out occurred on 04/15/22 at 08:47. Patient's care was discussed, and care was transferred from to Jj Moreland DO. Coding Level of Care Code ED Central Control Room Operator for Chg Fwd Exam Comprehensive
--- NOTE | 2022-04-15 08:03 | PC.NURSE ---
PT PLACED ON CONTINUOUS NIBP AND CM.
[2022-04-15 08:08] LABS: Basophils % 0.2 %; Eosinophils # 0.1 10^3/uL (0.0-0.8); Eosinophils % 0.8 %; Hematocrit 34.2 % (37.0-47.0); Hemoglobin 11.3 g/dL (11.5-15.3); Lymphocytes # 0.6 10^3/uL (0.8-4.8); Lymphocytes % 6.1 %; Mean Corpuscular Hemoglobin 30.2 pg (28.0-34.0); Mean Corpuscular Volume 91.4 fl (81-99); Mean Platelet Volume 10.1 fL (7.4-10.4); Monocytes # 0.5 10^3/uL (0.2-0.9); Monocytes % 5.3 %; Neutrophils # 7.87 10^3/uL (1.8-7.7); Neutrophils % 87.2 %; Nucleated Red Blood Cells % 0 %; Platelet Count 203 10^3/cmm (130-400); Red Blood Count 3.74 10^6/uL (4.1-5.3); Red Cell Distribution Width 13.9 % (12.1-15.1)
[2022-04-15 08:24] LABS: Troponin(5th) Baseline 8 ng/L (0-10)
[2022-04-15 08:33] LABS: Alanine Aminotransferase 37 U/L (0-33); Albumin Level 3.3 g/dL (3.5-5.2); Alkaline Phosphatase 74 U/L (35-105); Anion Gap 14.9 (5-19); Aspartate Amino Transferase 44 U/L (0-32); Blood Urea Nitrogen 13 mg/dL (8-23); Carbon Dioxide 27 mmol/L (22-29); Chloride 96 mmol/L (98-107); Globulin 3.7 g/dL (1.3-4.6); Glomerular Filtration Rate 83.7 mL/min (90-130); Glucose 103 mg/dL (65-115); NT Pro B Type Natriuretic Pept 809 pg/mL (0-125); Osmolality Calculated 278 mOsm/kg (285-295); Potassium 3.9 mmol/L (3.5-5.1); Sodium 134 mmol/L (136-145); Total Bilirubin 0.3 mg/dL (0.15-1.2)
[2022-04-15 08:47] LABS: Influenza A by IFA Negative (Negative); Influenza B by IFA Negative (Negative); SARS Covid-2 Antigen Negative (Negative)
[2022-04-15] MEDS: ipratropium-albuterol 3 mL Neb 6 ML INHALATION (08:47)
--- NOTE | 2022-04-15 09:32 | ECG_ITS ---
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 Measurements Intervals [place] Rate: 64 P: -20 VT: 142 QRS: 47 QRSD: 105 T: 58 QT: 440 QTc: 454 Interpretive Statements SINUS RHYTHM MINIMAL ST DEPRESSION [0.025+ mV ST DEPRESSION] Compared to ECG 10/15/2021 19:52:02 ST (T wave) deviation now present T-wave abnormality no longer present Electronically Signed On 04-15-2022 18:13:36 CDT by Derrick Peralta M.D. [id number]
[2022-04-15] MEDS: sodium chloride 0.9% 1,000 ML 999 ML IV (10:32)
[2022-04-15 10:38] LABS: Troponin 5 2HR 6.63 ng/L (0-10)
[2022-04-15 10:49] LABS: Troponin 5 2HR Delta -1.37 ABS# (0-10)
== END 2022-04-15 11:26 | disposition home or self-care (01) ==
PROVIDERS: Physician Assistant; Emergency Provider Family Medicine; PCP Family Medicine
DX: J44.1 Chronic obstructive pulmonary disease with (acute) exacerbation (principal)
CPT/HCPCS: 36415; 80053; 83880; 84484; 85025; 87426; 87804; 93005; 94640; 96361; 96374; 99285; J2930; J7030

== ENCOUNTER → 2022-04-23 17:26 | Outpatient (BNVA) | payer BC, SELFPAY | PROVIDERS: PCP Family Medicine; Visit Provider Orthopaedic Surgery | DX: M75.120 Complete rotator cuff tear or rupture of unspecified shoulder, not specified as traumatic (principal); M87.00 Idiopathic aseptic necrosis of unspecified bone; I95.9 Hypotension, unspecified | CPT/HCPCS: 36415; 80048; 83735; 84100 ==

== ENCOUNTER 2022-05-07 15:07 | Emergency (ER) | payer BC, SELFPAY ==
[2022-05-07 15:12] VITALS: BMI 21.6
[2022-05-07 15:15] VITALS: BP 120/71; PULSE 97; RESP 22; TEMP 36.2; O2SAT 99
--- NOTE | 2022-05-07 15:24 | ECG_ITS ---
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 Measurements Intervals [place] Rate: 93 P: 59 LA: 122 QRS: 46 QRSD: 92 T: 24 QT: 275 QTc: 344 Interpretive Statements SINUS RHYTHM NONSPECIFIC ST & T-WAVE ABNORMALITY Compared to ECG 04/15/2022 07:53:02 T-wave abnormality now present ST (T wave) deviation no longer present Electronically Signed On 05-07-2022 20:28:31 CDT by Skye Vanegas M.D. [id number]
--- NOTE | 2022-05-07 15:38 | XRR_ITS ---
PROCEDURE INFORMATION: Exam: XR Chest Exam date and time: 05/07/2022 3:44 PM Age: 66 years old Clinical indication: Cough and dyspnea; Prior surgery; Surgery type: Heart stents; Additional info: Dyspnea/cough TECHNIQUE: Imaging protocol: Radiologic exam of the chest. Views: 1 view. COMPARISON: CR XR chest 1V portable [id number] 04/15/2022 6:50 AM FINDINGS: Lungs: The lung bases are suboptimally assessed due to technique however the upper lungs are clear of focal consolidation. Nonspecific interstitial prominence in the mid and lower lung zones appears stable which may be chronic. However follow-up should be obtained if symptoms persist. Pleural spaces: Unremarkable. No pleural effusion. No pneumothorax. Heart/Mediastinum: Cardiac silhouette appears normal in size demonstrating dextro position similar to previous exam. No obvious vascular congestion. Prior chest CT demonstrated normal cardiac situs otherwise. Bones/joints: No acute osseous findings. Osteopenia. Other findings: Single view was submitted. XR/XR chest 1V portable [id number] IMPRESSION: Stable mild interstitial prominence as described. Other nonacute findings as described above..
[2022-05-07 15:54] LABS: Basophils % 0.3 %; Eosinophils % 0.5 %; Hemoglobin 12.9 g/dL (11.5-15.3); Lymphocytes # 0.6 10^3/uL (0.8-4.8); Lymphocytes % 8.2 %; Mean Corpuscular HGB Conc 33.9 g/dL (30.0-36.0); Mean Corpuscular Hemoglobin 30.9 pg (28.0-34.0); Mean Corpuscular Volume 90.9 fl (81-99); Mean Platelet Volume 10.1 fL (7.4-10.4); Monocytes # 0.5 10^3/uL (0.2-0.9); Neutrophils # 6.18 10^3/uL (1.8-7.7); Neutrophils % 82.7 %; Nucleated Red Blood Cells % 0 %; Platelet Count 179 10^3/cmm (130-400); Red Blood Count 4.18 10^6/uL (4.1-5.3); Red Cell Distribution Width 14.4 % (12.1-15.1); White Blood Count 7.5 10^3/uL (4.0-10.0)
--- NOTE | 2022-05-07 16:01 | ED_ITS ---
HPI - SOB/Dyspnea General: Chief Complaint: Shortness of Breath/Dyspnea Stated Complaint: SOB/Chest Pain Time Seen by Provider: 05/07/22 15:35 Source: patient Mode of arrival: ambulatory History of Present Illness: HPI Narrative: 66-year-old female presents emergency room with chronic shortness of breath its been worsening over the last month. She had a nonproductive cough. She has a little bit of chest discomfort but only when she coughs she has some rib pain lower central ribs. When not coughing she has no pain. She has been using nebulizers at home. Pain does not radiate into the arms but does feel like it goes into her back at times. Activity does seem to increase her cough. MD elicited complaint: shortness of breath and cough Pertinent past history: COPD Onset (ago): month(s) (1) Timing: intermittent Severity: moderate Exacerbating factors: exertion and coughing Relieving factors: rest and bronchodilators Known history of: COPD Associated symptoms: Reports chest congestion, chest pain and cough; Deny abdominal pain, diaphoresis, dizziness, extremity pain, fever(s), hemoptysis, lightheadedness, myalgias, nausea, orthopnea, palpitations, paresthesias, polydipsia, rash, sense of impending doom, syncope or vomiting Treatment prior to arrival: bronchodilator Review of Systems Const: Denies: fever(s), chills, fatigue, malaise or diaphoresis ENMT: Denies: throat pain, ear or mastoid pain, nasal discharge or nasal congestion Card: Reports: chest pain; Denies: palpitations, lightheadedness, syncope or orthopnea Resp: Reports: dyspnea, non-productive cough, wheezing and chest congestion; Denies: productive cough or hemoptysis GI: Denies: abdominal pain, nausea or vomiting : Denies: flank pain, difficulty voiding, dysuria, urinary frequency or urinary urgency Musc: Denies: extremity pain Skin/Breast: Denies: rash or pruritus Neuro: Denies: dizziness Endo: Denies: polydipsia PFSH ED PFSH: Medical History Acute diastolic heart failure due to valvular disease Anxiety disorder Arteriosclerotic cardiovascular disease Atherosclerosis of coronary artery of [place] heart without angina pectoris Atherosclerotic heart disease of [place] coronary artery with other forms of angina pectoris Chronic kidney disease COPD exacerbation Essential (primary) hypertension GERD (gastroesophageal reflux disease) Hypothyroidism Intervertebral disc disorder with radiculopathy of lumbosacral region Lumbar stenosis with neurogenic claudication Mitral regurgitation Mixed hyperlipidemia Palpitations Positive double stranded DNA antibody test Recurrent UTI SS-A antibody positive Systemic lupus erythematosus, unspecified Ventricular arrhythmia Vitamin D deficiency Surgical History H/O: hysterectomy with BSO History of cholecystectomy History of heart artery stent 5 stents Family History Sister Cancer Brain Hypertension Mother , at age 47 Hypertension Several members Heart disease CAD (coronary artery disease) rheumatic fever, early onset heart disease Father , at age 78 Dementia Family/Other Lung disease Denies family history of Diabetes Clotting disorder Chronic kidney disease (CKD) Suicide Anesthesia complication Bleeding disorder Stroke Social History Smoking and tobacco status: current every day smoker cigarettes Packs smoked per day: 2 Years cigarettes smoked: 50 [ Other cigarette details: Started at age 16] Alcohol intake: never Desire information about alcohol rehabilitation?: No Counseling given: No Desire information about substance/drug rehabilitation?: No Counseling given: No Caregiver/support person: No Lives independently: Yes Household members: spouse Marital status: Current occupational status: retired History of recent travel: No Current gender identity: Female Physical Exam Const: GENERAL APPEARANCE: cooperative and comfortable ORIENTATION/CONSCIOUSNESS: Yes awake, Yes oriented to person, Yes oriented to place and Yes oriented to time HENMT: COMMON NORMALS: normocephalic and atraumatic HEAD & SCALP: normocephalic and atraumatic Resp: AUSCULTATION: rhonchi and wheezes Cardio: COMMON NORMALS: regular rate, regular rhythm and No murmurs present (Cardio) RATE: regular rate RHYTHM: regular rhythm GI: COMMON NORMALS: Soft to palpation and No hepatosplenomegaly present AUSCULTATION: Yes normoactive bowel sounds PALPATION: Yes Soft to palpation, No Tenderness to palpation present (GI), No Guarding due to palpation present (GI) and Yes No hepatosplenomegaly present Extremity: COMMON NORMALS: normal to inspection, capillary refill normal, no clubbing, cyanosis or edema, no calf tenderness and no pedal edema Neuro: SENSORIUM/ORIENTATION: Yes oriented to person, Yes oriented to place and Yes oriented to time Skin: COMMON NORMALS: no rashes or lesions noted GENERAL SKIN EXAM: no rashes or lesions noted Course Vital Signs: Vital signs: Vital Signs Temperature 97.1 F L 05/07/22 15:15 Pulse Rate 78 05/07/22 17:30 Respiratory Rate 20 H 05/07/22 17:30 Blood Pressure 137/75 05/07/22 17:30 Pulse Oximetry 96 05/07/22 17:30 Oxygen Delivery Me thod 05/07/22 17:30 Oxygen Flow Rate 3 05/07/22 16:45 MDM - SOB/Dyspnea Medical Decision Making Labs imaging reviewed. Patient has COPD exacerbation will start on steroids increase albuterol. Recheck with primary care in 3 to 5 days if not improving. Medical Records I reviewed the patient's medical records. Lab Data I reviewed the patient's lab results. : 05/07/22 15:45 05/07/22 15:45 Labs/Radiology: Radiology Impressions Chest X-Ray 05/07/22 15:38 IMPRESSION: Stable mild interstitial prominence as described. Other nonacute findings as described above.. Laboratory Results WBC 7.5 10^3/uL (4.0-10.0) 05/07/22 15:45 RBC 4.18 10^6/uL (4.1-5.3) 05/07/22 15:45 Hgb 12.9 g/dL (11.5-15.3) 05/07/22 15:45 Hct 38.0 % (37.0-47.0) 05/07/22 15:45 MCV 90.9 fl (81-99) 05/07/22 15:45 MCH 30.9 pg (28.0-34.0) 05/07/22 15:45 MCHC 33.9 g/dL (30.0-36.0) 05/07/22 15:45 RDW 14.4 % (12.1-15.1) 05/07/22 15:45 Plt Count 179 10^3/cmm (130-400) 05/07/22 15:45 MPV 10.1 fL (7.4-10.4) 05/07/22 15:45 Neut % (Auto) 82.7 % 05/07/22 15:45 Lymph % (Auto) 8.2 % 05/07/22 15:45 [place] % (Auto) 7.0 % 05/07/22 15:45 Eos % (Auto) 0.5 % 05/07/22 15:45 Baso % (Auto) 0.3 % 05/07/22 15:45 Neut # (Auto) 6.18 10^3/uL (1.8-7.7) 05/07/22 15:45 Lymph # (Auto) 0.6 10^3/uL (0.8-4.8) L 05/07/22 15:45 [place] # (Auto) 0.5 10^3/uL (0.2-0.9) 05/07/22 15:45 Eos # (Auto) 0.0 10^3/uL (0.0-0.8) 05/07/22 15:45 Baso # (Auto) 0.0 10^3/uL (0.0-0.1) 05/07/22 15:45 Nucleated RBC % (auto) 0 % 05/07/22 15:45 Nucleated RBCs # 0.0 /100WBC 05/07/22 15:45 Specimen Type Arterial 05/07/22 15:50 Sample Site Radial, left 05/07/22 15:50 ABG pH 7.44 (7.35-7.45) 05/07/22 15:50 ABG pCO2 35.2 mmHg (35-45) 05/07/22 15:50 ABG pO2 134.0 mmHg (80.0-100.0) H 05/07/22 15:50 ABG HCO3 24.1 mmol/L (22-26) 05/07/22 15:50 ABG O2 Saturation 98.2 05/07/22 15:50 ABG Base Excess 0.4 mmol/L (-2.0-2.0) 05/07/22 15:50 Amrit Test Pos 05/07/22 15:50 A-a O2 Gradient 6.3 mmHg (5-10) 05/07/22 15:50 Hematocrit 37.9 % (37-47) 05/07/22 15:50 Hgb O2 Saturation 94.8 % (95-100) L 05/07/22 15:50 Carboxyhemoglobin 2.5 %THgb (0.4-20.1) 05/07/22 15:50 Methemoglobin 0.9 % (0.4-1.5) 05/07/22 15:50 Total Hemoglobin 12.4 g/dL (12-16) 05/07/22 15:50 Sodium 121.0 mmol/L (131-143) L 05/07/22 15:50 Potassium 3.7 mmol/L (3.5-5.0) 05/07/22 15:50 Glucose 115.0 mg/dL (70-115) 05/07/22 15:50 Ionized Calcium 1.2 mmol/L (1.1-1.4) 05/07/22 15:50 O2 Delivery Device Nc 05/07/22 15:50 O2 Liters/Min 3.0 % 05/07/22 15:50 FiO2 32.0 % 05/07/22 15:50 Automotive Service Director ID Gd 05/07/22 15:50 Sodium 124 mmol/L (136-145) L 05/07/22 15:45 Potassium 3.9 mmol/L (3.5-5.1) 05/07/22 15:45 Chloride 86 mmol/L (98-107) L 05/07/22 15:45 Carbon Dioxide 26 mmol/L (22-29) 05/07/22 15:45 Anion Gap 15.9 (5-19) 05/07/22 15:45 BUN 13 mg/dL (8-23) 05/07/22 15:45 Creatinine 0.8 mg/dL (0.5-0.9) 05/07/22 15:45 GFR Calculation 71.8 mL/min (90-130) L 05/07/22 15:45 Glucose 92 mg/dL (65-115) 05/07/22 15:45 Calculated Osmolality 258 mOsm/kg (285-295) L 05/07/22 15:45 Calcium 9.2 mg/dL (8.5-10.5) 05/07/22 15:45 Total Bilirubin 0.2 mg/dL (0.15-1.2) 05/07/22 15:45 AST 20 U/L (0-32) 05/07/22 15:45 ALT 14 U/L (0-33) 05/07/22 15:45 Alkaline Phosphatase 56 U/L (35-105) 05/07/22 15:45 Troponin T Gen 5 ng/L 8 ng/L (0-10) 05/07/22 15:45 Total Protein 6.4 g/dL (6.6-8.7) L 05/07/22 15:45 Albumin 3.5 g/dL (3.5-5.2) 05/07/22 15:45 Globulin 2.9 g/dL (1.3-4.6) 05/07/22 15:45 Discharge Plan Discharge Patient Disposition: Home Clinical Impression: COPD exacerbation Condition: Stable Prescriptions: New prednisone 20 mg tablet 20 mg PO TID Qty: 15 0RF Rx Instructions: 1 p.o. 3 times daily x3 days, 1 p.o. twice daily x2 days, 1 p.o. daily x2 days albuterol sulfate 90 mcg/actuation HFA aerosol inhaler 2 inh INHALATION Q4H PRN (Reason: shortness of breath or wheezing) Qty: 18 0RF No Action fluticasone propionate 50 mcg/actuation spray,suspension 1 spray INTRANASAL DAILY PRN (Reason: Allergy Symptoms) diphenhydramine HCl [Benadryl] 25 mg capsule 25 mg PO TID PRN (Reason: Allergic Reaction) alprazolam 0.5 mg tablet 0.5 mg PO TID cyanocobalamin (vitamin B-12) 1,000 mcg capsule 1,000 mcg PO DAILY nitroglycerin [Nitrostat] 0.4 mg tablet, sublingual 0.4 mg SUBLINGUAL Q5M PRN (Reason: Chest Pain) pantoprazole 40 mg tablet,delayed release (DR/EC) 40 mg PO BID fluoxetine 40 mg capsule 60 mg PO DAILY levothyroxine 112 mcg tablet 112 mcg PO DAILY gabapentin 300 mg capsule 300 mg PO TID PRN (Reason: nerve pain) azithromycin 250 mg tablet 250 mg PO DAILY Qty: 18 6RF Rx Instructions: 1 tab on friday, friday, and Friday ipratropium-albuterol 0.5 mg-3 mg(2.5 mg base)/3 mL solution for nebulization 3 ml inhalation Q6H 30 Days Qty: 320 4RF promethazine-DM 6.25-15 mg/5 mL syrup 5 - 10 ml PO Q6H PRN (Reason: cough) Qty: 240 0RF prednisone 2.5 mg tablet 2.5 mg PO DAILY Qty: 90 1RF Hold Instructions: Resume on 04/23/22. fluconazole 100 mg tablet 100 mg PO DAILY 7 Days Qty: 7 0RF clopidogrel [Plavix] 75 mg tablet 75 mg PO DAILY Qty: 90 3RF fenofibrate nanocrystallized 48 mg tablet 48 mg PO DAILY Qty: 90 3RF magnesium oxide 400 mg magnesium tablet 400 mg PO DAILY Qty: 90 3RF potassium chloride 10 mEq tablet,ER particles/crystals 20 meq PO QAM Qty: 180 3RF furosemide 40 mg tablet 40 mg PO DAILY Qty: 90 3RF sacubitril-valsartan 49-51 mg tablet 1 tab PO BID 28 Days Qty: 60 0RF Hold Instructions: hypotension benzonatate 100 mg capsule 100 mg PO TID PRN (Reason: cough) Qty: 90 0RF Trelegy Ellipta 100-62.5-25 mcg blister with device 1 inh inhalation DAILY Qty: 60 3RF ondansetron HCl [Zofran] 4 mg tablet 4 mg PO Q6H PRN (Reason: nausea and vomiting) Qty: 20 0RF cholecalciferol (vitamin D3) [Vitamin D3] 125 mcg (5,000 unit) Tablet 125 mcg PO DAILY triamcinolone acetonide 0.1 % Cream 1 applic TOPICAL DAILY PRN (Reason: unknown) nystatin 100,000 unit/gram cream See Rx Instructions .ROUTE .COMPLEX PRN (Reason: Itching) Rx Instructions: topically use as needed cyclosporine [Restasis] 0.05 % Dropperette 1 drp OPHTHALMIC (EYE) Q12H PRN (Reason: Dry Eyes) Rx Instructions: 1 drop each eye bid trazodone 150 mg tablet 150 - 300 mg PO BEDTIME PRN (Reason: Insomnia) prednisone 20 mg tablet 20 mg PO TID Qty: 15 0RF Rx Instructions: 1 p.o. 3 times daily x3 days, 1 p.o. twice daily x2 days, 1 p.o. daily x2 days albuterol sulfate 90 mcg/actuation HFA aerosol inhaler 2 inh INHALATION Q4H PRN (Reason: shortness of breath or wheezing) Qty: 18 0RF zinc 50 mg Tablet 50 mg PO DAILY Caltrate + D3 Plus Minerals 630 mg tablet 630 mg PO DAILY metoprolol tartrate 25 mg tablet 25 mg PO DAILY Discharge Orders: Discharge ED (Routine); Ordered 05/07/22 Ordered By: Jj Moreland Referrals: Raheem Baron [Primary Care Provider] - Discharge Diet: Usual diet Discharge Activity: Resume usual activity Patient Instructions: Opioid Safety, Pain Management Activity Restrictions/Additional Instructions: Follow-up with Dr. Carreon within the next 4 to 5 days. Recommend smoking cessation Coding Level of Care Code ED Data Warehousing Manager for Chg Fwd Exam Detailed
[2022-05-07 16:05] LABS: ABG PCO2 35.2 mmHg (35-45); ABG PH Result 7.44 (7.35-7.45); Alveolar-Arterial Oxygen Gradi 6.3 mmHg (5-10); Arterial Blood Gas Hematocrit 37.9 % (37-47); Base Excess ABG 0.4 mmol/L (-2.0-2.0); Blood Gas Allen Test Pos; Blood Gas Operator Identificat GD; Blood Gas Sample Site Radial, left; Blood Gas Sample Type Arterial; Carboxyhemoglobin 2.5 %THgb (0.4-20.1); HCO3 ABG 24.1 mmol/L (22-26); HGB O2 Sat 94.8 % (95-100); Ionized Calcium Level - ABG 1.2 mmol/L (1.1-1.4); Methemoglobin 0.9 % (0.4-1.5); Oxygen Device NC; Oxygen Saturation ABG 98.2; Potassium Level - ABG 3.7 mmol/L (3.5-5.0); Total Hemoglobin 12.4 g/dL (12-16)
[2022-05-07 16:41] LABS: Alanine Aminotransferase 14 U/L (0-33); Albumin Level 3.5 g/dL (3.5-5.2); Alkaline Phosphatase 56 U/L (35-105); Blood Urea Nitrogen 13 mg/dL (8-23); Calcium 9.2 mg/dL (8.5-10.5); Carbon Dioxide 26 mmol/L (22-29); Chloride 86 mmol/L (98-107); Creatinine Clr Calc Pharmacy 65.4033; Globulin 2.9 g/dL (1.3-4.6); Glomerular Filtration Rate 71.8 mL/min (90-130); Glucose 92 mg/dL (65-115); Osmolality Calculated 258 mOsm/kg (285-295); Sodium 124 mmol/L (136-145); Total Bilirubin 0.2 mg/dL (0.15-1.2); Total Protein 6.4 g/dL (6.6-8.7)
[2022-05-07 16:45] VITALS: PULSE 76; RESP 18; O2SAT 99
[2022-05-07 16:47] LABS: Anion Gap 15.9 (5-19); Potassium 3.9 mmol/L (3.5-5.1)
[2022-05-07 16:48] LABS: Aspartate Amino Transferase 20 U/L (0-32)
[2022-05-07] MEDS: ipratropium-albuterol 3 mL Neb INHALATION (16:50)
[2022-05-07 16:53] VITALS: PULSE 79
[2022-05-07 17:30] VITALS: BP 137/75; PULSE 78; RESP 20; O2SAT 96
[2022-05-07] MEDS: orphenadrine 30 mg/mL Inj 2 mL 60 MG IVP (17:34)
[2022-05-07 18:38] LABS: Troponin T (5th) Once 8 ng/L (0-10)
== END 2022-05-07 17:52 | disposition home or self-care (01) ==
PROVIDERS: Emergency Provider Family Medicine; PCP Family Medicine
DX: J44.1 Chronic obstructive pulmonary disease with (acute) exacerbation (principal); I13.0 Hypertensive heart and chronic kidney disease with heart failure and stage 1 through stage 4 chronic kidney disease, or unspecified chronic kidney disease; I50.31 Acute diastolic (congestive) heart failure; N18.9 Chronic kidney disease, unspecified; E03.9 Hypothyroidism, unspecified; E78.2 Mixed hyperlipidemia; I25.118 Atherosclerotic heart disease of native coronary artery with other forms of angina pectoris; F17.210 Nicotine dependence, cigarettes, uncomplicated; Z82.49 Family history of ischemic heart disease and other diseases of the circulatory system
CPT/HCPCS: 36600; 71045; 80051; 80053; 82330; 82805; 84484; 85025; 93005; 94640; 96374; 96375; 99285; J2360; J2930

== ENCOUNTER → 2022-05-29 12:27 | Outpatient (BNVA) | payer BC, SELFPAY | PROVIDERS: PCP Family Medicine; Visit Provider Internal Medicine Cardiovascular Disease | DX: I10 Essential (primary) hypertension (principal); R53.1 Weakness; Z79.01 Long term (current) use of anticoagulants; E78.5 Hyperlipidemia, unspecified; I25.118 Atherosclerotic heart disease of native coronary artery with other forms of angina pectoris; I25.5 Ischemic cardiomyopathy; J44.1 Chronic obstructive pulmonary disease with (acute) exacerbation | CPT/HCPCS: 36415; 80053; 80061; 83880; 85025 ==

== ENCOUNTER 2022-08-01 14:50 | Outpatient (CLI) | payer BC, SELFPAY ==
--- NOTE | 2022-08-01 15:00 | USCV_ITS ---
Edyta Camp Age: 67 Gender: F : 1955 Exam Date: 08/01/2022 15:11 Ordering Phys: Wil Gallo MD Technologist: Smita Villa [place] [facility] [place]ication: PRE SURG CLEARENCE FOR ARM. AR SOB BP: 120 / 70 HR: 97 Rhythm: Sinus Technical Quality: Technically difficult study MEASUREMENTS (Male / Female) Normal Values 2D ECHO LV Diastolic Diameter PLAX 3.3 cm 4.2 - 5.9 / 3.9 - 5.3 cm LV Systolic Diameter PLAX 2.7 cm LV Chamber Size 3.5 cm IVS Diastolic Thickness 1.1 cm 0.6 - 1.0 / 0.6 - 0.9 cm IVS Systolic Thickness 1.3 cm LVPW Diastolic Thickness 1.1 cm 0.6 - 1.0 / 0.6 - 0.9 cm LVPW Systolic Thickness 1.5 cm RV Chamber Size 2.5 cm LVOT Diameter 2.0 cm LV Ejection Fraction 2D Teich 37.0 % LV Ejection Fraction MOD 2C 52.1 % LV Ejection Fraction 2C AL 51.2 % LA Diameter 2.5 cm LA Width 1.7 cm LA Height 3.7 cm RA Width 3.1 cm RA Height 4.3 cm Aorta at Sinotubular Diameter 2.2 cm IVC Diameter 1.1 cm M-MODE Aortic Annulus Diameter 3.6 cm LA Ao Ratio MM 0.8 MV E Point Septal Separation 0.6 cm DOPPLER AV Peak Velocity 207.0 cm/s LVOT Peak Velocity 103.0 cm/s AV Area Cont Eq vti 1.8 cm squared AV Area Cont Eq pk 1.6 cm squared MV Area PHT 4.4 cm squared Mitral E to A Ratio 0.8 MV E' Velocity 69.7 cm/s TR Peak Velocity 223.4 cm/s TR Peak Gradient 20.0 mmHg TR Mean Velocity 170.6 cm/s TR Mean Gradient 13.0 mmHg TR Velocity Time Integral 53.8 cm Right Atrial Pressure 3.0 mmHg Pulmonary Artery Systolic Pressu 23.0 mmHg PV Peak Velocity 43.0 cm/s RV Acceleration Time 0.1 s RV Ejection Time 0.3 s RV AcT/ET 0.4 FINDINGS Left Ventricle Normal LV size with slightly diminished ejection fraction of around 45%(visual) Mild diffuse hypokinesia of the ventricle, more so of the septum and anteroseptal segments. Mild concentric left ventricular hypertrophy.Grade I/IV diastolic dysfunction (abnormal relaxation filling pattern), normal to mildly elevated filling pressures. Right Ventricle The right ventricle is normal in size and function. Right Atrium The right atrium is normal in size. Left Atrium The left atrium is normal in size. Mitral Valve Thickened mitral valve. Aortic Valve Moderate aortic valve regurgitation. Tricuspid Valve Trace tricuspid valve regurgitation. Estimated pulmonary artery peak systolic pressure of 23 mmHg Pulmonic Valve No gross abnormalities noted Pericardium Normal pericardium without effusion. Aorta Normal ascending aorta dimension. IVC The inferior vena cava appears normal. CONCLUSIONS Normal LV size with slightly diminished ejection fraction of around 45%9 the patient( visual). Mild diffuse hypokinesia of the septum and anteroseptal segments. Mild concentric left ventricular hypertrophy.Grade I/IV diastolic dysfunction (abnormal relaxation filling pattern), normal to mildly elevated filling pressures. Thickened mitral valve. Moderate aortic valve regurgitation. Trace tricuspid valve regurgitation. Estimated pulmonary artery peak systolic pressure of 23 mmHg. There is no pericardial effusion. There are no intracardiac masses. Compared to the study from 05/23/2021, there may not be a significant change Dr Jeremías Rosado MD [facility] (Electronically Signed) Final Date: 02 August 2022 14:50 S
== END 2022-08-01 14:51 | disposition home or self-care (01) ==
PROVIDERS: PCP Family Medicine; Visit Provider Internal Medicine Pulmonary Disease
DX: I50.31 Acute diastolic (congestive) heart failure (principal); R06.09 Other forms of dyspnea; I08.3 Combined rheumatic disorders of mitral, aortic and tricuspid valves
CPT/HCPCS: 93306

== ENCOUNTER 2022-09-17 13:08 | Outpatient (CLI) | payer BC, SELFPAY | END 2022-09-17 13:09 | disposition home or self-care (01) | LOC: RT 13:10 | PROVIDERS: PCP Family Medicine; Visit Provider Internal Medicine Pulmonary Disease | DX: J42 Unspecified chronic bronchitis (principal); F17.213 Nicotine dependence, cigarettes, with withdrawal; J96.01 Acute respiratory failure with hypoxia | CPT/HCPCS: 94060; 94618; 94726; 94729; J7613 ==

== ENCOUNTER 2022-09-20 14:36 | Outpatient (CLI) | payer BC, SELFPAY ==
--- NOTE | 2022-09-20 14:42 | MM_ITS ---
WS: [id number] BILATERAL 3D TOMOSYNTHESIS DIGITAL SCREENING MAMMOGRAPHY WITH CAD CLINICAL INFORMATION: SCREENING HISTORY: Screening mammogram. Bilateral breast soreness COMPARISON: 2020 TECHNIQUE: Bilateral CC and MLO views. FINDINGS: Scattered fibroglandular densities bilaterally. No suspicious focal mass, asymmetry, calcifications, or architectural distortion. No evidence of malignancy. Subareolar nodularity RIGHT breast unchanged. Punctate and lucent centered calcifications. MM/[place] [id number] IMPRESSION: BI-RADS: 2-Benign FOLLOW UP: 1 Year Follow-up Recommend return to annual screening mammography.
== END 2022-09-20 14:37 | disposition home or self-care (01) ==
LOC: RAD 14:37
PROVIDERS: PCP Family Medicine; Visit Provider Family Medicine
DX: Z12.31 Encounter for screening mammogram for malignant neoplasm of breast (principal)
CPT/HCPCS: 77063; 77067

== ENCOUNTER 2022-11-11 17:54 | Observation (INO) | payer BC, SELFPAY ==
[2022-11-08 08:25] VITALS: BMI 21.3
--- NOTE | 2022-11-08 08:36 | ECG_ITS ---
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 Measurements Intervals [place] Rate: 80 P: 27 LA: 128 QRS: 46 QRSD: 102 T: 42 QT: 400 QTc: 464 Interpretive Statements SINUS RHYTHM WITH OCCASIONAL SUPRAVENTRICULAR PREMATURE COMPLEXES NONSPECIFIC ST & T-WAVE ABNORMALITY Compared to ECG 05/07/2022 15:24:11 No significant changes Electronically Signed On 11-08-2022 21:39:10 CDT by Jeremías Rosado M.D. [id number]
[2022-11-08 09:09] LABS: Basophils % 0.3 %; Eosinophils # 0.1 10^3/uL (0.0-0.8); Eosinophils % 1.7 %; Hematocrit 40.8 % (37.0-47.0); Hemoglobin 13.2 g/dL (11.5-15.3); Lymphocytes # 2.1 10^3/uL (0.8-4.8); Lymphocytes % 30.3 %; Mean Corpuscular HGB Conc 32.4 g/dL (30.0-36.0); Mean Corpuscular Hemoglobin 30.1 pg (28.0-34.0); Mean Corpuscular Volume 92.9 fl (81-99); Mean Platelet Volume 10.4 fL (7.4-10.4); Monocytes # 0.4 10^3/uL (0.2-0.9); Neutrophils # 4.36 10^3/uL (1.8-7.7); Neutrophils % 62.4 %; Nucleated Red Blood Cells % 0 %; Platelet Count 146 10^3/cmm (130-400); Red Blood Count 4.39 10^6/uL (4.1-5.3); Red Cell Distribution Width 13.1 % (12.1-15.1)
--- NOTE | 2022-11-08 09:09 | ANES.PREANE2 ---
Pre-Anesthetic Assessment Height/Weight: Height 1.68 m Weight 59.874 kg Preop Diagnosis: Avascular necrosis right shoulder Operation Date: 11/11/22 13:30 Proposed Procedures p right reverse total shoulder arthroplasty/ 05602 M87.00(Right) - Ata Wan MD Social Tobacco Exam alert, oriented x 3 and regular rate & rhythm Dminished BS with scattered wheezes Airway Submandibular: within normal limits Cervical ROM: within normal limits Mallampati: Class II Pulmonary Chronic Obstructive Pulmonary Disease CV/HEM Arrythmia, Coronary Artery Disease and Hypertension Chronic Renal Insufficiency Hepatic None reported Metabolic Hyperlipidemia and Thyroid Disease [facility] [place] Osteoarthritis/DJD Neuropsych Anxiety and Depression Anesthetic Plan ASA status: 4 Anesthesia: General and Regional (specify below) (Right Interscalene Nerve Block) Medications/Allergies Home Medications Medication Instructions Recorded Confirmed Last Taken Type alprazolam 0.5 mg tablet 0.5 mg PO TID 09/22/19 11/08/22 11/08/22 History cyanocobalamin (vitamin B-12) 1,000 mcg PO DAILY 09/22/19 11/08/22 11/08/22 History 1,000 mcg capsule nitroglycerin 0.4 mg sublingual 0.4 mg sublingual Q5M PRN Chest 09/22/19 11/08/22 03/29/20 History tablet (Nitrostat) Pain pantoprazole 40 mg tablet,delayed 40 mg PO BID 09/22/19 11/08/22 11/08/22 History release cholecalciferol (vitamin D3) 125 125 mcg PO DAILY 01/02/20 11/08/22 11/08/22 History mcg (5,000 unit) tablet (Vitamin D3) fluticasone propionate 50 1 spray intranasal DAILY PRN 02/14/20 11/08/22 04/14/22 History mcg/actuation nasal Allergy Symptoms spray,suspension cyclosporine 0.05 % eye drops in a 1 drp ophthalmic (eye) Q12H PRN 02/28/20 11/08/22 03/29/20 History dropperette (Restasis) Dry Eyes nystatin 100,000 unit/gram topical See Rx Instructions .Route 02/28/20 11/08/22 03/29/20 History cream .COMPLEX PRN Itching triamcinolone acetonide 0.1 % 1 applic topical DAILY PRN unknown 02/28/20 11/08/22 03/29/20 History topical cream gabapentin 300 mg capsule 300 mg PO TID PRN nerve pain 03/09/20 11/08/22 07/11/21 History levothyroxine 112 mcg tablet 112 mcg PO DAILY 03/09/20 11/08/22 11/08/22 History ondansetron HCl 4 mg tablet 4 mg PO Q6H PRN nausea and 06/07/20 11/08/22 04/14/22 Rx (Zofran) vomiting #20 tabs diphenhydramine HCl 25 mg capsule 25 mg PO TID PRN Allergic Reaction 07/20/20 11/08/22 04/14/22 History (Benadryl) trazodone 150 mg tablet 150 - 300 mg PO BEDTIME PRN 03/21/21 11/08/22 02/18/22 20:00 History Insomnia fluoxetine 40 mg capsule 60 mg PO DAILY 06/18/21 11/08/22 11/08/22 History clopidogrel 75 mg tablet (Plavix) 75 mg PO DAILY #90 tabs 11/20/21 11/08/22 11/05/22 Rx fenofibrate nanocrystallized 48 mg 48 mg PO DAILY #90 tabs 11/20/21 11/08/22 11/08/22 Rx tablet magnesium oxide 400 mg PO DAILY #90 tabs 11/20/21 11/08/22 11/08/22 Rx Caltrate + D3 Plus Minerals 630 mg PO DAILY 02/19/22 11/08/22 11/08/22 History zinc 50 mg tablet 50 mg PO DAILY 02/19/22 11/08/22 11/08/22 History prednisone 2.5 mg tablet 2.5 mg PO DAILY #90 tabs 02/26/22 11/08/22 11/08/22 Rx ipratropium 0.5 mg-albuterol 3 mg 3 ml inhalation Q6H wheezing 30 04/23/22 11/08/22 Unknown Rx (2.5 mg base)/3 mL nebulization days #320 mL soln albuterol sulfate 90 mcg/actuation 2 inh inhalation Q4H PRN shortness 05/07/22 11/08/22 Unknown Rx aerosol inhaler of breath or wheezing #18 grams azithromycin 250 mg tablet 250 mg PO .COMPLEX 05/15/22 11/08/22 11/08/22 History codeine 10 mg-guaifenesin 100 mg/5 5 ml PO Q6H PRN cough 2 weeks #280 05/15/22 11/08/22 Unknown Rx mL oral liquid mL fluconazole 100 mg tablet 100 mg PO DAILY PRN Pain 05/15/22 11/08/22 11/08/22 History metoprolol tartrate 25 mg tablet 12.5 mg PO BID 30 days #30 tabs 05/29/22 11/08/22 11/08/22 Rx furosemide 20 mg tablet (Lasix) 20 mg PO .qod PRN edema/shortness 06/25/22 11/08/22 11/08/22 History of breath potassium chloride 20 mEq/15 mL 20 meq (15 mL) PO BID #473 mL 07/30/22 11/08/22 11/08/22 Rx oral liquid benzonatate 200 mg capsule 200 mg PO TID PRN cough #60 caps 08/26/22 11/08/22 Unknown Rx umeclidinium 62.5 mcg-vilanterol 1 inh inhalation DAILY #60 ea 11/06/22 11/08/22 11/08/22 Rx 25 mcg/actuation powdr for inhalation (Anoro Ellipta) Allergies Allergy/AdvReac Type Severity Reaction Status Date / Time Influenza Virus Vaccines Allergy Unknown Verified 11/08/22 08:15 [facility] Anesthesia Medical History Acute diastolic heart failure due to valvular disease Anxiety disorder Arteriosclerotic cardiovascular disease Atherosclerosis of coronary artery of [place] heart without angina pectoris Atherosclerotic heart disease of [place] coronary artery with other forms of angina pectoris Chronic kidney disease COPD exacerbation Essential (primary) hypertension GERD (gastroesophageal reflux disease) Hypothyroidism Intervertebral disc disorder with radiculopathy of lumbosacral region Lumbar stenosis with neurogenic claudication Mitral regurgitation Mixed hyperlipidemia Palpitations Positive double stranded DNA antibody test Recurrent UTI SS-A antibody positive Systemic lupus erythematosus, unspecified Ventricular arrhythmia Vitamin D deficiency Surgical History H/O: hysterectomy with BSO History of cholecystectomy History of heart artery stent 5 stents Family History Sister Cancer Brain Hypertension Mother , at age 47 Hypertension Several members Heart disease CAD (coronary artery disease) rheumatic fever, early onset heart disease Father , at age 78 Dementia Family/Other Lung disease Denies family history of Diabetes Clotting disorder Chronic kidney disease (CKD) Suicide Anesthesia complication Bleeding disorder Stroke Social History Smoking and tobacco status: current every day smoker cigarettes Packs smoked per day: 2 Years cigarettes smoked: 50 [ Other cigarette details: Started at age 16] Alcohol intake: never Desire information about alcohol rehabilitation?: No Counseling given: No Desire information about substance/drug rehabilitation?: No Counseling given: No Caregiver/support person: No Lives independently: Yes Household members: spouse Marital status: Current occupational status: retired Current gender identity: Female Data Anesthesia 11/08/22 08:55 11/08/22 08:55 Cardiac Studies: Echocardiogram 08/01/22 Echocardiogram Ultrasound 01/03/20 Sestamibi Stress Test (Cardiology) 07/02/21 Holter Monitor 03/23/20
[2022-11-08 09:32] LABS: Anion Gap 12.2 (5-19); Blood Urea Nitrogen 7 mg/dL (8-23); Calcium 8.8 mg/dL (8.5-10.5); Carbon Dioxide 29 mmol/L (22-29); Chloride 101 mmol/L (98-107); Glomerular Filtration Rate 99.7 mL/min (90-130); Glucose 106 mg/dL (65-115); Osmolality Calculated 286 mOsm/kg (285-295); Potassium 3.2 mmol/L (3.5-5.1); Sodium 139 mmol/L (136-145)
[2022-11-11] VITALS (19 sets, daily range): BP systolic 80–132; BP diastolic 49–76; PULSE 62–93; RESP 15–19; TEMP 36.1–36.9; O2SAT 90–100; BMI 24.5
[2022-11-11] MEDS: sodium chloride 0.9% 1,000 ML 30 ML IV (13:04)
[2022-11-11] MEDS: CELEcoxib 200 mg Capsule 400 MG PO (13:06)
[2022-11-11] MEDS: gabapentin 300 mg Capsule PO (13:06)
[2022-11-11] MEDS: acetaminophen 500 mg Tablet 1000 MG PO ×2 (13:07→21:02)
[2022-11-11] MEDS: oxyCODONE 20 mg ER (12 HR) Tablet PO (13:07)
--- NOTE | 2022-11-11 13:20 | P.ANESUD_ITS ---
Pre-Anesthetic Update Pre-Anesthetic Assessment: Date of Surgery/Procedure: 11/11/22 Preop Amparo gnosis: Avascular necrosis right breonna Proposed Procedure: Operation Date: 11/11/22 13:50 Proposed Procedures p right reverse total shoulder arthroplasty/ 10105 M87.00(Right) - Ata Wan MD Any changes to Pre-Anesthetic Assessment?: No Last Intake: Intake Last Liquid Date 11/10/22 Last Liquid Time 21:00 Last Solid Date 11/10/22 Last Solid Time 20:00 Vitals: Temperature 98.5 F 11/11/22 12:42 Temperature Source Temporal Artery S can 11/11/22 12:42 Pulse Rate 86 11/11/22 12:42 Respiratory Rate 17 11/11/22 12:42 Blood Pressure 132/76 11/11/22 12:42 Blood Pressure Henny n 94 11/11/22 12:42 Pulse Oximetry 93 11/11/22 12:42 Oxygen Delivery Me thod 11/11/22 12:43 Exam: Pre-Anes Outpt Exam: No alert, No oriented x 3, No clear to auscultation bilaterally and No regular rate & rhythm Cardiac Studies: Echocardiogram 08/01/22 Echocardiogram Ultrasound 01/03/20 Sestamibi Stress Test (Cardiology) 07/02 Holter Monitor 03/23/20
--- NOTE | 2022-11-11 13:20 | ANES.PROC ---
Anesthesia Procedures Procedure/Date: 11/11/22 Nerve Block ^: Nerve Block 1: Main Anesthesia: general anesthesia Time Out Performed: Yes Consent: requested by attending/covering physician, from patient, from other, risks and benefits reviewed and patient agrees to proceed Nerve block location: interscalene (R) Anesthesia monitors applied: pulse oximetry, EKG, BP cuff and oxygen Nerve block position: semi sitting Anesthetic Used: ropivicaine 0.5% (10 ml) and with decadron (1 mg) Ultrasound used to: recognize landmarks and visualize and ID interscalene groove Nerve Stimulator Used?: No Interscalene/Femoral BLK: 2 stimuplex 22 g needle used for position and inplane approach, visualize local anesthetic spread and no vascular puncture identified Patient Tolerated Procedure: well Complications: none
[2022-11-11] MEDS: scopolamine 1.5 Patch 1 PATCH TRANSDERMA (13:26)
--- NOTE | 2022-11-11 13:32 | SUR.PREOP ---
1315-time out was completed at bedside by Dr Peña and RN. Block was performed , no issues, patient tolerated well.
[2022-11-11] MEDS: albuterol 2.5 mg/3 mL Neb INHALATION (13:38)
--- NOTE | 2022-11-11 13:41 | W.PM.OPSFHP ---
Same Day Surgery H&P Indication for Procedure/HPI DATE OF PROCEDURE: November 11, 2022 CHIEF COMPLAINT/INDICATIONFOR SURGICAL PROCEDURE: Avascular process right shoulder here for right reverse total shoulder PREOP DIAGNOSIS: Avascular necrosis right breonna PLANNED PROCEDURE: Operation Date: 11/11/22 13:50 Proposed Procedures p right reverse total shoulder arthroplasty/ 74327 M87.00(Right) - Ata Wan MD 67 year old female patient here for follow up of her right shoulder pain. She states that she has obtained clearance from cardiology and pulmonology. She is ready to reschedule surgery.? Describes severe pain in the right shoulder and inability to move her arm.? She wishes to be scheduled for a reverse total shoulder arthroplasty Medications/Allergies* Home Medications Medication Instructions Recorded Confirmed Type alprazolam 0.5 mg tablet 0.5 mg PO TID 09/22/19 11/11/22 History cyanocobalamin (vitamin B-12) 1,000 mcg PO DAILY 09/22/19 11/08/22 History 1,000 mcg capsule nitroglycerin 0.4 mg sublingual 0.4 mg sublingual Q5M PRN Chest 09/22/19 11/08/22 History tablet (Nitrostat) Pain pantoprazole 40 mg tablet,delayed 40 mg PO BID 09/22/19 11/11/22 History release cholecalciferol (vitamin D3) 125 125 mcg PO DAILY 01/02/20 11/08/22 History mcg (5,000 unit) tablet (Vitamin D3) fluticasone propionate 50 1 spray intranasal DAILY PRN 02/14/20 11/08/22 History mcg/actuation nasal Allergy Symptoms spray,suspension cyclosporine 0.05 % eye drops in a 1 drp ophthalmic (eye) Q12H PRN 02/28/20 11/11/22 History dropperette (Restasis) Dry Eyes nystatin 100,000 unit/gram topical See Rx Instructions .Route 02/28/20 11/08/22 History cream .COMPLEX PRN Itching triamcinolone acetonide 0.1 % 1 applic topical DAILY PRN unknown 02/28/20 11/08/22 History topical cream gabapentin 300 mg capsule 300 mg PO TID PRN nerve pain 03/09/20 11/08/22 History levothyroxine 112 mcg tablet 112 mcg PO DAILY 03/09/20 11/11/22 History diphenhydramine HCl 25 mg capsule 25 mg PO TID PRN Allergic Reaction 07/20/20 11/11/22 History (Benadryl) trazodone 150 mg tablet 150 - 300 mg PO BEDTIME PRN 03/21/21 11/11/22 History Insomnia fluoxetine 40 mg capsule 60 mg PO DAILY 06/18/21 11/11/22 History Caltrate + D3 Plus Minerals 630 mg PO DAILY 02/19/22 11/08/22 History zinc 50 mg tablet 50 mg PO DAILY 02/19/22 11/11/22 History azithromycin 250 mg tablet 250 mg PO .COMPLEX 05/15/22 11/08/22 History fluconazole 100 mg tablet 100 mg PO DAILY PRN Pain 05/15/22 11/08/22 History (Diflucan) furosemide 20 mg tablet (Lasix) 20 mg PO .qod PRN edema/shortness 06/25/22 11/08/22 History of breath Allergies/Adverse Reactions Allergy/AdvReac Type Severity Reaction Status Date / Time Influenza Virus Vaccines Allergy Unknown Verified 11/08/22 08:15 Current Medications: Generic Name Dose Route Start Last Admin Trade Name Freq PRN Reason Stop Dose Admin Sodium Chloride 1,000 mls @ 30 mls/hr 11/11/22 12:30 11/11/22 13:04 Sodium Chloride 0.9% IV 11/12/22 12:29 30 mls/hr .Q24H SARIKA Administration Pertinent History/Comorbid Conditions* Medical History (Updated 08/15/22 @ 15:10 by Wil Gallo MD) Acute diastolic heart failure due to valvular disease Anxiety disorder Arteriosclerotic cardiovascular disease Atherosclerosis of coronary artery of [place] heart without angina pectoris Atherosclerotic heart disease of [place] coronary artery with other forms of angina pectoris Chronic kidney disease COPD exacerbation Essential (primary) hypertension GERD (gastroesophageal reflux disease) Hypothyroidism Intervertebral disc disorder with radiculopathy of lumbosacral region Lumbar stenosis with neurogenic claudication Mitral regurgitation Mixed hyperlipidemia Palpitations Positive double stranded DNA antibody test Recurrent UTI SS-A antibody positive Systemic lupus erythematosus, unspecified Ventricular arrhythmia Vitamin D deficiency Surgical History (Updated 03/18/22 @ 11:40 by Mikel Woods MD) H/O: hysterectomy with BSO History of cholecystectomy History of heart artery stent 5 stents Family History (Updated 06/18/21 @ 10:37 by Nidia Worrell RN) Father, at age 78 Mother, at age 47 CAD (coronary artery disease) Mother rheumatic fever, early onset heart disease Dementia Father Heart disease Mother Lung disease Family/Other Cancer Sister Brain Hypertension Sister Mother Several members Denies family history of Diabetes Clotting disorder Chronic kidney disease (CKD) Suicide Anesthesia complication Bleeding disorder Stroke Social History Smoking and tobacco status: current every day smoker cigarettes Packs smoked per day: 2 Years cigarettes smoked: 50 [ Other cigarette details: Started at age 16] Alcohol intake: never Desire information about alcohol rehabilitation?: No Counseling given: No Desire information about substance/drug rehabilitation?: No Counseling given: No Caregiver/support person: No Lives independently: Yes Household members: spouse Marital status: Current occupational status: retired Current gender identity: Female Pertinent Exam Findings alert, oriented x 3, clear to auscultation bilaterally, regular rate & rhythm and operative site marked Right shoulder She holds her right shoulder across her body. I can flex her only to 30 degrees and externally rotate her to neutral. Will fire her deltoid and biceps.? She has no distal neurological deficits Recommendations Surgery/Procedure today Coding Level of Care Code Acute Code for Al Fwjackeline
[2022-11-11] MEDS: ceFAZolin 2,000 MG in sodium chloride 0.9% (plus) 50 ML 100 MG IV ×2 (13:49→22:47)
[2022-11-11] MEDS: sodium chloride 0.9% 100 mL Bag XX (14:36)
--- NOTE | 2022-11-11 15:49 | P.OP_ITS ---
Operative Report Date of procedure: November 11, 2022 Pre-op diagnosis: Preop Diagnosis Avascular necrosis right breonna Post-op diagnosis: same Post-op findings: The patient had a complete tear of the supraspinatus and infraspinatus musculature. She had collapse and deformity of the femoral head Procedure done: Right reverse total shoulder Implants: 1) Tornier Aequalis Ascend Flex 4B stem 2) Flex Shoulder System low offset tray +0mm 3) Flex Shoulder System 36 mm +6 mm reversed insert 4) Perform Reversed 25 mm standard baseplate 5) Aequalis PerForm Reversed 36 mm standard glenosphere 6) Glenoid screws: central 35 mm, superior 30 mm inferior 34 mm Pathology: none sent Surgeon: Ata Wan Anesthesia: General and Nerve Block (Interscalene block) Estimated blood loss (mL): 250 Findings: The patient had a full-thickness tear of the supraspinatus and infraspinatus. She collapse of her humeral head Condition: stable Disposition: PACU Brief History: The patient is a 67-year-old female with failed rotator cuff repair and progressive collapse of the humeral head secondary to avascular necrosis. She had significant pain and functional loss and reverse shoulder was chosen to improve pain and Procedure: An intrascalene blocks provided the holding area. The patient was taken to the operating room and given a general anesthesia. They were given 2 g of Ancef. A Sharma stand was covered and use to support support the arm A timeout was performed. A 10 cm long incision was made over the deltopectoral groove and dissection carried out with a scalpel blade to the deltopectoral interval. The cephalic vein was identified and retracted laterally. Digital dissection was accomplished to free lesions beneath the deltoid and beneath the coracobrachialis musculature. An Frankie medium tissue protector was used to retract the pectoralis major and the deltoid. [The biceps was released and the proximal bicipital groove and tagged for later repai. the subscapularis and a capsule was then peeled off of the lesser tuberosity and fixed with 3 tape sutures in a locking Krak?w fashion from superior to inferior. Capsular release was accomplished across the inferior capsule from the glenoid. Utilizing electrocautery the glenoid was exposed circumferentially. The centering guide was used to place the central guidepin at a 10 degrees inferior slope in accordance with our preoperative plan to bring the glenoid down to neutral tilt. Glenoid reaming entailed removing slightly more inferior bone. A 25 mm Aequalis PerForm baseplate was secured with a 35 x 6.5mm central screw, a superior locking 30 mm screw, an inferior locking ready for mm screw, A standard 30 mm Aequalis perFORM Reversed Glenosphere was then placed. Attention was then focused on the humerus. Sequential and broaching of the canal was accomplished up to a size 4B stem with satisfactory stability.. A trial reduction with the 36-+6 mm reversed insert provided adequate stability. The final humeral stem, reverse tray and insert were press-fit into place and the shoulder reduced with a stable reduction. 4 drill holes were then made in the bicipital groove. Sutures through the subscapularis were then passed through tunnels at the most superior suture through the most proximal hole. The second pair of sutures through the second hole, the third pair of sutures to the third hole in the fourth suture through the fourth hole. They were tied over a small [place] 4-hole mini plate. The wound was irrigated with a gentamycin antibiotic solution. The deltopectoral interval was closed with 0 Vicryl. The subcutaneous tissues were closed with 2-0 Stratafix. The skin was closed with a running 4-0 Stratafix. S terile dressings were applied. The patient was placed in a [], extubated and taken to recovery room in stable condition.
--- NOTE | 2022-11-11 15:59 | XR_ITS ---
WS: [id number] EXAMINATION: XR shoulder RT min 2V* [id number] REASON FOR EXAM: Right total shoulder COMPARISON: None available. ORDER DATE: 11/11/2022 4:03 PM TECHNIQUE: 3 views of the first right shoulder arthroplasty were obtained. X-RAY FINDINGS: No fractures or dislocations. Intra-articular and subcutaneous gas are present circumferentially surrounding the glenohumeral area. Acromioclavicular joint appears unremarkable. Limited visualization of the adjacent hemithorax is unremarkable. XR/XR shoulder RT min 2V* [id number] IMPRESSION: Recent ORIF with right shoulder arthroplasty..
--- NOTE | 2022-11-11 17:00 | ANE.PACU2 ---
Inpatient post-anesthesia follow up: Airway intact: Yes Vital signs: Temperature 97.4 F Pulse Rate 81 Respiratory Rate 20 Blood Pressure 131/77 Pulse Oximetry 92 Oxygen Delivery Me thod Room Air Oxygen Flow Rate 6 Fraction of Inspir ed Oxygen Hydration adequate: Yes Nausea and vomiting: No Pain level: 1 Mental status: Baseline
[2022-11-11] MEDS: sodium chloride 0.9% 1,000 ML 80 ML IV (18:38)
[2022-11-11] MEDS: potassium chloride oral liq 20 mEq/15 mL UDC PO (19:16)
[2022-11-11] MEDS: sodium chloride 0.9% 500 ML 999 ML IV (19:16)
[2022-11-11] MEDS: pantoprazole DR 40 mg Tablet PO (19:17)
[2022-11-11] MEDS: CELEcoxib 200 mg Capsule PO (19:17)
[2022-11-11] MEDS: ALPRAZolam 0.5 mg Tablet PO (21:02)
[2022-11-12] VITALS (10 sets, daily range): BP systolic 104–131; BP diastolic 63–77; PULSE 64–81; RESP 14–20; TEMP 36.3–36.6; O2SAT 92–95
[2022-11-12] MEDS: ceFAZolin 2,000 MG in sodium chloride 0.9% (plus) 50 ML 100 MG IV (05:34)
[2022-11-12] MEDS: acetaminophen 500 mg Tablet 1000 MG PO (05:34)
[2022-11-12] MEDS: morphine 4 mg/mL SDV 1 mL 2 MG IVP ×2 (07:06→10:22)
[2022-11-12] MEDS: ipratropium-albuterol 3 mL Neb INHALATION (08:00)
[2022-11-12] MEDS: oxyCODONE 5 mg IR Tab/Cap PO (08:15)
--- NOTE | 2022-11-12 09:40 | PM.DCS ---
Discharge Providers Date of Admission: 11/11/22 17:54 Date of Discharge: November 12, 2022 Attending Provider at Admission: Ata Wan MD Attending Provider at Discharge: Ata Wan MD Primary Care Provider: Raheem Baron Reason for Visit Reason for Visit: Brief History: Patient is a 67-year-old female with a failed rotator cuff repair and avascular necrosis of the right shoulder. She had severe pain and functional loss and was admitted for right reverse total shoulder arthroplasty Hospital Course Hospital Course The patient tolerated surgery well. They remained hemodynamically stable. They was begun on aspirin and sequential compression dressing for DVT prophylaxis. The patient was seen by occupational therapy and instructed in exercises. As the pain was adequately controlled and they were fully mobile they were discharged home. Physical Exam Narrative: On the day of discharge the patient's dressing was clean and dry. The patient's would fire his deltoid and their biceps. No distal neurovascular deficits were noted. Discharge Data Studies Completed and Pending Completed Studies During Hospitalization Category Date Time Status XR shoulder RT min 2V* [id number] Routine Exams 11/11/22 15:59 Completed Radiology Impressions Shoulder X-Ray 11/11/22 15:59 IMPRESSION: Recent ORIF with right shoulder arthroplasty.. Laboratory Results WBC 7.0 10^3/uL (4.0-10.0) 11/08/22 08:55 RBC 4.39 10^6/uL (4.1-5.3) 11/08/22 08:55 Hgb 13.2 g/dL (11.5-15.3) 11/08/22 08:55 Hct 40.8 % (37.0-47.0) 11/08/22 08:55 MCV 92.9 fl (81-99) 11/08/22 08:55 MCH 30.1 pg (28.0-34.0) 11/08/22 08:55 MCHC 32.4 g/dL (30.0-36.0) 11/08/22 08:55 RDW 13.1 % (12.1-15.1) 11/08/22 08:55 Plt Count 146 10^3/cmm (130-400) 11/08/22 08:55 MPV 10.4 fL (7.4-10.4) 11/08/22 08:55 Neut % (Auto) 62.4 % 11/08/22 08:55 Lymph % (Auto) 30.3 % 11/08/22 08:55 Hickman % (Auto) 5.0 % 11/08/22 08:55 Eos % (Auto) 1.7 % 11/08/22 08:55 Baso % (Auto) 0.3 % 11/08/22 08:55 Neut # (Auto) 4.36 10^3/uL (1.8-7.7) 11/08/22 08:55 Lymph # (Auto) 2.1 10^3/uL (0.8-4.8) 11/08/22 08:55 Hickman # (Auto) 0.4 10^3/uL (0.2-0.9) 11/08/22 08:55 Eos # (Auto) 0.1 10^3/uL (0.0-0.8) 11/08/22 08:55 Baso # (Auto) 0.0 10^3/uL (0.0-0.1) 11/08/22 08:55 Nucleated RBC % (auto) 0 % 11/08/22 08:55 Nucleated RBCs # 0.0 /100WBC 11/08/22 08:55 Sodium 139 mmol/L (136-145) 11/08/22 08:55 Potassium 3.2 mmol/L (3.5-5.1) L 11/08/22 08:55 Chloride 101 mmol/L (98-107) 11/08/22 08:55 Carbon Dioxide 29 mmol/L (22-29) 11/08/22 08:55 Anion Gap 12.2 (5-19) 11/08/22 08:55 BUN 7 mg/dL (8-23) L 11/08/22 08:55 Creatinine 0.6 mg/dL (0.5-0.9) 11/08/22 08:55 GFR Calculation 99.7 mL/min (90-130) 11/08/22 08:55 Glucose 106 mg/dL (65-115) 11/08/22 08:55 Calculated Osmolality 286 mOsm/kg (285-295) 11/08/22 08:55 Calcium 8.8 mg/dL (8.5-10.5) 11/08/22 08:55 Vitals Last Vital Signs Temp 97.4 F L 11/12/22 08:28 Pulse 81 11/12/22 08:28 Resp 18 11/12/22 08:28 BP 127/71 11/12/22 08:28 Pulse Ox 92 11/12/22 08:28 O2 Del Method 11/12/22 08:28 O2 Flow Rate 6 11/11/22 16:15 Discharge Plan Discharge Patient Disposition: Home Condition: Stable Prescriptions: New oxycodone 5 mg Tablet 5 mg PO Q4H PRN (Reason: Moderate Pain) 7 Days Qty: 30 0RF acetaminophen 500 mg Tablet 1,000 mg PO Q8H 14 Days Qty: 84 0RF aspirin 325 mg Tablet,Delayed Release (Dr/Ec) 325 mg PO DAILY 30 Days Qty: 30 0RF celecoxib 200 mg Capsule 200 mg PO BID 14 Days Qty: 28 0RF Continued fluticasone propionate 50 mcg/actuation spray,suspension 1 spray INTRANASAL DAILY PRN (Reason: Allergy Symptoms) diphenhydramine HCl [Benadryl] 25 mg capsule 25 mg PO TID PRN (Reason: Allergic Reaction) alprazolam 0.5 mg tablet 0.5 mg PO TID cyanocobalamin (vitamin B-12) 1,000 mcg capsule 1,000 mcg PO DAILY nitroglycerin [Nitrostat] 0.4 mg tablet, sublingual 0.4 mg SUBLINGUAL Q5M PRN (Reason: Chest Pain) pantoprazole 40 mg tablet,delayed release (DR/EC) 40 mg PO BID fluoxetine 40 mg capsule 60 mg PO DAILY levothyroxine 112 mcg tablet 112 mcg PO DAILY gabapentin 300 mg capsule 300 mg PO TID PRN (Reason: nerve pain) ipratropium-albuterol 0.5 mg-3 mg(2.5 mg base)/3 mL solution for nebulization 3 ml inhalation Q6H 30 Days Qty: 320 4RF metoprolol tartrate 25 mg tablet 12.5 mg PO BID 30 Days Qty: 30 5RF prednisone 2.5 mg tablet 2.5 mg PO DAILY Qty: 90 1RF Hold Instructions: Resume on 04/23/22. azithromycin 250 mg tablet 250 mg PO .COMPLEX Rx Instructions: 250 mg orally MON, FRI, FRI; 1 tab on friday, friday, and Friday fluconazole [Diflucan] 100 mg tablet 100 mg PO DAILY PRN (Reason: Pain) codeine-guaifenesin 10-100 mg/5 mL liquid 5 ml PO Q6H PRN (Reason: cough) 14 Days Qty: 280 0RF furosemide [Lasix] 20 mg tablet 20 mg PO .qod PRN (Reason: edema/shortness of breath) Label Comments: Dr. Rosado changed to 10 mg on Mon, Wed, Fri Anoro Ellipta 62.5-25 mcg/actuation blister with device 1 inh inhalation DAILY Qty: 60 3RF clopidogrel [Plavix] 75 mg tablet 75 mg PO DAILY Qty: 90 3RF fenofibrate nanocrystallized 48 mg tablet 48 mg PO DAILY Qty: 90 3RF magnesium oxide 400 mg magnesium tablet 400 mg PO DAILY Qty: 90 3RF potassium chloride 20 mEq/15 mL liquid 20 meq PO BID Qty: 473 2RF benzonatate 200 mg capsule 200 mg PO TID PRN (Reason: cough) Qty: 60 3RF ondansetron HCl [Zofran] 4 mg tablet 4 mg PO Q6H PRN (Reason: nausea and vomiting) Qty: 20 0RF cholecalciferol (vitamin D3) [Vitamin D3] 125 mcg (5,000 unit) Tablet 125 mcg PO DAILY triamcinolone acetonide 0.1 % Cream 1 applic TOPICAL DAILY PRN (Reason: unknown) nystatin 100,000 unit/gram cream See Rx Instructions .ROUTE .COMPLEX PRN (Reason: Itching) Rx Instructions: topically use as needed cyclosporine [Restasis] 0.05 % Dropperette 1 drp OPHTHALMIC (EYE) Q12H PRN (Reason: Dry Eyes) Rx Instructions: 1 drop each eye bid trazodone 150 mg tablet 150 - 300 mg PO BEDTIME PRN (Reason: Insomnia) zinc 50 mg Tablet 50 mg PO DAILY Caltrate + D3 Plus Minerals 630 mg tablet 630 mg PO DAILY albuterol sulfate 90 mcg/actuation HFA aerosol inhaler 2 inh INHALATION Q4H PRN (Reason: shortness of breath or wheezing) Qty: 18 0RF Discharge Orders: Discharge Order (Routine); Ordered 11/12/22 Ordered By: Ata Wan Referrals: Ata Wan MD [Physician] - 11/26/22 1:00 pm Discharge Diet: Advance as tolerated Discharge Activity: Limit activity as instructed Patient Instructions: Oxycodone/Acetaminophen (By mouth), Aspirin (By mouth), Celecoxib (By mouth), Joint Replacement Surgery (GEN), Opioid Safety Activity Restrictions/Additional Instructions: Okay to shower. No soaking incision in tub Apply FirstIce up to 20 min/hr for pain and swelling Take Celebrex twice a day for the next 15 days for pain , discontinue other anti-inflammatories Take Tylenol 500mg (up to 2 tabs) 3 times a day for mild pain take oxycodone for breakthrough pain. Exercises per home physical therapy IF HAVE ANY PROBLEMS OR QUESTIONS CALL HOSPITAL TELEVISION NEWS REPORTER AT AND ASK TO HAVE DR. KOLTON IVEY. Discharge Attestations Time Spent in Discharge Care*: other Quality Metrics Clinical Quality Measures [ No reported AMI, CVA or VTE this stay] Coding Level of Care Code Acute Code for Chg Mal[place]ha
[2022-11-12] MEDS: metoprolol tartrate 25 mg Tablet 12.5 MG PO (09:45)
[2022-11-12] MEDS: aspirin 325 mg EC Tablet PO (09:45)
[2022-11-12] MEDS: pantoprazole DR 40 mg Tablet PO (09:45)
[2022-11-12] MEDS: ALPRAZolam 0.5 mg Tablet PO (09:45)
[2022-11-12] MEDS: predniSONE 5 mg Tablet 2.5 MG PO (09:45)
[2022-11-12] MEDS: cholecalciferol (vitamin D3) 5,000 unit Tablet 5000 UNIT PO (09:46)
[2022-11-12] MEDS: clopidogrel 75 mg Tablet PO (09:46)
[2022-11-12] MEDS: levothyroxine 112 mcg Tablet PO (09:46)
[2022-11-12] MEDS: CELEcoxib 200 mg Capsule PO (09:46)
[2022-11-12] MEDS: fenofibrate 48 mg Tablet PO (10:07)
--- NOTE | 2022-11-12 10:10 | PC.CHAP ---
Pastoral Care Encounter/Spiritual Assessment Type of Contact [] Declined rent control office manager visit [] Patient/Family/Request visit [] Outpatient visit [] Follow-up visit [] Physician referral [] Code/Alert [x] Routine visit [] Staff referral [] Actively dying [] Patient sleeping [x] Family support [] [] Out of room [] Palliative care [] [] Receiving care in room [] Pre-surgical visit [] Trauma [] Long length of stay [] ICU visit [] Other: Relational/Emotional Strength [x] Patient feels connected with others/family/visitors/staff [] Distress [] Loneliness/isolation [] Abandonment Spirituality of Patient [x] Person of Tiffany [] Attends Orthodoxy of their Tiffany [x] Believes in Prayer [] Reads Bible or Congregation materials [] There are Spiritual issues to be addressed Alarm Installer Interventions [x] Prayer [x] Active listening [] Non-anxious presence [x] Spiritual/emotional support [] Crisis/trauma care [] Spiritual counseling [] Bereavement support [] Provided bereavement packet [] Provided Bible/devotional materials [] Provided toy/stuffed animal, coloring book to patient or family member [] Provided Communion [] Anointing/Baker [] Salvation [x] Completed spiritual assessment [] Other: Impact on Illness or Injury [] Angry [] Fearful [] Anxious [] Often cries [] Exhaustion [] Unable to work [] Unable to attend gnosticist [] Unable to walk/stand [] Unable to read [] Unable to drive [] Unable to eat/drink [] Unable to sleep [] Unable to be with family [] Patient intubated [] Other: Summary Time spent with patient 5 min
== END 2022-11-12 12:40 | disposition home or self-care (01) ==
LOC: MEDSURG 17:54
PROVIDERS: Anesthesiology; Admitting Provider Orthopaedic Surgery; PCP Family Medicine; Visit Provider Orthopaedic Surgery
PROC: (CPT 23472; principal; 2022-11-11 13:20)
DX: M75.121 Complete rotator cuff tear or rupture of right shoulder, not specified as traumatic (principal); M87.9 Osteonecrosis, unspecified; J44.9 Chronic obstructive pulmonary disease, unspecified; I25.10 Atherosclerotic heart disease of native coronary artery without angina pectoris; I13.0 Hypertensive heart and chronic kidney disease with heart failure and stage 1 through stage 4 chronic kidney disease, or unspecified chronic kidney disease; N18.9 Chronic kidney disease, unspecified; I50.31 Acute diastolic (congestive) heart failure; E78.5 Hyperlipidemia, unspecified; I25.118 Atherosclerotic heart disease of native coronary artery with other forms of angina pectoris; E03.9 Hypothyroidism, unspecified; E78.2 Mixed hyperlipidemia; F17.210 Nicotine dependence, cigarettes, uncomplicated
CPT/HCPCS: 23472; 36415; 73030; 80048; 85025; 93005; 94640; 97165; C1713; C1776; G0378; J0690; J1100; J1580; J2250; J2270; J2405; J2704; J2710; J2795; J3010; J3490; J7030; J7040; J7512; J7613

== ENCOUNTER 2022-11-14 12:44 | Emergency (ER) | payer BC, SELFPAY ==
--- NOTE | 2022-11-14 12:47 | W.ED.GENADLT ---
HPI - General Adult General: Chief complaint: Cardiac Arrest/CPR Stated complaint: cardiac arrest Time Seen by Provider: 11/14/22 12:46 Source: EMS Mode of arrival: EMS History of Present Illness: 67-year-old female who arrives via EMS with a documented downtime of over 1 hour. Family called stating patient was not feeling well after the initial request for EMS was remade to dispatch before arrival patient went into cardiac arrest when EMS arrived they found her in PEA she was started on ACLS protocols including CPR multiple rounds of drugs. On arrival here she had been down for slightly over 1 hour pupils are fixed and dilated. Per the patient was not feeling well yesterday. She has shoulder arthroplasty earlier in the week with Dr. Wan. She had not been feeling well her blood pressure was low with systolics in the 80s and she was short of breath today and contacted Dr. Wan last evening he had advised him to go to the emergency room to be evaluated but she began feeling better and did not want to go. Her had held her pain medications last night because he was concerned about lowering her blood pressure further. She seemed to get better the blood pressure improved they ended up staying at home this morning her blood pressure was reportedly normotensive and did give her some hydrocodone. Later in the morning she began feeling well seem to have significant difficulty breathing and they contacted EMS. By the time EMS arrived she was in respiratory arrest bystanders had initiated CPR. EMS monitoring showed PEA when they initially encountered her. Patient arrived for 1 hour after onset of code she did receive multiple doses of epinephrine in route. Onset (ago): hour(s) Review of Systems General: Reports: ROS unobtainable due to endotracheal tube PFS ED PFSH: Medical History Acute diastolic heart failure due to valvular disease Anxiety disorder Arteriosclerotic cardiovascular disease Atherosclerosis of coronary artery of [place] heart without angina pectoris Atherosclerotic heart disease of [place] coronary artery with other forms of angina pectoris Chronic kidney disease COPD exacerbation Essential (primary) hypertension GERD (gastroesophageal reflux disease) Hypothyroidism Intervertebral disc disorder with radiculopathy of lumbosacral region Lumbar stenosis with neurogenic claudication Mitral regurgitation Mixed hyperlipidemia Palpitations Positive double stranded DNA antibody test Recurrent UTI SS-A antibody positive Systemic lupus erythematosus, unspecified Ventricular arrhythmia Vitamin D deficiency Surgical History H/O: hysterectomy with BSO History of cholecystectomy History of heart artery stent 5 stents Family History Sister Cancer Brain Hypertension Mother , at age 47 Hypertension Several members Heart disease CAD (coronary artery disease) rheumatic fever, early onset heart disease Father , at age 78 Dementia Family/Other Lung disease Denies family history of Diabetes Clotting disorder Chronic kidney disease (CKD) Suicide Anesthesia complication Bleeding disorder Stroke Social History Smoking and tobacco status: current every day smoker cigarettes Packs smoked per day: 2 Years cigarettes smoked: 50 [ Other cigarette details: Started at age 16] Alcohol intake: never Desire information about alcohol rehabilitation?: No Counseling given: No Desire information about substance/drug rehabilitation?: No Counseling given: No Caregiver/support person: No Lives independently: Yes Household members: spouse Marital status: Current occupational status: retired Current gender identity: Female Physical Exam Narrative: EXAM NARRATIVE: On arrival CPR is in progress no spontaneous heart activity PEA on the monitor no spontaneous respirations pupils are fixed and dilated there is signs of early lividity in the posterior legs MDM - General Adult Medical Decision Making 1 hour downtime with documented PEA throughout that hour multiple rounds of ACLS protocols with no improvement on arrival here pupils are fixed and dilated. Resuscitation efforts stopped shortly after arrival once history and brief exam was completed. Discussed with patient's family.. Based on discussions with the who told me about how she was feeling last night and that they had called and discussed with Dr. Wan and her symptoms this morning highly suspicious of a pulmonary embolism however patient also has significant history of coronary artery disease. Time of 1244 Medical Records I reviewed the patient's medical records. Discharge Plan Discharge Patient Disposition: Clinical Impression: Cardiac arrest, Pulmonary embolism Condition: Stable Prescriptions: No Action fluticasone propionate 50 mcg/actuation spray,suspension 1 spray INTRANASAL DAILY PRN (Reason: Allergy Symptoms) diphenhydramine HCl [Benadryl] 25 mg capsule 25 mg PO TID PRN (Reason: Allergic Reaction) alprazolam 0.5 mg tablet 0.5 mg PO TID cyanocobalamin (vitamin B-12) 1,000 mcg capsule 1,000 mcg PO DAILY nitroglycerin [Nitrostat] 0.4 mg tablet, sublingual 0.4 mg SUBLINGUAL Q5M PRN (Reason: Chest Pain) pantoprazole 40 mg tablet,delayed release (DR/EC) 40 mg PO BID fluoxetine 40 mg capsule 60 mg PO DAILY levothyroxine 112 mcg tablet 112 mcg PO DAILY gabapentin 300 mg capsule 300 mg PO TID PRN (Reason: nerve pain) ipratropium-albuterol 0.5 mg-3 mg(2.5 mg base)/3 mL solution for nebulization 3 ml inhalation Q6H 30 Days Qty: 320 4RF metoprolol tartrate 25 mg tablet 12.5 mg PO BID 30 Days Qty: 30 5RF prednisone 2.5 mg tablet 2.5 mg PO DAILY Qty: 90 1RF Hold Instructions: Resume on 04/23/22. azithromycin 250 mg tablet 250 mg PO .COMPLEX Rx Instructions: 250 mg orally FRI, FRI, FRI; 1 tab on friday, friday, and Friday fluconazole [Diflucan] 100 mg tablet 100 mg PO DAILY PRN (Reason: Pain) codeine-guaifenesin 10-100 mg/5 mL liquid 5 ml PO Q6H PRN (Reason: cough) 14 Days Qty: 280 0RF furosemide [Lasix] 20 mg tablet 20 mg PO .qod PRN (Reason: edema/shortness of breath) Patient Comments: Dr. Rosado changed to 10 mg on Fri, Fri, Fri Anoro Ellipta 62.5-25 mcg/actuation blister with device 1 inh inhalation DAILY Qty: 60 3RF clopidogrel [Plavix] 75 mg tablet 75 mg PO DAILY Qty: 90 3RF fenofibrate nanocrystallized 48 mg tablet 48 mg PO DAILY Qty: 90 3RF magnesium oxide 400 mg magnesium tablet 400 mg PO DAILY Qty: 90 3RF potassium chloride 20 mEq/15 mL liquid 20 meq PO BID Qty: 473 2RF benzonatate 200 mg capsule 200 mg PO TID PRN (Reason: cough) Qty: 60 3RF hydrocodone-acetaminophen 7.5-325 mg tablet 1 tab PO Q4H PRN (Reason: pain) 7 Days Qty: 30 0RF ondansetron HCl [Zofran] 4 mg tablet 4 mg PO Q6H PRN (Reason: nausea and vomiting) Qty: 20 0RF cholecalciferol (vitamin D3) [Vitamin D3] 125 mcg (5,000 unit) Tablet 125 mcg PO DAILY triamcinolone acetonide 0.1 % Cream 1 applic TOPICAL DAILY PRN (Reason: unknown) nystatin 100,000 unit/gram cream See Rx Instructions .ROUTE .COMPLEX PRN (Reason: Itching) Rx Instructions: topically use as needed cyclosporine [Restasis] 0.05 % Dropperette 1 drp OPHTHALMIC (EYE) Q12H PRN (Reason: Dry Eyes) Rx Instructions: 1 drop each eye bid trazodone 150 mg tablet 150 - 300 mg PO BEDTIME PRN (Reason: Insomnia) zinc 50 mg Tablet 50 mg PO DAILY Caltrate + D3 Plus Minerals 630 mg tablet 630 mg PO DAILY albuterol sulfate 90 mcg/actuation HFA aerosol inhaler 2 inh INHALATION Q4H PRN (Reason: shortness of breath or wheezing) Qty: 18 0RF celecoxib 200 mg Capsule 200 mg PO BID 14 Days Qty: 28 0RF acetaminophen 500 mg Tablet 1,000 mg PO Q8H 14 Days Qty: 84 0RF aspirin 325 mg Tablet,Delayed Release (Dr/Ec) 325 mg PO DAILY 30 Days Qty: 30 0RF oxycodone 5 mg Tablet 5 mg PO Q4H PRN (Reason: Moderate Pain) 7 Days Qty: 30 0RF Coding Level of Care Code ED [employer]
--- NOTE | 2022-11-14 12:58 | PC.NURSE ---
MTS notified of TOD @9333. Currently on a hold awaiting release or acceptance.
== END 2022-11-14 14:57 | disposition expired ==
PROVIDERS: Emergency Provider Family Medicine
DX: I46.9 Cardiac arrest, cause unspecified (principal); I26.99 Other pulmonary embolism without acute cor pulmonale; Z96.619 Presence of unspecified artificial shoulder joint; I25.10 Atherosclerotic heart disease of native coronary artery without angina pectoris
CPT/HCPCS: 99283